=== PATIENT | female | born 1955 | race Caucasian/White ===

== ENCOUNTER 2024-10-26 15:17 | Outpatient (REF) | payer MEDICARE, SELFPAY ==
[2024-10-26 18:16] LABS: Influenza A PCR NEGATIVE (Negative); Influenza B PCR NEGATIVE (Negative); Resp Syncy Virus RNA Qual PCR NEGATIVE (Negative); SARS COV2 PCR INHOUSE NEGATIVE (Negative)
== END 2024-10-26 15:18 | disposition home or self-care (01) ==
LOC: HO.LNP 15:17
PROVIDERS: PCP Nurse Practitioner Family; Visit Provider Nurse Practitioner Family
DX: Z76.89 Persons encountering health services in other specified circumstances (principal); G47.33 Obstructive sleep apnea (adult) (pediatric); R68.89 Other general symptoms and signs; H93.13 Tinnitus, bilateral; H40.1230 Low-tension glaucoma, bilateral, stage unspecified; K45.8 Other specified abdominal hernia without obstruction or gangrene; F41.1 Generalized anxiety disorder; E66.01 Morbid (severe) obesity due to excess calories; G89.29 Other chronic pain; R09.89 Other specified symptoms and signs involving the circulatory and respiratory systems; K14.0 Glossitis; I10 Essential (primary) hypertension; K02.9 Dental caries, unspecified; R29.6 Repeated falls; Z78.0 Asymptomatic menopausal state; Z90.710 Acquired absence of both cervix and uterus; Z99.89 Dependence on other enabling machines and devices
CPT/HCPCS: 0241U; 96127; 99202

== ENCOUNTER 2024-10-26 15:17 | Outpatient (AMB) | payer MEDICARE, SELFPAY ==
--- NOTE | 2024-10-26 15:18 | MHC.PC.OV ---
Vital Signs 10/26/24 15:42 Height 5 ft 5 in Weight 259 lb 8 oz BMI 43.2 BP 136/74 Blood Pressure Location Rt brachial Position Sitting Respiration 14 Pulse 95 Pulse Source Pulse Oximeter Temp 97.5 F Temp Source Oral Pulse Oximetry (%) 95 Oxygen Delivery Method Simple Mask Intake Visit Reasons: est care/kidney issues Intake Note: new patient to establish care Optometric Technician Required: No Allergies codeine Allergy (Severe, Verified 10/26/24 15:54) Hives nickel Allergy (Severe, Verified 10/26/24 15:54) Hives Sulfa (Sulfonamide Antibiotics) Adverse Reaction (Severe, Verified 10/26/24 15:54) Hives eye drops for galucoma Allergy (Severe, Uncoded 10/26/24 15:54) Dry Eye Tobacco use date assessed: 10/26/24 Fall risk assessment: 2 + Falls in past year Last assessed Fall Risk: 10/26/24 Dental Screening Dental Screen Date: 10/26/24 Did you have a dental visit in the last 12 months?: Yes Did you have a dental problem in the last 6 months where you did not have access to dental care?: No Was dental information given to patient?: Patient has dentist HPI HPI Comments History of Present Illness Details 69 y/o F with obesity, SKYLAR on CPAP, tinnitus, CKD, generalized anxiety disorder, hypertension, migraine headaches, normal pressure glaucoma, chronic pain Health Maintenance Colon Dexa 2022 Mammo ordered today Pap Vaccines: Tdap UTD Flu 2023 Specialists: Here today to est care Located from [place] to be closer to [facility] and grandchildren Presents today w/ her No previous medical records available c/o chest congestion/flu like sx. She reported a history of chronic respiratory problems requiring the use of a CPAP machine, verified by a physician in [place] due to apnea. She recently experienced chest congestion starting around three days ago, accompanied by a productive cough and mild fever, which has since subsided. She took ibuprofen for headache relief and mucinex to alleviate congestion. The patient has a longstanding history of tinnitus, with recent exacerbation experienced over the past six months. Would like audiology referral She also reported a history of normal pressure glaucoma and has had several eye surgeries. Would like referral to environmental science technician The patient mentioned signs of umbilical hernia but has not had surgical intervention as recommendations were not pursued. Additionally, the patient faces significant dental issues that may require extraction, and has ongoing management for arthritis. Social History - Recently relocated from [place] to live near her daughter in [place]. - Previously lived in a large house; now transitioning to a smaller living situation. - Engages in minimal physical activity due to arthritis and other health challenges. - Expresses reliance on family support for technological and health management. - Reported decreased abdominal strength affecting her functional status. Exam Awake alert chronically ill appearing, NAD Sclera and conjunctiva clear bilat Nares with clear drainage, turbinates within normal limits, no sinus tenderness with palpation bilat TM intact and clear bilat MMM, glossitis, no exudate RRR LS CTAB congested cough w/o distress noted Walks w walker Discussion Notes I discussed with the patient the need for a comprehensive approach to her respiratory symptoms, considering her history of chronic respiratory issues. A viral swab was recommended to rule out influenza, COVID-19, or RSV. Information on how to access results via the patient portal was provided. Referral to an general surgery physician assistant for hearing and tinnitus evaluation was agreed upon, and we discussed the potential for hearing aids as a treatment option. I addressed her request for an environmental science technician referral considering her normal pressure glaucoma, aiming for a local option due to convenience. Concerns regarding hernia management were discussed; a surgical consult was offered for further evaluation. She declined at this time. The dental issues will be pursued with her current oral surgeon and dentist. We will await the receipt of her records from previous healthcare providers. An introduction to the patient portal was emphasized for streamlined communication and access to medical information. Plan - Proceed with viral swab testing to identify the cause of respiratory symptoms. If + for flu, please call shock absorption floor layer provider and ask for Tamiflu. - Arrange audiology referral for tinnitus evaluation and potential hearing aid fitting. - Ophthalmology referral for management of normal pressure glaucoma and post-surgical care. - Surgical consultation for assessment and management options of umbilical hernia. - Maintain use of CPAP for chronic respiratory management. - Support in dental planning provided, referral remains with the current oral healthcare providers. - Continue monitoring arthritis with current management, adjust as needed. - Encourage use of patient portal for ongoing healthcare management. b12 lozenge for glossitis Mammo ordered rto 2 weeks to review labs and cont to est care/treatment plan. please get old records. Patient was informed and verbally consented to the use of an ambient scribe for clinic note documentation during this visit. Total time spent caring for the patient today was 60 minutes. This includes time spent before the visit reviewing the chart, time spent during the visit, and time spent after the visit on documentation, reviewing laboratory results, diagnostic imaging, medications, performing a medically necessary evaluation, counseling on diagnoses, care coordination, ordering appropriate tests, ordering appropriate medications, review of tests performed by other providers, reporting test results with the patient, communication with other healthcare providers. [facility] Medical History (Updated 10/26/24 @ 16:30 [facility] Migraines Hypertension Anxiety Sleep apnea Low kidney function Normal pressure glaucoma Umbilical hernia Surgical History (Updated 10/26/24 @ 16:07 by DESHAUN Cadena) H/O eye surgery H/O: hysterectomy Previous back surgery H/O knee surgery Family History (Updated 10/26/24 @ 15:37 by Alistair Kerns MA) Brother Cancer Pancreas cancer Father Cancer Hypertension Cardiovascular disease Stented coronary artery Mother Stroke Thyroid disorder Pacemaker Cardiovascular disease Paternal Grandmother Stroke Social History (Updated 10/26/24 @ 15:33 by Alistair Kerns MA) Household Members: Spouse Both parents involved: No Caregiver staying overnight: No Housing: Apartment Are you a primary inspector health care facilities to a significant other at home: No Do you presently have visiting nurse or other home services: No 75 years or older and lives alone: No Alcohol intake: never Patient Tobacco Use Status: Never used Tobacco e-Cigarette/Vaping Use: Never Used Second Hand Smoke Exposure: No Current occupational status: retired and disabled Cognitive needs: Yes (mild dementia) Hearing needs: No Vision needs: Yes (wear glasses) Questionnaire PHQ-9 Over the last 2 weeks, how often have you been bothered by any of the following problems? 12761 - PHQ-9 Billing: Patient declined-do not bill Source: Developed by Drs. Rich Matthew, Mackenzie De La Garza, Chalo Landon and colleagues, with an educational mick from [employer] Thrive Questionnaire Date Thrive assessed: 10/26/24 I am a: Patient What is your living situation today?: I choose not to answer this question Within the past 12 months, did the food you bought not last and you didn't have the money to get more?: I choose not to answer this question Within the past 12 months, did you worry whether your food would run out before you got money to buy more?: I choose not to answer this question Do you have trouble paying for medicines?: I choose not to answer this question Do you have trouble getting transportation to medical appointments?: I choose not to answer this question Do you have trouble paying your heating and electricity bill?: I choose not to answer this question Do you have trouble taking care of your child, family member or friend?: I choose not to answer this question Do you have trouble with day-to-day activities such as bathing, preparing meals, shopping, managing finances, etc.?: I choose not to answer this question Are you currently unemployed and looking for a job?: I choose not to answer this question Are you interested in more education?: I choose not to answer this question Please select the resources that you would like help with: None Currently or been in a relationship where the following occur: I choose not to answer THRIVE Score: 0 AUDIT C Alcohol Use Questionnaire (AUDIT-C) 1. How often do you have a drink containing alcohol?: Never 3. How often do you have six or more drinks on one occasion?: Never Total Score: 0 Score Reviewed/Action Taken: Yes SAMARA-7 AMB Questionnaire SAMARA-7 Date SAMARA - 7 assessed: 10/26/24 Feeling nervous, anxious, or on edge: 0 = Not at all Not being able to stop or control worryin = Not at all Worrying too much about different things: 0 = Not at all Trouble relaxin = Not at all Being so restless that it is hard to sit still: 0 = Not at all Becoming easily annoyed or irritable: 0 = Not at all Feeling afraid as if something awful might happen: 0 = Not at all Total SAMARA-7 score (0-4 normal; 5-9 mild; 10-14 moderate; 15-21 severe): 0 Source: Developed by Drs. Rich Matthew, Mackenzie De La Garza, Chalo Landon and colleagues, with an educational mick from [employer] SAMARA-7 Assessment Billing SAMARA-7 Assessment Tool: SAMARA-7 Assessment 74351 Physical exam (Primary Care) Vital Signs: Last Vital Signs Temp 97.5 F 10/26/24 15:42 Pulse 95 10/26/24 15:42 Resp 14 10/26/24 15:42 BP 136/74 10/26/24 15:42 Pulse Ox 95 10/26/24 15:42 Oxygen Delivery Method Simple Mask 10/26/24 15:42 BMI result Body Mass Index 43.2 BMI Assessment/Plan discussion: High BMI High, discussed plan: lifestyle Tobacco/Smoking Status: Tobacco use Status Tobacco use date assessed 10/26/24 10/26/24 15:34 Patient Tobacco Use Status Never used Tobacco 10/26/24 15:34 e-Cigarette/Vaping Use Never Used 10/26/24 15:34 Currently or been in a relationship where the following occur: I choose not to answer Coding Level of Care Code New Pt Level 5 (13516) Complex EM visit Add On G2211 Diagnoses Encounter to establish care Z76.89 SKYLAR on CPAP G47.33 Flu-like symptoms R68.89 Tinnitus of both ears H93.13 Laterality: bilateral Low-tension glaucoma of both eyes, unspecified glaucoma stage H40.1230 Laterality: bilateral Glaucoma stage: stage unspecified Menopause Z78.0 S/P CLAUDIA (total abdominal hysterectomy) Z90.710 Recurrent abdominal hernia without obstruction or gangrene, unspecified hernia type K45.8 Hernia type: unspecified Recurrence: recurrent SAMARA (generalized anxiety disorder) F41.1 Morbidly obese E66.01 Other chronic pain G89.29 Chronic pain type: other chronic pain Glossitis K14.0 Primary hypertension I10 Hypertension type: primary hypertension Dental caries K02.9 Falls R29.6 Additional Codes SAMARA-7 Assessment Billing - SAMARA-7 Assessment Tool: SAMARA-7 Assessment 06717 ([id number]) Assessment & Plan Assessment & Plan (1) Encounter to establish care: Code(s): Z76.89 - Persons encountering health services in other specified circumstances Category: Medical (2) SKYLAR on CPAP: Code(s): G47.33 - Obstructive sleep apnea (adult) (pediatric) Category: Medical (3) Flu-like symptoms: Code(s): R68.89 - Other general symptoms and signs Category: Medical (4) Tinnitus: Code(s): H93.19 - Tinnitus, unspecified ear Category: Medical Qualifiers: Laterality: bilateral Qualified Code(s): H93.13 - Tinnitus, bilateral (5) Normal pressure glaucoma: Code(s): H40.1290 - Low-tension glaucoma, unspecified eye, stage unspecified Category: Medical Qualifiers: Laterality: bilateral Glaucoma stage: stage unspecified Qualified Code(s): H40.1230 - Low-tension glaucoma, bilateral, stage unspecified (6) Menopause: Code(s): Z78.0 - Asymptomatic menopausal state Category: Medical (7) S/P CLAUDIA (total abdominal hysterectomy): Code(s): Z90.710 - Acquired absence of both cervix and uterus Category: Medical (8) Abdominal hernia without obstruction and without gangrene: Code(s): K46.9 - Unspecified abdominal hernia without obstruction or gangrene Category: Medical Qualifiers: Hernia type: unspecified Recurrence: recurrent Qualified Code(s): K45.8 - Other specified abdominal hernia without obstruction or gangrene (9) SAMARA (generalized anxiety disorder): Code(s): F41.1 - Generalized anxiety disorder Category: Medical (10) Morbidly obese: Code(s): E66.01 - Morbid (severe) obesity due to excess calories Category: Medical (11) Chronic pain: Code(s): G89.29 - Other chronic pain Category: Medical Qualifiers: Chronic pain type: other chronic pain Qualified Code(s): G89.29 - Other chronic pain (12) Glossitis: Code(s): K14.0 - Glossitis Category: Medical (13) Hypertension: Code(s): I10 - Essential (primary) hypertension Category: Medical Qualifiers: Hypertension type: primary hypertension Qualified Code(s): I10 - Essential (primary) hypertension (14) Dental caries: Code(s): K02.9 - Dental caries, unspecified Category: Medical (15) Falls: Code(s): R29.6 - Repeated falls Category: Medical Plan . Orders: Orders Complete Blood Count no Diff Today Z00.00 - Encounter for general adult medical examination without abnormal findings, Z78.0 - Asymptomatic menopausal state Microalbumin, Random (w Creat) Today Z00.00 - Encounter for general adult medical examination without abnormal findings, Z78.0 - Asymptomatic menopausal state SARS-CoV2/FLU/RSV Today R09.89 - Other specified symptoms and signs involving the circulatory and respiratory systems MM tomosynthesis screening BI Today Z12.31 - Encounter for screening mammogram for malignant neoplasm of breast Comprehensive Met. Panel Today Z00.00 - Encounter for general adult medical examination without abnormal findings, Z78.0 - Asymptomatic menopausal state Hemoglobin A1c Today Z00.00 - Encounter for general adult medical examination without abnormal findings, Z78.0 - Asymptomatic menopausal state Lipid Panel Today Z00.00 - Encounter for general adult medical examination without abnormal findings, Z78.0 - Asymptomatic menopausal state TSH reflex Free T4 Today Z00.00 - Encounter for general adult medical examination without abnormal findings, Z78.0 - Asymptomatic menopausal state Vitamin D 25-OH Total Today Z00.00 - Encounter for general adult medical examination without abnormal findings, Z78.0 - Asymptomatic menopausal state Vitamin B12 and Folate Today Z00.00 - Encounter for general adult medical examination without abnormal findings, Z78.0 - Asymptomatic menopausal state Referrals Audiology Referral H93.19 - Tinnitus, unspecified ear Ophthalmology Referral H40.1290 - Low-tension glaucoma, unspecified eye, stage unspecified Patient Instructions: Patient Instructions - Follow up with viral swab results via patient portal. If + for flu, please call shock absorption floor layer provider and ask for Tamiflu. - Schedule appointments with the general surgery physician assistant and environmental science technician as advised. - Continue using CPAP as prescribed. Maintain hydration, and monitor for any worsening respiratory symptoms. - Discuss hernia management options with referred surgical specialists in the future - Coordinate dental care with current oral surgeon and dentist. - Engage with family for support in using the patient portal. Walk-In Care (Urgent Care): We Make it Easy Walk-in for urgent medical issues such as: ? Seasonal Allergies ? Insect Bites ? Cough ? Diarrhea ? Acute Asthma Attacks ? Back, Knee or Joint Pain ? Ear Infection ? Fever without a Rash ? Headaches ? Nausea ? [place] [facility], Rash or Skin Irritation ? Sore Throat ? Sports Physicals ? Vomiting Most insurances are accepted. Patients do not need to be part of the [facility] to seek care at the walk-in clinic. Locations [address], [place] [address] ? [phone] [facility] [place] provides services to ages 18 and over. Open Tuesday-Tuesday: 8 a.m. to 5 p.m. and Tuesday: 9 a.m. to 3 p.m.* *Hours may vary due to staffing availability. To confirm Walk-In Care hours in [place], please call [phone]. [address] [place] [address] ? [phone] [facility] Walk-In [facility] in [place] provides services to ages 12 and over. Open Tuesday-Tuesday: 8 a.m. to 5 p.m. Hours may vary due to staffing availability. To confirm Walk-In Care hours in [place], please call [phone]. LABORATORY SERVICES: [facility] ? Primary Location [address] [place] [address] Tuesday through Tuesday 6:00 AM ? 5:00 PM Tuesday 7:00 AM ? 11:00 AM* [phone] The [facility] is centrally located near the front entrance of the [facility] for easy outpatient access. Convenient parking is provided for outpatients. *Hours may vary due to staffing availability. To confirm Laboratory hours for any location, please call [phone]. Offsite Location For your convenience, we offer offsite laboratory draw stations at the following locations: [address] [place] [address] ? [address], [address] Tuesday through Tuesday 7:30 AM ? 1:00 PM* [phone] *Hours may vary due to staffing availability. To confirm Laboratory hours for any location, please call [phone]. [place] ? [address] Tuesday through Tuesday 6:00 AM ? 3:30 PM* Tuesday 6:30 AM ? 3 PM* [phone] *Hours may vary due to staffing availability. To confirm Laboratory hours for any location, please call [phone] [place] [address] Tuesday through Tuesday 7:30 AM ? 4:00 PM* [phone] *Hours may vary due to staffing availability. To confirm Laboratory hours for any location, please call [phone] [place] [address] Tuesday through 9:00 AM ? 4:00 PM* *Hours may vary due to staffing availability. To confirm Laboratory hours for any location, please call [phone]. Appointments are not necessary. Walk-ins are welcome. Like all the departments throughout the [facility], our Lab undergoes frequent reviews to ensure the quality and accuracy of test results, and our staff takes special pride in its status as a nationally accredited facility. Patient Portal: ONE PATIENT. ONE RECORD. BETTER CARE. [facility] has a fully integrated, cutting-edge mobile electronic health information system that has revolutionized the way we care for our patients and manage our organization. This system improves communication and coordination enabling us to provide safe, higher-quality care, and an overall positive experience for staff and patients. Our first priority, as always, is to deliver the highest quality care possible. The system is running in the background supporting that priority. This portal is for all [facility] services and practices. If you are experiencing any technical difficulties with enrolling or logging into the Patient Portal please complete the [facility] Patient Portal Technical Support Form. [facility] now offers a new secure on-line interactive tool for patients to review their health information ? Patient Portal. This interactive web portal will enable patients and their families to take an active role in their care by providing easy, secure access to their health information via the internet. The Patient Portal provides patients with instant access to their health information, including laboratory results, medications, allergies, demographic information, visit history, and more. In addition to managing their own care, parents and health care proxies with authorized consent will appreciate the ability to access the records of those individuals for whom they provide care. Please note: if you wish to gain access (Proxy) to another patient?s portal, you will be required to come to the Medical Records Department in person at [facility]. Both the patient giving proxy access and the proxy will need to provide photo identification and complete the appropriate authorization. The Patient Portal also allows track their appointments online. The [facility] Patient Portal also saves patients time by allowing them to submit updates to their demographic and contact information prior to their visits. Portal email notifications will also alert patients to any new activity on their portal, such as test results and new appointments. In order to initially enroll in the [facility] Patient Portal, you will need to enter some required information including the following: ? your [facility] Medical Record number ? your personal home email address ? name ? date of Please note: In order to enroll in the [facility] Patient Portal, we need to have your email address on file in your electronic medical record. The email address needs to be specific for one person (yourself) in order for your Portal enrollment to be successful. You can update your email address in person with our Registration staff when you are registering for a hospital visit. Otherwise, you will need to come to the Health Information Management (Medical Records) Department at [facility]. We are open from Tuesday ? Tuesday from 7:30 a.m. ? 4:30 p.m. You will be required to present a photo id. Once you have successfully enrolled in the Patient Portal, you will receive a one-time user id and password for the Portal, sent to your email address. This will allow you to log into the Patient Portal within 99 hrs and reset your own logon id and password, and define personal security questions. Once your permanent login and password have been set, you can log into the [facility] Patient Portal at any time via the blue button above or from the Portal Logon button on any page of the [facility] website. [facility] and [facility] encourage all of our patients to enroll in Patient Portal as it presents a valuable opportunity for patients and their families to actively participate in their care and stay healthy Welcome to [facility]. We look forward to working with you.
[2024-10-26 15:42] VITALS: BP 136/74; PULSE 95; RESP 14; TEMP 36.4; O2SAT 95; BMI 43.2
== END 2024-10-26 16:20 | disposition home or self-care (01) ==
PROVIDERS: PCP Nurse Practitioner Family; Visit Provider Nurse Practitioner Family
DX: H93.13 Tinnitus, bilateral (principal); Z76.89 Persons encountering health services in other specified circumstances; E66.01 Morbid (severe) obesity due to excess calories; Z68.41 Body mass index [BMI] 40.0-44.9, adult; G47.33 Obstructive sleep apnea (adult) (pediatric); R68.89 Other general symptoms and signs; H40.1230 Low-tension glaucoma, bilateral, stage unspecified; Z78.0 Asymptomatic menopausal state; Z90.710 Acquired absence of both cervix and uterus; K45.8 Other specified abdominal hernia without obstruction or gangrene; F41.1 Generalized anxiety disorder; G89.29 Other chronic pain

== ENCOUNTER 2024-11-09 09:48 | Outpatient (AMB) | payer MEDICARE, SELFPAY ==
--- NOTE | 2024-11-09 09:46 | A.OFFPC_ITS ---
Vital Signs 11/09/24 10:30 Temp 97.5 F Temp Source Oral Intake Visit Reasons: fu Allergies codeine Allergy (Severe, Verified 11/09/24 09:47) Hives nickel Allergy (Severe, Verified 11/09/24 09:47) Hives Sulfa (Sulfonamide Antibiotics) Adverse Reaction (Severe, Verified 11/09/24 09:47) Hives eye drops for galucoma Allergy (Severe, Uncoded 11/09/24 09:47) Dry Eye Medication List - Last Reconciled 11/09/24 by Isadora Michael, [employer] amoxicillin 2,000 mg PO ONCE clonazepam 0.5 mg PO TID CPAP (CPAP Machine/Device) As directed cyclobenzaprine 10 mg PO TID ergocalciferol (vitamin D2) 1,250 mcg PO QWEEK esomeprazole magnesium 40 mg PO DAILY PRN hydroxyzine HCl 25 - 50 mg PO QID PRN oxycodone 5 mg PO TID pregabalin 75 mg PO BID ramipril 10 mg PO BID sertraline 150 mg PO DAILY torsemide 30 mg PO DAILY zinc gluconate 50 mg PO Q OTHER DAY zinc sulfate 50 mg PO Q OTHER DAY Tobacco use date assessed: 10/26/24 Dental Screening Dental Screen Date: 10/26/24 HPI HPI Comments History of Present Illness Details TELEVIDEO VISIT VIA Caviar: The patient is a 69-year-old female presenting with laryngitis, productive cough, and diarrhea. Initially, the patient's symptoms were centered around the upper respiratory tract, with complaints of voice loss that frequently comes and goes. The respiratory issue was previously evaluated with a viral swab test that returned negative, although the cough was initially present, it has since worsened, producing a distinctively harsh sound. At one point, the patient's cough produced yellow sputum, and she experienced intermittent fevers peaking at 101?F. To manage the symptoms, she has been using Mucinex and attempting to maintain hydration, although she struggles to ingest sufficient fluids. A previous esophageal dilation procedure has contributed to these challenges with thick mucus production. Her symptoms showed a pattern, with respiratory symptoms initially predominant, transitioning later to gastrointestinal, characterized by notably foul-smelling diarrhea. The possibility of an infectious cause such as norovirus is pondered given exposure to her and daughter who had similar GI flu-like symptoms. needs refill on hydroxyzine Physical Exam Limited by video General: Awake, alert. No apparent distress Eyes: Sclera and conjunctiva clear bilaterally Voice wraspy Congested cough w/o distress T 97.5 Results - Upper respiratory tract swab: Negative flu covid rsv Discussion Notes I discussed with the patient the continuation of symptomatic care with Mucinex for alleviating thick mucus. As the upper respiratory infection has persisted alongside the progressive development of gastrointestinal symptoms, a prescription of azithromycin (Z-Jai) was considered appropriate to target any potential bacterial involvement despite prior negative swab results. I advised the patient on the typical course of azithromycin, detailing the multi-day dosage regimen and the pharmacokinetics where the medication remains active in the system beyond the course of tablets. We discussed the expected natural course of the cough, and I emphasized jeter warning signs that would necessitate prompt follow-up, including persistent fever or worsening symptoms. GI sx are likely unrelated and may be from norovirus. Additionally, we discussed the refill requirement for the patient's hydroxyzine, and arrangements to complete this were confirmed. Patient Instructions - Begin taking azithromycin as prescribe d: two tablets on the first day, followed by one tablet daily until completion. - Continue using Mucinex to manage mucus and cough. - Ensure adequate fluid intake; even min or improvements in hydration can be beneficial. - Monitor for any signs of worsening sym ptoms like persistent fever, or an increase in respiratory difficulty, and report them immediately. - Contact the clinic for any further med ication requests or difficulties using the patient portal. - If problems with portal access persist , communicate directly through the pharmacy. - Try to remain as hydrated as possible, although not to the point of necessitating intravenous fluids thus far. Plan The primary concerns presented by the patient included laryngitis, a progressively worsening productive cough, and diarrhea possibly linked to noroviral infection. Given the symptomatology and previous negative swab results for respiratory pathogens, an empirical course of azithromycin was chosen to address any possibly underlying bacterial component, as the presence of colored sputum and intermittent fever could suggest a superimposed bacterial infection. Management also includes continued use of Mucinex to assist with mucus clearance, alongside instructions for ensuring stable hydration. Regarding the gastrointestinal issue, the patient is advised to maintain hydration and observe for any exacerbation of symptoms, considering the differential of viral gastroenteritis. Additionally, prescriptions for hydroxyzine refills were facilitated to ensure ongoing management of concurrent conditions. The patient was counseled on early signs that would necessitate further evaluation and provided with instructions to optimize her ongoing therapeutic regimen and ensure medication access despite recent disruptions due to relocation. Patient was informed and verbally consented to the use of an ambient scribe for clinic note documentation during this visit. [facility] Medical History (Updated 11/09/24 @ 10:32 [facility] Anxiety Hypertension Low kidney function Migraines Normal pressure glaucoma Sleep apnea Umbilical hernia Surgical History (Updated 10/26/24 @ 16:07 [facility] H/O eye surgery H/O knee surgery H/O: hysterectomy Previous back surgery Family History (Updated 10/26/24 @ 15:37 by Alistair Kerns MA) Brother Cancer Pancreas cancer Father Cancer Hypertension Cardiovascular disease Stented coronary artery Mother Stroke Thyroid disorder Pacemaker Cardiovascular disease Paternal Grandmother Stroke Social History (Updated 10/26/24 @ 15:33 by Alistair Kerns MA) Household Members: Spouse Both parents involved: No Caregiver staying overnight: No Housing: Apartment Are you a primary small animal caretaker to a significant other at home: No Do you presently have visiting nurse or other home services: No 75 years or older and lives alone: No Alcohol intake: never Patient Tobacco Use Status: Never used Tobacco e-Cigarette/Vaping Use: Never Used Second Hand Smoke Exposure: No Current occupational status: retired and disabled Cognitive needs: Yes (mild dementia) Hearing needs: No Vision needs: Yes (wear glasses) Questionnaire Thrive Questionnaire Date Thrive assessed: 10/26/24 SAMARA-7 AMB Questionnaire SAMARA-7 Date SAMARA - 7 assessed: 10/26/24 Source: Developed by Drs. Rich Matthew, Mackenzie De La Garza, Chalo Landon and colleagues, with an educational mick from [employer]. Physical exam (Primary Care) Tobacco/Smoking Status: Tobacco use Status Tobacco use date assessed 10/26/24 10/26/24 15:34 Patient Tobacco Use Status Never used Tobacco 10/26/24 15:34 e-Cigarette/Vaping Use Never Used 10/26/24 15:34 Thrive Assessment: Date of Thrive Assessment Date Thrive assessed 10/26/24 10/26/24 16:30 Telehealth Telehealth Telehealth Platform: Doxim[employer] Location of provider rendering services: practice address Location of patient: address on file Patient Identification confirmed using: Name, : Yes Telehealth method: video Patient verbally consented to treatment: Yes Patient verbally consented to billing insurance company: Yes Patient informed of any privacy concerns related to visit: Yes Minutes spent on Phone/Video with Pt.: 20 Coding Level of Care Code Tele Est Pt Level 3 (02765) Complex EM visit Add On G2211 Diagnoses Acute bronchitis, unspecified organism J20.9 Bronchitis organism: unspecified organism Assessment & Plan Assessment & Plan (1) Acute bronchitis: Code(s): J20.9 - Acute bronchitis, unspecified Category: Medical Qualifiers: Bronchitis organism: unspecified organism Qualified Code(s): J20.9 - Acute bronchitis, unspecified Plan . Medications: New azithromycin For 250 mg dose pack: take 500 mg today (day 1), then 250 mg for 4 days (days 2-5) PO 5 days 6 tabs 0RF Changed From hydroxyzine HCl 25 - 50 mg PO QID PRN To hydroxyzine HCl 25 - 50 mg (1 - 2 x 25 mg) PO QID 90 days 360 tabs 2RF
[2024-11-09 10:30] VITALS: TEMP 36.4
== END 2024-11-09 17:05 | disposition home or self-care (01) ==
LOC: HO.HMCFM 09:48
PROVIDERS: PCP Nurse Practitioner Family; Visit Provider Nurse Practitioner Family
DX: J20.9 Acute bronchitis, unspecified (principal)

== ENCOUNTER → 2024-11-09 09:48 | Outpatient (BNVA) | payer MEDICARE, SELFPAY | PROVIDERS: PCP Nurse Practitioner Family; Visit Provider Nurse Practitioner Family ==

== ENCOUNTER 2024-11-14 10:58 | Outpatient (REF) | payer MEDICARE, SELFPAY ==
[2024-11-14 14:33] LABS: Hematocrit 41.8 % (37.0-47.0); Hemoglobin 13.3 g/dl (12.0-16.0); Mean Corpuscular HGB Conc 31.8 g/dl (31.0-35.0); Mean Corpuscular Hemoglobin 26.8 pg (27.0-33.0); Mean Corpuscular Volume 84.3 fL (80.0-98.0); Mean Platelet Volume 9.8 fL (9.4-12.3); Platelet Count 416 X10*3/uL (160-400); Red Blood Count 4.96 X10*6/uL (4.20-5.50); Red Cell Distribution Width 16.9 % (11.0-16.0); White Blood Count 5.8 X10*3/uL (4.8-10.8)
[2024-11-14 14:51] LABS: Estimated Average Glucose 123 mg/dL; Hemoglobin A1C 141.3441 umol/L; Hemoglobin A1c % 5.9 % (<6.0); Total Hemoglobin (HGBA1C) 3439.3901 umol/L
[2024-11-14 15:03] LABS: Alanine Aminotransferase 18 U/L (0-31); Albumin Level 3.5 g/dL (3.5-5.0); Alkaline Phosphatase 128 U/L (39-117); Anion Gap 12 (12-20); Aspartate Amino Transferase 19 U/L (5-31); Bilirubin Total 0.5 mg/dL (0.0-1.0); Blood Urea Nitrogen 14 mg/dL (9-16); Calcium 9.6 mg/dL (8.4-10.2); Carbon Dioxide 26 mmol/L (22-29); Chloride 105 mmol/L (96-108); Cholesterol 185 mg/dL (<200); Estimated Glomerular Filt Rate 59; Glucose Random 92 mg/dL (60-115); HDL Cholesterol 35 mg/dL (>40); LDL Cholesterol Calculated 128 mg/dL (<100); Potassium 3.5 mmol/L (3.3-5.1); Sodium 139 mmol/L (135-145); Total Protein 7.9 g/dL (6.5-8.0); Triglycerides 111 mg/dL (<150)
[2024-11-14 15:18] LABS: Folate 10.6 ng/mL (> or = 4.0); Vitamin B12 1630 pg/mL (200-900)
[2024-11-14 15:20] LABS: TSH reflex Free T4 1.12 uIU/mL (0.32-4.0); Vitamin D 25-OH Total 43.3 ng/mL (>30)
== END 2024-11-14 10:59 | disposition home or self-care (01) ==
LOC: HO.WFDLDS 10:58
PROVIDERS: Visit Provider Nurse Practitioner Family
DX: Z00.00 Encounter for general adult medical examination without abnormal findings (principal); Z78.0 Asymptomatic menopausal state; Z13.1 Encounter for screening for diabetes mellitus; Z13.6 Encounter for screening for cardiovascular disorders
CPT/HCPCS: 36415; 80053; 80061; 82306; 82607; 82746; 83036; 84443; 85027

== ENCOUNTER 2024-11-16 12:50 | Outpatient (REF) | payer MEDICARE, SELFPAY ==
--- OUTSIDE RECORDS SUMMARY | 2024-11-16 13:58 | XMS_ITS | Patient Health Record ---
Author Organization [facility] Physician Tanya العلي Address [address] [facility] [address]nd [place] [address] Care Team Providers Care Parks Recreation Coordinator Name Role Phone Galileo Alarcon Primary Care Provider [phone] Lauren Fragoso Unavailable [phone] Jimmie Villatoro Unavailable [phone] Angelica Bhardwaj Unavailable [phone] Reynaldo Perez Unavailable [phone] Hipolito Escobar Unavailable [phone] ALLERGIES Allergen (clinical drug ingredient) Drug/Non Drug Allergy documented on EMR Reaction Allergy Type Onset Date Status diphenhydramine Benadryl anxiety Drug Allergy Active brimonidine Brimonidine Tartrate itch Drug Allergy Active Brompheniramine Maleate palpitations Drug Allergy Active Codeine Phosphate anaphylaxis Drug Allergy Active Coumadin dizziness, nausea Drug Allergy Active tetrahydrozoline Eye Drops itching, burning Drug Allergy Active Tears Plus Runny nose Drug Allergy Active SULFA - ALLERGY fever, hives Drug Allergy Active nickel Nickel rash Allergy Active Tape Unknown Allergy Active RESULTS Component Value Reference Range Notes Urinalysis w/reflex to Micro scopic w/reflex to Culture Reviewed date:11/26/2023 04:52:30 PM Interpretation: Performing Lab: Notes/Report: Specimen URINE Color YELLOW Reference Range: YELLOW Appearance CLEAR Reference Range: CLEAR Specific Webster 1.004 <1.030 PH 7.0 5.0 - 8.0 Protein NEGATIVE Reference Range: NEGATIVE Glucose NEGATIVE Reference Range: NEGATIVE Ketones NEGATIVE Reference Range: NEGATIVE Bilirubin NEGATIVE Reference Range: NEGATIVE Blood NEGATIVE Reference Range: NEGATIVE Urobilinogen <2.0 <2.0 mg/dL Nitrite NEGATIVE Reference Range: NEGATIVE Leukocyte SMALL Reference Range: NEGATIVE WBC 5-10 0-5 RBC 0-2 0-2 Squamous Epithelial Cells 0-2 0-2 Parathyroid Hormone - Intact (PTHI) Reviewed date:11/26/2023 02:27:21 PM Interpretation: Performing Lab: Notes/Report: This analyte was performed using the Ann Marie Fracisco DXI. PTH Intact 203.0 12.0 - 88.0 PG/ML Reflexed PE2(S Prot Elect) R melany,REF 1 [facility] Reviewed date:12/01/2023 10:12:06 AM Interpretation: Performing Lab: Notes/Report: (NOTE) Electronically signed and reported by Alo Baird M.D. Performed by [facility]: [address],[place] [address] PE(S Prot Elect) Review FINALIZED Reflexed UPE(U Prot Elect) R melany,REF 1 [facility] Reviewed date:12/01/2023 10:12:13 AM Interpretation: Performing Lab: Notes/Report: (NOTE) Electronically signed and reported by Alo Baird M.D. Performed by [facility]: [address],[place] [address] UPE(U Prot Elect) Review FINALIZED Immunoglobulins, IgG,IgA,IgM (Not yet reviewed by provider) Interpretation: Performing Lab: Notes/Report: IgG 1852.4 635 - 1741 mg/dL IgA 115.3 66 - 433 mg/dL IgM 69.8 45 - 281 mg/dL Immunofixation(Immunoelectro phoresis),Serum,REF 1 [facility] (Not yet reviewed by provider) Interpretation: Performing Lab: Notes/Report: (NOTE) IgG Lambda paraprotein in the gamma region and a very faint Lambda band in the far gamma region. Serum immunofixation performed using antisera specific to IgG, IgA, IgM, [place] and Lambda. 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 Total Protein 7.6 Albumin 3.9 Alpha 1 0.4 Alpha 2 0.8 Beta 0.8 Gamma 1.7 Paraprotein 1.5 Location of Paraprotein Gamma A/G Ratio 1.1 Interpretation,PE M spike present Reviewed By Alicja Reflexed PE2(S Prot Elect) R leoniew,REF 1 [facility] (Not yet reviewed by provider) Interpretation: Performing Lab: Notes/Report: (NOTE) Electronically signed and reported by Dallas Helm M.D. Performed by [facility]: [address],[place] [address] PE(S Prot Elect) Review FINALIZED Reflexed SIF(S Immunofix) Re view,REF 1 [facility] (Not yet reviewed by provider) Interpretation: Performing Lab: Notes/Report: (NOTE) Electronically signed and reported by Dallas Helm M.D. Performed by [facility]: [address],[place] [address] SIF(S Immunofix) Review FINALIZED [place]-Lambda Free Light Andrea n w/Ratio,REF 1 [facility] (Not yet reviewed by provider) Interpretation: Performing Lab: Notes/Report: (NOTE) Serum Free Light Chain results, performed on the Binding Site Optilite (turbidimetric assay), are not absolute evidence for the presence or absence of malignant disease and the values obtained with different assay methods or kits cannot be used interchangeably. Performed by [facility]: [address],[place] [address] [place] Free Light Chains(EFF. -2019) 1.75 Lambda Free Light Chains(EFF.) 12.74 [place]/Lambda Ratio(EFF. ) 0.14 CBC - Complete Blood Count w ith Auto Diff Reviewed date:04/25/2024 09:06:11 AM Interpretation: Performing Lab: Notes/Report: WBC 6.6 4.0 - 11.0 10x3/uL RBC 5.18 3.80 - 5.10 10x6/uL Hgb 13.7 11.6 - 15.2 G/DL Hct 41.1 34.0 - 45.0 % MCV 79.3 80 - 97 FL MCH 26.5 26 - 33 PG MCHC 33.4 32 - 36 G/DL Plt 295 150 - 450 10x3/uL RDW 16.0 11.0 - 14.5 % Auto Neut 60.9 38 - 80 % Auto Lymph 25.0 15 - 49 % Auto Alcon[place] 8.9 0 - 13 % Auto Eosin 5.0 0 - 8 % Auto Baso 0.2 0 - 2 % Absolute Neut 3.99 1.52 - 8.80 10x3/uL Absolute Lymph 1.64 0.60 - 5.39 10x3/uL Absolute [place] 0.58 0.00 - 1.43 10x3/uL Absolute Eosin 0.33 0.00 - 0.88 10x3/uL Absolute Baso 0.02 0.00 - 0.22 10x3/uL CMP - Comprehensive Metaboli c Panel Reviewed date:04/25/2024 09:06:18 AM Interpretation: Performing Lab: Notes/Report: (NOTE) GFR Interpretation CKD-EPI Creatinine Equation (2020): The CKD-EPI equation was used in this calculation. It has reasonable accuracy in non-hospitalized patients thought to have CKD, regardless of diagnosis. The equation has not been validated in children (age <18 years), in women, in the elderly (age >85 years), or in some racial or ethnic subgroups. Furthermore, any of the limitations with the use of serum creatinine related to nutritional status or medication usage are not accounted for in the equation. Quantification of GFR values below 60 mL/min/1.73m2 has more clinical implications for classification of kidney function than values above this level. Please Note On October 27, 2022, the eGFR calculation was adjusted. This adjustment was required due to an identified miscalculation which resulted in a slightly lower eGFR estimation than the National Kidney Foundation's online calculator. In some instances the eGFR reported was 0-6 units lower than if calculated using the CKD-EPI Creatinine equation. Sodium 138 136 - 145 mMOL/L Potassium 3.7 3.5 - 5.1 mMOL/L Chloride 99 98 - 107 mMOL/L Carbon Dioxide 33 21 - 31 mMOL/L Glucose 117 74 - 109 MG/DL BUN 26 7 - 25 MG/DL Creatinine 1.6 0.6 - 1.2 MG/DL Calcium 9.7 8.6 - 10.3 MG/DL Albumin 4.1 3.7 - 5.3 g/dL Total Protein 8.2 6.0 - 8.3 G/DL Alk Phos 143 34 - 104 Units/L T Bilirubin 0.5 0.3 - 1.0 MG/DL AST (SGOT) 12 13 - 39 Units/L ALT (SGPT) 11 7 - 52 Units/L Estimated GFR 34 IR Consult Reviewed date:01/09/2024 10:42:54 AM Interpretation: Performing Lab: Notes/Report: Angiography Procedure KIDNEY [id number] Interventional radiology consultation 68-year-old female with chronic kidney disease stage III and an abnormal serum protein electrophoresis for kidney biopsy. Recommend ultrasound-guided percutaneous biopsy of a kidney. See full dictation and Quadra-med. Signed by Toño Damon on 12/30/2023 2:52 PM I have personally reviewed the imaging examination and agree with the resident's interpretation as written E[place], [place]OPSY, [place] [id number] Reviewed date:01/19/2024 11:39:54 AM Interpretation: Performing Lab: Notes/Report: See Below For Report [id number] FINAL DIAGNOSIS: A. 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 There is about 10% interstitial fibrosis and tubular atrophy (IFTA) by LM. There is focal periglomerular fibrosis. There is segmental mild corrugation of GBMs by EM. There are vascular changes in the form of mild hyalinosis and focal intimal proliferation with luminal narrowing ( onion skinning ) of arterioles; mild hyaliosis, mild medial thickening and mild to moderate intimal fibrosis of interlobular arteries; and moderate to severe intimal fibrosis and moderate medial thickening of large arteries. In this patient with a clinical history of hypertension, these findings are characteristic of mild to moderate arterionephrosclerosis with features of accelerated hypertension related vascular injury. In addition, there is focal acute tubular injury characterized by focal tubular epithelial flattening with loss of brush border and apical blebbing involving 20-30% of tubular profiles. In addition, there are rare isolated podocyte myelin bodies by EM. This finding may raise the possibility of Fabry disease; however, the extent and distribution of myelin bodies are not typical for Fabry disease. Other possible etiologies include drug exposure such as hydrochloroquine. In this patient with a clinical history of elevated lambda light chain, there is no evidence of dysproteinemia related injury in that there is no evidence of light chain deposition disease, light chain cast nephropathy or light chain proximal tubulopathy. Congo red stain is negative for amyloid. Of note, the extent of IFTA in this small biopsy sample available by LM containing 6 glomeruli may not be industrial sales representative of the entire kidney. Positive controls for IHC/Special Stains and negative tissue elements were both evaluated and are adequate for diagnosis. H&E quality was reviewed and is acceptable for diagnosis. Spoke with Dr. Fragoso on 01/11/2024 MICROSCOPIC EXAMINATION: LIGHT MICROSCOPY: Multiple sections are prepared including one H&E, one PAS, one Cheyenne trichrome, and one Douglas methenamine silver stained slides. - Biopsy: 5 pieces of corticomedullary junction - Total glomeruli: 6 - Globally sclerosed glomeruli: 1 Glomeruli: - Mesangium: mild increase in matrix; unremarkable cellularity - Glomerular basement membrane: no spikes; no holes; no corrugation; no double contours - Glomerular tuft and Parrish's space: no adhesion; no segmental sclerosis; no crescent; no necrosis; no endocapillary hypercellularity; no thrombi Tubules/Interstitium: - Intratubular: occasional proteinaceous and rare RBC casts; no crystals; no polarizable material - Acute tubular injury: focal tubular epithelial flattening with loss of brush border and apical blebbing involving 20-30% of tubular profiles - Tubular atrophy: proportional to interstitial fibrosis - Interstitial inflammation: mild lymphocytes in scar; no eosinophils; no neutrophils - Interstitial fibrosis: about 10% Arteries: - Arterioles: mild hyalinosis; focal intimal proliferate with luminal narrowing - Interlobular arteries: mild to moderate intimal fibrosis; mild hyalinosis; mild medial thickening - Large arteries: moderate to severe intimal fibrosis; moderate medial thickening Additional Studies: - Congo red: negative IMMUNOFLUORESCENCE MICROSCOPY: H&E and PAS stained frozen sections show 2 pieces of cortex; 1 piece of corticomedullary junction - Total glomeruli: 3 - Globally sclerosed glomeruli: 2 - Segmentally sclerosed glomeruli: 0 - Other: open glomerulus with ischemic changes and periglomerular fibrosis (Scale 0-3+) - IgG: trace linear accentuation of GBMs and TBMs - IgA: negative glomeruli; 2+ cast - IgM: negative - C3: negative glomeruli; 2+ arteriolar - C1q: negative - Albumin: linear accentuation of GBMs and TBMs - Fibrinogen: nonspecific - [place]: negative glomeruli; 2+ cast - Lambda: negative glomeruli; 2+ cast ELECTRON MICROSCOPY: Toluidine blue stained dress cap maker sections show 2 pieces of cortex - Total glomeruli: 5 - Globally sclerosed glomeruli: 0 - Segmentally sclerosed glomeruli: 0 - Other: 1 glomerulus shows ischemic change with periglomerular fibrosis One micron toluidine blue thick sections and electron microscopy thin sections are technically adequate for interpretation. Glomerular basement membrane: - Thickness: normal - Lamina lorne interna: unremarkable - Subepithelial deposits: none - Subendothelial deposits: none - Foot process effacement: about 30% - Visceral epithelial cells: focal microvillous transformation - Other: mild segmental corrugation of GBM; rare podocyte with myelin bodies Capillary loop: - Endothelial cells: segmental swollen - Reticular aggregates: none - Fibrin tactoids: none - Cellular interposition: rare - Other: rare inflammatory cells Mesangium: - Matrix: mild increase - Cellularity: unremarkable - Mesangial deposits: none Tubules/Interstitium: - Tubular basement membrane deposits: none - Interstitial collagen: mild increase INDICATIONS FOR PROCEDURE/CLINICAL HISTORY: 68-year-old woman with CKD, hypertension, sub-nephrotic proteinuria, and abnormal [place]/Lambda ratio with elevated lambda. Abnormal K[place]/Lambda; CKD IIIB; GROSS DESCRIPTION: Received from [facility] in three with formalin and transport media, labeled with the patient's name and right kidney are eight 0.1cm diameter pedraza-pink soft tissue core biopsies with an aggregate length of 6 cm. Two 0.3 cm fragments are submitted for electron microscopy. Three 0.7 cm fragments are submitted for immunofluorescence. The remainder of the specimen is submitted for light microscopy in one cassette labeled [id number] Summary of sections: A1-five pieces. Reported Date: Reviewing Pathologist's Electronic Signature: 01/12/2024 YESICA STRATTON MD Applicable only if cytogenetics or molecular diagnostics test results are included in this report: Unless otherwise noted, testing performed by [facility]- [address] [place] [address]. FDA Testing Disclaimer (Applicable only if flow cytometry and/or immunohistochemistry results are included in this report): These tests were developed and their performance characteristics determined by [facility], [address] [place] [address], [address] [place] [address]. The interpretation of the above immunohistochemistry stain or stains is guided by published results in the medical literature, provided package information from the machine stripper and by internal review of staining performance and assay validation within the immunohistochemistry laboratory. This testing has not been cleared or approved by the U.S. Food and Drug Administration (FDA). The FDA has determined that such clearance or approval is not necessary. These tests are used for clinical purposes and should not be regarded as investigational or research. Unless otherwise noted, Immunohistochemistry stains were performed at [facility], [address] [place] [address], [address], [place], [place] [address]. KIDNEY, [place], [place] [id number] Reviewed date:03/02/2024 09:17:20 AM Interpretation: Performing Lab: Notes/Report: See Below For Report [id number] FINAL DIAGNOSIS: A. 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 There is about 10% interstitial fibrosis and tubular atrophy (IFTA) by LM. There is focal periglomerular fibrosis. There is segmental mild corrugation of GBMs by EM. There are vascular changes in the form of mild hyalinosis and focal intimal proliferation with luminal narrowing ( onion skinning ) of arterioles; mild hyaliosis, mild medial thickening and mild to moderate intimal fibrosis of interlobular arteries; and moderate to severe intimal fibrosis and moderate medial thickening of large arteries. In this patient with a clinical history of hypertension, these findings are characteristic of mild to moderate arterionephrosclerosis with features of accelerated hypertension related vascular injury. In addition, there is focal acute tubular injury characterized by focal tubular epithelial flattening with loss of brush border and apical blebbing involving 20-30% of tubular profiles. In addition, there are rare isolated podocyte myelin bodies by EM. This finding may raise the possibility of Fabry disease; however, the extent and distribution of myelin bodies are not typical for Fabry disease. Other possible etiologies include drug exposure such as hydrochloroquine. In this patient with a clinical history of elevated lambda light chain, there is no evidence of dysproteinemia related injury in that there is no evidence of light chain deposition disease, light chain cast nephropathy or light chain proximal tubulopathy. Congo red stain is negative for amyloid. Of note, the extent of IFTA in this small biopsy sample available by LM containing 6 glomeruli may not be industrial sales representative of the entire kidney. Positive controls for IHC/Special Stains and negative tissue elements were both evaluated and are adequate for diagnosis. H&E quality was reviewed and is acceptable for diagnosis. Spoke with Dr. Fragoso on 01/11/2024 MICROSCOPIC EXAMINATION: LIGHT MICROSCOPY: Multiple sections are prepared including one H&E, one PAS, one Cheyenne trichrome, and one Douglas methenamine silver stained slides. - Biopsy: 5 pieces of corticomedullary junction - Total glomeruli: 6 - Globally sclerosed glomeruli: 1 Glomeruli: - Mesangium: mild increase in matrix; unremarkable cellularity - Glomerular basement membrane: no spikes; no holes; no corrugation; no double contours - Glomerular tuft and Parrish's space: no adhesion; no segmental sclerosis; no crescent; no necrosis; no endocapillary hypercellularity; no thrombi Tubules/Interstitium: - Intratubular: occasional proteinaceous and rare RBC casts; no crystals; no polarizable material - Acute tubular injury: focal tubular epithelial flattening with loss of brush border and apical blebbing involving 20-30% of tubular profiles - Tubular atrophy: proportional to interstitial fibrosis - Interstitial inflammation: mild lymphocytes in scar; no eosinophils; no neutrophils - Interstitial fibrosis: about 10% Arteries: - Arterioles: mild hyalinosis; focal intimal proliferate with luminal narrowing - Interlobular arteries: mild to moderate intimal fibrosis; mild hyalinosis; mild medial thickening - Large arteries: moderate to severe intimal fibrosis; moderate medial thickening Additional Studies: - Congo red: negative IMMUNOFLUORESCENCE MICROSCOPY: H&E and PAS stained frozen sections show 2 pieces of cortex; 1 piece of corticomedullary junction - Total glomeruli: 3 - Globally sclerosed glomeruli: 2 - Segmentally sclerosed glomeruli: 0 - Other: open glomerulus with ischemic changes and periglomerular fibrosis (Scale 0-3+) - IgG: trace linear accentuation of GBMs and TBMs - IgA: negative glomeruli; 2+ cast - IgM: negative - C3: negative glomeruli; 2+ arteriolar - C1q: negative - Albumin: linear accentuation of GBMs and TBMs - Fibrinogen: nonspecific - [place]: negative glomeruli; 2+ cast - Lambda: negative glomeruli; 2+ cast ELECTRON MICROSCOPY: Toluidine blue stained dress cap maker sections show 2 pieces of cortex - Total glomeruli: 5 - Globally sclerosed glomeruli: 0 - Segmentally sclerosed glomeruli: 0 - Other: 1 glomerulus shows ischemic change with periglomerular fibrosis One micron toluidine blue thick sections and electron microscopy thin sections are technically adequate for interpretation. Glomerular basement membrane: - Thickness: normal - Lamina lorne interna: unremarkable - Subepithelial deposits: none - Subendothelial deposits: none - Foot process effacement: about 30% - Visceral epithelial cells: focal microvillous transformation - Other: mild segmental corrugation of GBM; rare podocyte with myelin bodies Capillary loop: - Endothelial cells: segmental swollen - Reticular aggregates: none - Fibrin tactoids: none - Cellular interposition: rare - Other: rare inflammatory cells Mesangium: - Matrix: mild increase - Cellularity: unremarkable - Mesangial deposits: none Tubules/Interstitium: - Tubular basement membrane deposits: none - Interstitial collagen: mild increase INDICATIONS FOR PROCEDURE/CLINICAL HISTORY: 68-year-old woman with CKD, hypertension, sub-nephrotic proteinuria, and abnormal [place]/Lambda ratio with elevated lambda. Abnormal [place]/Lambda; CKD IIIB; GROSS DESCRIPTION: Received from [facility] in three with formalin and transport media, labeled with the patient's name and right kidney are eight 0.1cm diameter pedraza-pink soft tissue core biopsies with an aggregate length of 6 cm. Two 0.3 cm fragments are submitted for electron microscopy. Three 0.7 cm fragments are submitted for immunofluorescence. The remainder of the specimen is submitted for light microscopy in one cassette labeled [id number] Summary of sections: A1-five pieces. Reported Date: Reviewing Pathologist's Electronic Signature: 01/12/2024 YESICA STRATTON MD Applicable only if cytogenetics or molecular diagnostics test results are included in this report: Unless otherwise noted, testing performed by [facility]- [address] [place] [address]. FDA Testing Disclaimer (Applicable only if flow cytometry and/or immunohistochemistry results are included in this report): These tests were developed and their performance characteristics determined by [facility], [address] [place] [address], [place] [address]. The interpretation of the above immunohistochemistry stain or stains is guided by published results in the medical literature, provided package information from the machine stripper and by internal review of staining performance and assay validation within the immunohistochemistry laboratory. This testing has not been cleared or approved by the U.S. Food and Drug Administration (FDA). The FDA has determined that such clearance or approval is not necessary. These tests are used for clinical purposes and should not be regarded as investigational or research. Unless otherwise noted, Immunohistochemistry stains were performed at [facility], [address] [place] [address], [address], [place], [place] [address]. PATIENT CONSENT,CTG (Not yet reviewed by provider) Interpretation: Performing Lab: Notes/Report: PATIENT CONSENT,CTG cancelled BONE MARROW ASPIRATE, [id number] (Not yet reviewed by provider) Interpretation: Performing Lab: Notes/Report: See Below For Report [id number] FINAL DIAGNOSIS: Bone marrow aspirate, clot section and core biopsy, peripheral blood: - Plasma cell neoplasm, comprising less than 10% of the marrow cellularity -Otherwise adequate appearing cellularity hematopoiesis MARCELL MICROSCOPIC EXAMINATION: Complete blood count; date: 02/06/2024 Performed at [facility] WBC: 5.1 K/ul RBC #: 5.5 MIL/ul Hemoglobin: 14.3 g/dL Hematocrit: 43 % MCV: 78 fL RDW: 15.9 % Plt: 296 K/ul Neut #: 2.9 K/ul Lymph #: 1.3 K/ul Monocyte #: 0.5 K/ul Eosinophils #: 0.4 K/ul Basophils #: 0.0 K/ul Other: Peripheral Blood Smear: Quality: Adequate Red blood cells: Normocytic, normochromic Lymphocytes: Small and mature Neutrophils: Unremarkable Platelets: Adequate Aspirate: Quality: No spicules Touch Prep Differential Count% (200 cells counted): Blasts: 0 Promyelocytes: 1 Myelocytes: 19 Metamyelocytes: 12 Bands: 19 Neutrophils: 18 Monocytes: 1 Lymphocytes: 4 Eosinophils: 5 Basophils:0 Plasma cells: 1 Erythroid: 20 Core biopsy (H&E): Quality: Adequate Length evaluable marrow cavity (mm): 12 mm Cellularity (%): variable, overall 50% Myeloid:erythroid (M:E) ratio: Within normal limits IHC: CD138: Scattered interstitially as well as physiologic pattern CD71: Positive in about one third of marrow cellularity Marrow Lineages: Granulopoiesis: Normal-appearing Erythropoiesis: Normal-appearing Megakaryopoiesis: Normal-appearing Lymphocytes: Normal-appearing Plasma cells: Scattered interstitially as well as physiologic pattern Flow Cytometry: Specimen viability: 91% Marker Studies: 10B/6MM2: [place], Lambda, CD10, CD5, CD200, CD34, CD38, CD20, CD19, CD45, 6 MM2: cy-[place], cy-Lambda, CD38, CD138, CD19, CD45 Interpretation: NO clonal B-cell population detected. Lambda restricted clonal plasma cell population with dim expression of CD19. Other Studies: Karyotype: In process FISH: Myeloma panel Molecular: not performed INDICATIONS FOR PROCEDURE/CLINICAL HISTORY: Concern for myeloma GROSS DESCRIPTION: A. Royal's-Giemsa stained aspirate smears are prepared. B. Received in formalin labeled with the patient's name and bone marrow is a 1.7 x 0.2 cm cylindrical segment of bone. Entirely submitted in one pink cassette labeled [id number] Summary of sections: B1-bone following EDTA, 1 piece C. Royal's-Giemsa stained peripheral blood smears are prepared. D. Received in formalin labeled with the patient's name and bone marrow blood clot is a 2.4 x 1.5 x 0.5 cm aggregate of blood clot which is serially sectioned. Entirely submitted in two pink cassettes labeled [id number] Summary of sections: D1-3 pieces; D2-2 pieces Reported Date: Reviewing Pathologist's Electronic Signature: 02/09/2024 Yesenia CERVANTES MD, PhD Applicable only if cytogenetics or molecular diagnostics test results are included in this report: Unless otherwise noted, testing performed by [address] FDA Testing Disclaimer (Applicable only if flow cytometry and/or immunohistochemistry results are included in this report): These tests were developed and their performance characteristics determined by [place] [id number]. The interpretation of the above immunohistochemistry stain or stains is guided by published results in the medical literature, provided package information from the machine stripper and by internal review of staining performance and assay validation within the immunohistochemistry laboratory. This testing has not been cleared or approved by the U.S. Food and Drug Administration (FDA). The FDA has determined that such clearance or approval is not necessary. These tests are used for clinical purposes and should not be regarded as investigational or research. Unless otherwise noted, Immunohistochemistry stains were performed at [place] [address]. CHROMOSOME ANALYSIS (Not yet reviewed by provider) Interpretation: Performing Lab: Notes/Report: BAND LEVEL 350-450 CELLS ANALYZD 20 CELLS COUNTED 20 KARYO MADE 2 KARYO DIAG see text 46,XX[20] SUMMARY: No Evidence of Clonal Aberrations INTERPRETATION,CHROM see text A total of 20 metaphase spreads were analyzed by G-banding. No apparent clonal chromosomal aberrations were identified. The karyotype of the specimen is 46,XX, i.e., normal female karyotype. REVIEWED BY: Mary FISH REVIEW (Not yet reviewe d by provider) Interpretation: Performing Lab: Notes/Report: FISH REVIEW FINALIZED Electronically signed and reported by Love Mo, Ph.D.,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%) Negative for RB-1 (13q14) Deletion Negative for TP53 (17p13) Deletion ---- FISH Analysis on Unsorted Cells: nuc carlos eduardo(FGFR3,IGH)x2[200], (CCND1,IGH)x2[200], (IGH,MAF)x2[200], (IGH,MAFB)x2[200] SUMMARY: Negative for IGH::FGFR3 Rearrangement, t(4;14) Negative for IGH::CCND1 Rearrangement, t(11;14) Negative for IGH::MAF Rearrangement, t(14;16) Negative for IGH::MAFB Rearrangement, t(14;20) INTERP,FISH see text FISH analysis was each performed on 200 CD138+ sorted interphase cells ([employer] with the multiple myeloma (MM) panel probes ([employer]): LSI 13 (13q14) SG/LSI TP53 (17p13.1) SO Probe, LSI IGH Dual Color, Break Apart Rearrangement Probe An abnormal signal pattern with one IGH fusion signal, one isolated 5'IGH and one isolated 3'IGH signal in 20.5% (41/200, cut off: 5.1%) of interphase nuclei analyzed, indicative of IGH gene rearrangement. There was no evidence of RB-1 (13q14) or TP53 (17p13.1) deletion. The remaining multiple myeloma probes did not have a sufficient number of cells for the CD138 enrichment protocol. FISH analysis was each performed on 200 unsorted interphase cells with the following probes ([employer]): LSI FGFR3/IGH Dual Color, Dual Fusion Translocation Probe, LSI IGH/CCND1 Dual Color, Dual Fusion Translocation Probe, LSI IGH/MAF Dual Color, Dual Fusion Probe, IGH/MAFB Translocation, Dual Fusion Probe ([employer] There was no evidence of IGH::FGFR3-, IGH::CCND1-, IGH::MAF- or IGH::MAFB- specific rearrangement. FISH was developed and its performance characteristics was determined by the Cytogenetics Laboratory at [facility], [place], [place] It has not been cleared or approved by the U.S. Food and Drug Administration (FDA). The FDA has determined that such clearance or approval is not necessary. This test should not be regarded as an investigational or research analysis. The FISH results should be used in conjunction with classical cytogenetic analysis and/or clinical information. REVIEWED BY: Chely CHROMOSOME REVIEW (Not yet r eviewed by provider) Interpretation: Performing Lab: Notes/Report: CHROMOSOME REVIEW FINALIZED Electronically signed and reported by River Hernandez, Ph.D. 03/27/2024 CBC - Complete Blood Count w ith Auto Diff Reviewed date:04/25/2024 09:05:55 AM Interpretation: Performing Lab: Notes/Report: WBC 5.1 4.0 - 11.0 10x3/uL RBC 5.46 3.80 - 5.10 10x6/uL Hgb 14.3 11.6 - 15.2 G/DL Hct 42.8 34.0 - 45.0 % MCV 78.3 80 - 97 FL MCH 26.2 26 - 33 PG MCHC 33.5 32 - 36 G/DL Plt 296 150 - 450 10x3/uL RDW 15.9 11.0 - 14.5 % Auto Neut 56.0 38 - 80 % Auto Lymph 25.0 15 - 49 % Auto [place] 10.2 0 - 13 % Auto Eosin 8.6 0 - 8 % Auto Baso 0.2 0 - 2 % Absolute Neut 2.88 1.52 - 8.80 10x3/uL Absolute Lymph 1.28 0.60 - 5.39 10x3/uL Absolute [place] 0.52 0.00 - 1.43 10x3/uL Absolute Eosin 0.44 0.00 - 0.88 10x3/uL Absolute Baso 0.01 0.00 - 0.22 10x3/uL CMP - Comprehensive Metaboli c Panel Reviewed date:04/30/2024 09:36:56 AM Interpretation: Performing Lab: Notes/Report: Sodium 139 Potassium 3.4 Chloride 100 CO2 31 Glucose 120 BUN 23 Creatinine 4.1 Calcium 9.8 Total Protein 8.1 Albumin 4.1 Alk Phosphatase 156 ALT(SGPT) 12 AST(SGOT) 14 Bilirubin,Total 0.7 GFR GFR Non EGFR 32 Magnesium Level Reviewed date:04/30/2024 09:36:50 AM Interpretation: Performing Lab: Notes/Report: Magnesium 2.1 CBC - Complete Blood Count w ith Auto Diff Reviewed date:04/30/2024 09:36:43 AM Interpretation: Performing Lab: Notes/Report: WBC Count 4.4 RBC Count 4.94 Hemoglobin 13.2 Hematocrit 38.5 MCV 78.0 MCH 26.7 MCHC 34.3 Platelet Count 261 RDW 15.9 % Neutrophil 55.3 % Lymphocyte 26.5 % Monocyte 9.4 % Eosinophil 8.6 % Basophil 0.3 Absolute Neut 2.44 Absolute Lymp 1.17 Absolute [place]con[place] 0.42 Absolute Eos 0.38 Absolute Baso 0.01 CBC Review Parathyroid Hormone - Intact (PTHI) Reviewed date:04/27/2024 01:33:08 PM Interpretation: Performing Lab: Notes/Report: This analyte was performed using the [employer] DXI. PTH Intact 215.9 12.0 - 88.0 PG/ML Urine Culture Reviewed date:04/30/2024 09:07:09 AM Interpretation: Performing Lab: Notes/Report: Specimen URINE Organism No growth of clinical significance XR HIP 2 VIEWS RT Reviewed date:02/03/2024 09:48:23 AM Interpretation: Performing Lab: Notes/Report: Hip Unilateral right 2 views Right RIGHT HIP PAIN [id number] PROCEDURE: Right hip x-ray, 2 views; 1614 hours TECHNIQUE: 2 views of the right hip were obtained on 01/30/2024 COMPARISON: Right hip x-ray from 05/01/2013 CLINICAL INDICATION: Right hip pain FINDINGS: No fracture or dislocation is identified. Mild joint space narrowing with mild sclerosis of the superior and inferior acetabulum is noted suggesting mild degenerative changes. Postsurgical changes are noted from prior lumbosacral fusion. The soft tissues are unremarkable. IMPRESSION: Mild right hip osteoarthritis. [facility] US Guided Biopsy Reviewed date:02/28/2024 01:23:25 PM Interpretation: Performing Lab: Notes/Report: Kidney Biopsy N/A KIDNEY MONOCLONAL PARAPROTEINEMIA 370 [id number] Procedure: Ultrasound-guided right renal biopsy. Indication: Chronic kidney disease with progression Time: , 01/06/2024 Medications: Versed 2 mg, Fentanyl 50 mcg were administered. The risks, benefits and alternatives of the procedure were discussed in full. Written informed consent was obtained. The patient was placed in the left lateral decubitus position in a procedural timeout was called. The patient was placed on physiologic monitoring and monitored throughout the duration of the procedure by the interventional radiology nurse. Technique: The right flank was prepped with ChloraPrep and sterilely draped. 1% buffered Xylocaine was used to anesthetize the superficial and deep tissue using a 3 1/2 inch 22-gauge spinal needle using ultrasound guidance. Subsequently, using real-time ultrasound guidance a 17-gauge coaxial needle was directed into the right renal cortex. Multiple 18-gauge core biopsies were taken and placed in the appropriate fixative. The coaxial needle system was then removed and the procedure was concluded. A dry sterile dressing was placed. The patient tolerated the procedure well. Blood loss: Less than 5 cc Findings: No active bleeding or hematoma was noted on post procedure ultrasound. Impression: Successful ultrasound-guided right renal biopsy. Plan: Patient is return to [facility] in stable condition. Signed by Toño Damon on 01/06/2024 4:09 PM I have personally reviewed the imaging examination and agree with the resident's interpretation as written [facility] BMP - Basic Metabolic Panel Reviewed date:04/27/2024 01:33:08 PM Interpretation: Performing Lab: Notes/Report: (NOTE) GFR Interpretation CKD-EPI Creatinine Equation (2020): The CKD-EPI equation was used in this calculation. It has reasonable accuracy in non-hospitalized patients thought to have CKD, regardless of diagnosis. The equation has not been validated in children (age <18 years), in women, in the elderly (age >85 years), or in some racial or ethnic subgroups. Furthermore, any of the limitations with the use of serum creatinine related to nutritional status or medication usage are not accounted for in the equation. Quantification of GFR values below 60 mL/min/1.73m2 has more clinical implications for classification of kidney function than values above this level. Please Note On October 27, 2022, the eGFR calculation was adjusted. This adjustment was required due to an identified miscalculation which resulted in a slightly lower eGFR estimation than the National Kid[employer] Foundation's online calculator. In some instances the eGFR reported was 0-6 units lower than if calculated using the CKD-EPI Creatinine equation. Sodium 137 136 - 145 mMOL/L Potassium 3.7 3.5 - 5.1 mMOL/L Chloride 98 98 - 107 mMOL/L Carbon Dioxide 32 21 - 31 mMOL/L Glucose 110 74 - 109 MG/DL BUN 21 7 - 25 MG/DL Creatinine 1.6 0.6 - 1.2 MG/DL Calcium 9.4 8.6 - 10.3 MG/DL Estimated GFR 34 CBC - Complete Blood Count w ith Auto Diff Reviewed date:04/27/2024 01:33:08 PM Interpretation: Performing Lab: Notes/Report: WBC 6.7 4.0 - 11.0 10x3/uL RBC 4.99 3.80 - 5.10 10x6/uL Hgb 12.9 11.6 - 15.2 G/DL Hct 39.1 34.0 - 45.0 % MCV 78.2 80 - 97 FL MCH 25.9 26 - 33 PG MCHC 33.1 32 - 36 G/DL Plt 291 150 - 450 10x3/uL RDW 16.8 11.0 - 14.5 % Auto Neut 70.3 38 - 80 % Auto Lymph 17.2 15 - 49 % Auto [place] 8.8 0 - 13 % Auto Eosin 3.1 0 - 8 % Auto Baso 0.6 0 - 2 % Absolute Neut 4.70 1.52 - 8.80 10x3/uL Absolute Lymph 1.20 0.60 - 5.39 10x3/uL Absolute [place] 0.60 0.00 - 1.43 10x3/uL Absolute Eosin 0.20 0.00 - 0.88 10x3/uL Absolute Baso 0.00 0.00 - 0.22 10x3/uL Glycohemoglobin(A1C) Reviewed date:04/30/2024 01:28:09 PM Interpretation: Performing Lab: Notes/Report: Glycohemoglobin 6.4 4.0 - 6.0 % Iron and Iron Binding Capaci ty Reviewed date:04/27/2024 01:33:08 PM Interpretation: Performing Lab: Notes/Report: Iron 45 50 - 212 uG/dL Iron Binding Capacity 307 261 - 478 uG/dL % Iron Saturation 14.7 15 - 46 % Urine Microalbumin,Random(Ur ine Creatinine included) Reviewed date:04/30/2024 09:09:21 AM Interpretation: Performing Lab: Notes/Report: Urine Microalbumin 7.3 Urine Creatinine 97.2 Microalbumin/Creatinin e 7.5 0.0 - 29.9 MG MALB/G CREAT Urine Total Protein,Random ( 7616) Reviewed date:04/30/2024 09:08:52 AM Interpretation: Performing Lab: Notes/Report: Urine Total Protein 8.8 Urinalysis w/reflex to Micro scopic w/reflex to Culture Reviewed date:04/30/2024 09:06:32 AM Interpretation: Performing Lab: Notes/Report: (NOTE) Mucus Reference Range: 0-2+ Specimen URINE Color YELLOW Reference Range: YELLOW Appearance CLEAR Reference Range: CLEAR Specific [place] 1.012 <1.030 PH 6.0 5.0 - 8.0 Protein NEGATIVE Reference Range: NEGATIVE Glucose NEGATIVE Reference Range: NEGATIVE Ketones NEGATIVE Reference Range: NEGATIVE Bilirubin NEGATIVE Reference Range: NEGATIVE Blood NEGATIVE Reference Range: NEGATIVE Urobilinogen <2.0 <2.0 mg/dL Nitrite NEGATIVE Reference Range: NEGATIVE Leukocyte MODERATE Reference Range: NEGATIVE WBC 10-15 0-5 RBC 0-2 0-2 Squamous Epithelial Cells 0-2 0-2 Mucous 1+ Vitamin D 25 Hydroxy Reviewed date:04/27/2024 02:04:54 PM Interpretation: Performing Lab: Notes/Report: (NOTE) Effective July: Testing performed using the [employer] DXI. Recommendations for 25 Hydroxy Vitamin D: Deficient <10 ng/mL Insufficient 10-29 ng/mL Sufficient 30-100 ng/mL Upper Safety Limit >100ng/mL Vitamin D,25-Hydroxy 24.0 30 - 100 ng/mL REASON FOR REFERRAL Reason abnormal kappa-lambd a free light chain, spep Diagnosis 1 Abnormal laboratory test (R89.9) Referral Organization [facility] Referring Provider First Name [facility] Referring Provider Last Name [facility] Referring Provider Speciality Nephrology Referred Provider Specialty Hematology/O ncology Referral Priority Routine Reason abnormal kappa-lambd a free light chain, spep Diagnosis 1 Abnormal laboratory test (R89.9) Referral Organization [facility] Referring Provider First Name [facility] Referring Provider Last Name [facility] Referring Provider Speciality Nephrology Referred Provider Specialty Hematology/O ncology Referral Priority Routine MEDICATIONS Medication SIG (Take, Route, Frequency, Duration) Notes Start Date End Date Status KlonoPIN 0.5 mg 1 tablet MDD 3 Orally 3x per day as needed for 30 days [id number] attempting to taper down on klonopin 10/17/2024 Active Esomeprazole Magnesium 40 MG take 1 capsule by mouth once daily if needed for 30 days Active oxyCODONE HCl 5 mg 1 tablet as needed. MDD 4 Orally 4x daily for 30 days [id number] 10/17/2024 Active Pregabalin 75 MG 1 capsule Orally Twice a day for 90 days [id number] 10/17/2024 Active Lidocaine 4 % as directed Externally Once a day as needed PRN 01/29/2019 Active Ramipril 10 mg 1 capsule Orally 2x daily for 90 days 05/09/2015 Active Combivent Respimat 20-100 MCG/ACT 1 puff as needed Inhalation every 6 hrs for 30 days PRN 08/25/2022 Active Zoloft 100 MG 1 tablet Orally one in am 1/2 in PM for 30 days Active Zinc Sulfate 220 (50 Zn) MG 1 capsule Orally every other day for 30 days Active Multivitamin/Minerals one one by mouth once daily Active Nystatin 116982 UNIT/GM 1 application Externally Twice a day for 10 days 05/10/2024 Active Miscellaneous . as directed Dx M79.672 and M79.671 Bilateral foot orthodics for daily use for 99 days 02/16/2019 Active Ibuprofen 200 MG 1 tablet with food or milk as needed Orally Three times a day Active Probiotic - 1 capsule Orally once a day Not-Taking PreserVision AREDS 2+Multi Vit - as directed Orally Active hydrOXYzine HCl 50 MG 1 tablet as needed Orally 4 times daily for 30 days Vistiril for allergies 11/14/2023 Active Vitamin D-3 1000 UNIT 2-3 capsule Orally Once a day Active Rhopressa 0.02 % 1 drop both eyes Ophthalmic Once a day glaucoma back up Not-Taking Bion Tears 0.1-0.3 % 1drop Ophthalmic each eye four times daily Active Cefdinir 300 MG 2 tablets Orally once daily for 10 days 05/04/2024 Active Maxzide 75-50 MG Take /2-11/2 tablet Orally Once a day as needed for 90 days Not-Taking CPAP . Pressure Change apap 8-20 cm H2O with mask, heated humidifier, and 60 day compliance download dx SKYLAR QHS for Sleep G47.33 12/28/2018 Active Vitamin D3 1.25 MG (41065 UT) 1 capsule Orally once weekly for 90 04/30/2024 Active CPAP supplies - Mask, tubing, and filters . Please provide patient with 1 foot extension tubing Dx SKYLAR, G47.33 daily at bedtime for 365 days 10/24/2023 Active Donepezil HCl 5 MG 1 tablet Orally daily at bedtime Not-Taking Methylcobalamin 1000 MCG Sublingual one daily Active Torsemide 20 MG 1.5 tables Orally once daily for 30 days alternative for maxide 12/15/2022 Active Cyclobenzaprine HCl 10 mg 1 tablet as needed Orally Three times a day for 90 days Active Amoxicillin 500 MG 4 capsules Orally one hour before procedure for 1 days 05/10/2024 Active Fluconazole 150 MG 1 tablet Orally one time dose for 1 days please hold controlled until 30 days from previous (01/26) 01/20/2022 Active Cefadroxil 500 MG 1 capsule Orally every 12 hrs for 5 days 12/21/2023 Active Levocetirizine Dihydrochloride 5 MG 1 tablet in the evening Orally Once a day for 30 days PRN 08/25/2022 Active CoQ-10 100 MG as directed Orally Active Turmeric 400 MG as directed Orally Not-Taking Betamethasone Dipropionate Aug 0.05 % 1 application Externally Once a day for 30 days 12/23/2023 Active Milk Thistle 140 MG as directed Orally Not-Taking Calcium & Magnesium Carbonates not daily Active Betamethasone Valerate 0.1 % 1 application Externally Twice a day for 10 days PRN 03/25/2022 Active Potassium Chloride 20 MEQ/15ML (10%) 15 ml with food Orally Once a day for 30 day(s) 01/20/2022 Active hydrOXYzine HCl 25 MG 1-2 tablet as needed Orally 4 times daily for 20 days attempting to taper down on klonopin 10/17/2023 Active Fluconazole 150 MG 1 tablet Orally once weekly for 14 days 05/10/2024 Active Vitamin B12 1000 MCG as directed Orally Active IMMUNIZATIONS Vaccine Route Administration Date Status Comme nts BOOSTRIX (Tdap) 0.5mL IM Intramuscular 10/26/2023 Administered COVID19 MODERNA BOOSTER 50mcg/0.25mL MDV Unknown 07/29/2021 Administered COVID19 MODERNA MDV 100mcg/0.5mL preservative free Unknown 11/28/2020 Administered COVID19 MODERNA MDV 100mcg/0.5mL preservative free Unknown 12/26/2020 Administered COVID19 PEDIATRIC MODERNA BIVALENT (booster) 6MO-5Y 0.20mL Unknown 07/21/2022 Administered COVID19 PFIZER BIVALENT (booster) 30mcg/0.3mL Unknown 02/10/2022 Administered COVID19 Vaccine HISTORICAL Unknown 07/07/2023 Administered Flu Vaccine (historical) Unknown 06/23/2020 Administered Flu-Afluria (PFS) 9yrs & Up IM Intramuscular 08/02/2016 Administered Flu-Fluvirin (syringes) PF 4yrs and up IM Intramuscular 09/04/2015 Administered Flu-Fluzone (MDV) 3+ left deltoid 06/28/2011 Administered Flu-Fluzone (MDV) 3+ right deltoid 06/28/2012 Administered Flu-Fluzone (MDV) 3+ right deltoid 07/20/2013 Administered Flu-Fluzone (MDV) 3+ right deltoid 06/27/2014 Administered FLuAD 0.5mL HIGH DOSE 65+ SYRINGE IM Intramuscular 06/11/2021 Administered FLUARIX QUAD 0.5mL SYRINGE 6mos & up Unknown 06/20/2023 Administered FLULAVAL 5mL MDV 3 YRS and older IM Intramuscular 06/20/2019 Administered FLULAVAL QUAD 0.5mL MDV 6mos & up IM Intramuscular 08/16/2018 Administered FLUZONE MDV 0.5mL 36 months & up (no latex) 5mL MDV-10dose vial IM Intramuscular 08/11/2017 Administered Pneumococcal (historical) Unknown 06/23/2020 Administered PNEUMOVAX 23 (pneumococcal PPSV23) IM Intramuscular 06/23/2021 Administered PREVNAR 13 (pneumococcal PCV 13) IM Intramuscular 06/20/2019 Administered RSV (Historical) Unknown 06/11/2023 Administered Pfizer - Abrysvo SHINGRIX (varicella zoster) (historical) Unknown 06/28/2019 Administered SHINGRIX (varicella zoster) (historical) Unknown 09/13/2019 Administered Tdap Unknown 08/10/2010 Administered Zoster Unknown 06/28/2019 Administered SOCIAL HISTORY Tobacco Use: Social History Observation Description Date Details (start date - stop date) Never Smoker NA - NA Sex Assigned At : Social History Observation Description Sex Assigned At Female Tobacco Use/Smoking Question Answer Notes Smoking status: never smoked Alcohol Screen (Audit-C) Question Answer Notes Did you have a drink containing alcohol in the p ast year? No Points 0 Interpretation Negative Tobacco use other than smoking: Question Answer Notes Are you an other tobacco user? No PROBLEMS Problem Type ICD Code Onset Dates Problem Status W/U Status Risk SNOMED Code Notes Problem Monoclonal gammopathy (D47.2) Active confirmed [id number] Problem Anemia in chronic kidney disease (D63.1) Active confirmed 149321152 Problem Other hyperlipidemia (E78.4) Active confirmed Hyperlipidemia (02369015) Problem Disorder of mineral metabolism, 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) Active confirmed 26728771 Problem Generalized anxiety disorder (F41.1) Active confirmed 18037491 Problem Other chronic pain (G89.29) Active confirmed 66013690 Problem Chronic pain syndrome (G89.4) Active confirmed 903927784 Problem Hypertensive chronic kidney disease with stage 1 through stage 4 chronic kidney disease, or unspecified chronic kidney disease (I12.9) Active confirmed 82876819 Problem Low back pain (M54.5) Active confirmed Low back pain (050408703) Problem Chronic kidney disease, unspecified (N18.9) Active confirmed 06345523 Problem Dementia (F03.90) Active confirmed Dileep ntia (66035474) Problem Obstructive sleep apnea (G47.33) Active confirmed Obstructive s leep apnea (37911327) Problem Dyslipidemia (E78.5) Active confirmed 112901085 Problem Psoriasis (L40.9) Active confirmed Psor iasis (6970540) Problem Obesity (BMI 30-39.9) (E66.9) Active confirmed Obesity (971264146) Problem Oropharyngeal dysphagia (R13.12) Active confirmed 87553723 Problem Abnormal laboratory test (R89.9) Active confirmed Laboratory test result abnormal (112478210) Problem Chronic fatigue (R53.82) Active confirmed 61909450 Problem Mild cognitive impairment (G31.84) Active confirmed 296693110 Problem Glaucoma (H40.9) Active confirmed Glauc hanh (24247968) Problem Hypertensive chronic kidney disease (I12.9) Active confirmed Chronic kidn ey disease due to benign hypertension (580358755633560) Problem History of left knee replacement (Z96.652) Active confirmed 895411488 Problem 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) Active confirmed 047363216 Problem Primary hypertension (I10) Active confirmed 57183922 Problem BMI 40.0-44.9, adult (Z68.41) Active confirmed Body mass ind ex 40+ - morbidly obese (701529235) Problem Recurrent sinus infections (J32.9) Active confirmed 578114648 Problem History of anemia due to CKD (Z86.2) Active confirmed Anemia co-occurrent and due to chronic kidney disease (245882605) Problem Chronic sinusitis, unspecified location (J32.9) Active confirmed 73964256 Problem Dysphagia, unspecified type (R13.10) Active confirmed 01992903 Problem Frontal sinusitis, unspecified chronicity (J32.1) Active confirmed 82807757 Problem Hypertension, renal, stage 1-4 or unspecified chronic kidney disease (I12.9) Active confirmed Chronic kidn ey disease due to hypertension (154829276632785) 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 confirmed [id number] Problem 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) Active confirmed Disorders of wily th mitral and tricuspid valves (636624601) Problem Cognitive dysfunction (F09) Active confirmed 799341063 Problem Piriformis syndrome, left (G57.02) Active confirmed Sciatic nerve lesion (467866528) Problem Stage 2 chronic kidney disease (N18.2) Active confirmed 130026844 Problem 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) Active confirmed 49947453 Problem Piriformis syndrome of both sides (G57.03) Active confirmed Sciatic nerve lesion (238363323) Problem Stage 3 chronic kidney disease, unspecified whether stage 3a or 3b CKD (N18.30) Active confirmed 689338229 Problem Chronic Kidney Disease, Stage 3b (N18.32) Active confirmed 826333968 Problem Hx of metal allergy (Z91.09) Active confirmed 724716687 Problem Stage 3b chronic kidney disease (CKD) (N18.32) Active confirmed 501700610 VITAL SIGNS Heart Rate 54 /min 05/10/2024 Temperature 97.9 degrees Fahrenheit 12/21/2023 Oximetry 94 % 05/10/2024 Blood pressure diastolic 80 mm Hg 05/10/2024 Weight-kg 120.66 kg 05/10/2024 Height 67 in 05/10/2024 Blood pressure systolic 124 mm Hg 05/10/2024 Weight 266 lbs 05/10/2024 BMI 41.66 kg/m2 05/10/2024 PROCEDURES Procedure Date Ordered Date Performed Result Body Sit e OSTEOPATHIC MANIP TX - 5-6 [facility] INVOLVED (97412) 11/16/2023 11/16/2023 N/A OSTEOPATHIC MANIP TX - 3-4 [facility] INVOLVED (94393) 12/02/2023 12/02/2023 N/A OSTEOPATHIC MANIP TX - 3-4 [facility] INVOLVED (55271) 12/23/2023 12/23/2023 N/A OSTEOPATHIC MANIP TX - 5-6 [facility] INVOLVED (36412) 01/11/2024 01/11/2024 N/A OSTEOPATHIC MANIP TX - 3-4 [facility] INVOLVED (21148) 02/03/2024 02/03/2024 N/A OSTEOPATHIC MANIP TX - 3-4 [facility] INVOLVED (39479) 02/23/2024 02/24/2024 N/A OSTEOPATHIC MANIP TX - 3-4 [facility] INVOLVED (97696) 03/09/2024 03/09/2024 N/A OSTEOPATHIC MANIP TX - 3-4 [facility] INVOLVED (84115) 04/04/2024 04/04/2024 N/A OSTEOPATHIC MANIP TX - 3-4 B [facility] INVOLVED (59054) 05/04/2024 05/04/2024 N/A Encounters Encounter Location Date Provider Diagnosis [facility] [address] [address] 11/18[facility]2023 [facility] [address] [address] 12/05/2023 [facility] [address] [address] 12/12/2023 Lauren Fragoso Monoclonal paraproteinemia D47.2 ; Monoclonal gammopathy D47.2 and Other disorders of kidney and ureter in diseases classified elsewhere N29 [facility] [address] [address] 12/20/2023 [facility] [address] [address] 12/29/2023 Galileo Alarcon Soft tissue infectio n L08.9 [facility] [address] [address] 01/04/2024 Galileopablo Shanehemalatha [facility] [address] [address] 01/11/2024 Galileopablo Alarcon [facility] Internal Medicine [address] [address] 01/19/2024 Galileo Svitlanatotowa [facility] [address] [address] 01/19/2024 [facility] [address] [address] 01/19/[address] [address] 01/30/2024 Hipolito Valero [facility] [address] [place] [address] 02/06/2024 Galileo Alarcon [facility] [address] [address] 02/17/2024 Galileo Alarcon [facility] [address] [place] [address] 02/20/2024 Galileo Alarcon [facility] [address] [place] [address] 02/20/2024 Galileo Shanetotowa [facility] [address] [address] 02/22/2024 Galileo Alarcon [facility] [address] [place] [address] 12/22/[address] [address] 02/24/2024 Hipolito Valero [place] [facility] [address] [place] [address] 03/05/2024 Galileo Alarcon [facility] [address] [place] [address] 03/19/2024 Galileo Shanetotowa [facility] [address] [place] [address] 03/21/2024 Galileo Shanetotowa [facility] [address] [place] [address] 03/28/[address] [facility] [address] [place] [address] 03/29/2024 Reynaldo Georgemira Nephrology [facility] [address] [address] 04/20/2024 Angelica Bhardwaj Stage 3 chronic kidn ey disease, unspecified whether stage 3a or 3b CKD N18.30 ; Renal bone disease N25.0 ; Hypertension, renal, stage 1-4 or unspecified chronic kidney disease I12.9 and Anemia in chronic kidney disease D63.1 [facility] [address] [address] 04/27/2024 Galileopablo Alarcon [facility] [address] [address] 04/30/2024 Galileopablo Alarcon [facility] [address] [place] [address] 05/09/2024 Galileopablo Bhattiellkeith [facility] [address] [address] 05/25/2024 Galileopablo Alarcon [facility] [address] [address] 06/06/2024 Galileopablo Alarcon [facility] [address] [address] 07/05/2024 Galileopablo Alarcon [facility] [address] [address] 07/10/2024 Galileopablo Alarcon [facility] [address] [address] 07/23/2024 Galileopablo Alarcon [facility] [address] [address] 07/24/2024 Galileopablo Alarcon [facility] [address] [address] 08/06/2024 Galileo ellkeith [facility] [address] [address] 08/24/2024 Galileopablo Bhattiellkeith [facility] [address] [address] 09/03/2024 Galileo ellgrhemalatha [facility] [address] [address] 09/06/2024 Galileo Agnes [facility] [address] [address] 10/15/2024 Galileo Alarcon [address] [address] 05/04/2024 Reynaldo Perez Upper respiratory illness J39.9 ; Fatigue R53.83 ; Segmental and somatic dysfunction of cervical region M99.01 ; Segmental and somatic dysfunction of thoracic region M99.02 and Segmental and somatic dysfunction of lumbar region M99.03 [facility] [address] [place], [place] [id number] 09/24/2024 Jimmie Villatoro [facility] [address] [address] 04/30/2024 Angelica Bhardwaj Hypertensive chronic kidney disease with stage 1 through stage 4 chronic kidney disease, or unspecified chronic kidney disease I12.9 ; Chronic Kidney Disease, Stage 3b N18.32 ; Disorder of mineral metabolism, unspecified E83.9 ; Disorder of bone, unspecified M89.9 and Primary hypertension I10 [address] [address] 04/04/2024 Reynaldo Perez Segmental and somati c dysfunction of cervical region M99.01 ; Segmental and somatic dysfunction of rib cage M99.08 ; Segmental and somatic dysfunction of thoracic region M99.02 and Segmental and somatic dysfunction of lumbar region M99.[address] [address] 12/23/2023 Reynaldo Perez HTN (hypertension) I 10 ; Dyslipidemia E78.5 ; Spinal stenosis of lumbar region with neurogenic claudication M48.062 ; Pain in right ankle and joints of right foot M25.571 ; Segmental and somatic dysfunction of rib cage M99.08 ; Segmental and somatic dysfunction of lumbar region M99.03 ; Segmental and somatic dysfunction of cervical region M99.01 and Psoriasis L40.[address] [address] 03/09/2024 Reynaldo Perez Segmental and somati c dysfunction of cervical region M99.01 ; Segmental and somatic dysfunction of rib cage M99.08 ; Segmental and somatic dysfunction of thoracic region M99.02 and Segmental and somatic dysfunction of lumbar region M99.03 [facility] [address] [place] [address] 05/10/2024 Galileo Snellgrove Chronic pain syndrom e G89.4 ; Obstructive sleep apnea G47.33 ; Generalized anxiety disorder F41.1 ; Dyslipidemia E78.5 ; Chronic Kidney Disease, Stage 3b N18.32 ; Monoclonal gammopathy D47.2 ; Intertrigo L30.4 ; Umbilical hernia without obstruction and without gangrene K42.9 ; Stage 3b chronic kidney disease (CKD) N18.32 ; Cognitive dysfunction F09 and History of left knee replacement Z96.[address] [address] 02/23/2024 Reynaldo Perez Vitamin B 12 deficiency E53.8 ; Segmental and somatic dysfunction of cervical region M99.01 ; Segmental and somatic dysfunction of rib cage M99.08 and Segmental and somatic dysfunction of lumbar region M99.03 [facility] [address] [place] [phone] 09/18/2024 Jimmie [address] [facility] Internal Medicine [address] [address] 02/02/2024 Galileo Snellgrove Chronic pain syndrom e G89.4 ; Obstructive sleep apnea G47.33 ; Dyslipidemia E78.5 ; Mild cognitive impairment G31.84 and Stage 3b chronic kidney disease (CKD) N18.32 [facility] [address] [address] 04/30/2024 Lauren Fragoso [address] [address] 02/03/2024 Reynaldo Perez Fatigue R53.83 ; History of anemia due to CKD Z86.2 ; Segmental and somatic dysfunction of cervical region M99.01 ; Segmental and somatic dysfunction of lumbar region M99.03 and Segmental and somatic dysfunction of rib cage M99.[address] [address] 01/11/2024 Reynaldo Perez Segmental and somati c dysfunction of cervical region M99.01 ; Segmental and somatic dysfunction of rib cage M99.08 ; Segmental and somatic dysfunction of thoracic region M99.02 ; Segmental and somatic dysfunction of sacral region M99.04 ; Segmental and somatic dysfunction of lower extremity M99.06 ; Segmental and somatic dysfunction of lumbar region M99.03 and Right hip pain M25.551 [facility] [address] [address] 12/02/2023 Lauren Stewartstephanie Stage 3b chronic kidney disease (CKD) N18.32 ; Renal bone disease N25.0 ; Chronic kidney disease, unspecified N18.9 and Anemia in chronic kidney disease D63.[address] [address] 12/02/2023 Reynaldo Chin Piriformis syndrome, left G57.02 ; Segmental and somatic dysfunction of cervical region M99.01 ; Segmental and somatic dysfunction of thoracic region M99.02 ; Segmental and somatic dysfunction of lumbar region M99.03 ; HTN (hypertension) I10 ; Fatigue, unspecified type R53.83 ; Stage 3 chronic kidney disease, unspecified whether stage 3a or 3b CKD N18.30 and Mild cognitive impairment G31.[address] [facility] Internal Medicine [facility] [address] [place] [address] 12/21/2023 Galileo Snellgrove Soft tissue infectio n L08.9 and Hypertensive chronic kidney disease I12.[address] [address] 11/16/2023 Reynaldo Perez Dementia F03.90 ; Piriformis syndrome of both sides G57.03 ; Segmental and somatic dysfunction of cervical region M99.01 ; Segmental and somatic dysfunction of rib cage M99.08 ; Segmental and somatic dysfunction of thoracic region M99.02 ; Segmental and somatic dysfunction of lumbar region M99.03 and Segmental and somatic dysfunction of lower extremity M99.06 ASSESSMENTS Encounter Date Diagnosis Assessment Notes Treatment Notes Treatment Clinical Notes 11/16/2023 Dementia (ICD-10 - F03.90) 11/16/2023 Piriformis syndrome of both sides (ICD-10 - G57.03) 02/02/2024 Chronic pain syndrome (ICD-10 - G89.4) On medication, contract signed 02/02/2024 Obstructive sleep apnea (ICD-10 - G47.33) Endorses restorative sleep at this time 12/02/2023 Stage 3b chronic kidney disease (CKD) (ICD-10 - N18.32) Patient with extensive past medical history as above. Work up negative thusfar aside from M Sylvester on SPEP and [employer]. Possible MGRS? Agreed for a referral to hematology. Renal function stable as of now. 12/02/2023 Segmental and somatic dysfunction of cervical region (ICD-10 - M99.01) 12/02/2023 Piriformis syndrome, left (ICD-10 - G57.02) 12/23/2023 Dyslipidemia (ICD-10 - E78.5) 12/23/2023 HTN (hypertension) (ICD-10 - I10) 12/21/2023 Soft tissue infection (ICD-10 - L08.9) 01/11/2024 Segmental and somatic dysfunction of cervical region (ICD-10 - M99.01) 12/12/2023 Monoclonal paraproteinemia (ICD-10 - D47.2) 12/29/2023 Soft tissue infection (ICD-10 - L08.9) 01/11/2024 Segmental and somatic dysfunction of rib cage (ICD-10 - M99.08) 02/03/2024 Fatigue (ICD-10 - R53.83) 02/03/2024 History of anemia due to CKD (ICD-10 - Z86.2) 05/10/2024 Chronic pain syndrome (ICD-10 - G89.4) We have discussed the possibliyt of cutting back in the past, she has been compliant with pain contract, refills thus far. I do get concerned about polypharmacy with benzodiazepines, but she has been on both for some time 05/10/2024 Obstructive sleep apnea (ICD-10 - G47.33) reports restorativel sleep 02/23/2024 Segmental and somatic dysfunction of cervical region (ICD-10 - M99.01) 02/23/2024 Vitamin B 12 deficiency (ICD-10 - E53.8) 03/09/2024 Segmental and somatic dysfunction of cervical region (ICD-10 - M99.01) 03/09/2024 Segmental and somatic dysfunction of rib cage (ICD-10 - M99.08) 04/04/2024 Segmental and somatic dysfunction of cervical region (ICD-10 - M99.01) 04/04/2024 Segmental and somatic dysfunction of rib cage (ICD-10 - M99.08) 05/04/2024 Fatigue (ICD-10 - R53.83) 05/04/2024 Upper respiratory illness (ICD-10 - J39.9) Patient will also use TheraFlu for severe cough and cold for symptomatic relief. 04/30/2024 Hypertensive chronic kidney disease with stage 1 through stage 4 chronic kidney disease, or unspecified chronic kidney disease (ICD-10 - I12.9) Hypertensive chronic kidney disease-we will continue to monitor her kidney function continue to monitor her blood pressures. I stressed to the patient that controlling blood pressures his jeter in continuing to maintain kidney function. She was noted as stable kidney function with GFR of 34 and creatinine 1.6. 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 In the meantime as discussed in office her plan of care will consist of:1. I discussed with the patient trying to do small cardiovascular activities even though she utilizes a walker she can attempt to do very small walks around her home which can help strengthen legs in aid with circulation2. She was advised to monitor her diet and be strictly low to no salt diet 3. 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 She was educated on renal bone disease noting that kidneys help to regulate mineral specifically calcium within the blood. It was discussed with the patient that it parathyroid was appreciated at 215.9 with a vitamin-D of 24.0. Her plan of care as discussed in office will consist of:1. We will monitor status of renal bone disease with blood work specifically the can calcium, vitamin-D and phosphorus2. Following up her primary care provider to get further testing as relates to bone health including bone density scans as needed3. She will follow back up with a different provider when she moves to [place] however she was advised to call us with any questions or concerns4. I discussed with the patient that we must decrease parathyroid hormone by correcting her vitamin-D level. I noted we must begin prescription Vitamin D. 05/04/2024 Segmental and somatic dysfunction of cervical region (ICD-10 - M99.01) 04/04/2024 Segmental and somatic dysfunction of thoracic region (ICD-10 - M99.02) 03/09/2024 Segmental and somatic dysfunction of thoracic region (ICD-10 - M99.02) 05/10/2024 Generalized anxiety disorder (ICD-10 - F41.1) continue current regimen 02/23/2024 Segmental and somatic dysfunction of rib cage (ICD-10 - M99.08) 02/03/2024 Segmental and somatic dysfunction of cervical region (ICD-10 - M99.01) 12/21/2023 Hypertensive chronic kidney disease (ICD-10 - I12.9) Woulr recommend doubling rampril, will have repeat renal finction after starting 01/11/2024 Segmental and somatic dysfunction of thoracic region (ICD-10 - M99.02) 12/23/2023 Spinal stenosis of lumbar region with neurogenic claudication (ICD-10 - M48.062) 12/12/2023 Monoclonal gammopathy (ICD-10 - D47.2) 12/02/2023 Segmental and somatic dysfunction of thoracic region (ICD-10 - M99.02) 12/02/2023 Renal bone disease (ICD-10 - N25.0) ViT D below target. Continue with VitD supp. PTH within acceptable range. Follow 02/02/2024 Dyslipidemia (ICD-10 - E78.5) Discussed management of dyslipidemia with the patient, which included some of the following: Aerobic exercise 30 min 3-4x/wk; some benefit after ~6-12 mo; wt loss (2% wt loss = 6% in LDL) Diet: Decrease LDL ~13% (JUANY 2011;306:831); increase fruits/veg, decrease saturated fats & trans-fatty acids, 50% of total calories from complex carbs; AHA diet (heart.org) 11/16/2023 Segmental and somatic dysfunction of cervical region (ICD-10 - M99.01) 02/02/2024 Mild cognitive impairment (ICD-10 - G31.84) Seen at [facility], no changes for now 11/16/2023 Segmental and somatic dysfunction of rib cage (ICD-10 - M99.08) 12/02/2023 Chronic kidney disease, unspecified (ICD-10 - N18.9) 12/02/2023 Segmental and somatic dysfunction of lumbar region (ICD-10 - M99.03) 12/12/2023 Other disorders of kidney and ureter in diseases classified elsewhere (ICD-10 - N29) 12/23/2023 Pain in right ankle and joints of right foot (ICD-10 - M25.571) 01/11/2024 Segmental and somatic dysfunction of sacral region (ICD-10 - M99.04) 02/03/2024 Segmental and somatic dysfunction of lumbar region (ICD-10 - M99.03) 05/10/2024 Dyslipidemia (ICD-10 - E78.5) Discussed management of dyslipidemia with the patient, which included some of the following: Aerobic exercise 30 min 3-4x/wk; some benefit after ~6-12 mo; wt loss (2% wt loss = 6% in LDL) Diet: Decrease LDL ~13% (JUANY 2011;306:831); increase fruits/veg, decrease saturated fats & trans-fatty acids, 50% of total calories from complex carbs; AHA diet (heart.org) 02/23/2024 Segmental and somatic dysfunction of lumbar region (ICD-10 - M99.03) 03/09/2024 Segmental and somatic dysfunction of lumbar region (ICD-10 - M99.03) 04/04/2024 Segmental and somatic dysfunction of lumbar region (ICD-10 - M99.03) 05/04/2024 Segmental and somatic dysfunction of thoracic region (ICD-10 - M99.02) 04/30/2024 Disorder of bone, unspecified (ICD-10 - M89.9) 04/20/2024 Hypertension, renal, stage 1-4 or unspecified chronic kidney disease (ICD-10 - I12.9) 04/20/2024 Anemia in chronic kidney disease (ICD-10 - D63.1) 04/30/2024 Primary hypertension (ICD-10 - I10) I discussed diagnosis of primary hypertension at this time she was noted as being stable. Her plan of care will consist of:1. She advised to drink fluids specifically water2. She will continue to monitor her blood pressures where she moved [place] and will establish with a new primary care provider 3. Monitor for symptoms of heart attack including chest pain or palpitations numbness or tingling of her arms or legs headaches nausea/vomiting or dizziness if noted must report to the emergency room immediately for further evaluation. 05/04/2024 Segmental and somatic dysfunction of lumbar region (ICD-10 - M99.03) 05/10/2024 Chronic Kidney Disease, Stage 3b (ICD-10 - N18.32) stable 02/03/2024 Segmental and somatic dysfunction of rib cage (ICD-10 - M99.08) 01/11/2024 Segmental and somatic dysfunction of lower extremity (ICD-10 - M99.06) 12/23/2023 Segmental and somatic dysfunction of rib cage (ICD-10 - M99.08) 12/02/2023 HTN (hypertension) (ICD-10 - I10) 02/02/2024 Stage 3b chronic kidney disease (CKD) (ICD-10 - N18.32) Follows with nephrologybelkys for now 12/02/2023 Anemia in chronic kidney disease (ICD-10 - D63.1) Anemia of CKD:-Lab results reviewed and noted. Not currently on iron supplements. __ No indications for parenteral iron therapy or erythropoietin stimulating agent therapy per previous results. __ Will follow. Patient will require periodic monitoring of these parameters. 11/16/2023 Segmental and somatic dysfunction of thoracic region (ICD-10 - M99.02) 11/16/2023 Segmental and somatic dysfunction of lumbar region (ICD-10 - M99.03) 12/02/2023 Fatigue, unspecified type (ICD-10 - R53.83) 12/23/2023 Segmental and somatic dysfunction of lumbar region (ICD-10 - M99.03) 01/11/2024 Segmental and somatic dysfunction of lumbar region (ICD-10 - M99.03) 05/10/2024 Monoclonal gammopathy (ICD-10 - D47.2) no changes, no signs of CRAB 01/11/2024 Right hip pain (ICD-10 - M25.551) 05/10/2024 Intertrigo (ICD-10 - L30.4) so changes 12/23/2023 Segmental and somatic dysfunction of cervical region (ICD-10 - M99.01) 12/02/2023 Stage 3 chronic kidney disease, unspecified whether stage 3a or 3b CKD (ICD-10 - N18.30) 11/16/2023 Segmental and somatic dysfunction of lower extremity (ICD-10 - M99.06) 12/23/2023 Psoriasis (ICD-10 - L40.9) 12/02/2023 Mild cognitive impairment (ICD-10 - G31.84) The patient was recommended to take Lions Ayan in either a pill form or a coffee Creamer which also contains maitake, cordyceps and Lions Ayan. These can be obtained through [employer] or through [employer]. 05/10/2024 Umbilical hernia without obstruction and without gangrene (ICD-10 - K42.9) 05/10/2024 Stage 3b chronic kidney disease (CKD) (ICD-10 - N18.32) 05/10/2024 Cognitive dysfunction (ICD-10 - F09) I was concerned about possible polypharmacy, which we have discussed, she did go to cognitive clinical at , [facility] 05/10/2024 History of left knee replacement (ICD-10 - Z96.652) 12/02/2023 Other Discussed with the patient in details regarding the plan as outlined above. All their questions and concerns were addressed and answered, patient is willing to follow accordingly. Patient was strongly advised to call the office at any time for any concerns or inquiries prior to his next scheduled follow up. 02/02/2024 Other Discussed with the patient in details regarding the plan as outlined. All their questions and concerns were addressed and answered, patient understands and agrees with plan and is willing to follow accordingly. Patient was strongly advised to call the office at any time for any concerns or inquiries. I have reviewed/verified any medication section, PFSH, ROS notation(s) supplementing and/or confirming this information today , which has been recorded in this clinical note. 12/21/2023 Other Discussed with the patient in details regarding the plan as outlined. All their questions and concerns were addressed and answered, patient understands and agrees with plan and is willing to follow accordingly. Patient was strongly advised to call the office at any time for any concerns or inquiries. I have reviewed/verified any medication section, PFSH, ROS notation(s) supplementing and/or confirming this information today , which has been recorded in this clinical note. 05/10/2024 Other Discussed with the patient in details regarding the plan as outlined. All their questions and concerns were addressed and answered, patient understands and agrees with plan and is willing to follow accordingly. Patient was strongly advised to call the office at any time for any concerns or inquiries. I have reviewed/verified any medication section, PFSH, ROS notation(s) supplementing and/or confirming this information today , which has been recorded in this clinical note. PLAN OF TREATMENT Pending Test Test Name Order Date CMP - Comprehensive Metabolic Panel 06/2021 Ferritin Level 12/23/2021 Immunoglobulins, IgG,IgA,IgM 12/06/2023 Iron and Iron Binding Capacity Lipid Profile(Tgl,Chol,HDL,LDL Calculate d, Ratios) 02/12/2021 Urine Microalbumin,Random(Urine Creatini ne included) 12/23/2021 Parathyroid Hormone - Intact(PTHI) 06/11 RFP - Renal Function Panel(RFP)(Alb,Phos ,Ca,Na,K,Cl,Co2,Glu,BUN,Crea) 03/17/2023 RFP - Renal Function Panel(RFP)(Alb,Phos ,Ca,Na,K,Cl,Co2,Glu,BUN,Crea) 01/24/2023 Miscellaneous Lab Test 10/20/2021 Miscellaneous Lab Test 12/23/2021 XR BARIUM SWALLOW 09/10/2021 XR CHEST 2 VIEWS PA/LAT 06/30/2023 CT SINUSES W/O CONTRAST 10/06/2020 Bullous Pemphigoid (BP) 180 IgG 09/10/20 21 Bullous Pemphigoid (BP) 230 IgG 09/10/20 21 Cardiology ECG - Routine w12 Leads 07/15 MAMMO SCREENING DIGITAL AILYN (Ultrasound if Needed) 02/16/2017 MAMMO SCREENING DIGITAL AILYN (Ultrasound if Needed) 09/22/2020 PATIENT CONSENT,CTG 02/06/2024 BONE MARROW ASPIRATE, 01557 02/06/2024 CHROMOSOME ANALYSIS 02/06/2024 FISH REVIEW 02/06/2024 FISH,CYTOGENETICS 02/06/2024 CHROMOSOME REVIEW 02/06/2024 Immunofixation(Immunoelectrophoresis),Se rum,REF 1 [facility] 12/06/2023 Protein Electrophoresis,Serum,REF 1 [facility] 12/06/2023 Reflexed PE2(S Prot Elect) Review,REF 1 [facility] 12/06/2023 Reflexed SIF(S Immunofix) Review,REF 1 [facility] 12/06/2023 Spirometry 06/30/2023 [place]-Lambda Free Light Chain w/Ratio,RE F 1 [facility] 12/06/2023 US Renal 06/01/2022 Future Test Test Name Order Date CA 19.9 09/23/2020 Lipid Profile(Tgl,Chol,HDL,LDL Calculate d, Ratios) 01/19/2021 BMP - Basic Metabolic Panel 11/17/2021 Lipid Profile(Tgl,Chol,HDL,LDL Calculate d, Ratios) 01/18/2022 BMP - Basic Metabolic Panel 02/03/2022 BMP - Basic Metabolic Panel 12/29/2022 Insurance Providers Payer Name Payer Address Payer Phone Subscriber Number Group Number Insured Name Patient Relationship to Insured Coverage Start Date Coverage End Date MEDICARE BLUE O [address] [address] [place] [address] [id number] ELLEN BEARD Self - patient is the insured 4 MEDICATIONS ADMINISTERED Medication Instructions Date of Administration Dosage Notes Cyanocobalamin 02/03/2024 1000 ug Cyanocobalamin 02/23/2024 1000 ug Cyanocobalamin 05/04/2024 1000 ug MEDICAL (GENERAL) HISTORY Medical History History ICD Code Armando allergy HTN: '. Dyazide. Systemic Inflammatio n , edema Anxiety: severe, since childhood. Depres yossi. MSK: diffuse OA. spinal stenosis (Dr. Dale jwa). s/p multiple surgeries Hyperlipidemia: +fam hx cad. statins cau se swelling SKYLAR: CPAP Allergic Rhinitis Glucose intolerance: 2013 Glaucoma Fam hx pancreatic ca: screening with Ca- 19-9. Diverticulosis of colon K57.30 Low back pain M54.5 Surgical History Surgery Date(Month/Year) biopsy of kidney extraction 4 wisdom teeth 1971 D&C 2008 Hysterectomy LAVH-BSO with TVT. Benign p athology 08/2010 Right TKR 09/27/2011 L4-L5 cage and rods 09/04/12 L-[address] Verdin 02/06/14 Bilateral glaucoma procedures 2014 T10-S1 posterior spinal fusion (miguel yamel tanner and replacement) 09/16 LT total knee replacement -- Josh Hospitalization History Reason Date(Month/Year) surgeries
[2024-11-16 14:58] LABS: Creatinine Urine 158.06 mg/dL; Microalbum/Creatinine Ratio Ur 11.3 ug/mg cr (<30)
== END 2024-11-16 12:51 | disposition home or self-care (01) ==
LOC: HO.LNP 12:50
PROVIDERS: PCP Nurse Practitioner Family; Visit Provider Nurse Practitioner Family
DX: Z00.00 Encounter for general adult medical examination without abnormal findings (principal); Z78.0 Asymptomatic menopausal state; F03.A4 Unspecified dementia, mild, with anxiety; R73.03 Prediabetes; E78.2 Mixed hyperlipidemia; F41.1 Generalized anxiety disorder; K14.0 Glossitis; I73.9 Peripheral vascular disease, unspecified; K21.9 Gastro-esophageal reflux disease without esophagitis; G89.29 Other chronic pain; I12.9 Hypertensive chronic kidney disease with stage 1 through stage 4 chronic kidney disease, or unspecified chronic kidney disease; N18.31 Chronic kidney disease, stage 3a; Z91.09 Other allergy status, other than to drugs and biological substances; Z87.19 Personal history of other diseases of the digestive system
CPT/HCPCS: 82043; 82570; 96127; 99212

== ENCOUNTER 2024-11-16 12:50 | Outpatient (AMB) | payer MEDICARE, SELFPAY ==
--- NOTE | 2024-11-16 13:10 | MHC.PC.OV ---
Vital Signs 11/16/24 13:15 Height 5 ft 5 in Weight 247 lb 4 oz BMI 41.1 BP 138/82 Blood Pressure Location Lt brachial Position Sitting Respiration 13 Pulse 91 Pulse Source Pulse Oximeter Temp 97.9 F Temp Source Oral Pulse Oximetry (%) 96 Oxygen Delivery Method Room Air Intake Visit Reasons: 2-3 WEEKS 30 MIN FU LAB, Intake Note: follow up on labs, patient also needs refill on narcotics. Vehicle Trimmer Required: No Allergies codeine Allergy (Severe, Verified 11/16/24 13:11) Hives nickel Allergy (Severe, Verified 11/16/24 13:11) Hives Sulfa (Sulfonamide Antibiotics) Adverse Reaction (Severe, Verified 11/16/24 13:11) Hives eye drops for galucoma Allergy (Severe, Uncoded 11/09/24 09:47) Dry Eye Medication List - Last Reconciled 11/16/24 by Isadora Michael, GIANT TIRE REPAIRER- amoxicillin 2,000 mg PO ONCE clonazepam 0.5 mg PO TID CPAP (CPAP Machine/Device) As directed cyclobenzaprine 10 mg PO TID ergocalciferol (vitamin D2) 1,250 mcg PO QWEEK esomeprazole magnesium 40 mg PO DAILY PRN hydroxyzine HCl 25 - 50 mg (1 - 2 x 25 mg) PO QID 90 days oxycodone 5 mg PO TID pregabalin 75 mg PO BID ramipril 10 mg PO BID sertraline 150 mg PO DAILY torsemide 30 mg PO DAILY zinc gluconate 50 mg PO Q OTHER DAY zinc sulfate 50 mg PO Q OTHER DAY Tobacco use date assessed: 11/16/24 Last assessed Fall Risk: 11/16/24 Dental Screening Dental Screen Date: 11/16/24 Did you have a dental visit in the last 12 months?: No Did you have a dental problem in the last 6 months where you did not have access to dental care?: No Was dental information given to patient?: Patient has dentist HPI HPI Comments History of Present Illness Details 69 y/o F with obesity, SKYLAR on CPAP, tinnitus, CKD 3a, generalized anxiety disorder, hypertension, migraine headaches, normal pressure glaucoma, chronic pain, hx of esophageal stricture, prediabetes, gERD, PVD Social: to [place], lives w/ dtr. Retired.Walks w/ walker Health Maintenance Colon age 65 repeat 10 years Dexa 2022, repeat ordered today Mammo ordered Pap Vaccines: Tdap UTD Flu 2023 Specialists: Debby Alvarez CPAP supplier The patient is a 69-year-old female presenting with chronic conditions for a routine follow-up. - was sick w/ URI. completed Zpak. Feeling better but not back to baseline. - Dementia: Mild dementia is present with associated cognitive decline. Disrupted sleep pattern, up most of the night, sleeps most of the day. - Recurrent nausea due to esophageal dysfunction, but no obstruction currently. Nausea impacts diet. Declines GI f/u at this time - Chronic weakness and exhaustion noted, which is worsening from a baseline. - Anemia is present but manageable for now. - CKD requires ongoing management for stable kidney function. - Hypertension needs consistent follow-up to ensure stability. - sores on arms and legs, relates to nickel allergy; discoloration of feet w sense of them being cold comes and goes for years. Chronic back pain - on oxycodone 5mg po TID; managed by PCP in [place]. Requesting refill. Uses APAP and sparing NSAID to help pain On clonazepam PRn anxiety, reqeuesting refill. Man[place]. Here today for provider monitoring for Oxycodone which is being prescribed for chronic back pain. Today during the visit the following was reviewed: Screened for risk of opioid misuse using a validated screening tool. Receive, review, and sign an approved [facility] Agreement and Informed Consent for Receiving Controlled Substances, which should be stored in the EMR. 11/16/24 Non-pharmacologic and non-opioid pharmacologic options should be used as a first line for chronic pain unless otherwise contraindicated & in conjunction with Reviewed side effects and discuss the risks of addiction and overdose with all patients on chronic opioid therapy. Counseled patient regarding safe storage and disposal of medications. Prescribing intranasal naloxone (Narcan) rescue kits to patients if appropriate. Prescriptions should be limited to 28-day supplies unless mandated otherwise by insurance. Renewals should not be given on evenings, holidays, or weekends. Regular clinical reassessment of pain, functional goals, treatment plan, and adherence. Understand that pill counts and/or random toxicology screens (minimum yearly) are all part of a standard [facility] protocol for care. More frequent monitoring is appropriate for monitoring of symptoms or concerns of misuse. Irregular findings should be addressed with the patient and documented in the EMR with the appropriate clinical and/or administrative response. Signs of misuse: N COURTESY BOOTH CASHIER reviewed: Y Contract up to date: 11/16/24 Random pill count done: NA UTox done: NA Next appt: 8 weeks Results: 11/14/24 low ANC to 26, high RDW 16.9 , platelet count 416 otherwise normal CBC, normal lytes, BUN 14, creatinine 0.94 EGFR 59 hemoglobin A1c 5.9%, normal calcium and LFTs, mild elevation in alk phos 128 LDL 128, HDL 35, total cholesterol 180 triglycerides 111, B12 1630 normal vitamin-D thyroid and folate, urine micro/alb WNL Physical Exam Awake alert chronically ill appearing, NAD Sclera and conjunctiva clear bilat RRR LS CTAB BLE nonpitting edema, chronic vascular appearing discoloration with sores w/o infection, (repotrs related to nickel allerg- these areas area also on her upper legs and bilat arms), decrease DP bilat, hairless. Walks w walker Alert to person and place, forget details, repeats self, takes notes Discussion Notes During today's visit, I discussed the patient's ongoing nausea and weakness likely linked to esophageal dysfunction and nutritional intake. The importance of monitoring anemia and its potential impact on the patient's energy levels was explained. I addressed the necessity of maintaining CKD management and the benefits of potentially integrating exercise post-move to counteract weakness. There's consideration for a vascular assessment on the lower extremities. The need for follow-up appointments, regular laboratory assessments, and medication management, particularly concerning analgesics, was reinforced. Assessment and Plan 69-year-old female with history of mild dementia, CKD, essential hypertension, and generalized anxiety disorder presenting for routine follow-up. Anemia and emerging symptoms of nausea and weakness contribute to complex management needs. Therapeutic focus involves stable CKD medication management, addressing acute dietary implications on energy levels, and examining potential vascular issues in the lower extremities. Routine monitoring and medications are essential in managing these interconnected health issues. 1. Dementia Monitoring and support for cognitive impact, promoting daily function strategies. Recommend elder services for in home assessment of needs. 2. Anemia - mild Ensure dietary improvements, follow-up on lab results. 3. Esophageal Dysfunction Symptom observation, consider dietary adaptations and GI consultation if needed. 4. Chronic Pain Disorder Use of analgesics with a safety contract for appropriate usage. Get RMV form to complete for parking. 5. Generalized Anxiety Disorder Assess symptoms and adjust management as needed. cont current meds, refill on clonazepam sent. 6. Nausea Dietary assessment and intervention; address medication needs if discomfort persists. 7. Chronic Kidney Disease Ckd Regular renal function follow-up, medication management guided by results. 8. Essential Hypertension Maintain blood pressure control via current therapy, ensure regular monitoring. 9: HLD - declined statin, will trial citrus bergomot. 10: PVD refer to vascular Patient Instructions - Continue with prescribed medications and monitor their effects. - Ensure dietary intake is sufficient, especially considering recent nausea. - Follow-up on laboratory results as scheduled. - Pay attention to blood pressure readings at home. - Monitor any changes in symptoms of chronic conditions. - Schedule upcoming appointments for routine and specialist follow-up as discussed. Consent During this visit, consent was obtained for the ongoing use of analgesic medications, under a structured agreement for safety and compliance. The risks, benefits, and necessity for regular adherence to the contract stipulations were discussed thoroughly. The patient acknowledged understanding and agreed to the conditions set forth for medication use. Patient was informed and verbally consented to the use of an ambient scribe for clinic note documentation during this visit. Total time spent caring for the patient today was 60 minutes. This includes time spent before the visit reviewing the chart, time spent during the visit, and time spent after the visit on documentation, reviewing laboratory results, diagnostic imaging, medications, performing a medically necessary evaluation, counseling on diagnoses, care coordination, ordering appropriate tests, ordering appropriate medications, review of tests performed by other providers, reporting test results with the patient, communication with other healthcare providers. [facility] Medical History (Updated 11/16/24 @ 15:42 by DAVE Cadena-FAMILIA) Anxiety Hypertension Low kidney function Migraines Normal pressure glaucoma Sleep apnea Umbilical hernia Surgical History (Updated 10/26/24 @ 16:07 by DAVE Cadena-FAMILIA) H/O eye surgery H/O knee surgery H/O: hysterectomy Previous back surgery Family History (Updated 10/26/24 @ 15:37 by Alistair Kerns MA) Brother Cancer Pancreas cancer Father Cancer Hypertension Cardiovascular disease Stented coronary artery Mother Stroke Thyroid disorder Pacemaker Cardiovascular disease Paternal Grandmother Stroke Social History (Updated 10/26/24 @ 15:33 by Alistair Kerns MA) Household Members: Spouse Both parents involved: No Caregiver staying overnight: No Housing: Apartment Are you a primary career manager to a significant other at home: No Do you presently have visiting nurse or other home services: No 75 years or older and lives alone: No Alcohol intake: never Patient Tobacco Use Status: Never used Tobacco e-Cigarette/Vaping Use: Never Used Second Hand Smoke Exposure: No service: No Current occupational status: retired and disabled Cognitive needs: Yes (mild dementia) Hearing needs: No Vision needs: Yes (wear glasses) Questionnaire PHQ-9 Over the last 2 weeks, how often have you been bothered by any of the following problems? 1. Little interest or pleasure in doing things: more than half the days 2. Feeling down, depressed, or hopeless: several days 3. Trouble falling or staying asleep, or sleeping too much: more than half the days 4. Feeling tired or having little energy: more than half the days 5. Poor appetite or overeating: more than half the days 6. Feeling bad about yourself - or that you are a failure or have let yourself or your family down: several days 7. Trouble concentrating on things, such as reading the newspaper or watching television: several days 8. Moving or speaking so slowly that other people could have noticed. Or the opposite - being so fidgety or restless that you have been moving around a lot more than usual: more than half the days 9. Thoughts that you would be better off or of hurting yourself in some way: not at all Total score: 13 Depression Screening Interpretation: Positive Depression Screening Follow-up: Existing condition Depression Screening Done: Yes 38881 - PHQ-9 Billing: Yes Source: Developed by Drs. Rich Matthew, Mackenzie De La Garza, Chalo Landon and colleagues, with an educational mick from [employer]. Thrive Questionnaire Date Thrive assessed: 11/16/24 I am a: Patient What is your living situation today?: I have a steady place to live Within the past 12 months, did the food you bought not last and you didn't have the money to get more?: Never true Within the past 12 months, did you worry whether your food would run out before you got money to buy more?: Never true Do you have trouble paying for medicines?: No Do you have trouble getting transportation to medical appointments?: No Do you have trouble paying your heating and electricity bill?: No Do you have trouble taking care of your child, family member or friend?: No Do you have trouble with day-to-day activities such as bathing, preparing meals, shopping, managing finances, etc.?: Yes Are you currently unemployed and looking for a job?: No Are you interested in more education?: No Please select the resources that you would like help with: Care for elder or disabled Currently or been in a relationship where the following occur: No concerns reported THRIVE Score: 0 AUDIT C Alcohol Use Questionnaire (AUDIT-C) 1. How often do you have a drink containing alcohol?: Never Total Score: 0 Score Reviewed/Action Taken: Yes SAMARA-7 AMB Questionnaire SAMARA-7 Date SAMARA - 7 assessed: 11/16/24 Feeling nervous, anxious, or on edge: 1 = Several days Not being able to stop or control worryin = Several days Worrying too much about different things: 0 = Not at all Trouble relaxin = Not at all Being so restless that it is hard to sit still: 0 = Not at all Becoming easily annoyed or irritable: 1 = Several days Feeling afraid as if something awful might happen: 0 = Not at all Total SAMARA-7 score (0-4 normal; 5-9 mild; 10-14 moderate; 15-21 severe): 3 Source: Developed by Drs. Rich Matthew, Mackenzie De La Garza, Chalo Landon and colleagues, with an educational mick from [employer]. SAMARA-7 Assessment Billing SAMARA-7 Assessment Tool: SAMARA-7 Assessment 00674 Physical exam (Primary Care) Vital Signs: Last Vital Signs Temp 97.9 F 11/16/24 13:15 Pulse 91 11/16/24 13:15 Resp 13 11/16/24 13:15 BP 138/82 11/16/24 13:15 Pulse Ox 96 11/16/24 13:15 Oxygen Delivery Method Room Air 11/16/24 13:15 BMI result Body Mass Index 41.1 BMI Assessment/Plan discussion: High BMI High, discussed plan: lifestyle Tobacco/Smoking Status: Tobacco use Status Tobacco use date assessed 11/16/24 11/16/24 13:13 Patient Tobacco Use Status Never used Tobacco 11/16/24 13:13 e-Cigarette/Vaping Use Never Used 11/16/24 13:13 PHQ-9: PHQ-9 Score PHQ-9: Total score 13 11/16/24 14:02 Depression Screening Interpretation: Positive Depression Screening Follow-up: Existing condition Thrive Assessment: Date of Thrive Assessment Date Thrive assessed 11/16/24 11/16/24 13:13 Currently or been in a relationship where the following occur: No concerns reported Coding Level of Care Code Est Pt Level 5 (30601) Complex EM visit Add On G2211 Diagnoses Mild dementia with anxiety, unspecified dementia type F03.A4 Dementia behavioral or psychological symptom: with anxiety Dementia severity: mild Dementia type: unspecified type Prediabetes R73.03 Mixed hyperlipidemia E78.2 Hyperlipidemia type: mixed hyperlipidemia SAMARA (generalized anxiety disorder) F41.1 Glossitis K14.0 Primary hypertension I10 Hypertension type: primary hypertension PVD (peripheral vascular disease) I73.9 Gastroesophageal reflux disease without esophagitis K21.9 Esophagitis presence: without esophagitis Other chronic pain G89.29 Chronic pain type: other chronic pain Nickel allergy Z91.09 Stage 3a chronic kidney disease N18.31 Chronic kidney disease stage 3 subtype: stage 3a (GFR 45-59) History of esophageal stricture Z87.19 Menopause Z78.0 Additional Codes SAMARA-7 Assessment Billing - SAMARA-7 Assessment Tool: SAMARA-7 Assessment 48193 ([id number]) PHQ-9 - 69848 - PHQ-9 Billing: Yes ([id number]) Assessment & Plan Assessment & Plan (1) Dementia: Code(s): F03.90 - Unspecified dementia, unspecified severity, without behavioral disturbance, psychotic disturbance, mood disturbance, and anxiety Category: Medical Qualifiers: Dementia behavioral or psychological symptom: with anxiety Dementia severity: mild Dementia type: unspecified type Qualified Code(s): F03.A4 - Unspecified dementia, mild, with anxiety (2) Prediabetes: Code(s): R73.03 - Prediabetes Category: Medical (3) Hyperlipidemia: Code(s): E78.5 - Hyperlipidemia, unspecified Category: Medical Qualifiers: Hyperlipidemia type: mixed hyperlipidemia Qualified Code(s): E78.2 - Mixed hyperlipidemia (4) SAMARA (generalized anxiety disorder): Code(s): F41.1 - Generalized anxiety disorder Category: Medical (5) Glossitis: Code(s): K14.0 - Glossitis Category: Medical (6) Hypertension: Code(s): I10 - Essential (primary) hypertension Category: Medical Qualifiers: Hypertension type: primary hypertension Qualified Code(s): I10 - Essential (primary) hypertension (7) PVD (peripheral vascular disease): Code(s): I73.9 - Peripheral vascular disease, unspecified Category: Medical (8) GERD (gastroesophageal reflux disease): Code(s): K21.9 - Gastro-esophageal reflux disease without esophagitis Category: Medical Qualifiers: Esophagitis presence: without esophagitis Qualified Code(s): K21.9 - Gastro-esophageal reflux disease without esophagitis (9) Chronic pain: Code(s): G89.29 - Other chronic pain Category: Medical Qualifiers: Chronic pain type: other chronic pain Qualified Code(s): G89.29 - Other chronic pain (10) Nickel allergy: Code(s): Z91.09 - Other allergy status, other than to drugs and biological substances Category: Medical (11) CKD (chronic kidney disease) stage 3, GFR 30-59 ml/min: Code(s): N18.30 - Chronic kidney disease, stage 3 unspecified Category: Medical Qualifiers: Chronic kidney disease stage 3 subtype: stage 3a (GFR 45-59) Qualified Code(s): N18.31 - Chronic kidney disease, stage 3a (12) History of esophageal stricture: Code(s): Z87.19 - Personal history of other diseases of the digestive system Category: Medical (13) Menopause: Code(s): Z78.0 - Asymptomatic menopausal state Category: Medical Plan . Orders: Orders XR DEXA axial skeleton Today Z13.820 - Encounter for screening for osteoporosis, Z78.0 - Asymptomatic menopausal state Referrals Vascular Surgery Referral E78.5 - Hyperlipidemia, unspecified, I73.9 - Peripheral vascular disease, unspecified Medications: New naloxone 4 mg/actuation (Narcan) spray 1 dose into ONE nostril; alternate nostrils w each dose until help arrives 4 mg intranasal Q3M PRN 2 ea 0RF opioid overdose Changed From clonazepam 0.5 mg PO TID To clonazepam 0.5 mg PO TID 28 days 84 tabs 0RF From oxycodone 5 mg PO TID 0RF To oxycodone 5 mg PO TID 28 days 84 tabs 0RF Discontinued azithromycin Discontinued Reason: Patient Completed Course For 250 mg dose pack: take 500 mg today (day 1), then 250 mg for 4 days (days 2-5) PO 5 days 6 tabs 0RF
--- OUTSIDE RECORDS SUMMARY | 2024-11-16 13:13 | XMS_ITS ---
Author Organization [facility] Physician Tanya العلي Address [address] [place] [address] Care Team Providers Care Manager Wound Care Name Role Phone Galileo Alarcon Primary Care Provider Jimmie Villatoro Unavailable [phone] REASON FOR VISIT 18 MO. F/U SOCIAL HISTORY Sex Assigned At : Social History Observation Description Sex Assigned At Female Encounters Encounter Location Date Provider Diagnosis [facility] [address] [place], [place] [id number] 09/18/2024 Jimmie Villatoro PLAN OF TREATMENT No Information
--- OUTSIDE RECORDS SUMMARY | 2024-11-16 13:13 | XMS_ITS ---
Author Organization [facility] Physician Tanya العلي Address [address] [place] [address] Care Team Providers Care Rotary Bar Operator Name Role Phone Gallieo Alarcon Primary Care Provider [phone] REASON FOR VISIT Due lyrica,oxycodone,klonopin MEDICATIONS Medication [...] Orally Twice a day for 90 days [id number] 10/17/2024 Active SOCIAL HISTORY Sex Assigned At : Social History Observation Description Sex Assigned At Female Encounters Encounter Location Date Provider Diagnosis [facility] [address] [place] [address] 10/15/2024 Galileo Alarcon PLAN OF TREATMENT Medication Medication Name Sig Start Date Stop Date Notes KlonoPIN 0.5 mg 1 tablet MDD 3 Orall y 3x per day as needed for 30 days 10/17/[id number] attempting to taper down on klonopin oxyCODONE HCl 5 mg 1 tablet as needed. MDD 4 Orally 4x daily for 30 days 10/17/[id number] Pregabalin 75 MG 1 capsule Orally Twi ce a day for 90 days 10/17/2024 [id number]
--- OUTSIDE RECORDS SUMMARY | 2024-11-16 13:14 | XMS_ITS ---
Author Organization [facility] Physician Tanya العلي Address [address] [place] [address] Care Team Providers Care Unscrambler Name Role Phone Galileo Alarcon Primary Care Provider Jimmie Villatoro Unavailable [phone] REASON FOR VISIT 18 MONTHS SKYLAR SOCIAL HISTORY Sex Assigned At : Social History Observation Description Sex Assigned At Female Encounters Encounter Location Date Provider Diagnosis [facility] [address] [place], [place] [phone] 09/24/2024 Jimmie Villatoro PLAN OF TREATMENT No Information
[2024-11-16 13:15] VITALS: BP 138/82; PULSE 91; RESP 13; TEMP 36.6; O2SAT 96; BMI 41.1
== END 2024-11-16 14:23 | disposition home or self-care (01) ==
PROVIDERS: PCP Nurse Practitioner Family; Visit Provider Nurse Practitioner Family
DX: I12.9 Hypertensive chronic kidney disease with stage 1 through stage 4 chronic kidney disease, or unspecified chronic kidney disease (principal); F03.A4 Unspecified dementia, mild, with anxiety; I73.9 Peripheral vascular disease, unspecified; N18.31 Chronic kidney disease, stage 3a; E78.2 Mixed hyperlipidemia; R73.03 Prediabetes; F41.1 Generalized anxiety disorder; K14.0 Glossitis; K21.9 Gastro-esophageal reflux disease without esophagitis; G89.29 Other chronic pain; Z91.09 Other allergy status, other than to drugs and biological substances; Z87.19 Personal history of other diseases of the digestive system

== ENCOUNTER 2024-12-04 13:57 | Outpatient (AMB) | payer MEDICARE, SELFPAY ==
[2024-12-04 14:08] VITALS: BMI 41.1
--- NOTE | 2024-12-04 14:08 | MHC.OFFVIS ---
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 Pt states it started over 5 years ago. She was seen by ?ortho doc. 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 Complaints include pain over varicosities, swelling of lower extremities, cramping, fatigue, and heaviness of the lower extremities. It has been affecting their daily activities including walking, standing and physical activity. It is noted more so in bilateral leg. She states her feet are usually cold to the touch. She does have an extensive history of back pain with chronic pain and 3 surgeries; she states she has an approximate 13 miguel in her back. She does not smoke and never has smoked. She is a prediabetic not on medications. She has no history of blood clots or any clotting disorders in her family. Patient denies any previous venous surgery or injections. Patient denies any history of DVT/ PE. Patient denies any history of phlebitis. Trial of compression includes - elevation with a little relief They now present for vascular evaluation regarding their varicose veins. [facility] Medical History Migraines Hypertension Anxiety Sleep apnea Low kidney function Normal pressure glaucoma Umbilical hernia Surgical History H/O eye surgery H/O: hysterectomy Previous back surgery H/O knee surgery Family History Brother Cancer Pancreas cancer Father Cancer Hypertension Cardiovascular disease Stented coronary artery Mother Stroke Thyroid disorder Pacemaker Cardiovascular disease Paternal Grandmother Stroke Social History Household Members: Spouse Both parents involved: No Caregiver staying overnight: No Housing: Apartment Are you a primary health care administrator to a significant other at home: No Do you presently have visiting nurse or other home services: No 75 years or older and lives alone: No Alcohol intake: never Patient Tobacco Use Status: Never used Tobacco e-Cigarette/Vaping Use: Never Used Second Hand Smoke Exposure: No service: No Current occupational status: retired and disabled Cognitive needs: Yes (mild dementia) Hearing needs: No Vision needs: Yes (wear glasses) Review of Systems Const Reports as per HPI and Denies weakness ENT Reports Normal hearing present and Denies dizziness Card Reports as per HPI, Denies chest pain, Denies chest pain at rest, Denies chest pain with activity, Denies dyspnea and Denies dyspnea on exertion Resp Reports as per HPI, Denies cough, Denies dyspnea and Denies dyspnea on exertion GI Reports as per HPI, Denies abdominal pain, Denies nausea and Denies vomiting Musc Denies numbness Skin/Breast Reports as per HPI, Denies erythema and Denies wounds Neuro Reports Normal hearing present, Denies dizziness, Denies numbness, Denies Sensory deficit (Neuro) and Denies weakness Psych Reports no additional complaints Endo Reports no additional complaints Physical Exam Vital Signs: BMI result Body Mass Index 41.1 Const General: healthy appearing and no acute distress Orientation/consciousness: patient oriented x3 HEENT Head: Yes normal to inspection Ears: hearing grossly normal bilaterally Mouth: Normal oral and palatal mucosa present Resp Effort & Inspection: normal respiratory effort and able to speak in complete sentences Auscultation: clear to auscultation bilaterally Cardio Jugular venous distension: no JVD Rate: regular rate Rhythm: regular rhythm Heart sounds: S1 normal heart sound present and S2 normal heart sound present Bruits: no abdominal aortic bruits, no carotid bruits, no femoral bruits and no renal bruits Peripheral pulses: Peripheral pulses 2+ throughout GI Inspection: Yes normal to inspection Palpation (GI): No Abdominal aortic bruit present Skin General skin exam: no rashes or lesions noted Wounds: no wounds Hair: normal Neuro General: patient oriented x3 Cranial nerves: Yes Normal hearing present Cognition (Neuro): normal cognition Gait exam (Neuro): Normal gait present Motor exam (neuro): 5/5 motor strength present throughout Sensory Exam: No Sensory deficit (Neuro) Extrem Other: Bilateral lower extremities: Palpable DP pulses. +2 nonpitting edema. Discoloration noted in the calves, circumferentially; there are individual circular nguyen, which the pt states is due to her deep allergy. There is darker erythema noted in the anterior degroot. No open wounds. Toes: deep erythema to violaceous discoloration. Cap refill >3 seconds, appx 4-5 seconds CEAP: C - 4 E - primary A - superficial P - reflux General: Yes normal to inspection, Yes full ROM, Yes capillary refill normal and Yes normal gait Assessment & Plan Assessment & Plan (1) Varicose veins of both lower extremities with inflammation: Code(s): I83.11 - Varicose veins of right lower extremity with inflammation; I83.12 - Varicose veins of left lower extremity with inflammation Category: Medical Plan: TAWANDA is presenting today on a referral from her PCP for ongoing and worsening bilateral lower swelling and pain. She also has discoloration noted in her lower shins as well as in her toes. This has been going on for over 10 years. In short, the patient has evidence of venous insufficiency. I have discussed the pathophysiology with the patient. In addition I have provided informational material regarding venous disease to the patient. We have discussed conservative measures including compression, elevation, and exercise. We are able to provide her with a set of compression stockings; we discussed the importance of wearing them daily. I have taken the liberty of ordering venous insufficiency testing with the patient. They will follow up with me after testing. We did have a discussion that there could be a portion of lymphedema as well; we will wait for the results of the venous insufficiency ultrasound and likely have her get on our schedule for the lymphedema clinic in January. The patient had an opportunity to ask questions regarding the treatment plan. All questions were answered. Imaging studies, laboratory studies and physical exam results were discussed and reviewed in detail. No major barriers to understanding were identified. The patient expressed understanding and agreement with the above treatment plan. The patient is aware they should contact our office by phone for worsening of the current condition or the appearance of new symptoms. Thank you for allowing me to participate in the vascular care of this patient. If you have any questions or concerns regarding the treatment for the above condition please do not hesitate to contact me. The office telephone contact is [phone]. This note is constructed using voice recognition software. While every effort has been made to ensure accuracy, bone tender errors may have been included. Thank you for allowing me to participate in the care of your patient. Yours sincerely, SHLOMO Matthews Orders: Orders US venous duplex LE BI 1 Week I83.11 - Varicose veins of right lower extremity with inflammation, I83.12 - Varicose veins of left lower extremity with inflammation Coding Level of Care Code New Pt Level 4 (82463) Diagnoses Varicose veins of both lower extremities with inflammation I83.11; I83.12
--- OUTSIDE RECORDS SUMMARY | 2024-12-04 17:37 | XMS_ITS ---
Author Organization [facility] Physician Tanya العلي Address [address] [facility] [facility] [address]nd [place] [address] Care Team Providers Care Circuit Breaker Mechanic Name Role Phone Galileo Alarcon Primary Care Provider Jimmie Villatoro Unavailable [phone] REASON FOR VISIT 18 MONTHS SKYLAR SOCIAL HISTORY Sex Assigned At : Social History Observation Description Sex Assigned At Female Encounters Encounter Location Date Provider Diagnosis [facility] [address] [place], [place] [id number] 09/24/2024 Jimmie Villaotro PLAN OF TREATMENT No Information
--- OUTSIDE RECORDS SUMMARY | 2024-12-04 17:37 | XMS_ITS ---
Author Organization [facility] Physician Tanya العلي Address [address] [facility] [address] [place] [address] Care Team Providers Care Endoscopy Registered Nurse Name Role Phone Galileo Alarcon Primary Care [...] Orally Twice a day for 90 days [id number] 10/17/2024 Active SOCIAL HISTORY Sex Assigned At : Social History Observation Description Sex Assigned At Female Encounters Encounter Location Date Provider Diagnosis [facility] [address] [place] [address] 10/15/2024 Galileo Alarcon PLAN OF TREATMENT Medication Medication Name Sig Start Date Stop Date Notes KlonoPIN 0.5 mg 1 tablet MDD 3 Orall y 3x per day as needed for 30 days 10/17/2024584952052 attempting to taper down on klonopin oxyCODONE HCl 5 mg 1 tablet as needed. MDD 4 Orally 4x daily for 30 days 10/17/2024837238145 Pregabalin 75 MG 1 capsule Orally Twi ce a day for 90 days 10/17/2024 [id number]
--- OUTSIDE RECORDS SUMMARY | 2024-12-04 17:37 | XMS_ITS ---
Author Organization [facility] Physician Tanay العلي Address [address] [facility] [address] [place] [address] Care Team Providers Care Assistant Community Manager Name Role Phone Galileo Alarcon Primary Care Provider Jimmie Villatoro Unavailable [phone] REASON FOR VISIT 18 MO. F/U SOCIAL HISTORY Sex Assigned At : Social History Observation Description Sex Assigned At Female Encounters Encounter Location Date Provider Diagnosis [facility] [address] [place], [place] [id number] 09/18/2024 Jimmie Villatoro PLAN OF TREATMENT No Information
== END 2024-12-04 14:54 | disposition home or self-care (01) ==
PROVIDERS: PCP Nurse Practitioner Family; Visit Provider Physician Assistant Surgical
DX: I83.11 Varicose veins of right lower extremity with inflammation (principal); I83.12 Varicose veins of left lower extremity with inflammation
CPT/HCPCS: 99204

== ENCOUNTER → 2024-12-04 13:57 | Outpatient (BNVA) | payer MEDICARE, SELFPAY | PROVIDERS: PCP Nurse Practitioner Family; Visit Provider Physician Assistant Surgical | DX: I83.11 Varicose veins of right lower extremity with inflammation (principal); I83.12 Varicose veins of left lower extremity with inflammation | CPT/HCPCS: 99202 ==

== ENCOUNTER 2024-12-28 09:51 | Outpatient (REF) | payer MEDICARE, SELFPAY ==
--- NOTE | ~2024-12-28 | US_ITS ---
EXAMINATION: US LOWER EXTREMITY VENOUS (REFLUX EXAM), BILATERAL CLINICAL INFORMATION: Varices. COMPARISON: None. TECHNIQUE: Color flow triplex imaging and compression Doppler was performed to evaluate both the deep and the superficial systems bilaterally. To evaluate the superficial system, the examination was performed in the upright position. Color-flow Doppler ultrasound and compression ultrasound were utilized. In addition, maneuvers were utilized to demonstrate reflux. FINDINGS: 1. DEEP VENOUS ULTRASOUND OF THE RIGHT LOWER EXTREMITY: Common Femoral Vein: Compressible, normal respiratory variation and augmented flow. Femoral Vein: Compressible, normal color flow and augmentation. Popliteal Vein: Compressible, normal augmentation. Deep Reflux: There is no evidence of reflux in the deep system in either the common femoral vein, superficial femoral or the popliteal vein. There is no evidence of a Meyer's cyst. 2. SUPERFICIAL ULTRASOUND WITH DOPPLER OF RIGHT LOWER EXTREMITY: GREAT SAPHENOUS VEIN: Saphenofemoral Junction: 0.6 cm; Reflux: 0 ms Proximal Thigh: 0.7 cm; Reflux: 1852 ms Mid Thigh: 0.5 cm; Reflux: 0 ms Distal Thigh: 0.6 cm; Reflux: 0 ms At Knee: 0.6 cm; Reflux: 0 ms Proximal Calf: 0.5 cm; Reflux: 1960 ms Mid Calf: 0.3 cm; Reflux: 0 ms Distal Calf: 0.5 cm; Reflux: 0 ms DUPLICATED MEDIAL GREAT SAPHENOUS VEIN: Diameter: None imaged Reflux: NA DUPLICATED LATERAL GREAT SAPHENOUS VEIN: Diameter: 0.5 cm. Reflux: NA SMALL SAPHENOUS VEIN: Saphenopopliteal Junction: 0.2 cm; Reflux: 0 ms Proximal: 0.2 cm; Reflux: 0 ms Distal: 0.2 cm; Reflux: 836 ms VEIN OF GIACOMINI: Size: NA Reflux: NA PERFORATORS: Location: Great saphenous vein, small saphenous vein distal segment and accessory saphenous vein lateral proximal segment. Size: 0.2-0.3 cm. Reflux: NA VARICOSITIES: Location: Great saphenous vein. Size: 0.3-0.4 cm. Reflux: 1944 ms in the proximal calf segment. 3. DEEP VENOUS ULTRASOUND OF THE LEFT LOWER EXTREMITY: Common Femoral Vein: Compressible, normal respiratory variation and augmented flow. Femoral Vein: Compressible, normal color flow and augmentation. Popliteal Vein: Compressible, normal augmentation. Deep Reflux: There is no evidence of reflux in the deep system in either the common femoral vein, superficial femoral or the popliteal vein. There is no evidence of a Meyer's cyst. 4. SUPERFICIAL ULTRASOUND WITH DOPPLER OF LEFT LOWER EXTREMITY: GREAT SAPHENOUS VEIN: Saphenofemoral Junction: 0.7 cm; Reflux: 0 ms Proximal Thigh: 0.6 cm; Reflux: 0 ms Mid Thigh: 0.6 cm; Reflux: 0 ms Distal Thigh: 0.5 cm; Reflux: 0 ms At Knee: 0.5 cm; Reflux: 0 ms Proximal Calf: 0.4 cm; Reflux: 0 ms Mid Calf: 0.4 cm; Reflux: 0 ms Distal Calf: 0.3 cm; Reflux: 0 ms DUPLICATED MEDIAL GREAT SAPHENOUS VEIN: Diameter: None imaged Reflux: NA DUPLICATED LATERAL GREAT SAPHENOUS VEIN: Diameter: 0.4 cm. Reflux: NA SMALL SAPHENOUS VEIN: Saphenopopliteal Junction: 0.2 cm; Reflux: 0 ms Proximal: 0.3 cm; Reflux: 0 ms Distal: 0.2 cm; Reflux: 0 ms VEIN OF GIACOMINI: Size: NA Reflux: NA PERFORATORS: Location: Great saphenous vein, small saphenous vein mid segment and accessory saphenous vein lateral mid segment. Size: 0.2-0.3 cm. Reflux: NA VARICOSITIES: Location: Great saphenous vein and accessory saphenous vein lateral proximal segment. Size: 0.3-0.4 cm. Reflux: NA US/US venous insuf bilat IMPRESSION: Right: Venous insufficiency, great saphenous vein in the proximal thigh and below the knee. Venous insufficiency, small saphenous vein in the distal calf. Varices in the proximal calf segment of the great saphenous vein with reflux. Left: No venous insufficiency. Varices and perforators without reflux. Electronically signed by: Tadeo Galindo MD 12/28/2024 12:37 PM EDT
== END 2024-12-28 09:52 | disposition home or self-care (01) ==
LOC: HO.US 09:51
PROVIDERS: PCP Nurse Practitioner Family; Visit Provider Physician Assistant Surgical
DX: I83.11 Varicose veins of right lower extremity with inflammation (principal); I83.12 Varicose veins of left lower extremity with inflammation
CPT/HCPCS: 93970

== ENCOUNTER → 2024-12-28 09:55 | Outpatient (BNV) | payer MEDICARE, SELFPAY | PROVIDERS: PCP Nurse Practitioner Family; Visit Provider Radiology Diagnostic Radiology | DX: I83.813 Varicose veins of bilateral lower extremities with pain (principal) | CPT/HCPCS: 93970 ==

== ENCOUNTER 2025-01-02 12:43 | Outpatient (REF) | payer MEDICARE, SELFPAY ==
--- NOTE | ~2025-01-02 | MM_ITS ---
EXAMINATION: DXA BONE DENSITY EXTREMITY HISTORY: Estrogen deficiency TECHNIQUE: [employer] Dual energy absorptiometry (DEXA) of the distal radius, total left hip, and femoral neck was performed. The lumbar spine was not evaluated due to a history of prior surgery. COMPARISON: There are no prior studies for comparison. FINDINGS: The bone mineral density of the distal radius is 0.963 with a T-score of 1.0, and a Z-score of 2.8. This is indicative of normal bone mineral density. The bone mineral density of the left total hip is 0.941 with a T-score of -0.5, and a Z-score of 0.1. This is indicative of normal bone mineral density. The bone mineral density of the left femoral neck is 0.877 with a T-score of -1.2, and a Z-score of -0.2. This is indicative of osteopenia. FRACTURE RISK: The FRAX index suggests a ten year probability of major osteoporotic fracture of 7.9%, and of hip fracture 0.8%. MM/XR DEXA appendicular skeleton IMPRESSION: Based on bone mineral density, and according to World Health Organization (WHO) criteria, the diagnosis is consistent with osteopenia. All bone density values are in grams per centimeter squared (g/cm2). Statistically, 68% of repeat scans fall within 1 SD (+/- 0.010 g/cm2 for AP spine L1-L4) and 1 SD (+/- 0.012 g/cm2 for femur total) FRAX is a trademark of the [employer] [facility] Metabolic Bone Disease, a World Health Organization (WHO) Collaborating Center. Electronically signed by: Rich Barros MD 01/02/2025 02:56 PM EDT
--- NOTE | ~2025-01-02 | MM_ITS ---
EXAMINATION: MM SCREENING DIGITAL BREAST TOMOSYNTHESIS, BILATERAL CLINICAL INFORMATION: Screening. Asymptomatic. COMPARISON: Mammography: Baseline. TECHNIQUE: Digital breast mammography with tomosynthesis is performed in both the craniocaudal and mediolateral oblique views along with computer-aided detection (CAD). FINDINGS: There are scattered areas of fibroglandular density (ACR BI-RADS breast composition Category b). There are no significant masses, abnormal calcifications, or other abnormalities. MM/MM tomosynthesis screening BI IMPRESSION: No mammographic evidence of malignancy. ASSESSMENT: BI-RADS BI-RADS 1 - Negative RECOMMENDATION: Routine annual mammography screening. 1 year F/U This examination should not preclude the clinical evaluation of a suspicious palpable abnormality. This patient's information was entered into a reminder system with a target due date for their next mammogram. Electronically signed by: Holly Edwards DO 01/07/2025 04:52 PM EDT
--- OUTSIDE RECORDS SUMMARY | 2025-01-02 15:13 | XMS_ITS ---
Author Organization [facility] Physician Tanya العلي Address [address] [facility] [address] [place] [address] Care Team Providers Care Tube Drawing Supervisor Name Role Phone Galileo Alarcon Primary Care [...] Orally Twice a day for 90 days [id number] 10/17/2024 Active SOCIAL HISTORY Sex Assigned At : Social History Observation Description Sex Assigned At Female Encounters Encounter Location Date Provider Diagnosis [facility] [address] [place] [address] 10/15/2024 Galileo Alarcon PLAN OF TREATMENT Medication Medication Name Sig Start Date Stop Date Notes KlonoPIN 0.5 mg 1 tablet MDD 3 Orall y 3x per day as needed for 30 days 10/17/2024041031493 attempting to taper down on klonopin oxyCODONE HCl 5 mg 1 tablet as needed. MDD 4 Orally 4x daily for 30 days 10/17/2024793745543 Pregabalin 75 MG 1 capsule Orally Twi ce a day for 90 days 10/17/2024 [id number]
--- OUTSIDE RECORDS SUMMARY | 2025-01-02 15:14 | XMS_ITS ---
Author Organization [facility] Physician Tanya العلي Address [address] [facility] [address] [place] [address] Care Team Providers Care Partnership Development Manager Name Role Phone Galileo Alarcon Primary Care Provider [phone] Jimmie Villatoro Unavailable [phone] REASON FOR VISIT 18 MO. F/U SOCIAL HISTORY Sex Assigned At : Social History Observation Description Sex Assigned At Female Encounters Encounter Location Date Provider Diagnosis [facility] [address] [place], [place] [id number] 09/18/2024 Jimmie Villatoro PLAN OF TREATMENT No Information
--- OUTSIDE RECORDS SUMMARY | 2025-01-02 15:14 | XMS_ITS ---
Author Organization [facility] Physician Tanya العلي Address [address] [facility] [address]nd [place] [address] Care Team Providers Care Manager Welding Name Role Phone Galileo Alarcon Primary Care Provider Jimmie Villatoro Unavailable [phone] REASON FOR VISIT 18 MONTHS SKYLAR SOCIAL HISTORY Sex Assigned At : Social History Observation Description Sex Assigned At Female Encounters Encounter Location Date Provider Diagnosis [facility] [address] [place], [place] [id number] 09/24/2024 Jimmie Villatoro PLAN OF TREATMENT No Information
== END 2025-01-02 12:44 | disposition home or self-care (01) ==
LOC: HO.MAMMO 12:43
PROVIDERS: PCP Nurse Practitioner Family; Visit Provider Nurse Practitioner Family
DX: Z12.31 Encounter for screening mammogram for malignant neoplasm of breast (principal); Z13.820 Encounter for screening for osteoporosis; Z78.0 Asymptomatic menopausal state
CPT/HCPCS: 77063; 77067; 77081

== ENCOUNTER → 2025-01-02 14:00 | Outpatient (BNV) | payer MEDICARE, SELFPAY | PROVIDERS: PCP Nurse Practitioner Family; Visit Provider Radiology Diagnostic Radiology | DX: E28.39 Other primary ovarian failure (principal) | CPT/HCPCS: 77081 ==

== ENCOUNTER 2025-01-10 13:09 | Outpatient (AMB) | payer MEDICARE, SELFPAY ==
--- NOTE | 2025-01-10 13:11 | MHC.OFFVIS ---
Vital Signs 01/10/25 13:15 Height 5 ft 5 in Intake Visit Reasons: Follow up 12/28 US Intake Note: Patient presents for follow up US performed on 12/28/24. Patient is experiencing bilateral foot pain today. Patient is ambulating with a walker. Accompanied by: Spouse Allergies codeine Allergy (Severe, Verified 01/10/25 13:14) Hives nickel Allergy (Severe, Verified 01/10/25 13:14) Hives adhesive tape Allergy (Intermediate, Verified 01/10/25 13:14) Rash Sulfa (Sulfonamide Antibiotics) Adverse Reaction (Severe, Verified 01/10/25 13:14) Hives eye drops for galucoma Allergy (Severe, Uncoded 12/04/24 14:18) Dry Eye HPI HPI Follow up 12/28 US: Details: DD is presenting today with her Winsome for a follow up to US, performed on 12/28/24. She continues with bilateral lower extremity pain and swelling. She does continue to elevate her legs and tries to be physically active. She was unable to wear the compression socks provided for her at last visit; she has been unable to get them on. She states she continues with foot pain as well as coolness feeling to her feet. She has no new concerns today. [facility] Medical History Migraines Hypertension Anxiety Sleep apnea Low kidney function Normal pressure glaucoma Umbilical hernia Surgical History H/O eye surgery H/O: hysterectomy Previous back surgery H/O knee surgery Family History Brother Cancer Pancreas cancer Father Cancer Hypertension Cardiovascular disease Stented coronary artery Mother Stroke Thyroid disorder Pacemaker Cardiovascular disease Paternal Grandmother Stroke Social History Household Members: Spouse Both parents involved: No Caregiver staying overnight: No Housing: Apartment Are you a primary career transition specialist to a significant other at home: No Do you presently have visiting nurse or other home services: No 75 years or older and lives alone: No Alcohol intake: never Patient Tobacco Use Status: Never used Tobacco e-Cigarette/Vaping Use: Never Used Second Hand Smoke Exposure: No service: No Current occupational status: retired and disabled Cognitive needs: Yes (mild dementia) Hearing needs: No Vision needs: Yes (wear glasses) Review of Systems Const Reports as per HPI and Denies weakness ENT Reports Normal hearing present and Denies dizziness Card Reports as per HPI, Denies chest pain, Denies chest pain at rest, Denies chest pain with activity, Denies dyspnea and Denies dyspnea on exertion Resp Reports as per HPI, Denies cough, Denies dyspnea and Denies dyspnea on exertion GI Reports as per HPI, Denies abdominal pain, Denies nausea and Denies vomiting Musc Denies numbness Skin/Breast Reports as per HPI, Denies erythema and Denies wounds Neuro Reports Normal hearing present, Denies dizziness, Denies numbness, Denies Sensory deficit (Neuro) and Denies weakness Psych Reports no additional complaints Endo Reports no additional complaints Physical Exam Const General: healthy appearing and no acute distress Orientation/consciousness: patient oriented x3 HEENT Head: Yes normal to inspection Ears: hearing grossly normal bilaterally Mouth: Normal oral and palatal mucosa present Resp Effort & Inspection: normal respiratory effort and able to speak in complete sentences Auscultation: clear to auscultation bilaterally Cardio Jugular venous distension: no JVD Rate: regular rate Rhythm: regular rhythm Heart sounds: S1 normal heart sound present and S2 normal heart sound present Bruits: no abdominal aortic bruits, no carotid bruits, no femoral bruits and no renal bruits Peripheral pulses: Peripheral pulses 2+ throughout GI Inspection: Yes normal to inspection Palpation (GI): No Abdominal aortic bruit present Skin General skin exam: no rashes or lesions noted Wounds: no wounds Hair: normal Neuro General: patient oriented x3 Cranial nerves: Yes Normal hearing present Cognition (Neuro): normal cognition Gait exam (Neuro): Normal gait present Motor exam (neuro): 5/5 motor strength present throughout Sensory Exam: No Sensory deficit (Neuro) Extrem Other: Bilateral lower extremities: Palpable DP pulses. +2 nonpitting edema. Discoloration noted in the calves, circumferentially; there are individual circular nguyen, which the pt states is due to her deep allergy. There is darker erythema noted in the anterior degroot. No open wounds. Toes: deep erythema to violaceous discoloration. Cap refill >3 seconds, appx 4 seconds Lymphedema measurements: Right in cm: Thigh 69.5 Knee 56.5 Calf 47 Ankle 32 Left in cm: Thigh 70 Knee 57.5 Calf 45 Ankle 31.5 General: Yes normal to inspection, Yes full ROM, Yes capillary refill normal and Yes normal gait Results Reviewed Results Reviewed: Brief summary of venous insufficiency testing is as follows: right great saphenous vein: negative with the exception of slight reflux in the proximal thigh and below the knee right small saphenous vein: negative right accessory vein: none present left great saphenous vein: negative left small saphenous vein: negative left accessory vein: none present Please note there is no evidence of any venous aneurysms or significant tortuosity Assessment & Plan Assessment & Plan (1) Lymphedema: Code(s): I89.0 - Lymphedema, not elsewhere classified Category: Medical Plan: DD is presenting today for a follow up to US, performed on 12/28/24. She continues with bilateral lower extremity swelling and discomfort, >10y. The US revealed a small amount of reflux in the right GSV at the proximal thigh and below the knee, but minimal reflux is noted. In short the patient has late onset lymphedema. The patient has been on conservative treatment for at least 3 months with minimal relief. Patient has tried 30 mm of mercury compression garments, elevation, exercise, healthy diet and doing manual says self MLD to the best of their ability for over 4 weeks but with no significant relief. She has been compliant with the program but has provided minimal relief. In addition, on physical exam, we are noticing hyperpigmentation, lymphorrhea, and hyperplasia. It appears that she has stage 2 lymphedema. Patient has completed multiple forms of conservative therapy; yet, significant symptoms remain. Patient requires the use of a pneumatic compression device which we will assist in trying to have the patient obtain them. A pneumatic compression device will help reduce swelling and other lymphedema comorbidities. We will have her attend our lymphedema clinic on 04/17. Thank you for allowing us to assist in this patient's care. If there are any questions or concerns, please do not hesitate to reach out to us. Coding Level of Care Code Est Pt Level 4 (16465) Diagnoses Lymphedema I89.0 Comment review of venous insufficiency US
--- OUTSIDE RECORDS SUMMARY | 2025-01-10 15:52 | XMS_ITS ---
Author Organization [facility] Physician Tanya العلي Address [address] [place] [address] Care Team Providers Care Test And Balance Engineer Name Role Phone Galileo Alarcon Primary Care Provider [phone] REASON FOR VISIT Due lyrica,oxycodone,klonopin MEDICATIONS Medication [...] Orally Twice a day for 90 days [id number] 10/17/2024 Active SOCIAL HISTORY Sex Assigned At : Social History Observation Description Sex Assigned At Female Encounters Encounter Location Date Provider Diagnosis [facility] [address] [place] [address] 10/15/2024 Galileo Alarcon PLAN OF TREATMENT Medication Medication Name Sig Start Date Stop Date Notes KlonoPIN 0.5 mg 1 tablet MDD 3 Orall y 3x per day as needed for 30 days 10/17/2024908922120 attempting to taper down on klonopin oxyCODONE HCl 5 mg 1 tablet as needed. MDD 4 Orally 4x daily for 30 days 10/17/[id number] Pregabalin 75 MG 1 capsule Orally Twi ce a day for 90 days 10/17/2024 [id number]
--- OUTSIDE RECORDS SUMMARY | 2025-01-10 15:53 | XMS_ITS | Patient Health Record ---
Author Organization [facility] Physician Tanya العلي Address [address] [facility] 2nd [place] [address] Care Team Providers Care Peel Oven Tender Name Role Phone Galileo Alarcon Primary Care Provider Lauren Fragoso Unavailable [phone] Jimmie Villatoro Unavailable [phone] Angelica Bhardwaj Unavailable [phone] Reynaldo Perez Unavailable [phone] Hipolito Escobar Unavailable ALLERGIES Allergen (clinical drug ingredient) Drug/Non Drug [...] Active RESULTS Component Value Reference Range Notes XR HIP 2 VIEWS RT Reviewed date:02/03/2024 09:48:23 AM Interpretation: Performing Lab: Notes/Report: Hip Unilateral right 2 views Right RIGHT HIP PAIN [id number] PROCEDURE: Right hip x-ray, 2 views; 1614 [...] hip osteoarthritis. [facility] CBC - Complete Blood Count w ith [...] Lymph 25.0 15 - 49 % Auto [place] 10.2 0 - 13 % Auto Eosin 8.6 0 - 8 % Auto Baso 0.2 0 - 2 % Absolute Neut 2.88 1.52 - 8.80 10x3/uL Absolute Lymph 1.28 0.60 - 5.39 10x3/uL Absolute [place] 0.52 0.00 - 1.43 10x3/uL Absolute Eosin 0.44 0.00 - 0.88 10x3/uL Absolute Baso 0.01 0.00 - 0.22 10x3/uL BONE MARROW ASPIRATE, [address] (Not yet reviewed by provider) Interpretation: Performing Lab: Notes/Report: See Below For Report [id number] FINAL DIAGNOSIS: Bone marrow aspirate, clot section and core biopsy, peripheral blood: - Plasma cell neoplasm, comprising less than 10% of the marrow cellularity -Otherwise adequate appearing cellularity hematopoiesis MARCELL MICROSCOPIC EXAMINATION: Complete blood count; date: 02/06/2024 Performed at [facility] WBC: 5.1 K/ul RBC #: 5.5 MIL/ul [...] Cytometry: Specimen viability: 91% Marker Studies: 10B/6MM2: [place], Lambda, CD10, CD5, CD200, CD34, CD38, CD20, CD19, CD45, 6 MM2: cy-[place], cy-Lambda, CD38, CD138, CD19, CD45 Interpretation: NO [...] Entirely submitted in one pink cassette labeled [id number] Summary of sections: B1-bone following EDTA, 1 piece C. Royal's-Giemsa stained peripheral blood smears are prepared. D. Received in formalin labeled with the patient's name and bone marrow blood clot is a 2.4 x 1.5 x 0.5 cm aggregate of blood clot which is serially sectioned. Entirely submitted in two pink cassettes labeled [id number] Summary of sections: D1-3 pieces; D2-2 pieces Reported Date: Reviewing Pathologist's Electronic Signature: 02/09/2024 Yesenia CERVANTES MD, PhD Applicable only if cytogenetics or molecular diagnostics test results are included in this report: Unless otherwise noted, testing performed by [address] FDA Testing Disclaimer (Applicable only if flow cytometry and/or immunohistochemistry results are included in this report): These tests were developed and their performance characteristics determined by [place] [address]. The interpretation of the above immunohistochemistry stain or stains is guided by published results in the medical literature, provided package information from the labeling machine operator and by internal review of staining performance [...] otherwise noted, Immunohistochemistry stains were performed at [facility], [address] [place] [address], [place] [address]. CHROMOSOME ANALYSIS (Not yet reviewed by provider) [...] i.e., normal female karyotype. REVIEWED BY: Mary CHROMOSOME REVIEW (Not yet r eviewed by provider) Interpretation: Performing Lab: Notes/Report: CHROMOSOME REVIEW FINALIZED Electronically signed and reported by River Hernandez, Ph.D. 03/27/2024 CMP - Comprehensive Metaboli c Panel Reviewed [...] Absolute Neut 2.44 Absolute Lymp 1.17 Absolute [place] 0.42 Absolute Eos 0.38 Absolute Baso 0.01 CBC Review Parathyroid Hormone - Intact (PTHI) Reviewed date:04/27/2024 01:33:08 PM Interpretation: Performing Lab: Notes/Report: This analyte was performed using the [employer] DXI. PTH Intact 215.9 12.0 - 88.0 PG/ML Urine Culture Reviewed date:04/30/2024 09:07:09 AM Interpretation: Performing Lab: Notes/Report: Specimen URINE Organism No growth of clinical significance Iron and Iron Binding Capaci ty Reviewed date:04/27/2024 01:33:08 PM Interpretation: Performing Lab: Notes/Report: Iron 45 50 - 212 uG/dL Iron Binding Capacity 307 261 - 478 uG/dL % Iron Saturation 14.7 15 - 46 % Urine Total Protein,Random ( 7616) Reviewed date:04/30/2024 09:08:52 AM Interpretation: Performing Lab: Notes/Report: Urine Total Protein 8.8 CBC - Complete Blood Count w ith [...] Lymph 17.2 15 - 49 % Auto [place] 8.8 0 - 13 % Auto Eosin 3.1 0 - 8 % Auto Baso 0.6 0 - 2 % Absolute Neut 4.70 1.52 - 8.80 10x3/uL Absolute Lymph 1.20 0.60 - 5.39 10x3/uL Absolute [place] 0.60 0.00 - 1.43 10x3/uL Absolute Eosin 0.20 0.00 - 0.88 10x3/uL Absolute Baso 0.00 0.00 - 0.22 10x3/uL BMP - Basic Metabolic Panel Reviewed date:04/27/2024 01:33:08 PM Interpretation: Performing Lab: Notes/Report: Creatinine equation. reported was 0-6 units lower than if calculated using the CKD-EPI Kidney Foundation's online calculator. In some instances the eGFR which resulted in a slightly lower eGFR estimation than the National This adjustment was required due to an identified miscalculation On October 27, 2022, the eGFR calculation was adjusted. Please Note level. implications for classification of kidney function than values above this Quantification of GFR values below 60 mL/min/1.73m2 has more clinical equation. nutritional status or medication usage are not accounted for in the the limitations with the use of serum creatinine related to years), or in some racial or ethnic subgroups. Furthermore, any of children (age <18 years), in women, in the elderly (age >85 regardless of diagnosis. The equation has not been validated in reasonable accuracy in non-hospitalized patients thought to have CKD, The CKD-EPI equation was used in this calculation. It has GFR Interpretation CKD-EPI Creatinine Equation (2020): (NOTE) Sodium 137 136 - 145 mMOL/L Potassium 3.7 3.5 - 5.1 mMOL/L Chloride 98 98 - 107 mMOL/L Carbon Dioxide 32 21 - 31 mMOL/L Glucose 110 74 - 109 MG/DL BUN 21 7 - 25 MG/DL Creatinine 1.6 0.6 - 1.2 MG/DL Calcium 9.4 8.6 - 10.3 MG/DL Estimated GFR 34 Vitamin D 25 Hydroxy Reviewed date:04/27/2024 02:04:54 PM Interpretation: Performing Lab: Notes/Report: Upper Safety Limit >100ng/mL Sufficient 30-100 ng/mL Insufficient 10-29 ng/mL Deficient <10 ng/mL Recommendations for 25 Hydroxy Vitamin D: Testing performed using the [employer] Mobile DXI. Effective July: (NOTE) Vitamin D,25-Hydroxy 24.0 30 - 100 ng/mL Urine Microalbumin,Random(Ur ine Creatinine included) Reviewed date:04/30/2024 09:09:21 AM Interpretation: Performing Lab: Notes/Report: Urine Microalbumin 7.3 Urine Creatinine 97.2 Microalbumin/Creatinine 7.5 0.0 - 29 .9 MG MALB/G CREAT Urinalysis w/reflex to Micro scopic w/reflex to Culture Reviewed date:04/30/2024 09:06:32 AM Interpretation: Performing Lab: Notes/Report: Mucus Reference Range: 0-2+ (NOTE) Specimen URINE Color YELLOW Reference Range: YELLOW Appearance CLEAR Reference Range: CLEAR Specific [place] 1.012 <1.030 PH 6.0 5.0 - 8.0 Protein NEGATIVE Reference Range: NEGATIVE Glucose NEGATIVE Reference Range: NEGATIVE Ketones NEGATIVE Reference Range: NEGATIVE Bilirubin NEGATIVE Reference Range: NEGATIVE Blood NEGATIVE Reference Range: NEGATIVE Urobilinogen <2.0 <2.0 mg/dL Nitrite NEGATIVE Reference Range: NEGATIVE Leukocyte MODERATE Reference Range: NEGATIVE WBC 10-15 0-5 RBC 0-2 0-2 Squamous Epithelial Cells 0-2 0-2 Mucous 1+ Glycohemoglobin(A1C) Reviewed date:04/30/2024 01:28:09 PM Interpretation: Performing Lab: Notes/Report: Glycohemoglobin 6.4 4.0 - 6.0 % FISH REVIEW (Not yet reviewe d by provider) Interpretation: Performing Lab: Notes/Report: FISH REVIEW FINALIZED Electronically signed and reported by Loev Mo, Ph.D.,[facility] 02/15/2024 FISH,CYTOGENETICS (Not yet r eviewed by provider) Interpretation: Performing Lab: Notes/Report: SPECIMEN TYPE Marrow PATH CASE # [id number] INDICATION Myeloma PROBE TYPE Myeloma Panel FISH CELLS 1200 FISH DIAGNOSIS see text FISH Analysis on CD138+ Cells: nuc carlos eduardo(RB1,TP53)x2[200], (5'IGH,3'IGH)x2(5'IGH sep 3'IGHx1)[41/200] SUMMARY: POSITIVE IGH (14q32) Rearrangement (20.5%) Negative for RB-1 (13q14) Deletion Negative for TP53 (17p13) Deletion ------ FISH Analysis on Unsorted Cells: nuc carlos eduardo(FGFR3,IGH)x2[200], (CCND1,IGH)x2[200], (IGH,MAF)x2[200], (IGH,MAFB)x2[200] SUMMARY: Negative for IGH::FGFR3 Rearrangement, t(4;14) Negative for IGH::CCND1 Rearrangement, t(11;14) Negative for IGH::MAF Rearrangement, t(14;16) Negative for IGH::MAFB Rearrangement, t(14;20) INTERP,FISH see text FISH analysis was each performed on 200 CD138+ sorted interphase cells ([employer] with the multiple myeloma (MM) panel probes ([employer]): LSI 13 (13q14) SG/LSI TP53 (17p13.1) [...] interphase cells with the following probes ([employer]): LSI FGFR3/IGH Dual Color, Dual Fusion Translocation Probe, LSI IGH/CCND1 Dual Color, Dual Fusion Translocation Probe, LSI IGH/MAF Dual Color, Dual Fusion Probe, IGH/MAFB Translocation, Dual Fusion Probe ([employer] There was no evidence of IGH::FGFR3-, IGH::CCND1-, IGH::MAF- or IGH::MAFB- specific rearrangement. FISH was developed and its performance characteristics was determined by the Cytogenetics Laboratory at [facility], [place], [place] It has not been cleared or approved by the U.S. Food and Drug Administration (FDA). The FDA has determined that such clearance or approval is not necessary. This test should not be regarded as an investigational or research analysis. The FISH results should be used in conjunction with classical cytogenetic analysis and/or clinical information. REVIEWED BY: Chely PATIENT CONSENT,CTG (Not yet reviewed by provider) Interpretation: Performing Lab: Notes/Report: PATIENT CONSENT,CTG cancelled REASON FOR REFERRAL No Information MEDICATIONS Medication SIG (Take, Route, Frequency, Duration) Notes Start Date End Date Status KlonoPIN 0.5 mg 1 tablet MDD 3 Orally 3x per day as needed for 30 days [id number] attempting to taper down on klonopin 10/17/2024 Active Esomeprazole Magnesium 40 MG take 1 capsule by mouth once daily if needed for 30 days Active oxyCODONE HCl 5 mg 1 tablet as needed. MDD 4 Orally 4x daily for 30 days [id number] 10/17/2024 Active Pregabalin 75 MG 1 capsule Orally Twice a day for 90 days [id number] 10/17/2024 Active Lidocaine 4 % as directed [...] one by mouth once daily Active Nystatin 051443 UNIT/GM 1 application Externally Twice a day [...] days 05/04/2024 Active Maxzide 75-50 MG Take 2-112 tablet Orally Once a day as needed for 90 days Not-Taking CPAP . Pressure Change apap 8-20 cm H2O with mask, heated humidifier, and 60 day compliance download dx SKYLAR QHS for Sleep G47.33 12/28/2018 Active Vitamin D3 1.25 MG (64048 UT) 1 capsule Orally once weekly for [...] Notes Problem Monoclonal gammopathy (D47.2) Active confirmed 087269082 Problem Anemia in chronic kidney disease (D63.1) Active confirmed 986711953 Problem Other hyperlipidemia (E78.4) Active confirmed Hyperlipidemia (65220787) Problem Disorder of mineral metabolism, 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) Active confirmed 27484256 Problem Generalized anxiety disorder (F41.1) Active confirmed 85515199 Problem Other chronic pain (G89.29) Active confirmed 03048568 Problem Chronic pain syndrome (G89.4) Active confirmed 934579573 Problem Hypertensive chronic kidney disease with stage 1 through stage 4 chronic kidney disease, or unspecified chronic kidney disease (I12.9) Active confirmed 62669786 Problem Low back pain (M54.5) Active confirmed Low back pain (372588133) Problem Chronic kidney disease, unspecified (N18.9) Active confirmed 45879272 Problem Dementia (F03.90) Active confirmed Dileep ntia (71265382) Problem Obstructive sleep apnea (G47.33) Active confirmed Obstructive s leep apnea (04001246) Problem Dyslipidemia (E78.5) Active confirmed 164246554 Problem Psoriasis (L40.9) Active confirmed Psor iasis (4777782) Problem Obesity (BMI 30-39.9) (E66.9) Active confirmed Obesity (613809571) Problem Oropharyngeal dysphagia (R13.12) Active confirmed 15497465 Problem Abnormal laboratory test (R89.9) Active confirmed Laboratory test result abnormal (362387236) Problem Chronic fatigue (R53.82) Active confirmed 57023726 Problem Mild cognitive impairment (G31.84) Active confirmed 591750097 Problem Glaucoma (H40.9) Active confirmed Glauc hanh (18583356) Problem Hypertensive chronic kidney disease (I12.9) Active confirmed Chronic kidn ey disease due to benign hypertension (199460717766103) Problem History of left knee replacement (Z96.652) Active confirmed 142619548 Problem 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) Active confirmed 849497655 Problem Primary hypertension (I10) Active confirmed 70090142 Problem BMI 40.0-44.9, adult (Z68.41) Active confirmed Body mass ind ex 40+ - morbidly obese (697736280) Problem Recurrent sinus infections (J32.9) Active confirmed 078451366 Problem History of anemia due to CKD (Z86.2) Active confirmed Anemia co-occurrent and due to chronic kidney disease (689073860) Problem Chronic sinusitis, unspecified location (J32.9) Active confirmed 47897180 Problem Dysphagia, unspecified type (R13.10) Active confirmed 01047681 Problem Frontal sinusitis, unspecified chronicity (J32.1) Active confirmed 88308356 Problem Hypertension, renal, stage 1-4 or unspecified chronic kidney disease (I12.9) Active confirmed Chronic kidn ey disease due to hypertension (850301294456425) 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 confirmed 79845855 Problem 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) Active confirmed Disorders of wily th mitral and tricuspid valves (829529551) Problem Cognitive dysfunction (F09) Active confirmed 712711454 Problem Piriformis syndrome, left (G57.02) Active confirmed Sciatic nerve lesion (799201729) Problem Stage 2 chronic kidney disease (N18.2) Active confirmed 682103774 Problem 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) Active confirmed 19090725 Problem Piriformis syndrome of both sides (G57.03) Active confirmed Sciatic nerve lesion (212542116) Problem Stage 3 chronic kidney disease, unspecified whether stage 3a or 3b CKD (N18.30) Active confirmed 951631656 Problem Chronic Kidney Disease, Stage 3b (N18.32) Active confirmed 493904681 Problem Hx of metal allergy (Z91.09) Active confirmed 857604987 Problem Stage 3b chronic kidney disease (CKD) (N18.32) Active confirmed 998691362 VITAL SIGNS Heart Rate 54 /min 05/10/2024 Oximetry 94 % 05/10/2024 Blood pressure diastolic 80 mm Hg 05/10/2024 Weight-kg 120.66 kg 05/10/2024 Height 67 in 05/10/2024 Blood pressure systolic 124 mm Hg 05/10/2024 Weight 266 lbs 05/10/2024 BMI 41.66 kg/m2 05/10/2024 PROCEDURES Procedure Date Ordered Date Performed Result Body Sit e OSTEOPATHIC MANIP TX - 5-6 B RUDY REGIONS INVOLVED (14968) 01/11/2024 01/11/2024 N/A OSTEOPATHIC MANIP TX - 3-4 B RUDY REGIONS INVOLVED (72718) 05/04/2024 05/04/2024 N/A OSTEOPATHIC MANIP TX - 3-4 B RUDY REGIONS INVOLVED (60431) 04/04/2024 04/04/2024 N/A OSTEOPATHIC MANIP TX - 3-4 B RUDY REGIONS INVOLVED (65215) 02/23/2024 02/24/2024 N/A OSTEOPATHIC MANIP TX - 3-4 B RUDY REGIONS INVOLVED (65670) 02/03/2024 02/03/2024 N/A OSTEOPATHIC MANIP TX - 3-4 B RUDY REGIONS INVOLVED (91776) 03/09/2024 03/09/2024 N/A Encounters Encounter Location Date Provider Diagnosis [facility] [address] [address] 01/11/2024 Galileo Alarcon [facility] [address] [address] [facility] [address] [address] [facility] [address] [address] 01/19/2024 Galileo Alarcon Replaced By [facility] [address] [place] [address] 01/30/2024 Hipolito Valero [facility] [address] [place] [address] 02/06/2024 Galileopablo Alarcon [facility] [address] [place] [address] 02/17/2024 Galileo Agnes [facility] [address] [place] [address] 02/20/2024 Galileo Agnes [facility] [address] [place] [address] 02/20/2024 Galileopablo Alarcon [facility] [address] [place] [address] 02/22/2024 Galileo Alarcon [facility] [address] [place] [address] 03/19/2024 Galileo Agnes [facility] [address] [place] [address] 03/21/2024 Galileo Alarcon [facility] [address] [place] [address] 03/28/2024 Galileo Alarcon [facility] [address] [place] [address] 03/29/2024 Reynaldo Perez [facility] [address] [address] 04/20/2024 Angelica Bhardwaj Stage 3 chronic kidney disease, unspecified whether stage 3a or 3b CKD N18.30 ; Renal bone disease N25.0 ; Hypertension, renal, stage 1-4 or unspecified chronic kidney disease I12.9 and Anemia in chronic kidney disease D63.1 [facility] [address] [place] [address] 04/27/2024 Galileopablo Alarcon [facility] [address] [address] 04/30/2024 Galileo Alarcon [facility] [address] [place] [address] 05/09/2024 Galileopablo Bhattiellkeith [facility] [address] [place] [address] 05/25/2024 Galileopablo Bhattiellgrhemalatha [facility] [address] [place] [address] 06/06/2024 Galileopablo Bhattiellkeith [facility] [address] [place] [address] 07/05/2024 Galileopablo Bhattiellkeith [facility] [address] [place] [address] 07/10/2024 Galileo Alarcon [facility] [address] [place] [address] 07/23/2024 Galileo Alarcon [facility] [address] [place] [address] 07/24/2024 Galileopablo Alarcon [facility] [address] [place] [address] 08/06/2024 Galileo Alarcon [facility] [address] [place] [address] 08/24/2024 Galileopablo Alarcon [facility] [address] [place] [address] 09/03/2024 Galileo Alarcon [facility] [address] [place] [address] 09/06/2024 Galileopablo Bhattiellgrhemalatha [facility] [address] [place] [address] 10/15/2024 Galileo Alarcon Replaced By [facility] [address] [place] [address] 02/24/2024 Hipolito Valero [facility] [address] [place] [address] 03/05/2024 Galileo Alarcon [facility] [address] [place] [address] 04/04/2024 Reynaldo Perez Segmental and somatic dysfunction of cervical region M99.01 ; Segmental and somatic dysfunction of rib cage M99.08 ; Segmental and somatic dysfunction of thoracic region M99.02 and Segmental and somatic dysfunction of lumbar region M99.[address] [address] 05/04/2024 Reynaldo Perez Upper respiratory illness J39.9 ; Fatigue R53.83 ; Segmental and somatic dysfunction of cervical region M99.01 ; Segmental and somatic dysfunction of thoracic region M99.02 and Segmental and somatic dysfunction of lumbar region M99.03 [facility] [address] [place], [place] [id number] 09/24/2024 Jimmie Villatoro [facility] [address] [address] 04/30/2024 Angelica Bhardwaj Hypertensive chronic kidney disease with stage 1 through stage 4 chronic kidney disease, or unspecified chronic kidney disease I12.9 ; Chronic Kidney Disease, Stage 3b N18.32 ; Disorder of mineral metabolism, unspecified E83.9 ; Disorder of bone, unspecified M89.9 and Primary hypertension I10 [address] [address] 03/09/2024 Reynaldo Perez Segmental and somatic dysfunction of cervical region M99.01 ; Segmental and somatic dysfunction of rib cage M99.08 ; Segmental and somatic dysfunction of thoracic region M99.02 and Segmental and somatic dysfunction of lumbar region M99.03 [facility] [address] [place] [address] 05/10/2024 Galileo Agnes Chronic pain syndrome G89.4 ; Obstructive sleep apnea G47.33 ; Generalized anxiety disorder F41.1 ; Dyslipidemia E78.5 ; Chronic Kidney Disease, Stage 3b N18.32 ; Monoclonal gammopathy D47.2 ; Intertrigo L30.4 ; Umbilical hernia without obstruction and without gangrene K42.9 ; Stage 3b chronic kidney disease (CKD) N18.32 ; Cognitive dysfunction F09 and History of left knee replacement Z96.[address] [address] 02/23/2024 Reynaldo Perez Vitamin B 12 deficiency E53.8 ; Segmental and somatic dysfunction of cervical region M99.01 ; Segmental and somatic dysfunction of rib cage M99.08 and Segmental and somatic dysfunction of lumbar region M99.[address] [address] 02/03/2024 Reynaldo Perez Fatigue R53.83 ; History of anemia due to CKD Z86.2 ; Segmental and somatic dysfunction of cervical region M99.01 ; Segmental and somatic dysfunction of lumbar region M99.03 and Segmental and somatic dysfunction of rib cage M99.08 [facility] [address] [place] [address] 01/11/2024 Reynaldo Perez Segmental and somatic dysfunction of cervical region M99.01 ; Segmental and somatic dysfunction of rib cage M99.08 ; Segmental and somatic dysfunction of thoracic region M99.02 ; Segmental and somatic dysfunction of sacral region M99.04 ; Segmental and somatic dysfunction of lower extremity M99.06 ; Segmental and somatic dysfunction of lumbar region M99.03 and Right hip pain M25.551 [facility] [address] [address] 04/30/2024 Lauren Fragoso [facility] [address] [place] [address] 02/02/2024 Galileo Alarcon Chronic pain syndrome G89.4 ; Obstructive sleep apnea G47.33 ; Dyslipidemia E78.5 ; Mild cognitive impairment G31.84 and Stage 3b chronic kidney disease (CKD) N18.32 [facility] [address] [place], [place] [id number] 09/18/2024 Jimmie Villatoro ASSESSMENTS Encounter Date Diagnosis Assessment Notes Treatment Notes Treatment Clinical Notes 02/02/2024 Chronic pain syndrome (ICD-10 - G89.4) On medication, contract signed 02/02/2024 Obstructive sleep apnea (ICD-10 - G47.33) Endorses restorative sleep at this time 01/11/2024 Segmental and somatic dysfunction of cervical region (ICD-10 - M99.01) 01/11/2024 Segmental and somatic dysfunction of rib [...] 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 In the meantime as discussed in office [...] a different provider when she moves to [place] however she was advised to call us [...] dysfunction of cervical region (ICD-10 - M99.01) 01/11/2024 Segmental and somatic dysfunction of thoracic region (ICD-10 - M99.02) 02/02/2024 Dyslipidemia (ICD-10 - E78.5) Discussed management of dyslipidemia with the patient, which included some of the following: Aerobic exercise 30 min 3-4x/wk; some benefit after ~6-12 mo; wt loss (2% wt loss = 6% in LDL) Diet: Decrease LDL ~13% (JUANY 2011;306:831); increase fruits/veg, decrease saturated fats & trans-fatty acids, 50% of total calories from complex carbs; AHA diet (heart.org) 02/02/2024 Mild cognitive impairment (ICD-10 - G31.84) Seen at , no changes for now 01/11/2024 Segmental and somatic dysfunction of sacral [...] monitor her blood pressures where she moved [place] and will establish with a new primary [...] dysfunction of lower extremity (ICD-10 - M99.06) 02/02/2024 Stage 3b chronic kidney disease (CKD) (ICD-10 - N18.32) Follows with nephrology, no chages for now 01/11/2024 Segmental and somatic dysfunction of lumbar region (ICD-10 - M99.03) 05/10/2024 Monoclonal gammopathy (ICD-10 - D47.2) no changes, no signs of CRAB 01/11/2024 Right hip pain (ICD-10 - M25.551) 05/10/2024 Intertrigo (ICD-10 - L30.4) so changes 05/10/2024 Umbilical hernia without obstruction and without gangrene (ICD-10 - K42.9) 05/10/2024 Stage 3b chronic kidney disease (CKD) (ICD-10 - N18.32) 05/10/2024 Cognitive dysfunction (ICD-10 - F09) I was concerned about possible polypharmacy, which we have discussed, she did go to cognitive clinical at , [facility] 05/10/2024 History of left knee replacement (ICD-10 - Z96.652) 02/02/2024 Other Discussed with the patient in [...] 09/22/2020 PATIENT CONSENT,CTG 02/06/2024 BONE MARROW ASPIRATE, [id number] 02/06/2024 CHROMOSOME ANALYSIS 02/06/2024 FISH REVIEW 02/06/2024 FISH,CYTOGENETICS 02/06/2024 CHROMOSOME REVIEW 02/06/2024 Immunofixation(Immunoelectrophoresis),Se rum,REF 1 [facility] 12/06/2023 Protein Electrophoresis,Serum,REF 1 [facility] 12/06/2023 Reflexed PE2(S Prot Elect) Review,REF 1 [facility] 12/06/2023 Reflexed SIF(S Immunofix) Review,REF 1 [facility] 12/06/2023 Spirometry 06/30/2023 [place]-Lambda Free Light Chain w/Ratio,RE F 1 [facility] 12/06/2023 US Renal 06/01/2022 Future Test Test [...] End Date MEDICARE BLUE O [address] [address] ZEYNEP ENRIQUEZ [phone] 1 [id number] ELLEN BEARD Self - patient is the insured 4 MEDICATIONS ADMINISTERED Medication Instructions Date of Administration Dosage Notes Cyanocobalamin 02/03/2024 1000 ug Cyanocobalamin 02/23/2024 1000 ug Cyanocobalamin 05/04/2024 1000 ug MEDICAL (GENERAL) HISTORY Medical History History ICD Code Armando allergy HTN: '. Dyazide. Systemic Inflammatio n , edema Anxiety: severe, since childhood. Depres yossi. MSK: diffuse OA. spinal stenosis (Dr. Chito leiva). s/p multiple surgeries Hyperlipidemia: +fam hx cad. statins cau se swelling SKYLAR: CPAP Allergic Rhinitis Glucose intolerance: 2013 Glaucoma Fam hx pancreatic ca: screening with Ca- 19-9. Diverticulosis of colon K57.30 Low back pain M54.5 Surgical History Surgery Date(Month/Year) biopsy of kidney extraction 4 wisdom teeth 1971 D&C 2007 Hysterectomy LAVH-BSO with TVT. Benign p athology 08/2010 Right TKR 09/27/2011 L4-L5 cage and rods 09/04/12 L-[address] Verdin 02/06/14 Bilateral glaucoma procedures 2014 T10-S1 posterior spinal fusion (miguel yamel tanner and replacement) 09/16 LT total knee replacement -- Josh Hospitalization History Reason Date(Month/Year) surgeries
--- OUTSIDE RECORDS SUMMARY | 2025-01-10 15:53 | XMS_ITS ---
Author Organization [facility] Physician Tanya العلي Address [address] [facility] [address]nd [place] [address] Care Team Providers Care Instrument Technician Helper Name Role Phone Galileo Alarcon Primary Care Provider Jimmie Villatoro Unavailable [phone] REASON FOR VISIT 18 MONTHS SKYLAR SOCIAL HISTORY Sex Assigned At : Social History Observation Description Sex Assigned At Female Encounters Encounter Location Date Provider Diagnosis [facility] [address] [place], [place] [id number] 09/24/2024 Jimmie Villatoro PLAN OF TREATMENT No Information
--- OUTSIDE RECORDS SUMMARY | 2025-01-10 15:53 | XMS_ITS ---
Author Organization [facility] Physician Tanya العلي Address [address] [facility] [address] [place] [address] Care Team Providers Care Salesperson Pets And Pet Supplies Name Role Phone Galileo Alarcon Primary Care Provider Jimmie Villatoro Unavailable [phone] REASON FOR VISIT 18 MO. F/U SOCIAL HISTORY Sex Assigned At : Social History Observation Description Sex Assigned At Female Encounters Encounter Location Date Provider Diagnosis [facility] [address] [place], [place] [id number] 09/18/2024 Jimmie Villatoro PLAN OF TREATMENT No Information
== END 2025-01-10 13:48 | disposition home or self-care (01) ==
LOC: HO.HVS 13:09
PROVIDERS: PCP Nurse Practitioner Family; Visit Provider Physician Assistant Surgical
DX: I89.0 Lymphedema, not elsewhere classified (principal)
CPT/HCPCS: 99214

== ENCOUNTER → 2025-01-10 13:09 | Outpatient (BNVA) | payer MEDICARE, SELFPAY | PROVIDERS: PCP Nurse Practitioner Family; Visit Provider Physician Assistant Surgical | DX: I89.0 Lymphedema, not elsewhere classified (principal) | CPT/HCPCS: 99212 ==

== ENCOUNTER 2025-01-11 12:13 | Outpatient (AMB) | payer MEDICARE, SELFPAY ==
--- NOTE | 2025-01-11 12:21 | A.OFFPC_ITS ---
Vital Signs 01/11/25 12:31 Height 5 ft 5 in Weight 261 lb BMI 43.4 BP 138/74 Blood Pressure Location Rt brachial Position Sitting Respiration 13 Pulse 85 Pulse Source Pulse Oximeter Temp 97.5 F Temp Source Oral Pulse Oximetry (%) 95 Oxygen Delivery Method Room Air Intake Visit Reasons: 8 weeks 30 min Med check Intake Note: 8 weeks follow up med review. Water Use Inspector Required: No Allergies codeine Allergy (Severe, Verified 01/11/25 12:23) Hives nickel Allergy (Severe, Verified 01/11/25 12:23) Hives adhesive tape Allergy (Intermediate, Verified 01/11/25 12:23) Rash Sulfa (Sulfonamide Antibiotics) Adverse Reaction (Severe, Verified 01/11/25 12:23) Hives eye drops for galucoma Allergy (Severe, Uncoded 12/04/24 14:18) Dry Eye Medication List - Last Reconciled 01/11/25 by DAVE Cadena- clonazepam 0.5 mg PO TID 28 days CPAP (CPAP Machine/Device) As directed cyclobenzaprine 10 mg PO TID ergocalciferol (vitamin D2) 1,250 mcg PO QWEEK esomeprazole magnesium 40 mg PO DAILY PRN hydroxyzine HCl 25 - 50 mg (1 - 2 x 25 mg) PO QID 90 days naloxone 4 mg/actuation (Narcan) 4 mg intranasal Q3M PRN oxycodone 5 mg PO TID 28 days pregabalin 75 mg PO BID ramipril 10 mg PO BID sertraline 150 mg PO DAILY torsemide 30 mg PO DAILY zinc gluconate 50 mg PO Q OTHER DAY zinc sulfate 50 mg PO Q OTHER DAY Tobacco use date assessed: 01/11/25 Fall risk assessment: 2 + Falls in past year Last assessed Fall Risk: 01/11/25 Dental Screening Dental Screen Date: 01/11/25 Did you have a dental visit in the last 12 months?: Yes Did you have a dental problem in the last 6 months where you did not have access to dental care?: No Was dental information given to patient?: Patient has dentist HPI HPI Comments History of Present Illness Details 69 y/o F with obesity, SKYLAR on CPAP, tinn itus, CKD 3a, generalized anxiety disorder, hypertension, migraine headaches, normal pressure glaucoma, chronic pain, hx of esophageal stricture, prediabetes, gERD, PVD Social: to [place], lives w/ dtr. Retired.Walks w/ walker Health Maintenance Colon age 65 repeat 10 years 01/2025 Dexa Organization (WHO) criteria, the diagnosis is consistent with osteopenia. on ca+D, repeat in 2 years 01/2025 mammo wnl Pap Vaccines: Tdap UTD Flu 2023 Specialists: [facility] [employer] CPAP supplier [facility], 01/10/25 DD is presenting today for a follow up to US, performed on 12/28/24. She continues with bilateral lower extremity swelling and discomfort, >10y. The US revealed a small amount of reflux in the right GSV at the proximal thigh and below the knee, but minimal reflux is noted. In short the patient has late onset lymphedema. The patient has been on conservative treatment for at least 3 months with minimal relief. Patient has tried 30 mm of mercury compression garments, elevation, exercise, healthy diet and doing manual says self MLD to the best of their ability for over 4 weeks but with no significant relief. She has been compliant with the program but has provided minimal relief. In addition, on physical exam, we are noticing hyperpigmentation, lymphorrhea, and hyperplasia. It appears that she has stage 2 lymphedema. Patient has completed multiple forms of conservative therapy; yet, significant symptoms remain. Patient requires the use of a pneumatic compression device which we will assist in trying to have the patient obtain them. A pneumatic compression device will help reduce swelling and other lymphedema comorbidities. We will have her attend our lymphedema clinic on 04/17. Thank you for allowing us to assist in this patient's care. If there are any questions or concerns, please do not hesitate to reach out to us. Here today for controlled substance & chronic dz f/u Cont w/ URI sx of bronchial mucous. Occasional productive cough, green and yellow. Denies fever, chills. Issues w/ Nexium - brand name only; has tried and failed generic and other meds. I sent this today. Will need a PA. Chronic pain, well controlled on oxycodone. SAMARA well controlled on klonopin. Pill count today # 5 of oxycodone and Klonopin CASTING ASSOCIATE reviewed - looks good. No signs of abuse or misuse. Contract in place. Reviewed mammo and dexa results. Saw Vascular - notes as above. Will need dental extractions, working on getting medically covered (Dr Cohen) Needs refills on oxy, klonopin, lyrica and rampiril - all sent today Here today for provider monitoring for Oxycodone which is being prescribed for chronic back pain. Today during the visit the following was reviewed: Screened for risk of opioid misuse using a validated screening tool. Receive, review, and sign an approved [facility] Agreement and Informed Consent for Receiving Controlled Substances, which should be stored in the EMR. 11/16/24 Non-pharmacologic and non-opioid pharmacologic options should be used as a first line for chronic pain unless otherwise contraindicated & in conjunction with Reviewed side effects and discuss the risks of addiction and overdose with all patients on chronic opioid therapy. Counseled patient regarding safe storage and disposal of medications. Prescribing intranasal naloxone (Narcan) rescue kits to patients if appropriate. Prescriptions should be limited to 28-day supplies unless mandated otherwise by insurance. Renewals should not be given on evenings, holidays, or weekends. Regular clinical reassessment of pain, functional goals, treatment plan, and adherence. Understand that pill counts and/or random toxicology screens (minimum yearly) are all part of a standard [facility] protocol for care. More frequent monitoring is appropriate for monitoring of symptoms or concerns of misuse. Irregular findings should be addressed with the patient and documented in the EMR with the appropriate clinical and/or administrative response. Signs of misuse: N CASTING ASSOCIATE reviewed: Y Contract up to date: 11/16/24 Random pill count done: Yes today UTox done: NA Next appt: 8 weeks Results: 11/14/24 low ANC to 26, high RDW 16.9 , p latelet count 416 otherwise normal CBC, normal lytes, BUN 14, creatinine 0.94 EGFR 59 hemoglobin A1c 5.9%, normal calcium and LFTs, mild elevation in alk phos 128 LDL 128, HDL 35, total cholesterol 180 triglycerides 111, B12 1630 normal vitamin-D thyroid and folate, urine micro/alb WNL Physical Exam Awake alert chronically ill appearing, NAD Sclera and conjunctiva clear bilat RRR LS CTAB BLE nonpitting edema, chronic vascular appearing discoloration with sores w/o infection, (reports related to nickel allergy- these areas area also on her upper legs and bilat arms), decrease DP bilat, hairless. Walks w walker Alert to person and place, forget details, repeats self, takes notes Plan Refer to Pulm for chronic cough Refills sent as requested Cont all meds and care w/ team RTO in 8 weeks for med check Send message in 1 month for refill. Total time spent caring for the patient today was 40 minutes. This includes time spent before the visit reviewing the chart, time spent during the visit, and time spent after the visit on documentation, reviewing laboratory results, diagnostic imaging, medications, performing a medically necessary evaluation, counseling on diagnoses, care coordination, ordering appropriate tests, ordering appropriate medications, review of tests performed by other providers, reporting test results with the patient, communication with other healthcare providers. [facility] Medical History Migraines Hypertension Anxiety Sleep apnea Low kidney function Normal pressure glaucoma Umbilical hernia Surgical History H/O eye surgery H/O: hysterectomy Previous back surgery H/O knee surgery Family History Brother Cancer Pancreas cancer Father Cancer Hypertension Cardiovascular disease Stented coronary artery Mother Stroke Thyroid disorder Pacemaker Cardiovascular disease Paternal Grandmother Stroke Social History Household Members: Spouse Both parents involved: No Caregiver staying overnight: No Housing: Apartment Are you a primary acute care physical therapist to a significant other at home: No Do you presently have visiting nurse or other home services: No 75 years or older and lives alone: No Alcohol intake: never Patient Tobacco Use Status: Never used Tobacco e-Cigarette/Vaping Use: Never Used Second Hand Smoke Exposure: No service: No Current occupational status: retired and disabled Cognitive needs: Yes (mild dementia) Hearing needs: No Vision needs: Yes (wear glasses) Questionnaire PHQ-9 Over the last 2 weeks, how often have you been bothered by any of the following problems? 1. Little interest or pleasure in doing things: not at all 2. Feeling down, depressed, or hopeless: not at all 3. Trouble falling or staying asleep, or sleeping too much: not at all 4. Feeling tired or having little energy: not at all 5. Poor appetite or overeating: not at all 6. Feeling bad about yourself - or that you are a failure or have let yourself or your family down: not at all 7. Trouble concentrating on things, such as reading the newspaper or watching television: not at all 8. Moving or speaking so slowly that other people could have noticed. Or the opposite - being so fidgety or restless that you have been moving around a lot more than usual: not at all 9. Thoughts that you would be better off or of hurting yourself in some way: not at all Total score: 0 Depression Screening Interpretation: Negative Depression Screening Done: Yes 12299 - PHQ-9 Billing: Yes Source: Developed by Drs. Rich Matthew, Mackenzie De La Garza, Chalo Landon and colleagues, with an educational mick from [employer]. Thrive Questionnaire Date Thrive assessed: 11/16/24 I am a: Patient What is your living situation today?: I have a steady place to live Within the past 12 months, did the food you bought not last and you didn't have the money to get more?: Never true Within the past 12 months, did you worry whether your food would run out before you got money to buy more?: Never true Do you have trouble paying for medicines?: No Do you have trouble getting transportation to medical appointments?: No Do you have trouble paying your heating and electricity bill?: No Do you have trouble taking care of your child, family member or friend?: No Do you have trouble with day-to-day activities such as bathing, preparing meals, shopping, managing finances, etc.?: Yes Are you currently unemployed and looking for a job?: No Are you interested in more education?: No Please select the resources that you would like help with: Care for elder or disabled Currently or been in a relationship where the following occur: No concerns reported THRIVE Score: 0 AUDIT C Alcohol Use Questionnaire (AUDIT-C) 1. How often do you have a drink containing alcohol?: Never 3. How often do you have six or more drinks on one occasion?: Never Total Score: 0 Score Reviewed/Action Taken: Yes SAMARA-7 AMB Questionnaire SAMARA-7 Date SAMARA - 7 assessed: 01/11/25 Feeling nervous, anxious, or on edge: 0 = Not at all Not being able to stop or control worryin = Not at all Worrying too much about different things: 0 = Not at all Trouble relaxin = Not at all Being so restless that it is hard to sit still: 0 = Not at all Becoming easily annoyed or irritable: 0 = Not at all Feeling afraid as if something awful might happen: 0 = Not at all Total SAMARA-7 score (0-4 normal; 5-9 mild; 10-14 moderate; 15-21 severe): 0 Source: Developed by Drs. Rich Matthew, Mackenzie De La Garza, Chalo Landon and colleagues, with an educational mick from [employer]. SAMARA-7 Assessment Billing SAMARA-7 Assessment Tool: SAMARA-7 Assessment 06290 Physical exam (Primary Care) Vital Signs: Last Vital Signs Temp 97.5 F 01/11/25 12:31 Pulse 85 01/11/25 12:31 Resp 13 01/11/25 12:31 BP 138/74 01/11/25 12:31 Pulse Ox 95 01/11/25 12:31 Oxygen Delivery Method Room Air 01/11/25 12:31 BMI result Body Mass Index 43.4 Tobacco/Smoking Status: Tobacco use Status Tobacco use date assessed 01/11/25 01/11/25 12:26 Patient Tobacco Use Status Never used Tobacco 01/11/25 12:22 e-Cigarette/Vaping Use Never Used 01/11/25 12:22 PHQ-9: PHQ-9 Score PHQ-9: Total score 0 01/11/25 13:04 Depression Screening Interpretation: Negative Thrive Assessment: Date of Thrive Assessment Date Thrive assessed 11/16/24 01/11/25 12:22 Currently or been in a relationship where the following occur: No concerns reported Coding Level of Care Code Est Pt Level 5 (44522) Complex EM visit Add On G2211 Diagnoses Chronic cough R05.3 Other chronic pain G89.29 Chronic pain type: other chronic pain Dental caries K02.9 Lymphedema I89.0 Osteopenia, unspecified location M85.80 Osteopenia location: unspecified PVD (peripheral vascular disease) I73.9 Varicose veins of both lower extremities with inflammation I83.11; I83.12 Gastroesophageal reflux disease without esophagitis K21.9 Esophagitis presence: without esophagitis SAMARA (generalized anxiety disorder) F41.1 Additional Codes SAMARA-7 Assessment Billing - SAMARA-7 Assessment Tool: SAMARA-7 Assessment 06663 ([id number]) PHQ-9 - 07412 - PHQ-9 Billing: Yes ([id number]) Assessment & Plan Assessment & Plan (1) Chronic cough: Code(s): R05.3 - Chronic cough Category: Medical (2) Chronic pain: Code(s): G89.29 - Other chronic pain Category: Medical Qualifiers: Chronic pain type: other chronic pain Qualified Code(s): G89.29 - Other chronic pain (3) Dental caries: Code(s): K02.9 - Dental caries, unspecified Category: Medical (4) Lymphedema: Code(s): I89.0 - Lymphedema, not elsewhere classified Category: Medical (5) Osteopenia: Comment: 01/2025 Organization (WHO) criteria, the diagnosis is consistent with osteopenia. Code(s): M85.80 - Other specified disorders of bone density and structure, unspecified site Category: Medical Qualifiers: Osteopenia location: unspecified Qualified Code(s): M85.80 - Other specified disorders of bone density and structure, unspecified site (6) PVD (peripheral vascular disease): Code(s): I73.9 - Peripheral vascular disease, unspecified Category: Medical (7) Varicose veins of both lower extremities with inflammation: Code(s): I83.11 - Varicose veins of right lower extremity with inflammation; I83.12 - Varicose veins of left lower extremity with inflammation Category: Medical (8) GERD (gastroesophageal reflux disease): Code(s): K21.9 - Gastro-esophageal reflux disease without esophagitis Category: Medical Qualifiers: Esophagitis presence: without esophagitis Qualified Code(s): K21.9 - Gastro-esophageal reflux disease without esophagitis (9) SAMARA (generalized anxiety disorder): Code(s): F41.1 - Generalized anxiety disorder Category: Medical Plan . Orders: Referrals Pulmonology Referral R05.3 - Chronic cough Medications: New ramipril 10 mg PO BID 180 caps 2RF pregabalin 75 mg PO BID 180 caps 2RF torsemide 30 mg (1.5 x 20 mg) PO DAILY 90 tabs 2RF Changed From esomeprazole magnesium 40 mg PO DAILY PRN To Nexium (esomeprazole magnesium) 40 mg PO DAILY 90 caps 2RF NS Refilled clonazepam 0.5 mg PO TID 84 tabs 0RF 28 days oxycodone 5 mg PO TID 84 tabs 0RF 28 days
[2025-01-11 12:31] VITALS: BP 138/74; PULSE 85; RESP 13; TEMP 36.4; O2SAT 95; BMI 43.4
--- OUTSIDE RECORDS SUMMARY | 2025-01-11 13:00 | XMS_ITS ---
Author Organization [facility] Physician Tanya العلي Address [address] [facility] [address] [place] [address] Care Team Providers Care City Tax Auditor Name Role Phone Galileo Alarcon Primary Care [...] Orally Twice a day for 90 days [id number] 10/17/2024 Active SOCIAL HISTORY Sex Assigned At : Social History Observation Description Sex Assigned At Female Encounters Encounter Location Date Provider Diagnosis [facility] [address] [place] [address] 10/15/2024 Galileo Alarcon PLAN OF TREATMENT Medication Medication Name Sig Start Date Stop Date Notes KlonoPIN 0.5 mg 1 tablet MDD 3 Orall y 3x per day as needed for 30 days 10/17/[id number] attempting to taper down on klonopin oxyCODONE HCl 5 mg 1 tablet as needed. MDD 4 Orally 4x daily for 30 days 10/17/[id number] Pregabalin 75 MG 1 capsule Orally Twi ce a day for 90 days 10/17/2024 [id number]
--- OUTSIDE RECORDS SUMMARY | 2025-01-11 13:01 | XMS_ITS ---
Author Organization [facility] Physician Tanya العلي Address [address] [facility] [address] [place] [address] Care Team Providers Care Lending Advisor Name Role Phone Galileo Alarcon Primary Care Provider [phone] Jimmie Villatoro Unavailable [phone] REASON FOR VISIT 18 MO. F/U SOCIAL HISTORY Sex Assigned At : Social History Observation Description Sex Assigned At Female Encounters Encounter Location Date Provider Diagnosis [facility] [address] [place], [place] [id number] 09/18/2024 Jimmie Villatoro PLAN OF TREATMENT No Information
--- OUTSIDE RECORDS SUMMARY | 2025-01-11 13:01 | XMS_ITS ---
Author Organization [facility] Physician Tanya العلي Address [address] [facility] [address]nd [place] [address] Care Team Providers Care Health Promotion Specialist Name Role Phone Galileo Alarcon Primary Care Provider [phone] Jimmie Villatoro Unavailable [phone] REASON FOR VISIT 18 MONTHS SKYLAR SOCIAL HISTORY Sex Assigned At : Social History Observation Description Sex Assigned At Female Encounters Encounter Location Date Provider Diagnosis [facility] [address] [place], [place] [phone] 09/24/2024 Jimmie Villatoro PLAN OF TREATMENT No Information
--- OUTSIDE RECORDS SUMMARY | 2025-01-11 13:01 | XMS_ITS | Patient Health Record ---
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 Name Role Phone Agnes Galileo Primary Care Provider [phone] Lauren Fragoso Unavailable [phone] Jimmie Villatoro Unavailable [phone] Angelica Bhardwaj Unavailable [phone] Reynaldo Perez Unavailable [phone] Hipolito Escobar Unavailable ALLERGIES Allergen (clinical drug [...] Active RESULTS Component Value Reference Range Notes CBC - Complete Blood Count w ith [...] Lymph 25.0 15 - 49 % Auto Webb 10.2 0 - 13 % Auto Eosin 8.6 0 - 8 % Auto Baso 0.2 0 - 2 % Absolute Neut 2.88 1.52 - 8.80 10x3/uL Absolute Lymph 1.28 0.60 - 5.39 10x3/uL Absolute Webb 0.52 0.00 - 1.43 10x3/uL Absolute Eosin 0.44 0.00 - 0.88 10x3/uL Absolute Baso 0.01 0.00 - 0.22 10x3/uL Parathyroid Hormone - Intact (PTHI) Reviewed date:04/27/2024 01:33:08 PM Interpretation: Performing Lab: Notes/Report: This analyte was performed using the [employer] DXI. PTH Intact 215.9 12.0 - 88.0 PG/ML Urine Culture Reviewed date:04/30/2024 09:07:09 AM Interpretation: Performing Lab: Notes/Report: Specimen URINE Organism No growth of clinical significance CBC - Complete Blood Count w ith Auto Diff Reviewed date:04/30/2024 09:36:43 AM Interpretation: Performing Lab: Notes/Report: WBC Count 4.4 RBC Count 4.94 Hemoglobin 13.2 Hematocrit 38.5 MCV 78.0 MCH 26.7 MCHC 34.3 Platelet Count 261 RDW 15.9 % Neutrophil 55.3 % Lymphocyte 26.5 % Monocyte 9.4 % Eosinophil 8.6 % Basophil 0.3 Absolute Neut 2.44 Absolute Lymp 1.17 Absolute Webb 0.42 Absolute Eos 0.38 Absolute Baso 0.01 CBC Review Magnesium Level Reviewed date:04/30/2024 09:36:50 AM Interpretation: Performing Lab: Notes/Report: Magnesium 2.1 CMP - Comprehensive Metaboli c Panel Reviewed date:04/30/2024 09:36:56 AM Interpretation: Performing Lab: Notes/Report: Sodium 139 Potassium 3.4 Chloride 100 CO2 31 Glucose 120 BUN 23 Creatinine 4.1 Calcium 9.8 Total Protein 8.1 Albumin 4.1 Alk Phosphatase 156 ALT(SGPT) 12 AST(SGOT) 14 Bilirubin,Total 0.7 GFR GFR Non EGFR 32 Iron and Iron Binding Capaci ty Reviewed [...] Lymph 17.2 15 - 49 % Auto Webb 8.8 0 - 13 % Auto Eosin 3.1 0 - 8 % Auto Baso 0.6 0 - 2 % Absolute Neut 4.70 1.52 - 8.80 10x3/uL Absolute Lymph 1.20 0.60 - 5.39 10x3/uL Absolute Webb 0.60 0.00 - 1.43 10x3/uL Absolute Eosin [...] Hydroxy Vitamin D: Testing performed using the [employer] DXI. Effective July: (NOTE) Vitamin D,25-Hydroxy 24.0 [...] YELLOW Appearance CLEAR Reference Range: CLEAR Specific [place] 1.012 <1.030 PH 6.0 5.0 - 8.0 [...] Notes/Report: Glycohemoglobin 6.4 4.0 - 6.0 % CHROMOSOME REVIEW (Not yet r eviewed by provider) Interpretation: Performing Lab: Notes/Report: CHROMOSOME REVIEW FINALIZED Electronically signed and reported by River Hernandez, Ph.D. 03/27/2024 CHROMOSOME ANALYSIS (Not yet reviewed by provider) [...] Electronically signed and reported by Love Mo, Ph.D.,[facility] 02/15/2024 FISH,CYTOGENETICS (Not yet r eviewed by provider) Interpretation: Performing Lab: Notes/Report: SPECIMEN TYPE Marrow PATH CASE # [id number] INDICATION Myeloma PROBE TYPE Myeloma Panel FISH [...] performed on 200 CD138+ sorted interphase cells ([employer] with the multiple myeloma (MM) panel [...] Fusion Probe, IGH/MAFB Translocation, Dual Fusion Probe ([employer] There was no evidence of IGH::FGFR3-, IGH::CCND1-, IGH::MAF- or IGH::MAFB- specific rearrangement. FISH was developed and its performance characteristics was determined by the Cytogenetics Laboratory at [facility], [place], [place] It has not been cleared or approved by the U.S. Food and Drug Administration (FDA). The FDA has determined that such clearance or approval is not necessary. This test should not be regarded as an investigational or research analysis. The FISH results should be used in conjunction with classical cytogenetic analysis and/or clinical information. REVIEWED BY: Chely BONE MARROW ASPIRATE, [id number] (Not yet reviewed by provider) Interpretation: Performing Lab: Notes/Report: See Below For Report [id number] FINAL DIAGNOSIS: Bone marrow aspirate, clot section and core biopsy, peripheral blood: - Plasma cell neoplasm, comprising less than 10% of the marrow cellularity -Otherwise adequate appearing cellularity hematopoiesis MARCELL MICROSCOPIC EXAMINATION: Complete blood count; date: 02/06/2024 Performed at [facility] WBC: 5.1 K/ul RBC #: 5.5 [...] Cytometry: Specimen viability: 91% Marker Studies: 10B/6MM2: [place], Lambda, CD10, CD5, CD200, CD34, CD38, CD20, CD19, CD45, 6 MM2: cy-Salamanca, cy-Lambda, CD38, CD138, CD19, CD45 Interpretation: NO [...] Entirely submitted in one pink cassette labeled [id number] Summary of sections: B1-bone following EDTA, 1 piece C. Royal's-Giemsa stained peripheral blood smears are prepared. D. Received in formalin labeled with the patient's name and bone marrow blood clot is a 2.4 x 1.5 x 0.5 cm aggregate of blood clot which is serially sectioned. Entirely submitted in two pink cassettes labeled [id number] Summary of sections: D1-3 pieces; D2-2 pieces Reported Date: Reviewing Pathologist's Electronic Signature: 02/09/2024 Yesenia CERVANTES MD, PhD Applicable only if cytogenetics or molecular diagnostics test results are included in this report: Unless otherwise noted, testing performed by [facility]- [address] [place] [address]. FDA Testing Disclaimer (Applicable only if flow cytometry and/or immunohistochemistry results are included in this report): These tests were developed and their performance characteristics determined by [facility], [address] [place] [address], [address] [place] [address]. The interpretation of the above immunohistochemistry stain or stains is guided by published results in the medical literature, provided package information from the test worker and by internal review of staining performance [...] otherwise noted, Immunohistochemistry stains were performed at [facility], [address] [place] [address], [address] [place] [address]. PATIENT CONSENT,CTG (Not yet reviewed by provider) Interpretation: Performing Lab: Notes/Report: PATIENT CONSENT,CTG cancelled REASON FOR REFERRAL No Information MEDICATIONS Medication SIG (Take, Route, Frequency, Duration) Notes Start Date End Date Status KlonoPIN 0.5 mg 1 tablet MDD 3 Orally 3x per day as needed for 30 days 083124620 CB attempting to taper down on klonopin 10/17/2024 Active Esomeprazole Magnesium 40 MG take 1 capsule by mouth once daily if needed for 30 days Active oxyCODONE HCl 5 mg 1 tablet as needed. MDD 4 Orally 4x daily for 30 days 852822041 CB 10/17/2024 Active Pregabalin 75 MG 1 capsule Orally Twice a day for 90 days 895562224 CB 10/17/2024 Active Lidocaine 4 % as directed [...] one by mouth once daily Active Nystatin 203977 UNIT/GM 1 application Externally Twice a day [...] days 05/04/2024 Active Maxzide 75-50 MG Take 1/2-11/2 tablet Orally Once a day as needed for 90 days Not-Taking CPAP . Pressure Change apap 8-20 cm H2O with mask, heated humidifier, and 60 day compliance download dx SKYLAR QHS for Sleep G47.33 12/28/2018 Active Vitamin D3 1.25 MG (18945 UT) 1 capsule Orally once weekly for [...] Notes Problem Monoclonal gammopathy (D47.2) Active confirmed 846213270 Problem Anemia in chronic kidney disease (D63.1) Active confirmed 994449139 Problem Other hyperlipidemia (E78.4) Active confirmed Hyperlipidemia (13806651) Problem Disorder of mineral metabolism, 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) Active confirmed 58924215 Problem Generalized anxiety disorder (F41.1) Active confirmed 45104583 Problem Other chronic pain (G89.29) Active confirmed 69155552 Problem Chronic pain syndrome (G89.4) Active confirmed 490882266 Problem Hypertensive chronic kidney disease with stage 1 through stage 4 chronic kidney disease, or unspecified chronic kidney disease (I12.9) Active confirmed 44738925 Problem Low back pain (M54.5) Active confirmed Low back pain (379153166) Problem Chronic kidney disease, unspecified (N18.9) Active confirmed 89252267 Problem Dementia (F03.90) Active confirmed Dilepe ntia (92007702) Problem Obstructive sleep apnea (G47.33) Active confirmed Obstructive s leep apnea (92704659) Problem Dyslipidemia (E78.5) Active confirmed 439278551 Problem Psoriasis (L40.9) Active confirmed Psor iasis (6507283) Problem Obesity (BMI 30-39.9) (E66.9) Active confirmed Obesity (298501578) Problem Oropharyngeal dysphagia (R13.12) Active confirmed 42989216 Problem Abnormal laboratory test (R89.9) Active confirmed Laboratory test result abnormal (364706239) Problem Chronic fatigue (R53.82) Active confirmed 49982754 Problem Mild cognitive impairment (G31.84) Active confirmed 994339173 Problem Glaucoma (H40.9) Active confirmed Glauc hanh (63979221) Problem Hypertensive chronic kidney disease (I12.9) Active confirmed Chronic kidn ey disease due to benign hypertension (742408901735215) Problem History of left knee replacement (Z96.652) Active confirmed 337656549 Problem 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) Active confirmed 819954791 Problem Primary hypertension (I10) Active confirmed 60526512 Problem BMI 40.0-44.9, adult (Z68.41) Active confirmed Body mass ind ex 40+ - morbidly obese (959584305) Problem Recurrent sinus infections (J32.9) Active confirmed 381955043 Problem History of anemia due to CKD (Z86.2) Active confirmed Anemia co-occurrent and due to chronic kidney disease (376320006) Problem Chronic sinusitis, unspecified location (J32.9) Active confirmed 88452323 Problem Dysphagia, unspecified type (R13.10) Active confirmed 68311228 Problem Frontal sinusitis, unspecified chronicity (J32.1) Active confirmed 40124480 Problem Hypertension, renal, stage 1-4 or unspecified chronic kidney disease (I12.9) Active confirmed Chronic kidn ey disease due to hypertension (966678550026118) 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 confirmed 42052815 Problem 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) Active confirmed Disorders of wily th mitral and tricuspid valves (259461116) Problem Cognitive dysfunction (F09) Active confirmed 707391287 Problem Piriformis syndrome, left (G57.02) Active confirmed Sciatic nerve lesion (297643162) Problem Stage 2 chronic kidney disease (N18.2) Active confirmed 711224699 Problem 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) Active confirmed 80889027 Problem Piriformis syndrome of both sides (G57.03) Active confirmed Sciatic nerve lesion (321518630) Problem Stage 3 chronic kidney disease, unspecified whether stage 3a or 3b CKD (N18.30) Active confirmed 979730480 Problem Chronic Kidney Disease, Stage 3b (N18.32) Active confirmed 894349557 Problem Hx of metal allergy (Z91.09) Active confirmed 832811797 Problem Stage 3b chronic kidney disease (CKD) (N18.32) Active confirmed 635792885 VITAL SIGNS Heart Rate 54 /min 05/10/2024 Oximetry 94 % 05/10/2024 Blood pressure diastolic 80 mm Hg 05/10/2024 Weight-kg 120.66 kg 05/10/2024 Height 67 in 05/10/2024 Blood pressure systolic 124 mm Hg 05/10/2024 Weight 266 lbs 05/10/2024 BMI 41.66 kg/m2 05/10/2024 PROCEDURES Procedure Date Ordered Date Performed Result Body Sit e OSTEOPATHIC MANIP TX - 3-4 B RUDY REGIONS INVOLVED (95183) 02/03/2024 02/03/2024 N/A OSTEOPATHIC MANIP TX - 3-4 B RUDY REGIONS INVOLVED (46894) 03/09/2024 03/09/2024 N/A OSTEOPATHIC MANIP TX - 3-4 B RUDY REGIONS INVOLVED (79946) 05/04/2024 05/04/2024 N/A OSTEOPATHIC MANIP TX - 3-4 B RUDY REGIONS INVOLVED (11021) 04/04/2024 04/04/2024 N/A OSTEOPATHIC MANIP TX - 3-4 B RUDY REGIONS INVOLVED (94671) 02/23/2024 02/24/2024 N/A Encounters Encounter Location Date Provider Diagnosis [facility] [address] [address] 01/19/2024 Galileo Alarcon [facility] [address] [address] 01/19/2024 Galileo Alarcon [facility] [address] [address] 01/19/[address] [address] 01/30/2024 Hipolito Valero [facility] [address] [address] 02/06/2024 [facility] [address] [address] 02/17/2024 Galileo Alarcon [facility] [address] [address] 02/20/2024 [facility] [address] [address] 02/20/2024 Galileo Aalrcon [facility] [address] [address] 02/22/2024 [facility] [place] [address] [place] [address] 02/24/2024 Hipolito Valero [facility] [address] [place] [address] 03/05/2024 Galileo Alarcon [facility] [address] [place] [address] 03/19/2024 Galileo Alarcon [facility] [address] [place] [address] 03/21/2024 Galileo Alarcon [facility] [address] [place] [address] 03/28/2024 Galileo Alarcon [facility] [address] [place] [address] 03/29/2024 Reynaldo Perez [facility] [address] [address] 04/20/2024 Angelica Bhardwaj Stage 3 chronic kidney disease, unspecified whether stage 3a or 3b CKD N18.30 ; Renal bone disease N25.0 ; Hypertension, renal, stage 1-4 or unspecified chronic kidney disease I12.9 and Anemia in chronic kidney disease D63.1 [facility] [address] [place] [address] 04/27/2024 Galileo Alarcon [facility] [address] [place] [address] 04/30/2024 Galileo Alarcon [facility] [address] [place] [address] 05/25/2024 Galileo Alarcon [facility] [address] [place] [address] 06/06/2024 Galileo Alarcon [facility] [address] [place] [address] 07/05/2024 Galileo Alarcon [facility] [address] [place] [address] 07/10/2024 Galileo Alarcon [facility] [address] [place] [address] 07/23/2024 Galileo Alarcon [facility] [address] [place] [address] 07/24/2024 Galileo [place] [facility] [address] [address] 08/06/2024 Galileo [place] [facility] [address] [place] [address] 08/24/2024 Galileo [place] [facility] [address] [address] 09/03/2024 Galileo [place] [facility] [address] [address] 09/06/2024 Galileo [place] [facility] [address] [address] 05/09/2024 Galileo [place] [facility] [address] [address] 10/15/2024 Galileo [place] [facility] [address] [address] 05/10/2024 Galileo [place]ve Chronic pain syndrome G89.4 ; Obstructive sleep apnea G47.33 ; Generalized anxiety disorder F41.1 ; Dyslipidemia E78.5 ; Chronic Kidney Disease, Stage 3b N18.32 ; Monoclonal gammopathy D47.2 ; Intertrigo L30.4 ; Umbilical hernia without obstruction and without gangrene K42.9 ; Stage 3b chronic kidney disease (CKD) N18.32 ; Cognitive dysfunction F09 and History of left knee replacement Z96.652 [facility] [address] [place], [place] [phone] 09/18/2024 Jimmie Villatoro [facility] [address] [place], [place] [id number] 09/24/2024 Jimmie Villatoro [facility] [address] [place] [address] 04/30/2024 Lauren Fragoso [facility] [address] [place] [address] 04/30/2024 Angelica Bhardwaj Hypertensive chronic kidney disease with stage 1 through stage 4 chronic kidney disease, or unspecified chronic kidney disease I12.9 ; Chronic Kidney Disease, Stage 3b N18.32 ; Disorder of mineral metabolism, unspecified E83.9 ; Disorder of bone, unspecified M89.9 and Primary hypertension I10 [address] [address] 05/04/2024 Ryenaldo Perez Upper respiratory illness J39.9 ; Fatigue R53.83 ; Segmental and somatic dysfunction of cervical region M99.01 ; Segmental and somatic dysfunction of thoracic region M99.02 and Segmental and somatic dysfunction of lumbar region M99.[address] [address] 04/04/2024 Reynaldo Perez Segmental and somatic dysfunction of cervical region M99.01 ; Segmental and somatic dysfunction of rib cage M99.08 ; Segmental and somatic dysfunction of thoracic region M99.02 and Segmental and somatic dysfunction of lumbar region M99.[address] [address] 03/09/2024 Reynaldo Perez Segmental and somatic dysfunction of cervical region M99.01 ; Segmental and somatic dysfunction of rib cage M99.08 ; Segmental and somatic dysfunction of thoracic region M99.02 and Segmental and somatic dysfunction of lumbar region M99.[address] [address] 02/23/2024 Reynaldo Perez Vitamin B 12 deficiency E53.8 ; Segmental and somatic dysfunction of cervical region M99.01 ; Segmental and somatic dysfunction of rib cage M99.08 and Segmental and somatic dysfunction of lumbar region M99.03 [facility] [address] [place] [address] 02/02/2024 Galileo Snellkeith Chronic pain syndrome G89.4 ; Obstructive sleep apnea G47.33 ; Dyslipidemia E78.5 ; Mild cognitive impairment G31.84 and Stage 3b chronic kidney disease (CKD) N18.[address] [address] 02/03/2024 Reynaldo Perez Fatigue R53.83 ; History of anemia due to CKD Z86.2 ; Segmental and somatic dysfunction of cervical region M99.01 ; Segmental and somatic dysfunction of lumbar region M99.03 and Segmental and somatic dysfunction of rib cage M99.08 ASSESSMENTS Encounter Date Diagnosis Assessment Notes Treatment Notes Treatment Clinical Notes 02/02/2024 Chronic pain syndrome (ICD-10 - G89.4) On medication, contract signed 02/02/2024 Obstructive sleep apnea (ICD-10 - G47.33) Endorses restorative sleep at this time 02/03/2024 Fatigue (ICD-10 - R53.83) 02/03/2024 History [...] 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 In the meantime as discussed in office [...] a different provider when she moves to [place] however she was advised to call us [...] of cervical region (ICD-10 - M99.01) 02/02/2024 Dyslipidemia (ICD-10 - E78.5) Discussed management [...] Seen at [facility], no changes for now 02/03/2024 Segmental and somatic dysfunction of lumbar [...] monitor her blood pressures where she moved [place] and will establish with a new primary [...] dysfunction of rib cage (ICD-10 - M99.08) 02/02/2024 Stage 3b chronic kidney disease (CKD) (ICD-10 - N18.32) Follows with nephrology, no chages for now 05/10/2024 Monoclonal gammopathy (ICD-10 - D47.2) no changes, no signs of CRAB 05/10/2024 Intertrigo (ICD-10 - L30.4) so changes 05/10/2024 Umbilical hernia without obstruction and without gangrene (ICD-10 - K42.9) 05/10/2024 Stage 3b chronic kidney disease (CKD) (ICD-10 - N18.32) 05/10/2024 Cognitive dysfunction (ICD-10 - F09) I was concerned about possible polypharmacy, which we have discussed, she did go to cognitive clinical at , [facility] 05/10/2024 History of left knee replacement [...] 09/22/2020 PATIENT CONSENT,CTG 02/06/2024 BONE MARROW ASPIRATE, [id number] 02/06/2024 CHROMOSOME ANALYSIS 02/06/2024 FISH REVIEW 02/06/2024 FISH,CYTOGENETICS 02/06/2024 CHROMOSOME REVIEW 02/06/2024 Immunofixation(Immunoelectrophoresis),Se rum,REF 1 [facility] 12/06/2023 Protein Electrophoresis,Serum,REF 1 [facility] 12/06/2023 Reflexed PE2(S Prot Elect) Review,REF 1 [facility] 12/06/2023 Reflexed SIF(S Immunofix) Review,REF 1 [facility] 12/06/2023 Spirometry 06/30/2023 [place]-Lambda Free Light Chain w/Ratio,RE F 1 [facility] 12/06/2023 US Renal 06/01/2022 Future Test Test [...] End Date MEDICARE BLUE O [address] [address] ZEYNEP ENRIQUEZ [phone] [phone] [id number] KISHA ELLEN Self - patient is the insured 4 MEDICATIONS ADMINISTERED Medication Instructions Date of Administration Dosage Notes Cyanocobalamin 02/03/2024 1000 ug Cyanocobalamin 02/23/2024 1000 ug Cyanocobalamin 05/04/2024 1000 ug MEDICAL (GENERAL) HISTORY Medical History History ICD Code Armando allergy HTN: '06. Dyazide. Systemic Inflammatio n , edema Anxiety: [...] biopsy of kidney extraction 4 wisdom teeth 1970 D&C 2007 Hysterectomy LAVH-BSO with TVT. Benign p athology 08/2010 Right TKR 09/27/2011 L4-L5 cage and rods 09/04/12 L-[address] Verdin 02/06/14 Bilateral glaucoma procedures 2014 T10-S1 posterior spinal fusion (miguel yamel tanner and replacement) 09/16 LT total knee replacement -- Josh Hospitalization History Reason Date(Month/Year) surgeries
== END 2025-01-11 13:16 | disposition home or self-care (01) ==
LOC: HO.HMCFM 12:14
PROVIDERS: PCP Nurse Practitioner Family; Visit Provider Nurse Practitioner Family
DX: R05.3 Chronic cough (principal); I73.9 Peripheral vascular disease, unspecified; G89.29 Other chronic pain; K02.9 Dental caries, unspecified; I89.0 Lymphedema, not elsewhere classified; M85.80 Other specified disorders of bone density and structure, unspecified site; I83.11 Varicose veins of right lower extremity with inflammation; I83.12 Varicose veins of left lower extremity with inflammation; K21.9 Gastro-esophageal reflux disease without esophagitis; F41.1 Generalized anxiety disorder

== ENCOUNTER → 2025-01-11 12:13 | Outpatient (BNVA) | payer MEDICARE, SELFPAY | PROVIDERS: PCP Nurse Practitioner Family; Visit Provider Nurse Practitioner Family | DX: R05.3 Chronic cough (principal); G89.29 Other chronic pain; K02.9 Dental caries, unspecified; I89.0 Lymphedema, not elsewhere classified; M85.80 Other specified disorders of bone density and structure, unspecified site; I73.9 Peripheral vascular disease, unspecified; I83.11 Varicose veins of right lower extremity with inflammation; I83.12 Varicose veins of left lower extremity with inflammation; K21.9 Gastro-esophageal reflux disease without esophagitis; F41.1 Generalized anxiety disorder | CPT/HCPCS: 96127; 99212 ==

== ENCOUNTER 2025-02-19 15:22 | Outpatient (AMB) | payer MEDICARE, SELFPAY ==
--- NOTE | 2025-02-19 15:29 | MHC.OFFVIS ---
Vital Signs 02/19/25 15:30 Height 5 ft 5 in Weight 258 lb BMI 42.9 BP 162/78 H Blood Pressure Location Rt brachial Position Sitting Pulse 94 Pulse Source Pulse Oximeter Pulse Oximetry (%) 92 Oxygen Delivery Method Room Air Intake Visit Reasons: Chronic cough Allergies codeine Allergy (Severe, Verified 02/19/25 15:35) Hives nickel Allergy (Severe, Verified 02/19/25 15:35) Hives adhesive tape Allergy (Intermediate, Verified 02/19/25 15:35) Rash Sulfa (Sulfonamide Antibiotics) Adverse Reaction (Severe, Verified 02/19/25 15:35) Hives diphenhydramine Adverse Reaction (Intermediate, Verified 02/19/25 15:37) Palpitations eye drops for galucoma Allergy (Severe, Uncoded 02/19/25 15:35) Dry Eye HPI HPI Chronic cough: Details: Saira is a pleasant 70 year female, never smoker, with underlying severe SKYLAR on CPAP, HTN, GERD, PVD and chronic lymphedema. She was referred by PCP for pulmonary evaluation to manage CPAP therapy and chronic cough. She was previously under the care of sleep medicine in [place] and recently moved. Sleep study from 2019 revealed severe sleep apnea and and has been using CPAP therapy for 10+ years with good effect. Her current machine has been displaying end of life, broken beyond repair and in need of new machine. She has been reportedly compliant and benefitting from use. DME was [facility] in [place] and would like to continue with them at this time. She reports chronic cough since October where she was diagnosed with bronchitis, treated with a Z-Jai in November however continues with intermittent productive cough with green yellow sputum and dyspnea. Denies prior chest x-ray. Denies prior history of asthma however has been previously prescribed Combivent p.r.n. dyspnea, cough wheezing in the past, triggered by seasonal allergies. She denies secondhand smoke exposure. She denies any occupational exposures. She denies any pertinent family history. [facility] Medical History Migraines Hypertension Anxiety Sleep apnea Low kidney function Normal pressure glaucoma Umbilical hernia Surgical History H/O eye surgery H/O: hysterectomy Previous back surgery H/O knee surgery Family History Brother Cancer Pancreas cancer Father Cancer Hypertension Cardiovascular disease Stented coronary artery Mother Stroke Thyroid disorder Pacemaker Cardiovascular disease Paternal Grandmother Stroke Social History Household Members: Spouse Both parents involved: No Caregiver staying overnight: No Housing: Apartment Are you a primary physician locums urgent care to a significant other at home: No Do you presently have visiting nurse or other home services: No 75 years or older and lives alone: No Alcohol intake: never Patient Tobacco Use Status: Never used Tobacco e-Cigarette/Vaping Use: Never Used Second Hand Smoke Exposure: No service: No Current occupational status: retired and disabled Cognitive needs: Yes (mild dementia) Hearing needs: No Vision needs: Yes (wear glasses) Review of Systems Const Denies chills, Denies excessive sweating, Denies fever(s), Denies headache(s) and Denies night sweats Eyes Denies dry eyes, Denies irritation and Denies itchy eyes ENT Reports Normal hearing present, Denies headache(s), Denies nasal congestion, Denies nasal discharge, Denies post nasal drip and Denies sore throat Card Denies chest pain, Denies chest pain at rest, Denies chest pain with activity, Denies orthopnea and Denies paroxysmal nocturnal dyspnea Resp Denies excessive phlegm production, Denies pain on inspiration, Denies pain with cough, Denies stridor and Denies wheezing Musc Denies myalgias Neuro Reports Normal hearing present and Denies headache(s) Endo Denies excessive sweating Ramesh/Lymph Denies lymphadenopathy Aller/Immun Denies itchy eyes, Denies seasonal rhinorrhea and Denies wheezing Physical Exam Vital Signs: Last Vital Signs Pulse 94 02/19/25 15:30 BP 162/78 H 02/19/25 15:30 Pulse Ox 92 02/19/25 15:30 Oxygen Delivery Method Room Air 02/19/25 15:30 BMI result Body Mass Index 42.9 Const General: cooperative, healthy appearing, comfortable, no acute distress, well developed and alert Nutritional Appearance: obese Orientation/consciousness: patient oriented x3 Limitations: ambulation with walker HEENT Head: Yes normal to inspection, Yes normocephalic and Yes atraumatic Ears: hearing grossly normal bilaterally and external ears normal Eyes General: appearance normal, both eyes and all related structures Eyelids: Yes eyelids normal Sclerae: sclerae normal EOM: EOMs intact bilaterally Neck Neck: Yes normal visual inspection and Yes no lymphadenopathy Lymphatic: no lymphadenopathy noted Chest Chest palpation & inspection: normal inspection of the chest Resp Effort & Inspection: normal respiratory effort, able to speak in complete sentences, no audible wheezes, no cough, no stridor, not tachypneic, no tripod positioning and no use of accessory muscles Auscultation: clear to auscultation bilaterally Cardio Jugular venous distension: no JVD Rate: regular rate Rhythm: regular rhythm Skin Other: warm, dry General skin exam: no rashes or lesions noted Neuro General: patient oriented x3 Cranial nerves: Yes Normal hearing present Cognition (Neuro): normal cognition Psych Appearance: grossly normal and well kempt Speech and movement: Normal speech and movement present and Clear speech present Affect: normal affect Attitude: cooperative Thought process: Normal thought process present Thought content: Normal thought content present Insight: Good insight present (Psych) Judgement: Good judgement present (Psych) Assessment & Plan Assessment & Plan (1) Chronic cough: Code(s): R05.3 - Chronic cough Category: Medical (2) SKYLAR on CPAP: Code(s): G47.33 - Obstructive sleep apnea (adult) (pediatric) Category: Medical Plan Saira presents for pulmonary evaluation for chronic cough as well as management of CPAP therapy. Will send a chest x-ray to assess for any parenchymal condition contributing to cough. Will also send for PFT as patient reports prior symptoms suggestive of allergy induced asthma. Discussed RAST testing however patient deferred at this time has allergy symptoms are mild. Patient has been using CPAP therapy reportedly compliant and benefitting from use, known h/o severe SKYLAR. She is in need of a new machine as current is displaying end of motor life message. Will send orders to [facility] to obtain. She is aware she may require updated sleep study prior to obtaining new equipment. All questions were answered and patient is in agreement of plan. Will follow-up to review results or sooner if needed. Orders: Orders XR chest 2V 02/19/25 R05.3 - Chronic cough PFT pulmonary function test 02/19/25 R05.3 - Chronic cough Coding Level of Care Code New Pt Level 4 (03390) Diagnoses Chronic cough R05.3 SKYLAR on CPAP G47.33
[2025-02-19 15:30] VITALS: BP 162/78; PULSE 94; O2SAT 92; BMI 42.9
--- OUTSIDE RECORDS SUMMARY | 2025-02-19 16:26 | XMS_ITS | Patient Health Record ---
Author Organization [facility] Physician Tanya العلي Address [address] [facility] 2nd [place] [address] Care Team Providers Care Swimming Professor Name Role Phone Galileo Alarcon Primary Care Provider Lauren Fragoso Unavailable [phone] Jimmie Villatoro Unavailable [phone] Angelica Bhardwaj Unavailable [phone] Reynaldo Perez Unavailable [phone] Hipolito Escobar Unavailable ALLERGIES Allergen (clinical drug [...] Active RESULTS Component Value Reference Range Notes CMP - Comprehensive Metaboli c Panel Reviewed [...] Absolute Neut 2.44 Absolute Lymp 1.17 Absolute [place]ren 0.42 Absolute Eos 0.38 Absolute Baso 0.01 CBC Review Parathyroid Hormone - Intact (PTHI) Reviewed date:04/27/2024 01:33:08 PM Interpretation: Performing Lab: Notes/Report: This analyte was performed using the [employer]Alta DXI. PTH Intact 215.9 12.0 - 88.0 PG/ML Urine Culture Reviewed date:04/30/2024 09:07:09 AM Interpretation: Performing Lab: Notes/Report: Specimen URINE Organism No growth of clinica l significance Iron and Iron Binding Capaci ty [...] Lymph 17.2 15 - 49 % Auto [place] 8.8 0 - 13 % Auto Eosin 3.1 0 - 8 % Auto Baso 0.6 0 - 2 % Absolute Neut 4.70 1.52 - 8.80 10x3/uL Absolute Lymph 1.20 0.60 - 5.39 10x3/uL Absolute [place] 0.60 0.00 - 1.43 10x3/uL Absolute Eosin [...] values below 60 mL/min/1.73m2 has more clinical Creatinine equation. reported was 0-6 units lower [...] of kidney function than values above this Sodium 137 136 - 145 mMOL/L Potassium [...] (NOTE) Effective July: Testing performed using the [employer] Forest DXI. Recommendations for 25 Hydroxy Vitamin D: [...] YELLOW Appearance CLEAR Reference Range: CLEAR Specific Closter 1.012 <1.030 PH 6.0 5.0 - 8.0 [...] Notes/Report: Glycohemoglobin 6.4 4.0 - 6.0 % REASON FOR REFERRAL No Information MEDICATIONS Medication SIG (Take, Route, Frequency, Duration) Notes Start Date End Date Status KlonoPIN 0.5 mg 1 tablet MDD 3 Orally 3x per day as needed for 30 days [id number] attempting to taper down on klonopin 10/17/2024 Active Esomeprazole Magnesium 40 MG take 1 capsule by mouth once daily if needed for 30 days Active oxyCODONE HCl 5 mg 1 tablet as needed. MDD 4 Orally 4x daily for 30 days [id number] CB 10/17/2024 Active Pregabalin 75 MG 1 capsule Orally Twice a day for 90 days [id number] 10/17/2024 Active Lidocaine 4 % as directed [...] one by mouth once daily Active Nystatin 591668 UNIT/GM 1 application Externally Twice a day [...] days 05/04/2024 Active Maxzide 75-50 MG Take /2-112 tablet Orally Once a day as needed for 90 days Not-Taking CPAP . Pressure Change apap 8-20 cm H2O with mask, heated humidifier, and 60 day compliance download dx SKYLAR QHS for Sleep G47.33 12/28/2018 Active Vitamin D3 1.25 MG (30984 UT) 1 capsule Orally once weekly for [...] Notes Problem Monoclonal gammopathy (D47.2) Active confirmed 823830542 Problem Anemia in chronic kidney disease (D63.1) Active confirmed 838529976 Problem Other hyperlipidemia (E78.4) Active confirmed Hyperlipidemia (34569948) Problem Disorder of mineral metabolism, 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) Active confirmed 15403518 Problem Generalized anxiety disorder (F41.1) Active confirmed 06545591 Problem Other chronic pain (G89.29) Active confirmed 30646904 Problem Chronic pain syndrome (G89.4) Active confirmed 349599176 Problem Hypertensive chronic kidney disease with stage 1 through stage 4 chronic kidney disease, or unspecified chronic kidney disease (I12.9) Active confirmed 49025996 Problem Low back pain (M54.5) Active confirmed Low back pain (593296434) Problem Chronic kidney disease, unspecified (N18.9) Active confirmed 05975577 Problem Dementia (F03.90) Active confirmed Dileep ntia (25844123) Problem Obstructive sleep apnea (G47.33) Active confirmed Obstructive s leep apnea (26761662) Problem Dyslipidemia (E78.5) Active confirmed 037809313 Problem Psoriasis (L40.9) Active confirmed Psor iasis (9319716) Problem Obesity (BMI 30-39.9) (E66.9) Active confirmed Obesity (476561445) Problem Oropharyngeal dysphagia (R13.12) Active confirmed 67049628 Problem Abnormal laboratory test (R89.9) Active confirmed Laboratory test result abnormal (686452729) Problem Chronic fatigue (R53.82) Active confirmed 37272640 Problem Mild cognitive impairment (G31.84) Active confirmed 570455230 Problem Glaucoma (H40.9) Active confirmed Glauc hanh (75920999) Problem Hypertensive chronic kidney disease (I12.9) Active confirmed Chronic kidn ey disease due to benign hypertension (865087176675317) Problem History of left knee replacement (Z96.652) Active confirmed 704845800 Problem 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) Active confirmed 277523867 Problem Primary hypertension (I10) Active confirmed 57650139 Problem BMI 40.0-44.9, adult (Z68.41) Active confirmed Body mass ind ex 40+ - morbidly obese (669466098) Problem Recurrent sinus infections (J32.9) Active confirmed 606441527 Problem History of anemia due to CKD (Z86.2) Active confirmed Anemia co-occurrent and due to chronic kidney disease (868411074) Problem Chronic sinusitis, unspecified location (J32.9) Active confirmed 06269691 Problem Dysphagia, unspecified type (R13.10) Active confirmed 00470359 Problem Frontal sinusitis, unspecified chronicity (J32.1) Active confirmed 36854475 Problem Hypertension, renal, stage 1-4 or unspecified chronic kidney disease (I12.9) Active confirmed Chronic kidn ey disease due to hypertension (612561532597210) 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 confirmed 91154134 Problem 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) Active confirmed Disorders of wily th mitral and tricuspid valves (188478884) Problem Cognitive dysfunction (F09) Active confirmed 181148006 Problem Piriformis syndrome, left (G57.02) Active confirmed Sciatic nerve lesion (490255657) Problem Stage 2 chronic kidney disease (N18.2) Active confirmed 172965407 Problem 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) Active confirmed 60373351 Problem Piriformis syndrome of both sides (G57.03) Active confirmed Sciatic nerve lesion (171976519) Problem Stage 3 chronic kidney disease, unspecified whether stage 3a or 3b CKD (N18.30) Active confirmed 045958946 Problem Chronic Kidney Disease, Stage 3b (N18.32) Active confirmed 464223178 Problem Hx of metal allergy (Z91.09) Active confirmed 814979042 Problem Stage 3b chronic kidney disease (CKD) (N18.32) Active confirmed 068325282 VITAL SIGNS Heart Rate 54 /min 05/10/2024 Oximetry 94 % 05/10/2024 Blood pressure diastolic 80 mm Hg 05/10/2024 Weight-kg 120.66 kg 05/10/2024 Height 67 in 05/10/2024 Blood pressure systolic 124 mm Hg 05/10/2024 Weight 266 lbs 05/10/2024 BMI 41.66 kg/m2 05/10/2024 PROCEDURES Procedure Date Ordered Date Performed Result Body Sit e OSTEOPATHIC MANIP TX - 3-4 B RDUY REGIONS INVOLVED (97639) 05/04/2024 05/04/2024 N/A OSTEOPATHIC MANIP TX - 3-4 B RUDY REGIONS INVOLVED (27099) 04/04/2024 04/04/2024 N/A OSTEOPATHIC MANIP TX - 3-4 B RUDY REGIONS INVOLVED (06184) 03/09/2024 03/09/2024 N/A OSTEOPATHIC MANIP TX - 3-4 B RUDY REGIONS INVOLVED (59963) 02/23/2024 02/24/2024 N/A Encounters Encounter Location Date Provider Diagnosis [facility] [address] [place] [address] 02/20/2024 Galileo Alarcon [facility] [address] [place] [address] 02/20/2024 Galileo Alarcon [facility] [address] [place] [address] 02/22/2024 Galileo Alarcon [facility] [address] [place] [address] 02/24/2024 Hipolito Valero [facility] [address] [place] [address] 03/05/2024 Galileo Alarcon [facility] [address] [place] [address] 03/19/2024 Galileo Alarcon [facility] [address] [address] 03/21/2024 Galileo Alarcon [place] [facility] [address] [place] [address] 03/28/[address] [facility] [address] [place] [address] 03/29/2024 Reynaldo Perez [facility] [address] [address] 04/20/2024 Angelica Bhardwaj Stage 3 chronic kidney disease, unspecified whether stage 3a or 3b CKD N18.30 ; Renal bone disease N25.0 ; Hypertension, renal, stage 1-4 or unspecified chronic kidney disease I12.9 and Anemia in chronic kidney disease D63.1 [facility] [address] [place] [address] 04/27/2024 Galileo Alarcon [facility] [address] [place] [address] 04/30/2024 Galileo Alarcon [place] [facility] [address] [place] [address] 05/09/2024 Galileo Alarcon [place] [facility] [address] [place] [address] 05/25/2024 Galileo Snellgrove [facility] [address] [place] [address] 06/06/2024 Galileo Snellgrove [facility] [address] [place] [address] 07/05/2024 Galileo [place] [facility] [address] [place] [address] 07/10/2024 Galileo [place] [facility] [address] [place] [address] 07/23/2024 Galileo [place] [facility] [address] [place] [address] 07/24/2024 Galileo [place] [facility] [address] [place] [address] 08/06/2024 Galileo [place] [facility] [address] [place] [address] 08/24/2024 Galileo [place] [facility] [address] [place] [address] 09/03/2024 Galileo [place] [facility] [address] [place] [address] 09/06/2024 Galileo [place] [facility] [address] [place] [address] 10/15/2024 Galileo Snellkeith [facility] [address] [place] [phone] 09/18/2024 Jimmie Villatoro [facility] [address] [address] 04/30/2024 Lauren Fragoso [facility] [address] [place] [address] 05/10/2024 Galileo [place] Chronic pain syndrome G89.4 ; Obstructive sleep apnea G47.33 ; Generalized anxiety disorder F41.1 ; Dyslipidemia E78.5 ; Chronic Kidney Disease, Stage 3b N18.32 ; Monoclonal gammopathy D47.2 ; Intertrigo L30.4 ; Umbilical hernia without obstruction and without gangrene K42.9 ; Stage 3b chronic kidney disease (CKD) N18.32 ; Cognitive dysfunction F09 and History of left knee replacement Z96.[address] [address] 02/23/2024 Reynaldo Perez Vitamin B 12 deficiency E53.8 ; Segmental and somatic dysfunction of cervical region M99.01 ; Segmental and somatic dysfunction of rib cage M99.08 and Segmental and somatic dysfunction of lumbar region M99.[address] [address] 03/09/2024 Reynaldo Perez Segmental and somatic dysfunction of cervical region M99.01 ; Segmental and somatic dysfunction of rib cage M99.08 ; Segmental and somatic dysfunction of thoracic region M99.02 and Segmental and somatic dysfunction of lumbar region M99.[address] [address] 04/04/2024 Reynaldo Perez Segmental and somatic dysfunction of cervical region M99.01 ; Segmental and somatic dysfunction of rib cage M99.08 ; Segmental and somatic dysfunction of thoracic region M99.02 and Segmental and somatic dysfunction of lumbar region M99.[address] [address] 05/04/2024 Reynaldo Perez Upper respiratory illness J39.9 ; Fatigue R53.83 ; Segmental and somatic dysfunction of cervical region M99.01 ; Segmental and somatic dysfunction of thoracic region M99.02 and Segmental and somatic dysfunction of lumbar region M99.03 [facility] [address] [place], [place] [phone] 09/24/2024 Jimmie Villatoro [facility] [address] [address] 04/30/2024 Angelica Bhardwaj Hypertensive chronic kidney disease with stage 1 through stage 4 chronic kidney disease, or unspecified chronic kidney disease I12.9 ; Chronic Kidney Disease, Stage 3b N18.32 ; Disorder of mineral metabolism, unspecified E83.9 ; Disorder of bone, unspecified M89.9 and Primary hypertension I10 ASSESSMENTS Encounter Date Diagnosis Assessment Notes Treatment Notes Treatment Clinical Notes Section Notes 05/10/2024 Chronic pain syndrome (ICD-10 - G89.4) [...] work when she was establishes with a rn primary care/[facility]. In the meantime as discussed in office [...] a different provider when she moves to [place] however she was advised to call us [...] dysfunction of rib cage (ICD-10 - M99.08) 05/10/2024 Dyslipidemia (ICD-10 - E78.5) Discussed management [...] monitor her blood pressures where she moved [place] and will establish with a new primary [...] Disease, Stage 3b (ICD-10 - N18.32) stable 05/10/2024 Monoclonal gammopathy (ICD-10 - D47.2) no [...] did go to cognitive clinical at , [facility] 05/10/2024 History of left knee replacement (ICD-10 - Z96.652) 05/10/2024 Other Discussed with the patient in details regarding the plan as outlined. All their questions and concerns were addressed and answered, patient understands and agrees with plan and is willing to follow accordingly. Patient was strongly advised to call the office at any time for any concerns or inquiries. I have reviewed/verifie d any medication section, PFSH, ROS notation(s) supplementing [...] 09/22/2020 PATIENT CONSENT,CTG 02/06/2024 BONE MARROW ASPIRATE, [address] 02/06/2024 CHROMOSOME ANALYSIS 02/06/2024 FISH REVIEW 02/06/2024 FISH,CYTOGENETICS 02/06/2024 CHROMOSOME REVIEW 02/06/2024 Immunofixation(Immunoelectrophoresis),Se rum,REF 1 [facility] 12/06/2023 Protein Electrophoresis,Serum,REF 1 [facility] 12/06/2023 Reflexed PE2(S Prot Elect) Review,REF 1 [facility] 12/06/2023 Reflexed SIF(S Immunofix) Review,REF 1 [facility] 12/06/2023 Spirometry 06/30/2023 Kinnelon-Lambda Free Light Chain w/Ratio,RE F 1 [facility] 12/06/2023 US Renal 06/01/2022 Future Test [...] Start Date Coverage End Date MEDICARE BLUE PPO [address] [address] [place] [address] [id number] KISHAELLEN Self - patient is the insured 4 [...]
--- OUTSIDE RECORDS SUMMARY | 2025-02-19 16:26 | XMS_ITS ---
Author Organization [facility] Physician Tanya العلي Address [address] [facility] [address] [place] [address] Care Team Providers Care Food Photographer Name Role Phone Galileo Alarcon Primary Care [...] Orally Twice a day for 90 days [id number] 10/17/2024 Active SOCIAL HISTORY Sex Assigned At : Social History Observation Description Sex Assigned At Female Encounters Encounter Location Date Provider Diagnosis [facility] [address] [place] [address] 10/15/2024 Galileo Alarcon PLAN OF TREATMENT Medication Medication Name Sig Start Date Stop Date Notes KlonoPIN 0.5 mg 1 tablet MDD 3 Orall y 3x per day as needed for 30 days 10/17/[id number] attempting to taper down on klonopin oxyCODONE HCl 5 mg 1 tablet as needed. MDD 4 Orally 4x daily for 30 days 10/17/[id number] Pregabalin 75 MG 1 capsule Orally Twi ce a day for 90 days 10/17/2024 [id number]
--- OUTSIDE RECORDS SUMMARY | 2025-02-19 16:27 | XMS_ITS ---
Author Organization [facility] Physician Tanya العلي Address [address] [facility] [address] [place] [address] Care Team Providers Care Real Estate Agent Name Role Phone Galileo Alarcon Primary Care Provider Jimmie Villatoro Unavailable [phone] REASON FOR VISIT 18 MONTHS SKYLAR SOCIAL HISTORY Sex Assigned At : Social History Observation Description Sex Assigned At Female Encounters Encounter Location Date Provider Diagnosis [facility] [address] [place], [place] [phone] 09/24/2024 Jimmie Villatoro PLAN OF TREATMENT No Information
--- OUTSIDE RECORDS SUMMARY | 2025-02-19 16:27 | XMS_ITS ---
Author Organization [facility] Physician Tanya العلي Address [address] [facility] [address] [place] [address] Care Team Providers Care Shoe Sewing Machine Operator And Tender Name Role Phone Galileo Alarcon Primary Care Provider Jimmie Villatoro Unavailable [phone] REASON FOR VISIT 18 MO. F/U SOCIAL HISTORY Sex Assigned At : Social History Observation Description Sex Assigned At Female Encounters Encounter Location Date Provider Diagnosis [facility] [address] [place], [place] [phone] 09/18/2024 Jimmie Villatoro PLAN OF TREATMENT No Information
== END 2025-02-19 16:29 | disposition home or self-care (01) ==
LOC: HO.HPSW 15:23
PROVIDERS: PCP Nurse Practitioner Family; Referring Provider Nurse Practitioner Family; Visit Provider Nurse Practitioner Family
DX: R05.3 Chronic cough (principal); G47.33 Obstructive sleep apnea (adult) (pediatric)
CPT/HCPCS: 99204

== ENCOUNTER → 2025-02-19 15:22 | Outpatient (BNVA) | payer MEDICARE, SELFPAY | PROVIDERS: PCP Nurse Practitioner Family; Referring Provider Nurse Practitioner Family; Visit Provider Nurse Practitioner Family | DX: R05.3 Chronic cough (principal); G47.33 Obstructive sleep apnea (adult) (pediatric) | CPT/HCPCS: 99202 ==

== ENCOUNTER 2025-03-08 12:24 | Outpatient (AMB) | payer MEDICARE, SELFPAY ==
--- NOTE | 2025-03-08 12:28 | A.OFFPC_ITS ---
Vital Signs 3 03/08/25 12:33 Height 5 ft 5 in Weight 266 lb BMI 44.3 BP 122/70 Blood Pressure Location Lt brachial Position Sitting Respiration 12 Pulse 73 Pulse Source Pulse Oximeter Temp 97.5 F Temp Source Oral Pulse Oximetry (%) 93 Oxygen Delivery Method Room Air Intake Visit Reasons: 8 weeks 30 min med chk Intake Note: 8 weeks med check follow up. Abap Developer Required: No Allergies codeine Allergy (Severe, Verified 03/08/25 13:04) Hives nickel Allergy (Severe, Verified 03/08/25 13:04) Hives adhesive tape Allergy (Intermediate, Verified 03/08/25 13:04) Rash Sulfa (Sulfonamide Antibiotics) Adverse Reaction (Severe, Verified 03/08/25 13:04) Hives diphenhydramine Adverse Reaction (Intermediate, Verified 03/08/25 13:04) Palpitations eye drops for galucoma Allergy (Severe, Uncoded 03/08/25 12:29) Dry Eye Medication List - Last Reconciled 03/08/25 by DAVE Cadena-FAMILIA betamethasone dipropionate 0.05% 1 appl topical BID PRN clonazepam 0.5 mg PO TID 28 days CPAP (CPAP Machine/Device) As directed cyclobenzaprine 10 mg PO TID ergocalciferol (vitamin D2) 1,250 mcg PO QWEEK hydroxyzine HCl 25 - 50 mg (1 - 2 x 25 mg) PO QID 90 days naloxone 4 mg/actuation (Narcan) 4 mg intranasal Q3M PRN Nexium (esomeprazole magnesium) 40 mg PO DAILY NS oxycodone 5 mg PO TID 28 days pregabalin 75 mg PO BID ramipril 10 mg PO BID sertraline 150 mg PO DAILY torsemide 30 mg (1.5 x 20 mg) PO DAILY zinc gluconate 50 mg PO Q OTHER DAY zinc sulfate 50 mg PO Q OTHER DAY Tobacco use date assessed: 03/08/25 Fall risk assessment: No Falls in past year Last assessed Fall Risk: 03/08/25 Dental Screening Dental Screen Date: 03/08/25 Did you have a dental problem in the last 6 months where you did not have access to dental care?: No Was dental information given to patient?: Patient has dentist HPI HPI Comments 2 History of Present Illness0 Details 70 y/o F with obesity, SKYLAR on CPAP, tinn itus, CKD 3a, generalized anxiety disorder, hypertension, migraine headaches, normal pressure glaucoma, chronic pain, hx of esophageal stricture, prediabetes, gERD, PVD Social: to [place], lives w/ dtr. Retired.Walks w/ walker Health Maintenance Colon age 65 repeat 10 years 01/2025 [employer] (WHO) criteria, the diagnosis is consistent with osteopenia. on ca+D, repeat in 2 years 01/2025 mammo wnl Pap NA Vaccines: Tdap UTD Flu 2023 Specialists: [facility] appt April 2025 [facility] CPAP supplier [facility], 01/10/25 DD is presenting today for a follow up to US, performed on 12/28/24. She continues with bilateral lower extremity swelling and discomfort, >10y. The US revealed a small amount of reflux in the right GSV at the proximal thigh and below the knee, but minimal reflux is noted. In short the patient has late onset lymphedema. The patient has been on conservative treatment for at least 3 months with minimal relief. Patient has tried 30 mm of mercury compression garments, elevation, exercise, healthy diet and doing manual says self MLD to the best of their ability for over 4 weeks but with no significant relief. She has been compliant with the program but has provided minimal relief. In addition, on physical exam, we are noticing hyperpigmentation, lymphorrhea, and hyperplasia. It appears that she has stage 2 lymphedema. Patient has completed multiple forms of conservative therapy; yet, significant symptoms remain. Patient requires the use of a pneumatic compression device which we will assist in trying to have the patient obtain them. A pneumatic compression device will help reduce swelling and other lymphedema comorbidities. We will have her attend our lymphedema clinic on 04/17. Thank you for allowing us to assist in this patient's care. If there are any questions or concerns, please do not hesitate to reach out to us. Pulm: 01/2025 Pulm consult, check PFT, ? repeat sleep study, cont CPAP, CXR Here today for provider monitoring for Oxycodone which is being prescribed for chronic back pain. Today during the visit the following was reviewed: Screened for risk of opioid misuse using a validated screening tool. Receive, review, and sign an approved HMG Agreement and Informed Consent for Receiving Controlled Substances, which should be stored in the EMR. 11/16/24 Non-pharmacologic and non-opioid pharmacologic options should be used as a first line for chronic pain unless otherwise contraindicated & in conjunction with Reviewed side effects and discuss the risks of addiction and overdose with all patients on chronic opioid therapy. Counseled patient regarding safe storage and disposal of medications. Prescribing intranasal naloxone (Narcan) rescue kits to patients if appropriate. Prescriptions should be limited to 28-day supplies unless mandated otherwise by insurance. Renewals should not be given on evenings, holidays, or weekends. Regular clinical reassessment of pain, functional goals, treatment plan, and adherence. Understand that pill counts and/or random toxicology screens (minimum yearly) are all part of a standard HMG protocol for care. More frequent monitoring is appropriate for monitoring of symptoms or concerns of misuse. Irregular findings should be addressed with the patient and documented in the EMR with the appropriate clinical and/or administrative response. 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 This went well. Hydroxyzine & Nexium not covered by insurance, [place] denied. Advised to get us records, call insurance and ask for advocate, and use GoodRx in the meantime. Sores on legs are the best they have been since starting Zinc. Ff'd by Vascular as well. Results: 11/14/24 low ANC to 26, high RDW 16.9 , p latelet count 416 otherwise normal CBC, normal lytes, BUN 14, creatinine 0.94 EGFR 59 hemoglobin A1c 5.9%, normal calcium and LFTs, mild elevation in alk phos 128 LDL 128, HDL 35, total cholesterol 180 triglycerides 111, B12 1630 normal vitamin-D thyroid and folate, urine micro/alb WNL Physical Exam Awake alert chronically ill appearing, NAD Sclera and conjunctiva clear bilat RRR LS CTAB BLE nonpitting edema, chronic vascular appearing discoloration with sores w/o infection, which are much improved from previous, see below for pictures, decrease DP bilat, hairless. Walks w walker Alert to person and place, forget details, repeats self, takes notes During today's visit, I discussed the ongoing management of chronic pain and anxiety with the patient. We reviewed her use of oxycodone and Clonazepam, emphasizing adherence to prescribed dosages. I advised on possible alternatives while waiting for insurance approval for hydroxyzine. We discussed using GoodRx to mitigate [id number] medication costs. I explained the need for an 8-week follow-up with labs a week prior to check her kidney, liver function, electrolytes, and monitor cholesterol managed with citrus bergamot. Her experience with skin lesion improvement was acknowledged. We also confirmed receipt of an updated dental treatment plan and coordination with her senior design engineering specialist for an examination in April. Cont all meds as prescribed FU with Care team RTO in 8 weeks labs 1 week before for chronic dz mgmt and for Med Chk,sooner PRN Total time spent caring for the patient today was 40 minutes. This includes time spent before the visit reviewing the chart, time spent during the visit, and time spent after the visit on documentation, reviewing laboratory results, diagnostic imaging, medications, performing a medically necessary evaluation, counseling on diagnoses, care coordination, ordering appropriate tests, ordering appropriate medications, review of tests performed by other providers, reporting test results with the patient, communication with other healthcare providers. [facility] Medical History Migraines Hypertension Anxiety Sleep apnea Low kidney function Normal pressure glaucoma Umbilical hernia Surgical History H/O eye surgery H/O: hysterectomy Previous back surgery H/O knee surgery Family History Brother Cancer Pancreas cancer Father Cancer Hypertension Cardiovascular disease Stented coronary artery Mother Stroke Thyroid disorder Pacemaker Cardiovascular disease Paternal Grandmother Stroke Social History Household Members: Spouse Both parents involved: No Caregiver staying overnight: No Housing: Apartment Are you a primary healthcare administrator to a significant other at home: No Do you presently have visiting nurse or other home services: No 75 years or older and lives alone: No Alcohol intake: never Patient Tobacco Use Status: Never used Tobacco e-Cigarette/Vaping Use: Never Used Second Hand Smoke Exposure: No service: No Current occupational status: retired and disabled Cognitive needs: Yes (mild dementia) Hearing needs: No Vision needs: Yes (wear glasses) Questionnaire Thrive Questionnaire Date Thrive assessed: 03/08/25 I am a: Patient What is your living situation today?: I have a steady place to live Within the past 12 months, did the food you bought not last and you didn't have the money to get more?: Never true Within the past 12 months, did you worry whether your food would run out before you got money to buy more?: Never true Do you have trouble paying for medicines?: No Do you have trouble getting transportation to medical appointments?: No Do you have trouble paying your heating and electricity bill?: No Do you have trouble taking care of your child, family member or friend?: No Do you have trouble with day-to-day activities such as bathing, preparing meals, shopping, managing finances, etc.?: Yes Are you currently unemployed and looking for a job?: No Are you interested in more education?: No Please select the resources that you would like help with: Care for elder or disabled Currently or been in a relationship where the following occur: No concerns reported THRIVE Score: 0 AUDIT C Alcohol Use Questionnaire (AUDIT-C) 3. How often do you have six or more drinks on one occasion?: Never Total Score: 0 SAMARA-7 AMB Questionnaire SAMARA-7 Date SAMARA - 7 assessed: 01/11/25 Source: Developed by Drs. Rich Matthew, Mackenzie De La Garza, Chalo Landon and colleagues, with an educational mick from CX. Physical exam (Primary Care) Vital Signs: Last Vital Signs Temp 97.5 F 03/08/25 12:33 Pulse 73 03/08/25 12:33 Resp 12 03/08/25 12:33 BP 122/70 03/08/25 12:33 Pulse Ox 93 03/08/25 12:33 Oxygen Delivery Method Room Air 03/08/25 12:33 BMI result Body Mass Index 44.3 Tobacco/Smoking Status: Tobacco use Status Tobacco use date assessed 03/08/25 03/08/25 12:31 Patient Tobacco Use Status Never used Tobacco 03/08/25 12:31 e-Cigarette/Vaping Use Never Used 03/08/25 12:31 Thrive Assessment: Date of Thrive Assessment Date Thrive assessed 03/08/25 03/08/25 12:31 Currently or been in a relationship where the following occur: No concerns reported Coding Level of Care Code Est Pt Level 5 (63886) Complex EM visit Add On G2211 Diagnoses Primary hypertension I10 Hypertension type: primary hypertension Prediabetes R73.03 Mixed hyperlipidemia E78.2 Hyperlipidemia type: mixed hyperlipidemia Stage 3a chronic kidney disease N18.31 Chronic kidney disease stage 3 subtype: stage 3a (GFR 45-59) Other chronic pain G89.29 Chronic pain type: other chronic pain Dental caries K02.9 SAMARA (generalized anxiety disorder) F41.1 Lymphedema I89.0 PVD (peripheral vascular disease) I73.9 Gastroesophageal reflux disease without esophagitis K21.9 Esophagitis presence: without esophagitis Assessment & Plan Assessment & Plan (1) Hypertension: Code(s): I10 - Essential (primary) hypertension Category: Medical Qualifiers: Hypertension type: primary hypertension Qualified Code(s): I10 - Essential (primary) hypertension (2) Prediabetes: Code(s): R73.03 - Prediabetes Category: Medical (3) Hyperlipidemia: Code(s): E78.5 - Hyperlipidemia, unspecified Category: Medical Qualifiers: Hyperlipidemia type: mixed hyperlipidemia Qualified Code(s): E78.2 - Mixed hyperlipidemia (4) CKD (chronic kidney disease) stage 3, GFR 30-59 ml/min: Code(s): N18.30 - Chronic kidney disease, stage 3 unspecified Category: Medical Qualifiers: Chronic kidney disease stage 3 subtype: stage 3a (GFR 45-59) Qualified Code(s): N18.31 - Chronic kidney disease, stage 3a (5) Chronic pain: Code(s): G89.29 - Other chronic pain Category: Medical Qualifiers: Chronic pain type: other chronic pain Qualified Code(s): G89.29 - Other chronic pain (6) Dental caries: Code(s): K02.9 - Dental caries, unspecified Category: Medical (7) SAMARA (generalized anxiety disorder): Code(s): F41.1 - Generalized anxiety disorder Category: Medical (8) Lymphedema: Code(s): I89.0 - Lymphedema, not elsewhere classified Category: Medical (9) PVD (peripheral vascular disease): Code(s): I73.9 - Peripheral vascular disease, unspecified Category: Medical (10) GERD (gastroesophageal reflux disease): Code(s): K21.9 - Gastro-esophageal reflux disease without esophagitis Category: Medical Qualifiers: Esophagitis presence: without esophagitis Qualified Code(s): K21.9 - Gastro-esophageal reflux disease without esophagitis Plan . Orders: Orders 2 Comprehensive Met. Panel Today E78.2 - Mixed hyperlipidemia, I10 - Essential (primary) hypertension, N18.31 - Chronic kidney disease, stage 3a, R73.03 - Prediabetes Hemoglobin A1c Today E78.2 - Mixed hyperlipidemia, I10 - Essential (primary) hypertension, N18.31 - Chronic kidney disease, stage 3a, R73.03 - Prediabetes Lipid Panel Today E78.2 - Mixed hyperlipidemia, I10 - Essential (primary) hypertension, N18.31 - Chronic kidney disease, stage 3a, R73.03 - Prediabetes Vitamin D 25-OH Total Today E78.2 - Mixed hyperlipidemia, I10 - Essential (primary) hypertension, N18.31 - Chronic kidney disease, stage 3a, R73.03 - Prediabetes Zinc Today E78.2 - Mixed hyperlipidemia, I10 - Essential (primary) hypertension, N18.31 - Chronic kidney disease, stage 3a, R73.03 - Prediabetes TSH reflex Free T4 Today E78.2 - Mixed hyperlipidemia, I10 - Essential (primary) hypertension, N18.31 - Chronic kidney disease, stage 3a, R73.03 - Prediabetes
[2025-03-08 12:33] VITALS: BP 122/70; PULSE 73; RESP 12; TEMP 36.4; O2SAT 93; BMI 44.3
--- OUTSIDE RECORDS SUMMARY | 2025-03-08 12:35 | XMS_ITS ---
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 Name Role Phone Galileo Alarcon Primary [...] Orally Twice a day for 90 days [id number] 10/17/2024 Active SOCIAL HISTORY Sex Assigned At : Social History Observation Description Sex Assigned At Female Encounters Encounter Location Date Provider Diagnosis [facility] [address] [place] [address] 10/15/2024 Galileo Alarcon PLAN OF TREATMENT Medication Medication Name Sig Start Date Stop Date Notes KlonoPIN 0.5 mg 1 tablet MDD 3 Orall y 3x per day as needed for 30 days 10/17/[id number] attempting to taper down on klonopin oxyCODONE HCl 5 mg 1 tablet as needed. MDD 4 Orally 4x daily for 30 days 10/17/[id number] Pregabalin 75 MG 1 capsule Orally Twi ce a day for 90 days 10/17/2024 [id number]
== END 2025-03-08 13:30 | disposition home or self-care (01) ==
LOC: HO.HMCFM 12:24
PROVIDERS: PCP Nurse Practitioner Family; Visit Provider Nurse Practitioner Family
DX: I10 Essential (primary) hypertension (principal); R73.03 Prediabetes; E78.2 Mixed hyperlipidemia; N18.31 Chronic kidney disease, stage 3a; G89.29 Other chronic pain; K02.9 Dental caries, unspecified; F41.1 Generalized anxiety disorder; I89.0 Lymphedema, not elsewhere classified; I73.9 Peripheral vascular disease, unspecified; K21.9 Gastro-esophageal reflux disease without esophagitis

== ENCOUNTER → 2025-03-08 12:24 | Outpatient (BNVA) | payer MEDICARE, SELFPAY | PROVIDERS: PCP Nurse Practitioner Family; Visit Provider Nurse Practitioner Family | DX: G47.33 Obstructive sleep apnea (adult) (pediatric) (principal); E66.9 Obesity, unspecified; I12.9 Hypertensive chronic kidney disease with stage 1 through stage 4 chronic kidney disease, or unspecified chronic kidney disease; N18.31 Chronic kidney disease, stage 3a; F41.1 Generalized anxiety disorder; G43.909 Migraine, unspecified, not intractable, without status migrainosus; G89.29 Other chronic pain; K21.9 Gastro-esophageal reflux disease without esophagitis; I73.9 Peripheral vascular disease, unspecified; I89.0 Lymphedema, not elsewhere classified; F41.9 Anxiety disorder, unspecified; R73.03 Prediabetes; E78.2 Mixed hyperlipidemia; K02.9 Dental caries, unspecified; Z99.89 Dependence on other enabling machines and devices; Z68.41 Body mass index [BMI] 40.0-44.9, adult | CPT/HCPCS: 99212 ==

== ENCOUNTER 2025-04-26 11:22 | Outpatient (REF) | payer MEDICARE, SELFPAY ==
--- OUTSIDE RECORDS SUMMARY | 2024-10-15 07:04 | XMS_ITS ---
Author Organization [facility] Physician Tanya العلي Address [address] [facility] [address] [place] [address] Care Team Providers Care Roadability Machine Operator Name Role Phone Galileo Alarcon Primary Care Provider [phone] REASON FOR VISIT Due lyrica,oxycodone,klonopin MEDICATIONS Medication [...] Orally Twice a day for 90 days [id number] 10/17/2024 Active SOCIAL HISTORY Sex Assigned At : Social History Observation Description Sex Assigned At Female Encounters Encounter Location Date Provider Diagnosis [facility] [address] [place] [address] 10/15/2024 Galileo Alarcon PLAN OF TREATMENT Medication Medication Name Sig Start Date Stop Date Notes KlonoPIN 0.5 mg 1 tablet MDD 3 Orall y 3x per day as needed for 30 days 10/17/[id number] attempting to taper down on klonopin oxyCODONE HCl 5 mg 1 tablet as needed. MDD 4 Orally 4x daily for 30 days 10/17/[id number] Pregabalin 75 MG 1 capsule Orally Twi ce a day for 90 days 10/17/2024 [id number]
[2025-04-26 14:09] LABS: Hemoglobin A1C 141.5787 umol/L; Total Hemoglobin (HGBA1C) 3545.7191 umol/L
[2025-04-26 14:18] LABS: Alanine Aminotransferase 14 U/L (0-31); Albumin Level 4.2 g/dL (3.5-5.0); Alkaline Phosphatase 157 U/L (39-117); Anion Gap 13 (12-20); Aspartate Amino Transferase 10 U/L (5-31); Blood Urea Nitrogen 31 mg/dL (9-16); Calcium 9.9 mg/dL (8.4-10.2); Carbon Dioxide 27 mmol/L (22-29); Chloride 103 mmol/L (96-108); Cholesterol 253 mg/dL (<200); Estimated Glomerular Filt Rate 31; HDL Cholesterol 49 mg/dL (>40); Potassium 3.7 mmol/L (3.3-5.1); Sodium 139 mmol/L (135-145); Total Protein 8.3 g/dL (6.5-8.0); Triglycerides 139 mg/dL (<150)
[2025-04-26 15:26] LABS: Free T4 (Free Thyroxine) 0.92 ng/dL (0.71-1.85)
== END 2025-04-26 11:23 | disposition home or self-care (01) ==
LOC: HO.WFDLDS 11:22
PROVIDERS: Visit Provider Nurse Practitioner Family
DX: I12.9 Hypertensive chronic kidney disease with stage 1 through stage 4 chronic kidney disease, or unspecified chronic kidney disease (principal); N18.31 Chronic kidney disease, stage 3a; E78.2 Mixed hyperlipidemia; R73.03 Prediabetes
CPT/HCPCS: 36415; 80053; 80061; 82306; 83036; 84439; 84443

== ENCOUNTER 2025-05-03 12:17 | Outpatient (AMB) | payer MEDICARE, SELFPAY ==
--- OUTSIDE RECORDS SUMMARY | 2024-10-15 07:04 | XMS_ITS ---
Author Organization [facility] Physician Tanya العلي Address [address] [facility] [address] [place] [address] Care Team Providers Care Child Life Assistant Name Role Phone Galileo Alarcon Primary Care [...] Orally Twice a day for 90 days [id number] 10/17/2024 Active SOCIAL HISTORY Sex Assigned At : Social History Observation Description Sex Assigned At Female Encounters Encounter Location Date Provider Diagnosis [facility] [address] [place] [address] 10/15/2024 Galileo Alarcon PLAN OF TREATMENT Medication Medication Name Sig Start Date Stop Date Notes KlonoPIN 0.5 mg 1 tablet MDD 3 Orall y 3x per day as needed for 30 days 10/17/[id number] attempting to taper down on klonopin oxyCODONE HCl 5 mg 1 tablet as needed. MDD 4 Orally 4x daily for 30 days 10/17/[id number] Pregabalin 75 MG 1 capsule Orally Twi ce a day for 90 days 10/17/2024 [id number]
--- NOTE | 2025-05-03 12:23 | MHC.PC.OV ---
Vital Signs 05/03/25 12:32 05/03/25 13:16 Height 5 ft 5 in Weight 265 lb BMI 44.1 BP 138/60 132/70 Blood Pressure Location Rt brachial Rt brachial Position Sitting Sitting Respiration 14 Pulse 83 Pulse Source Pulse Oximeter Temp 98 F Temp Source Oral Pulse Oximetry (%) 96 Oxygen Delivery Method Room Air Intake Visit Reasons: 8 weeks 30 min med check/labs/routine fu Intake Note: Follow up. Lab results. Not taking zinc at the moment. pt started Areds two and there is zinc in that, waiting to do blood work for zinc first. 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 Accompanied by: Spouse Allergies codeine Allergy (Severe, Verified 05/03/25 12:45) Hives nickel Allergy (Severe, Verified 05/03/25 12:45) Hives adhesive tape Allergy (Intermediate, Verified 05/03/25 12:45) Rash Sulfa (Sulfonamide Antibiotics) Adverse Reaction (Severe, Verified 05/03/25 12:45) Hives diphenhydramine Adverse Reaction (Intermediate, Verified 05/03/25 12:45) Palpitations eye drops for galucoma Allergy (Severe, Uncoded 05/03/25 12:24) Dry Eye Medication List - Last Reconciled 05/03/25 by Isadora Michael, GRAIN MILL WORKER-BC betamethasone dipropionate 0.05% 1 appl topical BID PRN clonazepam 0.5 mg PO TID 28 days CPAP (CPAP Machine/Device) As directed cyclobenzaprine 10 mg PO TID ergocalciferol (vitamin D2) 1,250 mcg PO QWEEK hydroxyzine HCl 25 - 50 mg (1 - 2 x 25 mg) PO QID 90 days krill oil PO magnesium glycinate PO naloxone 4 mg/actuation (Narcan) 4 mg intranasal Q3M PRN oxycodone 5 mg PO TID 28 days pregabalin 75 mg PO BID ramipril 10 mg PO BID sertraline 150 mg PO DAILY torsemide 10 mg PO BID vitamins A,C,S-trll-rwvjxi 4,296 mcg-226 mg-90 mg (PreserVision AREDS) 1 cap PO BID zinc sulfate 50 mg PO Q OTHER DAY Tobacco use date assessed: 05/03/25 Fall risk assessment: 2 + Falls in past year Last assessed Fall Risk: 05/03/25 Dental Screening Dental Screen Date: 03/08/25 HPI HPI Comments History of Present Illness Details 70 y/o F with obesity, SKYLAR on CPAP, tinnitus, CKD 3a, generalized anxiety disorder, hypertension, migraine headaches, normal pressure glaucoma, chronic pain, hx of esophageal stricture, prediabetes, gERD, PVD Social: to [place], lives w/ dtr. Retired.Walks w/ walker Health Maintenance Colon age 65 repeat 10 years 01/2025 [employer] (WHO) criteria, the diagnosis is consistent with osteopenia. on ca+D, repeat in 2 years 01/2025 mammo wnl Pap NA Vaccines: Tdap UTD Flu 2023 Specialists: [facility] appt April 2025 [facility] CPAP supplier [facility], lymphedema clinic Pulm: 01/2025 Pulm consult, check PFT, ? repeat sleep study, cont CPAP, CXR Here today for provider monitoring for Oxycodone which is being prescribed for chronic back pain. Today during the visit the following was reviewed: Screened for risk of opioid misuse using a validated screening tool. Receive, review, and sign an approved [facility] [place] [place] and Informed Consent for Receiving Controlled Substances, which should be stored in the EMR. 11/16/24 Non-pharmacologic and non-opioid pharmacologic options should be used as a first line for chronic pain unless otherwise contraindicated & in conjunction with Reviewed side effects and discuss the risks of addiction and overdose with all patients on chronic opioid therapy. Counseled patient regarding safe storage and disposal of medications. Prescribing intranasal naloxone (Narcan) rescue kits to patients if appropriate. Prescriptions should be limited to 28-day supplies unless mandated otherwise by insurance. Renewals should not be given on evenings, holidays, or weekends. Regular clinical reassessment of pain, functional goals, treatment plan, and adherence. Understand that pill counts and/or random toxicology screens (minimum yearly) are all part of a standard [facility] [place] care. More frequent monitoring is appropriate for monitoring of symptoms or concerns of misuse. Irregular findings should be addressed with the patient and documented in the EMR with the appropriate clinical and/or administrative response. Signs of misuse: N CUSTOMER EXPERIENCE ANALYST reviewed: Y Contract up to date: 11/16/24 Random pill count done: Y UTox done: NA Next appt: 8 weeks - The patient is a 70 year old female presenting with a routine complex chronic disease management visit. - Diagnosed with SKYLAR, on CPAP therapy. - Essential Hypertension, managed with ramparil. - Zinc Deficiency, treated with Zinc, repeat labs due . - Anxiety and Depression, treated with Sertraline, Clonazepam. - Chronic Pain, managed with Oxycodone, Pregabalin. - Decline in kidney function; previous creatinine 0.94, recent 1.65; GFR dropped from 59 to 31. - History of CKD. Was seeing renal in [place]. Reports Renal Bx done. - States sleeping more; using Advil once per day, poor po intake. Otherwise feels fine. Denies n/v/d. Has increase in tremors lately and a headache - Hyperlipidemia noted with cholesterol from 185 to 253, LDL from 128 to 177, in the setting of TSH > 6. Taking citrus bergamot. - Lower Extremity Edema, managed with Torsemide PRN which she has not really needed now that she is using the lymphedema pumps. - Wonders about annual lab testing to screen for pancreatic cancer; brother of this; reports she gets labs once per year. - Insurance denied coverage for hydroxyzine; she is buuying OTC - Appeal signed today for coverage of her flexeril; Nexium was denied and she is no longer taking. Review of Systems - General: Reports significant fatigue and increased sleep requirement. - Cardiovascular: Denies chest pain or palpitations. - Respiratory: Reports obstructive sleep apnea. - Gastrointestinal: Denies abdominal pain. - Genitourinary: Denies urinary symptoms. - Neurological: Reports tremors and excessive drowsiness. - Musculoskeletal: Denies muscle or joint pain. - Psychiatric: Reports anxiety and depression. - Endocrine: Reports hypothyroidism. - Hematologic/Lymphatic: Denies easy bruising or bleeding. - Dermatological: Denies skin changes. Physical Exam Awake alert chronically ill appearing, NAD, does not appear toxic. Sclera and conjunctiva clear bilat MMM RRR LS CTAB No CVAT, No abd pain. BLE nonpitting edema, chronic vascular appearing discoloration with sores w/o infection, which are much improved from previous, decrease DP bilat, hairless. Walks w walker Alert to person and place, forget details, repeats self, takes notes Results: See below - Labs: - Creatinine: November 0.94, recent 1.65 - GFR: Previous 59, recent 31 - Total Cholesterol: 185 previous, 253 recent - LDL: 128 previous, 177 recent - TSH: Elevated levels - Potassium: 3.7; previous 3.5 - Labs: - Creatinine: February 0.94, recent 1.65 - GFR: Previous 59, recent 31 - Total Cholesterol: 185 previous, 253 recent - LDL: 128 previous, 177 recent - TSH: Elevated levels - Potassium: 3.7; previous 3.5 Discussion Notes During the visit, I discussed the current decline in renal function and the importance of hydration. We reviewed her chronic kidney disease, and I expressed concern over the marked increase in creatinine and decrease in GFR. We discussed potential causes, including dehydration and medications. I recommended a referral to nephrology for further evaluation and management, with expectations to re-evaluate lab results. The patient was advised against the use of medications that could further impact kidney function. I also noted her elevated cholesterol levels and discussed monitoring once thyroid function normalizes; until then cont Mcclenney Tract Bergamot. The patient consented to repeat lab work, including kidney function and thyroid antibodies. There was a conversation about her anxiety and depression medications, confirming no current adverse effects or issues with compliance. Patient was given time to ask questions. All questions were answered to their satisfaction. Assessment and Plan 1. Obstructive Sleep Apnea (SKYLAR) - Continue CPAP therapy. 2. Essential Hypertension - Continue ramparil. 3. Zinc Deficiency - Maintain Zinc Sulphate dose. - Repeat lab 4. Anxiety Disorder - Continue Sertraline, Clonazepam. 5. Major Depressive Disorder - Maintain current treatment. 6. Chronic Pain - Continue Oxycodone, Pregabalin, comply with opiate contract. 7. Chronic Kidney Disease (CKD)/TIAN - Reassess kidney labs, advise hydration, avoid nephrotoxins. - Made aware if worse, she may need to go to the hospital. At this time, labs are pending. - Renal referral 8. Hyperlipidemia - Reassess with corrected thyroid levels. - Cont citrus beragmot 9. Elevated TSH - Monitor thyroid function, check antibodies. 10. Lower Extremity Edema - Avoid Torsemide unless required for lymphedema. - cont pneumatic compression [place] [facility] [facility] 11. Fhx pancreatic cancer Made aware that i am not sure which lab she is talking about; she chi get this info and send to me. ?? CEA or CA 19-9 but i dont think these are done routinely. Defer at this time until more info is obtained from previous medical records. REFILLS SENT ON KLONOPIN AND OXYCODONE, EARLIEST FILL DATE 05/07/25 Cont all meds as prescribed FU with Care team RTO in 8 weeks labs 1 week before for chronic dz mgmt and for Med Chk,sooner PRN Patient Instructions - Continue CPAP for sleep apnea every night. - Take your medications as prescribed. - Keep hydrated to help protect your kidneys. - Follow a balanced diet and report any symptoms like difficulty breathing or heart palpitations. - Avoid any new medications that haven't been discussed. - Follow up with Nephrology for your kidney health. - Repeat bloodwork as outlined on the lab slip. - Attend recommended physical therapy sessions. - Look out for signs of worsening health, like increased leg swelling or difficulty breathing, to seek medical help sooner. Consent Patient was informed and verbally consented to the use of an ambient scribe for clinic note documentation during this visit. Total time spent caring for the patient today was 60 minutes. This includes time spent before the visit reviewing the chart, time spent during the visit, and time spent after the visit on documentation, reviewing laboratory results, diagnostic imaging, medications, performing a medically necessary evaluation, counseling on diagnoses, care coordination, ordering appropriate tests, ordering appropriate medications, review of tests performed by other providers, reporting test results with the patient, communication with other healthcare providers. [facility] Medical History Migraines Hypertension Anxiety Sleep apnea Low kidney function Normal pressure glaucoma Umbilical hernia Surgical History H/O eye surgery H/O: hysterectomy Previous back surgery H/O knee surgery Family History Brother Cancer Pancreas cancer Father Cancer Hypertension Cardiovascular disease Stented coronary artery Mother Stroke Thyroid disorder Pacemaker Cardiovascular disease Paternal Grandmother Stroke Social History Household Members: Spouse Both parents involved: No Caregiver staying overnight: No Housing: Apartment Are you a primary care asst to a significant other at home: No Do you presently have visiting nurse or other home services: No 75 years or older and lives alone: No Alcohol intake: never Patient Tobacco Use Status: Never used Tobacco e-Cigarette/Vaping Use: Never Used Second Hand Smoke Exposure: No service: No Current occupational status: retired and disabled Cognitive needs: Yes (mild dementia) Hearing needs: No Vision needs: Yes (wear glasses) Questionnaire Thrive Questionnaire Date Thrive assessed: 11/16/24 I am a: Patient What is your living situation today?: I have a steady place to live Within the past 12 months, did the food you bought not last and you didn't have the money to get more?: Never true Within the past 12 months, did you worry whether your food would run out before you got money to buy more?: Never true Do you have trouble paying for medicines?: No Do you have trouble getting transportation to medical appointments?: No Do you have trouble paying your heating and electricity bill?: No Do you have trouble taking care of your child, family member or friend?: No Do you have trouble with day-to-day activities such as bathing, preparing meals, shopping, managing finances, etc.?: Yes Are you currently unemployed and looking for a job?: No Are you interested in more education?: No Please select the resources that you would like help with: Care for elder or disabled Currently or been in a relationship where the following occur: No concerns reported THRIVE Score: 0 AUDIT C Alcohol Use Questionnaire (AUDIT-C) 1. How often do you have a drink containing alcohol?: Never 3. How often do you have six or more drinks on one occasion?: Never Total Score: 0 SAMARA-7 AMB Questionnaire SAMARA-7 Date SAMARA - 7 assessed: 01/11/25 Source: Developed by Drs. Rich Matthew, Mackenzie De La Garza, Chalo Landon and colleagues, with an educational mick from [employer]. Physical exam (Primary Care) Vital Signs: Last Vital Signs Temp 98 F 05/03/25 12:32 Pulse 83 05/03/25 12:32 Resp 14 05/03/25 12:32 BP 132/70 05/03/25 13:16 Pulse Ox 96 05/03/25 12:32 Oxygen Delivery Method Room Air 05/03/25 12:32 BMI result Body Mass Index 44.1 Tobacco/Smoking Status: Tobacco use Status Tobacco use date assessed 05/03/25 05/03/25 12:37 Patient Tobacco Use Status Never used Tobacco 05/03/25 12:23 e-Cigarette/Vaping Use Never Used 05/03/25 12:23 Thrive Assessment: Date of Thrive Assessment Date Thrive assessed 11/16/24 05/03/25 12:23 Currently or been in a relationship where the following occur: No concerns reported Results Reviewed Results Reviewed: 04/26/25 Laboratory Result Units Range Interpretation Provider Comments Sodium Level 139 mmol/L (135-145) Potassium Level 3.7 mmol/L (3.3-5.1) Chloride Level 103 mmol/L (96-108) Carbon Dioxide Level 27 mmol/L (22-29) Anion Gap 13 (12-20) Blood Urea Nitrogen 31 mg/dL (9-16) High Creatinine 1.65 mg/dL (0.5-1.4) High Estimated Creatinine Clearance Calc Not Reportable Estimat Glomerular Filtration Rate 31 Random Glucose 109 mg/dL (60-115) Estimated Average Glucose 120 mg/dL Hemoglobin A1c Percent 5.8 % (<6.0) Calcium Level 9.9 mg/dL (8.4-10.2) Total Bilirubin 0.9 mg/dL (0.0-1.0) Aspartate Amino Transf (AST/SGOT) 10 U/L (5-31) Alanine Aminotransferase (ALT/SGPT) 14 U/L (0-31) Alkaline Phosphatase 157 U/L (39-117) High Total Protein 8.3 g/dL (6.5-8.0) High Albumin 4.2 g/dL (3.5-5.0) Triglycerides Level 139 mg/dL (<150) Cholesterol Level 253 mg/dL (<200) High LDL Cholesterol, Calculated 177 mg/dL (<100) High HDL Cholesterol 49 mg/dL (>40) 25-Hydroxy Vitamin D Total 41.8 ng/mL (>30) Thyroid Stimulating Hormone (TSH) 6.09 uIU/mL (0.32-4.0) High Free Thyroxine 0.92 ng/dL (0.71-1.85) Coding Level of Care Code Est Pt Level 5 (37850) Complex EM visit Add On G2211 Diagnoses Stage 3a chronic kidney disease N18.31 Chronic kidney disease stage 3 subtype: stage 3a (GFR 45-59) TIAN (acute kidney injury) N17.9 SAMARA (generalized anxiety disorder) F41.1 Primary hypertension I10 Hypertension type: primary hypertension PVD (peripheral vascular disease) I73.9 Varicose veins of both lower extremities with inflammation I83.11; I83.12 Mixed hyperlipidemia E78.2 Hyperlipidemia type: mixed hyperlipidemia Prediabetes R73.03 Gastroesophageal reflux disease without esophagitis K21.9 Esophagitis presence: without esophagitis History of esophageal stricture Z87.19 Other chronic pain G89.29 Chronic pain type: other chronic pain SKYLAR on CPAP G47.33 Lymphedema I89.0 Assessment & Plan Assessment & Plan (1) CKD (chronic kidney disease) stage 3, GFR 30-59 ml/min: Code(s): N18.30 - Chronic kidney disease, stage 3 unspecified Category: Medical Qualifiers: Chronic kidney disease stage 3 subtype: stage 3a (GFR 45-59) Qualified Code(s): N18.31 - Chronic kidney disease, stage 3a (2) TIAN (acute kidney injury): Code(s): N17.9 - Acute kidney failure, unspecified Category: Medical (3) SAMARA (generalized anxiety disorder): Code(s): F41.1 - Generalized anxiety disorder Category: Medical (4) Hypertension: Code(s): I10 - Essential (primary) hypertension Category: Medical Qualifiers: Hypertension type: primary hypertension Qualified Code(s): I10 - Essential (primary) hypertension (5) PVD (peripheral vascular disease): Code(s): I73.9 - Peripheral vascular disease, unspecified Category: Medical (6) Varicose veins of both lower extremities with inflammation: Code(s): I83.11 - Varicose veins of right lower extremity with inflammation; I83.12 - Varicose veins of left lower extremity with inflammation Category: Medical (7) Hyperlipidemia: Code(s): E78.5 - Hyperlipidemia, unspecified Category: Medical Qualifiers: Hyperlipidemia type: mixed hyperlipidemia Qualified Code(s): E78.2 - Mixed hyperlipidemia (8) Prediabetes: Code(s): R73.03 - Prediabetes Category: Medical (9) GERD (gastroesophageal reflux disease): Code(s): K21.9 - Gastro-esophageal reflux disease without esophagitis Category: Medical Qualifiers: Esophagitis presence: without esophagitis Qualified Code(s): K21.9 - Gastro-esophageal reflux disease without esophagitis (10) History of esophageal stricture: Code(s): Z87.19 - Personal history of other diseases of the digestive system Category: Medical (11) Chronic pain: Code(s): G89.29 - Other chronic pain Category: Medical Qualifiers: Chronic pain type: other chronic pain Qualified Code(s): G89.29 - Other chronic pain (12) SKYLAR on CPAP: Code(s): G47.33 - Obstructive sleep apnea (adult) (pediatric) Category: Medical (13) Lymphedema: Code(s): I89.0 - Lymphedema, not elsewhere classified Category: Medical Plan , Orders: Orders TSH reflex Free T4 Today N17.9 - Acute kidney failure, unspecified, N18.31 - Chronic kidney disease, stage 3a Comprehensive Met. Panel Today N17.9 - Acute kidney failure, unspecified, N18.31 - Chronic kidney disease, stage 3a UA CC w/rflx Micro + Cult Today N17.9 - Acute kidney failure, unspecified, N18.31 - Chronic kidney disease, stage 3a, R30.0 - Dysuria Thyroid Peroxidase Antibodies Today N17.9 - Acute kidney failure, unspecified, N18.31 - Chronic kidney disease, stage 3a Referrals Nephrology Referral N17.9 - Acute kidney failure, unspecified, N18.31 - Chronic kidney disease, stage 3a Medications: Changed From torsemide 10 mg PO BID To torsemide 30 mg (1.5 x 20 mg) PO DAILY 90 tabs 0RF Refilled clonazepam 0.5 mg PO TID 28 days 84 tabs 0RF oxycodone 5 mg PO TID 28 days 84 tabs 0RF clonazepam 0.5 mg PO TID 84 tabs 0RF 28 days oxycodone 5 mg PO TID 84 tabs 0RF 28 days
[2025-05-03 12:32] VITALS: BP 138/60; PULSE 83; RESP 14; TEMP 36.6; O2SAT 96; BMI 44.1
[2025-05-03 13:16] VITALS: BP 132/70
== END 2025-05-03 13:22 | disposition home or self-care (01) ==
LOC: HO.HMCFM 12:18
PROVIDERS: PCP Nurse Practitioner Family; Visit Provider Nurse Practitioner Family
DX: I10 Essential (primary) hypertension (principal); N18.31 Chronic kidney disease, stage 3a; N17.9 Acute kidney failure, unspecified; F41.1 Generalized anxiety disorder; I73.9 Peripheral vascular disease, unspecified; I83.11 Varicose veins of right lower extremity with inflammation; I83.12 Varicose veins of left lower extremity with inflammation; E78.2 Mixed hyperlipidemia; R73.03 Prediabetes; K21.9 Gastro-esophageal reflux disease without esophagitis; Z87.19 Personal history of other diseases of the digestive system; G89.29 Other chronic pain

== ENCOUNTER 2025-05-03 13:20 | Outpatient (REF) | payer MEDICARE, SELFPAY ==
[2025-05-03 16:24] LABS: Alanine Aminotransferase 13 U/L (0-31); Albumin Level 4.1 g/dL (3.5-5.0); Alkaline Phosphatase 153 U/L (39-117); Anion Gap 11 (12-20); Aspartate Amino Transferase 12 U/L (5-31); Blood Urea Nitrogen 26 mg/dL (9-16); Calcium 9.7 mg/dL (8.4-10.2); Carbon Dioxide 28 mmol/L (22-29); Chloride 104 mmol/L (96-108); Estimated Glomerular Filt Rate 39; Potassium 3.7 mmol/L (3.3-5.1); Sodium 139 mmol/L (135-145); Total Protein 8.0 g/dL (6.5-8.0)
== END 2025-05-03 13:21 | disposition home or self-care (01) ==
LOC: HO.WFDLDS 13:20
PROVIDERS: Visit Provider Nurse Practitioner Family
DX: I12.9 Hypertensive chronic kidney disease with stage 1 through stage 4 chronic kidney disease, or unspecified chronic kidney disease (principal); N18.31 Chronic kidney disease, stage 3a; N17.9 Acute kidney failure, unspecified; F41.1 Generalized anxiety disorder; I73.9 Peripheral vascular disease, unspecified; I83.11 Varicose veins of right lower extremity with inflammation; I83.12 Varicose veins of left lower extremity with inflammation; E78.2 Mixed hyperlipidemia; R73.03 Prediabetes; K21.9 Gastro-esophageal reflux disease without esophagitis; G89.29 Other chronic pain; G47.33 Obstructive sleep apnea (adult) (pediatric); I89.0 Lymphedema, not elsewhere classified; F32.9 Major depressive disorder, single episode, unspecified; Z87.19 Personal history of other diseases of the digestive system; Z79.891 Long term (current) use of opiate analgesic; Z79.899 Other long term (current) drug therapy; Z99.89 Dependence on other enabling machines and devices
CPT/HCPCS: 36415; 80053; 84443; 86376; 99212

== ENCOUNTER 2025-05-16 14:49 | Outpatient (AMB) | payer BC, SELFPAY ==
--- OUTSIDE RECORDS SUMMARY | 2024-10-15 07:04 | XMS_ITS ---
Author Organization [facility] Physician Tanya العلي Address [address] [facility] [place] [address] Care Team Providers Care Sign Out Clerk Name Role Phone Galileo Alarcon Primary Care [...] Orally Twice a day for 90 days [id number] 10/17/2024 Active SOCIAL HISTORY Sex Assigned At : Social History Observation Description Sex Assigned At Female Encounters Encounter Location Date Provider Diagnosis [facility] [address] [place] [address] 10/15/2024 Galileo Alarcon PLAN OF TREATMENT Medication Medication Name Sig Start Date Stop Date Notes KlonoPIN 0.5 mg 1 tablet MDD 3 Orall y 3x per day as needed for 30 days 10/17/2024189728298 attempting to taper down on klonopin oxyCODONE HCl 5 mg 1 tablet as needed. MDD 4 Orally 4x daily for 30 days 10/17/2024321880692 Pregabalin 75 MG 1 capsule Orally Twi ce a day for 90 days 10/17/2024 [id number]
--- NOTE | 2025-05-16 14:53 | HO.NEPHOV ---
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 Required: No Accompanied by: Spouse Allergies codeine Allergy (Severe, Verified 05/16/25 14:57) Hives nickel Allergy (Severe, Verified 05/16/25 14:57) Hives adhesive tape Allergy (Intermediate, Verified 05/16/25 14:57) Rash Sulfa (Sulfonamide Antibiotics) Adverse Reaction (Severe, Verified 05/16/25 14:57) Hives diphenhydramine Adverse Reaction (Intermediate, Verified 05/16/25 14:57) Palpitations eye drops for galucoma Allergy (Severe, Uncoded 05/03/25 12:24) Dry Eye Medication List - Last Reconciled 05/16/25 by Leonel Calloway MD betamethasone dipropionate 0.05% 1 appl topical BID PRN clonazepam 0.5 mg PO TID 28 days CPAP (CPAP Machine/Device) As directed cyclobenzaprine 10 mg PO TID ergocalciferol (vitamin D2) 1,250 mcg PO QWEEK hydroxyzine HCl 25 - 50 mg (1 - 2 x 25 mg) PO QID 90 days krill oil PO DAILY magnesium glycinate PO DAILY naloxone 4 mg/actuation (Narcan) 4 mg intranasal Q3M PRN oxycodone 5 mg PO TID 28 days pregabalin 75 mg PO BID ramipril 10 mg PO BID sertraline 150 mg PO DAILY torsemide 30 mg PO DAILY PRN vitamins A,C,H-nczp-hjlmcr 4,296 mcg-226 mg-90 mg (PreserVision AREDS) 1 cap PO BID zinc sulfate 50 mg PO Q OTHER DAY HPI Comments Details: The patient is a 70-year-old female referred for CKD. She reports a history of chronic kidney disease, with a recent decline in kidney function noted in blood tests. A kidney biopsy performed two years ago in [place], suggested hypertension as a contributing factor to her kidney issues. The patient has a history of hypertension, which has been managed with ramipril for the past five years. She initially started with one pill, but due to rising blood pressure, her dosage was increased to 10 mg twice daily. The patient also uses torsemide as needed for fluid retention, which she feels is less necessary since starting lymphedema therapy. The patient has lymphedema, which she manages with a pneumatic compression device that helps reduce fluid retention. This condition is thought to be related to her nickel allergy, as she has had multiple surgeries involving titanium implants strengthened with nickel. The patient has a nickel allergy, confirmed by high nickel levels in tests conducted at a specialized hospital. She experiences skin lesions and uses hydroxyzine to manage itching associated with the allergy. The patient has a history of glaucoma, which is currently well-managed with intraocular pressure readings of 10 and 12. She has undergone multiple eye surgeries, including cataract surgery, to address her condition. Of note she has been taking Advil on a regular basis. Last dose was 4 days ago. [facility] Medical History Migraines Hypertension Anxiety Sleep apnea Low kidney function Normal pressure glaucoma Umbilical hernia Surgical History H/O eye surgery H/O: hysterectomy Previous back surgery H/O knee surgery Family History Brother Cancer Pancreas cancer Father Cancer Hypertension Cardiovascular disease Stented coronary artery Mother Stroke Thyroid disorder Pacemaker Cardiovascular disease Paternal Grandmother Stroke Social History Household Members: Spouse Both parents involved: No Caregiver staying overnight: No Housing: Apartment Are you a primary healthcare market consultant to a significant other at home: No Do you presently have visiting nurse or other home services: No 75 years or older and lives alone: No Alcohol intake: never Patient Tobacco Use Status: Never used Tobacco e-Cigarette/Vaping Use: Never Used Second Hand Smoke Exposure: No service: No Current occupational status: retired and disabled Cognitive needs: Yes (mild dementia) Hearing needs: No Vision needs: Yes (wear glasses) Review of Systems Const Denies anorexia, Denies fever(s) and Denies weakness Eyes Denies blurry vision Card Denies no additional complaints and Denies dyspnea Resp Reports no additional complaints, Reports cough and Denies dyspnea GI Denies melena and Denies diarrhea Denies hematuria Musc Denies tingling Skin/Breast Denies rash Neuro Denies focal weakness, Denies tingling, Denies tremor(s) and Denies weakness Physical Exam Vital Signs: Last Vital Signs Pulse 111 H 05/16/25 14:54 BP 118/78 05/16/25 14:54 Pulse Ox 93 05/16/25 14:54 Oxygen Delivery Method Room Air 05/16/25 14:54 BMI result Body Mass Index 44.1 Const General: comfortable Nutritional Appearance: well nourished Orientation/consciousness: patient oriented x3 HEENT Head: No normal to inspection Mouth: moist mucous membranes Neck Neck: Yes supple and Yes no JVD Resp Auscultation: clear to auscultation bilaterally and no rales Cardio Jugular venous distension: no JVD Palpation: no palpable S3 and no palpable S4 Heart sounds: no rubs GI Palpation (GI): Soft to palpation and nontender Percussion: No Fluid wave present General: Yes no CVA tenderness Back/Spine/Pelvis Back: no CVA tenderness Skin General skin exam: no rashes or lesions noted Neuro General: patient oriented x3 Extrem General: Yes no pedal edema and No clubbing Results Reviewed Nephrology Results: Sodium, (135-145) 139 mmol/L 05/03/25 Potassium, (3.3-5.1) 3.7 mmol/L 05/03/25 Chloride, (96-108) 104 mmol/L 05/03/25 Carbon Dioxide, (22-29) 28 mmol/L 05/03/25 BUN, (9-16) 26 mg/dL H 05/03/25 Creatinine, (0.5-1.4) 1.35 mg/dL 05/03/25 Calcium, (8.4-10.2) 9.7 mg/dL 05/03/25 Assessment & Plan Assessment & Plan (1) Hypertension: Code(s): I10 - Essential (primary) hypertension Category: Medical Qualifiers: Hypertension type: primary hypertension Qualified Code(s): I10 - Essential (primary) hypertension (2) TIAN (acute kidney injury): Code(s): N17.9 - Acute kidney failure, unspecified Category: Medical (3) CKD (chronic kidney disease) stage 3, GFR 30-59 ml/min: Code(s): N18.30 - Chronic kidney disease, stage 3 unspecified Category: Medical Qualifiers: Chronic kidney disease stage 3 subtype: stage 3a (GFR 45-59) Qualified Code(s): N18.31 - Chronic kidney disease, stage 3a Plan DD has CKD 3 in the setting of longstanding hypertension and obesity. Baseline creatinine is unknown at this time. She has sustained acute kidney injury few weeks ago. Fortunately creatinine is marginally better compared to the previous reading. I suspect she had acute kidney injury due to hypoperfusion. This could be from the combination of NSAIDs and BRITTNEE inhibitors. Other possibilities including obstructive uropathy should be considered. Clinically no reason to believe that she has any active glomerular nephritis or interstitial disease however this needs to be ruled out. In the office today blood pressure is rather low. I suspect this could be a contributing factor for hypoperfusion. Plan Decrease ramipril from 10 mg b.i.d. to 10 mg daily. Continue to use torsemide sporadically as needed. Avoid NSAIDs. Check renal ultrasonogram. Check urinalysis urine creatinine and urine protein along with a repeat renal panel in the next 2-3 weeks. Stay on low-sodium diet and increase p.o. fluid intake. In future if she has to use NSAIDs for her chronic pain then we might have to consider discontinuing BRITTNEE inhibitors and using an alternate agent in order to facilitate the use of NSAIDs. We can revisit this during her next visit. All questions were answered. Orders: Orders Creatinine Urine 3 Weeks Leonel Calloway MD I10 - Essential (primary) hypertension, N17.9 - Acute kidney failure, unspecified UA and rflx microscopic 3 Weeks Leonel Calloway MD I10 - Essential (primary) hypertension, N17.9 - Acute kidney failure, unspecified Total Protein Urine Random 3 Weeks Leonel Calloway MD I10 - Essential (primary) hypertension, N17.9 - Acute kidney failure, unspecified US renal BI Today Leonel Calloway MD I10 - Essential (primary) hypertension, N17.9 - Acute kidney failure, unspecified Complete Blood Count Auto Diff 3 Weeks Leonel Calloway MD I10 - Essential (primary) hypertension, N17.9 - Acute kidney failure, unspecified Comprehensive Met. Panel 3 Weeks Elonel Padmanaban Athreya, MD I10 - Essential (primary) hypertension, N17.9 - Acute kidney failure, unspecified Magnesium 3 Weeks Leonel Calloway MD I10 - Essential (primary) hypertension, N18.31 - Chronic kidney disease, stage 3a Medications: Changed From torsemide 30 mg (1.5 x 20 mg) PO DAILY 90 tabs 0RF To torsemide 30 mg PO DAILY PRN Isadora Michael, GAMING HOST- Coding Level of Care Code New Pt Level 4 (77900) Diagnoses Primary hypertension I10 Hypertension type: primary hypertension TIAN (acute kidney injury) N17.9 Stage 3a chronic kidney disease N18.31 Chronic kidney disease stage 3 subtype: stage 3a (GFR 45-59)
[2025-05-16 14:54] VITALS: BP 118/78; PULSE 111; O2SAT 93; BMI 44.1
== END 2025-05-16 15:26 | disposition home or self-care (01) ==
LOC: HO.HKA 14:50
PROVIDERS: PCP Nurse Practitioner Family; Referring Provider Nurse Practitioner Family; Visit Provider Internal Medicine Hypertension Specialist
DX: I10 Essential (primary) hypertension (principal); N17.9 Acute kidney failure, unspecified; N18.31 Chronic kidney disease, stage 3a
CPT/HCPCS: 99204

== ENCOUNTER 2025-05-16 14:49 | Outpatient (REF) | payer BC, SELFPAY ==
[2025-05-16 16:13] LABS: Appearance Urine Clear; Glucose Urine UA Negative (Negative); PH 5.5 (5.0-9.0); Specific Gravity - Urine 1.010 (1.005-1.025); UMIC TRIGGER UACC YES
[2025-05-16 16:18] LABS: UACC Culture Trigger YES
== END 2025-05-16 14:50 | disposition home or self-care (01) ==
LOC: HO.LNP 14:49
PROVIDERS: PCP Nurse Practitioner Family; Referring Provider Nurse Practitioner Family; Visit Provider Internal Medicine Hypertension Specialist
DX: I12.9 Hypertensive chronic kidney disease with stage 1 through stage 4 chronic kidney disease, or unspecified chronic kidney disease (principal); N18.31 Chronic kidney disease, stage 3a; N17.9 Acute kidney failure, unspecified; Z79.899 Other long term (current) drug therapy
CPT/HCPCS: 81001; 87086

== ENCOUNTER 2025-05-22 12:32 | Outpatient (REF) | payer MEDICARE, SELFPAY ==
--- OUTSIDE RECORDS SUMMARY | 2024-10-15 07:04 | XMS_ITS ---
Author Organization [facility] Physician Tanya العلي Address [address] [facility] [address] [place] [address] Care Team Providers Care Rice Field Worker Name Role Phone Galileo Alarcon Primary Care Provider REASON FOR VISIT Due lyrica,oxycodone,klonopin MEDICATIONS Medication SIG (Take, Route, Frequency, Duration) Notes Start Date End Date Status KlonoPIN 0.5 mg 1 tablet MDD 3 Orally 3x per day as needed for 30 days attempting to taper down on klonopin 10/17/2024 Active oxyCODONE HCl 5 mg 1 tablet as needed. MDD 4 Orally 4x daily for 30 days 10/17/2024 Active Pregabalin 75 MG 1 capsule Orally Twice a day for 90 days [id number] 10/17/2024 Active SOCIAL HISTORY Sex Assigned At : Social History Observation Description Sex Assigned At Female Encounters Encounter Location Date Provider Diagnosis [facility] [address] [place] [address] 10/15/2024 Galileo Alarcon PLAN OF TREATMENT Medication Medication Name Sig Start Date Stop Date Notes KlonoPIN 0.5 mg 1 tablet MDD 3 Orall y 3x per day as needed for 30 days 10/17/[id number] attempting to taper down on klonopin oxyCODONE HCl 5 mg 1 tablet as needed. MDD 4 Orally 4x daily for 30 days 10/17/[id number] Pregabalin 75 MG 1 capsule Orally Twi ce a day for 90 days 10/17/2024 [id number]
--- NOTE | ~2025-05-22 | XR_ITS ---
EXAMINATION: XR CHEST CLINICAL INFORMATION: R05.3 - Chronic cough COMPARISON: None available. TECHNIQUE: 2 views of the chest were obtained. FINDINGS: Elevated right hemidiaphragm. The cardiac, hilar, and mediastinal contours are normal. Lungs demonstrate linear type atelectasis or scarring in both bases. Lungs are otherwise clear. There is no pneumothorax or pleural effusion. There is no focal osseous or soft tissue abnormality. Exaggerated thoracic kyphosis with lower thoracic and lumbar fusion hardware. XR/XR chest 2V IMPRESSION: No active pulmonary disease. Electronically signed by: Brooks Dawson MD 05/22/2025 01:26 PM EDT
--- NOTE | 2025-05-22 12:56 | PFT_ITS ---
Indication: Cough Spirometry FEV1 to FVC 72%; FEV1 1.65 L; FVC 2.28 L. No significant response to bronchodilators noted. Lung Volumes Total lung capacity 72% predicted; expiratory reserve volume 28% predicted Diffusion Capacity DLCO 88% predicted Comparisons None Interpretation No definitive obstructive ventilatory defect. No significant response to bronchodilators noted. The patient does have a restrictive ventilatory defect consistent with mild restrictive lung disease. In part this is due to an elevated BMI although parenchymal lung conditions or neuromuscular conditions can not be ruled out. The patient has diffusing capacity is within normal limits. If asthma is in differential, a methacholine challenge may be helpful for assessing for hyperreactive airways. Clinical correlation warranted. MTDD
[2025-05-22 13:44] VITALS: PULSE 88; O2SAT 95
== END 2025-05-22 12:33 | disposition home or self-care (01) ==
LOC: HO.RESP 12:32
PROVIDERS: PCP Nurse Practitioner Family; Visit Provider Nurse Practitioner Family
DX: R05.3 Chronic cough (principal)
CPT/HCPCS: 71046; 94010; 94640; 94727; 94729

== ENCOUNTER → 2025-05-22 12:39 | Outpatient (BNV) | payer MEDICARE, SELFPAY | PROVIDERS: PCP Nurse Practitioner Family; Visit Provider Radiology Diagnostic Radiology | DX: R05.3 Chronic cough (principal) | CPT/HCPCS: 71046 ==

== ENCOUNTER → 2025-05-22 12:56 | Outpatient (BNV) | payer MEDICARE, SELFPAY | PROVIDERS: PCP Nurse Practitioner Family; Visit Provider Hospitalist | DX: J98.4 Other disorders of lung (principal) | CPT/HCPCS: 94060; 94727; 94729 ==

== ENCOUNTER → 2025-06-11 12:34 | Outpatient (REF) | payer MEDICARE, SELFPAY ==
--- OUTSIDE RECORDS SUMMARY | 2024-09-03 12:17 | XMS_ITS ---
Author Organization [facility] Physician Tanya العلي Address [address] [facility] [address] [place] [address] Care Team Providers Care Braid Folder Name Role Phone Galileo Alarcon Primary Care Provider REASON FOR VISIT refill request MEDICATIONS Medication SIG (Take, Route, Frequency, Duration) Notes Start Date End Date Status Pregabalin 75 MG 1 capsule Orally Twice a day for 90 days Reference #: [id number]....Last filled 08/07/2024.....ROGER Jordan 09/04/2024 Active SOCIAL HISTORY Sex Assigned At : Social History Observation Description Sex Assigned At Female Encounters Encounter Location Date Provider Diagnosis [facility] [address] [place] [address] 09/03/2024 Galileo Alarcon PLAN OF TREATMENT Medication Medication Name Sig Start Date Stop Date Notes Pregabalin 75 MG 1 capsule Orally Twi ce a day for 90 days 09/04/2024 Reference #: [id number]....Last filled 08/07/2024.....ROGER Jordan
--- OUTSIDE RECORDS SUMMARY | 2024-09-06 06:57 | XMS_ITS ---
Author Organization [facility] Physician Tanya العلي Address [address] [facility] [address] [place] [address] Care Team Providers Care Secondary Special Education Teacher Name Role Phone Galileo Alarcon Primary Care [...] Date Provider Diagnosis [facility] [address] [place] [address] 09/06/2024 Galileo Alarcon PLAN OF TREATMENT Medication [...]
--- OUTSIDE RECORDS SUMMARY | 2024-09-18 10:00 | XMS_ITS ---
Author Organization [facility] Physician Tanya العلي Address [address] [facility] [address] [place] [address] Care Team Providers Care Hall Cleaner Name Role Phone Galileo Alarcon Primary Care Provider Jimmie Villatoro Unavailable [phone] REASON FOR VISIT 18 MO. F/U SOCIAL HISTORY Sex Assigned At : Social History Observation Description Sex Assigned At Female Encounters Encounter Location Date Provider Diagnosis [facility] [address] [place], [place] [id number] 09/18/2024 Jimmie Villatoro PLAN OF TREATMENT No Information
--- OUTSIDE RECORDS SUMMARY | 2024-09-24 10:00 | XMS_ITS ---
Author Organization [facility] Physician Tanya العلي Address [address] [facility] 2nd [place] [address] Care Team Providers Care Generator Operator Name Role Phone Galileo Alarcon Primary Care Provider Jimmie Villatoro Unavailable [phone] REASON FOR VISIT 18 MONTHS SKYLAR SOCIAL HISTORY Sex Assigned At : Social History Observation Description Sex Assigned At Female Encounters Encounter Location Date Provider Diagnosis [facility] [address] [place], [place] [phone] 09/24/2024 Jimmie Villatoro PLAN OF TREATMENT No Information
--- OUTSIDE RECORDS SUMMARY | 2024-10-15 07:04 | XMS_ITS ---
Author Organization [facility] Physician Tanya العلي Address [address] [facility] [address] [place] [address] Care Team Providers Care Sink Maker Name Role Phone Galileo Alarcon Primary Care [...] Orally Twice a day for 90 days [id number] 10/17/2024 Active SOCIAL HISTORY Sex Assigned At : Social History Observation Description Sex Assigned At Female Encounters Encounter Location Date Provider Diagnosis [facility] [address] [place] [address] 10/15/2024 Galileo Alarcon PLAN OF TREATMENT Medication Medication Name Sig Start Date Stop Date Notes KlonoPIN 0.5 mg 1 tablet MDD 3 Orall y 3x per day as needed for 30 days 10/17/[id number] attempting to taper down on klonopin oxyCODONE HCl 5 mg 1 tablet as needed. MDD 4 Orally 4x daily for 30 days 10/17/[id number] Pregabalin 75 MG 1 capsule Orally Twi ce a day for 90 days 10/17/2024 [id number]
--- OUTSIDE RECORDS SUMMARY | 2025-06-11 14:53 | XMS_ITS | Patient Health Record ---
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 Name Role Phone Galileo Alarcon Primary Care Provider [phone] Jimmie Villatoro [phone] ALLERGIES Allergen (clinical drug ingredient) Drug/Non Drug [...] rash Allergy Active Tape Unknown Allergy Active REASON FOR REFERRAL No Information MEDICATIONS Medication [...] 4 Orally 4x daily for 30 days 958697478 CB 10/17/2024 Active Pregabalin 75 MG 1 capsule Orally Twice a day for 90 days 536174939 CB 10/17/2024 Active Lidocaine 4 % as [...] one by mouth once daily Active Nystatin 851288 UNIT/GM 1 application Externally Twice a day [...] days 05/04/2024 Active Maxzide 75-50 MG Take /2-2 tablet Orally Once a day as needed for 90 days Not-Taking CPAP . Pressure Change apap 8-20 cm H2O with mask, heated humidifier, and 60 day compliance download dx SKYLAR QHS for Sleep G47.33 12/28/2018 Active Vitamin D3 1.25 MG (51317 UT) 1 capsule Orally once weekly for [...] Notes Problem Monoclonal gammopathy (D47.2) Active confirmed 748184707 Problem Anemia in chronic kidney disease (D63.1) Active confirmed 011763005 Problem Other hyperlipidemia (E78.4) Active confirmed Hyperlipidemia (22148700) Problem Disorder of mineral metabolism, 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) Active confirmed 20913608 Problem Generalized anxiety disorder (F41.1) Active confirmed 87334967 Problem Other chronic pain (G89.29) Active confirmed 45066797 Problem Chronic pain syndrome (G89.4) Active confirmed 972630851 Problem Hypertensive chronic kidney disease with stage 1 through stage 4 chronic kidney disease, or unspecified chronic kidney disease (I12.9) Active confirmed 83432516 Problem Low back pain (M54.5) Active confirmed Low back pain (700237999) Problem Chronic kidney disease, unspecified (N18.9) Active confirmed 26413922 Problem Dementia (F03.90) Active confirmed Dileep ntia (61828928) Problem Obstructive sleep apnea (G47.33) Active confirmed Obstructive s leep apnea (63109097) Problem Dyslipidemia (E78.5) Active confirmed 260330684 Problem Psoriasis (L40.9) Active confirmed Psor iasis (6754123) Problem Obesity (BMI 30-39.9) (E66.9) Active confirmed Obesity (017515090) Problem Oropharyngeal dysphagia (R13.12) Active confirmed 90000796 Problem Abnormal laboratory test (R89.9) Active confirmed Laboratory test result abnormal (273232726) Problem Chronic fatigue (R53.82) Active confirmed 37351082 Problem Mild cognitive impairment (G31.84) Active confirmed 766379946 Problem Glaucoma (H40.9) Active confirmed Glauc hanh (48615153) Problem Hypertensive chronic kidney disease (I12.9) Active confirmed Chronic kidn ey disease due to benign hypertension (847587390133231) Problem History of left knee replacement (Z96.652) Active confirmed 816736259 Problem 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) Active confirmed 952164375 Problem Primary hypertension (I10) Active confirmed 57349906 Problem BMI 40.0-44.9, adult (Z68.41) Active confirmed Body mass ind ex 40+ - morbidly obese (094797118) Problem Recurrent sinus infections (J32.9) Active confirmed 770422241 Problem History of anemia due to CKD (Z86.2) Active confirmed Anemia co-occurrent and due to chronic kidney disease (707088144) Problem Chronic sinusitis, unspecified location (J32.9) Active confirmed 09257298 Problem Dysphagia, unspecified type (R13.10) Active confirmed 82298672 Problem Frontal sinusitis, unspecified chronicity (J32.1) Active confirmed 65809505 Problem Hypertension, renal, stage 1-4 or unspecified chronic kidney disease (I12.9) Active confirmed Chronic kidn ey disease due to hypertension (678038007360342) 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 confirmed 71611854 Problem 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) Active confirmed Disorders of wily th mitral and tricuspid valves (741099497) Problem Cognitive dysfunction (F09) Active confirmed 180598123 Problem Piriformis syndrome, left (G57.02) Active confirmed Sciatic nerve lesion (172921244) Problem Stage 2 chronic kidney disease (N18.2) Active confirmed 688604135 Problem 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) Active confirmed 10449253 Problem Piriformis syndrome of both sides (G57.03) Active confirmed Sciatic nerve lesion (240737915) Problem Stage 3 chronic kidney disease, unspecified whether stage 3a or 3b CKD (N18.30) Active confirmed 824892788 Problem Chronic Kidney Disease, Stage 3b (N18.32) Active confirmed 055287735 Problem Hx of metal allergy (Z91.09) Active confirmed 380929699 Problem Stage 3b chronic kidney disease (CKD) (N18.32) Active confirmed 987562444 Encounters Encounter Location Date Provider Diagnosis [facility] [address] [address] [facility] [address] [address] [facility] [address] [address] 07/23[facility]20[facility] [address] [address] [facility]/24[facility] [address] [address] 08/06/2024 [facility] [address] [address] 08/24[facility]20[facility] [address] [address] [place] [address] 09/03[facility]2024 [facility] [address] [place] [address] [facility] [address] [place] [address] 10/15/2024 Galileo Alarcon [facility] [address] [place] [id number] 09/18/2024 Jimmie Villatoro [facility] [address] [place] [id number] 09/24/2024 Jimmie Juan Rcarolyngila PLAN OF TREATMENT Pending Test Test Name [...] 09/22/2020 PATIENT CONSENT,CTG 02/06/2024 BONE MARROW ASPIRATE, 38190 02/06/2024 CHROMOSOME ANALYSIS 02/06/2024 FISH REVIEW 02/06/2024 FISH,CYTOGENETICS 02/06/2024 CHROMOSOME REVIEW 02/06/2024 Immunofixation(Immunoelectrophoresis),Se rum,REF 1 [facility] 12/06/2023 Protein Electrophoresis,Serum,REF 1 [facility] 12/06/2023 Reflexed PE2(S Prot Elect) Review,REF 1 [facility] 12/06/2023 Reflexed SIF(S Immunofix) Review,REF 1 [facility] 12/06/2023 Spirometry 06/30/2023 [place]-Lambda Free Light Chain w/Ratio,RE F 1 [facility] 12/06/2023 US Renal 06/01/2022 Future [...] End Date MEDICARE BLUE PPO [address] [address] [place]EYNEP ENRIQUEZ [phone] [id number] 1 [id number] ELLEN BEARD Self - patient is the [...] Surgical History Surgery Date(Month/Year) biopsy of kidney LT total knee replacement -- Johs T10-S1 posterior spinal fusion (miguel yamel tanner and replacement) 09/16 Bilateral glaucoma procedures 2014 L-[address] Verdin 02/06/14 L4-L5 cage and rods 09/04/12 Right TKR 09/27/2011 Hysterectomy LAVH-BSO with TVT. Benign p athology 08/2010 D&C 2008 extraction 4 wisdom teeth 1971 Hospitalization History Reason Date(Month/Year) surgeries
== END ==
LOC: HO.SL 12:34
PROVIDERS: PCP Nurse Practitioner Family; Visit Provider Nurse Practitioner Family
DX: G47.33 Obstructive sleep apnea (adult) (pediatric) (principal); R40.0 Somnolence
CPT/HCPCS: 95806

== ENCOUNTER → 2025-06-11 13:11 | Outpatient (BNV) | payer MEDICARE, SELFPAY | PROVIDERS: PCP Nurse Practitioner Family; Visit Provider Internal Medicine | DX: G47.33 Obstructive sleep apnea (adult) (pediatric) (principal) | CPT/HCPCS: 95806 ==

== ENCOUNTER 2025-07-02 13:13 | Outpatient (REF) | payer MEDICARE, SELFPAY ==
--- OUTSIDE RECORDS SUMMARY | 2024-09-03 12:17 | XMS_ITS ---
Author Organization [facility] Physician Tanya العلي Address [address] [facility] [address] [place] [address] Care Team Providers Care Step Finisher Name Role Phone Galileo Alarcon Primary Care Provider REASON FOR VISIT refill request MEDICATIONS Medication SIG (Take, Route, Frequency, Duration) Notes Start Date End Date Status Pregabalin 75 MG 1 capsule Orally Twice a day for 90 days Reference #: [id number]....Last filled 08/07/2024.....ROGER Jordan 09/04/2024 Active SOCIAL HISTORY Sex Assigned At : Social History Observation Description Sex Assigned At Female Encounters Encounter Location Date Provider Diagnosis [facility] [address] [place] [address] 09/03/2024 Galileo Alarcon PLAN OF TREATMENT Medication Medication Name Sig Start Date Stop Date Notes Pregabalin 75 MG 1 capsule Orally Twi ce a day for 90 days 09/04/2024 Reference #: [id number]....Last filled 08/07/2024.....ROGER Jordan
--- OUTSIDE RECORDS SUMMARY | 2024-09-06 06:57 | XMS_ITS ---
Author Organization [facility] Physician Tanya العلي Address [address] [facility] [address] [place] [address] Care Team Providers Care Rug Cleaner Hand Name Role Phone Galileo Alarcon Primary Care [...] Date Provider Diagnosis [facility] [address] [place] [address] 09/06/2024 aGlileo Alarcon PLAN OF TREATMENT Medication Medication Name [...]
--- OUTSIDE RECORDS SUMMARY | 2024-09-18 10:00 | XMS_ITS ---
Author Organization [facility] Physician Tanya العلي Address [address] [facility] [address] [place] [address] Care Team Providers Care Access Services Librarian Name Role Phone Galileo Alarcon Primary Care Provider Jimmie Villatoro Unavailable [phone] REASON FOR VISIT 18 MO. F/U SOCIAL HISTORY Sex Assigned At : Social History Observation Description Sex Assigned At Female Encounters Encounter Location Date Provider Diagnosis [facility] [address] [place], [place] [phone] 09/18/2024 Jimmie Villatoro PLAN OF TREATMENT No Information
--- OUTSIDE RECORDS SUMMARY | 2024-09-24 10:00 | XMS_ITS ---
Author Organization [facility] Physician Tanya العلي Address [address] [facility] 2nd [place] [address] Care Team Providers Care Compression Molding Machine Setter Name Role Phone Galileo Alarcon Primary Care Provider Jimmie Villatoro Unavailable [phone] REASON FOR VISIT 18 MONTHS SKYLAR SOCIAL HISTORY Sex Assigned At : Social History Observation Description Sex Assigned At Female Encounters Encounter Location Date Provider Diagnosis [facility] [address] [place], [place] [phone] 09/24/2024 Jimmie Villatoro PLAN OF TREATMENT No Information
--- OUTSIDE RECORDS SUMMARY | 2024-10-15 07:04 | XMS_ITS ---
Author Organization [facility] Physician Tanya العلي Address [address] [facility] [address] [place] [address] Care Team Providers Care Straightening Press Operator Name Role Phone Galileo Alarcon [...] Orally Twice a day for 90 days [id number] 10/17/2024 Active SOCIAL HISTORY Sex Assigned At : Social History Observation Description Sex Assigned At Female Encounters Encounter Location Date Provider Diagnosis [facility]idi II Internal Medicine [facility] [address] [place] [address] 10/15/2024 Galileo Alarcon PLAN OF TREATMENT Medication Medication Name Sig Start Date Stop Date Notes KlonoPIN 0.5 mg 1 tablet MDD 3 Orall y 3x per day as needed for 30 days 10/17/2024105745216 attempting to taper down on klonopin oxyCODONE HCl 5 mg 1 tablet as needed. MDD 4 Orally 4x daily for 30 days 10/17/[id number] Pregabalin 75 MG 1 capsule Orally Twi ce a day for 90 days 10/17/2024 [id number]
[2025-07-02 13:34] LABS: MANUAL DIFF FLAG NO
[2025-07-02 13:45] LABS: Hematocrit 42.7 % (37.0-47.0); Hemoglobin 13.9 g/dl (12.0-16.0); Imm Gran Abs Auto 0.01 X10*3/uL (0.00-0.03); Imm Gran Pct Auto 0.2 % (0.0-0.4); Lymphocytes Absolute Auto 1.4 X10*3/uL (1.2-4.9); Mean Corpuscular HGB Conc 32.6 g/dl (31.0-35.0); Mean Corpuscular Hemoglobin 26.1 pg (27.0-33.0); Mean Corpuscular Volume 80.3 fL (80.0-98.0); NRBC Abs Auto 0.000 X10*3/uL (0.0-0.012); NRBC Pct Auto 0.0 /100WBC (0.0-0.2); Platelet Count 288 X10*3/uL (160-400); Red Blood Count 5.32 X10*6/uL (4.20-5.50); White Blood Count 5.4 X10*3/uL (4.8-10.8)
[2025-07-02 14:21] LABS: Alanine Aminotransferase 11 U/L (0-31); Albumin Level 4.1 g/dL (3.5-5.0); Alkaline Phosphatase 138 U/L (39-117); Anion Gap 11 (12-20); Aspartate Amino Transferase 13 U/L (5-31); Blood Urea Nitrogen 19 mg/dL (9-16); Calcium 9.9 mg/dL (8.4-10.2); Carbon Dioxide 27 mmol/L (22-29); Chloride 104 mmol/L (96-108); Estimated Glomerular Filt Rate 45; Magnesium 2.2 mg/dL (1.6-2.6); Potassium 3.7 mmol/L (3.3-5.1); Sodium 138 mmol/L (135-145); Total Protein 8.0 g/dL (6.5-8.0)
--- OUTSIDE RECORDS SUMMARY | 2025-07-02 14:29 | XMS_ITS | Patient Health Record ---
Author Organization [facility] Physician Tanya العلي Address [address] [facility] [address] [place] [address] Care Team Providers Care Membership Correspondent Name Role Phone Galileo Alarcon Primary Care Provider [phone] Jimmie Villatoro [phone] ALLERGIES Allergen (clinical drug ingredient) Drug/Non Drug [...] 4 Orally 4x daily for 30 days 601155399 CB 10/17/2024 Active Pregabalin 75 MG 1 capsule Orally Twice a day for 90 days 956585991 CB 10/17/2024 Active Lidocaine 4 % as [...] one by mouth once daily Active Nystatin 022520 UNIT/GM 1 application Externally Twice a day [...] G47.33 12/28/2018 Active Vitamin D3 1.25 MG (82820 UT) 1 capsule Orally once weekly for [...] Notes Problem Monoclonal gammopathy (D47.2) Active confirmed 632881864 Problem Anemia in chronic kidney disease (D63.1) Active confirmed 360338411 Problem Other hyperlipidemia (E78.4) Active confirmed Hyperlipidemia (54171503) Problem Disorder of mineral metabolism, 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) Active confirmed 51950444 Problem Generalized anxiety disorder (F41.1) Active confirmed 77013994 Problem Other chronic pain (G89.29) Active confirmed 19910852 Problem Chronic pain syndrome (G89.4) Active confirmed 836471473 Problem Hypertensive chronic kidney disease with stage 1 through stage 4 chronic kidney disease, or unspecified chronic kidney disease (I12.9) Active confirmed 97426744 Problem Low back pain (M54.5) Active confirmed Low back pain (395717435) Problem Chronic kidney disease, unspecified (N18.9) Active confirmed 02620384 Problem Dementia (F03.90) Active confirmed Dileep ntia (67801040) Problem Obstructive sleep apnea (G47.33) Active confirmed Obstructive s leep apnea (88746980) Problem Dyslipidemia (E78.5) Active confirmed 235469824 Problem Psoriasis (L40.9) Active confirmed Psor iasis (1301410) Problem Obesity (BMI 30-39.9) (E66.9) Active confirmed Obesity (618270246) Problem Oropharyngeal dysphagia (R13.12) Active confirmed 53535662 Problem Abnormal laboratory test (R89.9) Active confirmed Laboratory test result abnormal (909231391) Problem Chronic fatigue (R53.82) Active confirmed 94686191 Problem Mild cognitive impairment (G31.84) Active confirmed 722956759 Problem Glaucoma (H40.9) Active confirmed Glauc hanh (21129970) Problem Hypertensive chronic kidney disease (I12.9) Active confirmed Chronic kidn ey disease due to benign hypertension (152110422304464) Problem History of left knee replacement (Z96.652) Active confirmed 538048266 Problem 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) Active confirmed 612489431 Problem Primary hypertension (I10) Active confirmed 57743249 Problem BMI 40.0-44.9, adult (Z68.41) Active confirmed Body mass ind ex 40+ - morbidly obese (839907249) Problem Recurrent sinus infections (J32.9) Active confirmed 082571316 Problem History of anemia due to CKD (Z86.2) Active confirmed Anemia co-occurrent and due to chronic kidney disease (037262174) Problem Chronic sinusitis, unspecified location (J32.9) Active confirmed 86727677 Problem Dysphagia, unspecified type (R13.10) Active confirmed 32726143 Problem Frontal sinusitis, unspecified chronicity (J32.1) Active confirmed 31968421 Problem Hypertension, renal, stage 1-4 or unspecified chronic kidney disease (I12.9) Active confirmed Chronic kidn ey disease due to hypertension (850858371937916) 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 confirmed 16515790 Problem 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) Active confirmed Disorders of wily th mitral and tricuspid valves (695895720) Problem Cognitive dysfunction (F09) Active confirmed 444308227 Problem Piriformis syndrome, left (G57.02) Active confirmed Sciatic nerve lesion (378893844) Problem Stage 2 chronic kidney disease (N18.2) Active confirmed 578794926 Problem 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) Active confirmed 73795074 Problem Piriformis syndrome of both sides (G57.03) Active confirmed Sciatic nerve lesion (397936888) Problem Stage 3 chronic kidney disease, unspecified whether stage 3a or 3b CKD (N18.30) Active confirmed 782529262 Problem Chronic Kidney Disease, Stage 3b (N18.32) Active confirmed 793567362 Problem Hx of metal allergy (Z91.09) Active confirmed 312403983 Problem Stage 3b chronic kidney disease (CKD) (N18.32) Active confirmed 976420828 Encounters Encounter Location Date Provider Diagnosis [facility] Internal Medicine [address] [address] [facility] [address] [address] [facility] [address] [address] 07/23[facility] [address] [address] 07/24/2024 [facility] [address] [address] 08/06/20[facility] [address] [address] 08/24/2024 [facility] [address] [address] [place] [address] 09/03/2024 [facility] [address] [place] [address] [facility] [address] [place] [address] 10/15/2024 Galileo Alarcon [place] [facility] [address] [place] [address] [id number] 09/24/2024 Jimmie Villatoro [place] [facility] [address] [place] [address] [id number] 09/18/2024 Jimmie Parksgila PLAN OF TREATMENT Pending Test Test Name [...] 09/22/2020 PATIENT CONSENT,CTG 02/06/2024 BONE MARROW ASPIRATE, [id number] 02/06/2024 CHROMOSOME ANALYSIS 02/06/2024 FISH REVIEW 02/06/2024 FISH,CYTOGENETICS 02/06/2024 CHROMOSOME REVIEW 02/06/2024 Immunofixation(Immunoelectrophoresis),Se rum,REF 1 [facility] 12/06/2023 Protein Electrophoresis,Serum,REF 1 [facility] 12/06/2023 Reflexed PE2(S Prot Elect) Review,REF 1 [facility] 12/06/2023 Reflexed SIF(S Immunofix) Review,REF 1 [facility] 12/06/2023 Spirometry 06/30/2023 Palominas-Lambda Free Light Chain w/Ratio,RE F 1 [facility] 12/06/2023 US Renal 06/01/2022 Future Test Test [...] End Date MEDICARE BLUE O [address] [address] ZEYNEP ENRIQUEZ [phone] [id number] ELLEN BEARD Self - patient is the [...]
[2025-07-02 17:36] LABS: Appearance Urine Clear; Glucose Urine UA Negative (Negative); PH 6.0 (5.0-9.0); Specific Gravity - Urine <= 1.005 (1.005-1.025); UMIC TRIGGER UA YES
[2025-07-02 18:38] LABS: Total Protein Urine Random < 7 mg/dL (<12)
== END 2025-07-02 13:14 | disposition home or self-care (01) ==
LOC: HO.LAB 13:13
PROVIDERS: PCP Nurse Practitioner Family; Visit Provider Internal Medicine Hypertension Specialist
DX: I12.9 Hypertensive chronic kidney disease with stage 1 through stage 4 chronic kidney disease, or unspecified chronic kidney disease (principal); N18.31 Chronic kidney disease, stage 3a; N17.9 Acute kidney failure, unspecified
CPT/HCPCS: 36415; 80053; 81001; 82570; 83735; 84156; 85025

== ENCOUNTER 2025-07-04 15:09 | Outpatient (AMB) | payer BC, SELFPAY ==
--- OUTSIDE RECORDS SUMMARY | 2024-09-03 12:17 | XMS_ITS ---
Author Organization [facility] Physician Tanya العلي Address [address] [facility] [address] [place] [address] Care Team Providers Care Quantitative Analyst Marketing Name Role Phone Galileo Alarcon Primary Care Provider REASON FOR VISIT refill request MEDICATIONS Medication SIG (Take, Route, Frequency, Duration) Notes Start Date End Date Status Pregabalin 75 MG 1 capsule Orally Twice a day for 90 days Reference #: [id number]....Last filled 08/07/2024.....ROGER Jordna 09/04/2024 Active SOCIAL HISTORY Sex Assigned At : Social History Observation Description Sex Assigned At Female Encounters Encounter Location Date Provider Diagnosis [facility] [address] [place] [address] 09/03/2024 Galileo Alarcon PLAN OF TREATMENT Medication Medication Name Sig Start Date Stop Date Notes Pregabalin 75 MG 1 capsule Orally Twi ce a day for 90 days 09/04/2024 Reference #: [id number]....Last filled 08/07/2024.....ROGER Jordan
--- OUTSIDE RECORDS SUMMARY | 2024-09-06 06:57 | XMS_ITS ---
Author Organization [facility] Physician Tanya العلي Address [address] [facility] [address] [place] [address] Care Team Providers Care Manager Talent Acquisition Name Role Phone Galileo Alarcon Primary Care [...] Provider Diagnosis [facility] [address] [place] [address] 09/06/2024 Galileo Alarcon PLAN OF TREATMENT Medication [...]
--- OUTSIDE RECORDS SUMMARY | 2024-09-18 10:00 | XMS_ITS ---
Author Organization [facility] Physician Tanya العلي Address [address] [facility] [address] [place] [address] Care Team Providers Care Tool Smith Name Role Phone Galileo Alarcon Primary Care Provider Jimmie Villatoro Unavailable [phone] REASON FOR VISIT 18 MO. F/U SOCIAL HISTORY Sex Assigned At : Social History Observation Description Sex Assigned At Female Encounters Encounter Location Date Provider Diagnosis [facility] [address] [place], [place] [phone] 09/18/2024 Jimmie Villatoro PLAN OF TREATMENT No Information
--- OUTSIDE RECORDS SUMMARY | 2024-09-24 10:00 | XMS_ITS ---
Author Organization [facility] Physician Tanya العلي Address [address] [facility] 2nd [place] [address] Care Team Providers Care Rn Immunology Name Role Phone Galileo Alarcon Primary Care Provider Jimmie Villatoro Unavailable [phone] REASON FOR VISIT 18 MONTHS SKYLAR SOCIAL HISTORY Sex Assigned At : Social History Observation Description Sex Assigned At Female Encounters Encounter Location Date Provider Diagnosis [facility] [address] [place], [place] [phone] 09/24/2024 Jimmie Villatoro PLAN OF TREATMENT No Information
--- OUTSIDE RECORDS SUMMARY | 2024-10-15 07:04 | XMS_ITS ---
Author Organization [facility] Physician Tanya العلي Address [address] [facility] [address] [place] [address] Care Team Providers Care Loom Fixer Helper Name Role Phone Galileo Alarcon Primary Care Provider [phone] REASON FOR VISIT Due lyrica,oxycodone,klonopin MEDICATIONS Medication [...] Orally Twice a day for 90 days [id number] 10/17/2024 Active SOCIAL HISTORY Sex Assigned At : Social History Observation Description Sex Assigned At Female Encounters Encounter Location Date Provider Diagnosis Heidi II Internal Medicine [facility] [address] [place] [address] 10/15/2024 Galileo Alarcon PLAN OF TREATMENT Medication Medication Name Sig Start Date Stop Date Notes KlonoPIN 0.5 mg 1 tablet MDD 3 Orall y 3x per day as needed for 30 days 10/17/2024194809814 attempting to taper down on klonopin oxyCODONE HCl 5 mg 1 tablet as needed. MDD 4 Orally 4x daily for 30 days 10/17/2024161229120 Pregabalin 75 MG 1 capsule Orally Twi ce a day for 90 days 10/17/2024 [id number]
--- NOTE | 2025-07-04 15:48 | HO.NEPHOV ---
Vital Signs 07/04/25 15:49 Height 5 ft 5 in Weight 269 lb BMI 44.8 BP 146/82 H Blood Pressure Location Lt brachial Position Sitting Pulse 81 Pulse Source Pulse Oximeter Pulse Oximetry (%) 96 Oxygen Delivery Method Room Air Intake Visit Reasons: 4wk f/u w/labs CONF Tableau Analyst Required: No Accompanied by: Family/Other Allergies codeine Allergy (Severe, Verified 07/04/25 15:51) Hives nickel Allergy (Severe, Verified 07/04/25 15:51) Hives adhesive tape Allergy (Intermediate, Verified 07/04/25 15:51) Rash Sulfa (Sulfonamide Antibiotics) Adverse Reaction (Severe, Verified 07/04/25 15:51) Hives diphenhydramine Adverse Reaction (Intermediate, Verified 07/04/25 15:51) Palpitations eye drops for galucoma Allergy (Severe, Uncoded 05/03/25 12:24) Dry Eye Medication List - Last Reconciled 07/04/25 by Leonel Calloway MD betamethasone dipropionate 0.05% 1 appl topical BID PRN clonazepam 0.5 mg PO TID 28 days CPAP (CPAP Machine/Device) As directed cyclobenzaprine 10 mg PO TID ergocalciferol (vitamin D2) 1,250 mcg PO QWEEK hydroxyzine HCl 25 - 50 mg (1 - 2 x 25 mg) PO QID 90 days krill oil PO DAILY magnesium glycinate PO DAILY naloxone 4 mg/actuation (Narcan) 4 mg intranasal Q3M PRN oxycodone 5 mg PO TID 28 days pregabalin 75 mg PO BID ramipril 10 mg PO DAILY sertraline 150 mg PO DAILY torsemide 30 mg PO DAILY PRN vitamins A,C,R-ewsh-ukepxq 4,296 mcg-226 mg-90 mg (PreserVision AREDS) 1 cap PO BID zinc sulfate 50 mg PO Q OTHER DAY HPI Comments Details: The patient is a 70-year-old female referred for CKD. She reports a history of chronic kidney disease, with a recent decline in kidney function noted in blood tests. A kidney biopsy performed two years ago in [place], suggested hypertension as a contributing factor to her kidney issues. The patient has a history of hypertension, which has been managed with ramipril for the past five years. She initially started with one pill, but due to rising blood pressure, her dosage was increased to 10 mg twice daily. The patient also uses torsemide as needed for fluid retention, which she feels is less necessary since starting lymphedema therapy. The patient has lymphedema, which she manages with a pneumatic compression device that helps reduce fluid retention. This condition is thought to be related to her nickel allergy, as she has had multiple surgeries involving titanium implants strengthened with nickel. The patient has a nickel allergy, confirmed by high nickel levels in tests conducted at a specialized hospital. She experiences skin lesions and uses hydroxyzine to manage itching associated with the allergy. The patient has a history of glaucoma, which is currently well-managed with intraocular pressure readings of 10 and 12. She has undergone multiple eye surgeries, including cataract surgery, to address her condition. Of note she has been taking Advil on a regular basis. Last dose was 4 days ago. 07/04/25 - The patient is a 70-year-old female presenting with chronic kidney disease and hypertension. - Chronic Kidney Disease: Kidney function improved from 31% to 45% after lowering ramipril from 10 mg b.i.d. down to once a day - Ankle Swelling: Chronic since childhood, managed with lymphedema sleeve. She has been taking torsemide at night [facility] Medical History Migraines Hypertension Anxiety Sleep apnea Low kidney function Normal pressure glaucoma Umbilical hernia Surgical History H/O eye surgery H/O: hysterectomy Previous back surgery H/O knee surgery Family History Brother Cancer Pancreas cancer Father Cancer Hypertension Cardiovascular disease Stented coronary artery Mother Stroke Thyroid disorder Pacemaker Cardiovascular disease Paternal Grandmother Stroke Social History Household Members: Spouse Both parents involved: No Caregiver staying overnight: No Housing: Apartment Are you a primary lawn care professional to a significant other at home: No Do you presently have visiting nurse or other home services: No 75 years or older and lives alone: No Alcohol intake: never Patient Tobacco Use Status: Never used Tobacco e-Cigarette/Vaping Use: Never Used Second Hand Smoke Exposure: No service: No Current occupational status: retired and disabled Cognitive needs: Yes (mild dementia) Hearing needs: No Vision needs: Yes (wear glasses) Physical Exam Vital Signs: Last Vital Signs Pulse 81 07/04/25 15:49 BP 146/82 H 07/04/25 15:49 Pulse Ox 96 07/04/25 15:49 Oxygen Delivery Method Room Air 07/04/25 15:49 BMI result Body Mass Index 44.8 Const General: comfortable Nutritional Appearance: well nourished Orientation/consciousness: patient oriented x3 HEENT Head: No normal to inspection Mouth: moist mucous membranes Neck Neck: Yes supple and Yes no JVD Resp Auscultation: clear to auscultation bilaterally and no rales Cardio Jugular venous distension: no JVD Palpation: no palpable S3 and no palpable S4 Heart sounds: no rubs GI Palpation (GI): Soft to palpation and nontender Percussion: No Fluid wave present General: Yes no CVA tenderness Back/Spine/Pelvis Back: no CVA tenderness Skin General skin exam: no rashes or lesions noted Neuro General: patient oriented x3 Extrem General: Yes no pedal edema and No clubbing Results Reviewed Nephrology Results: Hgb, (12.0-16.0) 13.9 g/dl 07/02/25 WBC, (4.8-10.8) 5.4 X10*3/uL 07/02/25 Plt Count, (160-400) 288 X10*3/uL Δ 07/02/25 Sodium, (135-145) 138 mmol/L 07/02/25 Potassium, (3.3-5.1) 3.7 mmol/L 07/02/25 Chloride, (96-108) 104 mmol/L 07/02/25 Carbon Dioxide, (22-29) 27 mmol/L 07/02/25 BUN, (9-16) 19 mg/dL H 07/02/25 Creatinine, (0.5-1.4) 1.19 mg/dL 07/02/25 Calcium, (8.4-10.2) 9.9 mg/dL 07/02/25 Urine Protein, (Neg-Trace) Negative mg/dL 07/02/25 Urine Creatinine 34.92 mg/dL 07/02/25 Assessment & Plan Assessment & Plan (1) Hypertension: Code(s): I10 - Essential (primary) hypertension Category: Medical Qualifiers: Hypertension type: primary hypertension Qualified Code(s): I10 - Essential (primary) hypertension (2) TIAN (acute kidney injury): Code(s): N17.9 - Acute kidney failure, unspecified Category: Medical (3) CKD (chronic kidney disease) stage 3, GFR 30-59 ml/min: Code(s): N18.30 - Chronic kidney disease, stage 3 unspecified Category: Medical Qualifiers: Chronic kidney disease stage 3 subtype: stage 3a (GFR 45-59) Qualified Code(s): N18.31 - Chronic kidney disease, stage 3a Plan DD has CKD 3 in the setting of longstanding hypertension and obesity. Renal function continues to improve after lowering ramipril. Baseline creatinine is unknown at this time. She has sustained acute kidney injury few weeks ago. - due to hypoperfusion. This could be from the combination of NSAIDs and BRITTNEE inhibitors. Other possibilities including obstructive uropathy should be considered - although seems unlikely at this point. Nevertheless revealed complete ultrasonogram as ordered No evidence of glomerular nephritis or interstitial disease We will discontinue ramipril and start amlodipine 5 mg once a day. Advised her about possible leg edema. She should take torsemide in the morning rather than in the evening Avoid NSAIDs. Stay on low-sodium diet and increase p.o. fluid intake. Orders: Orders Basic Metabolic Panel 6 Weeks I10 - Essential (primary) hypertension, N17.9 - Acute kidney failure, unspecified Medications: New amlodipine (Norvasc) 5 mg PO DAILY 30 tabs 2RF Coding Level of Care Code Est Pt Level 4 (09335) Diagnoses Primary hypertension I10 Hypertension type: primary hypertension TIAN (acute kidney injury) N17.9 Stage 3a chronic kidney disease N18.31 Chronic kidney disease stage 3 subtype: stage 3a (GFR 45-59)
[2025-07-04 15:49] VITALS: BP 146/82; PULSE 81; O2SAT 96; BMI 44.8
--- OUTSIDE RECORDS SUMMARY | 2025-07-04 16:31 | XMS_ITS | Patient Health Record ---
Author Organization [facility] Physician Tanya العلي Address [address] [place] [address] Care Team Providers Care Infrastructure Analyst Name Role Phone Galileo Alarcon Primary Care Provider Jimmie Villatoro [phone] ALLERGIES Allergen (clinical drug ingredient) Drug/Non Drug [...] 4 Orally 4x daily for 30 days 055524068 CB 10/17/2024 Active Pregabalin 75 MG 1 capsule Orally Twice a day for 90 days 991327071 CB 10/17/2024 Active Lidocaine 4 % as [...] one by mouth once daily Active Nystatin 256025 UNIT/GM 1 application Externally Twice a day [...] G47.33 12/28/2018 Active Vitamin D3 1.25 MG (49398 UT) 1 capsule Orally once weekly for [...] Notes Problem Monoclonal gammopathy (D47.2) Active confirmed 503480236 Problem Anemia in chronic kidney disease (D63.1) Active confirmed 409287883 Problem Other hyperlipidemia (E78.4) Active confirmed Hyperlipidemia (77263873) Problem Disorder of mineral metabolism, 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) Active confirmed 56788482 Problem Generalized anxiety disorder (F41.1) Active confirmed 21191488 Problem Other chronic pain (G89.29) Active confirmed 54863633 Problem Chronic pain syndrome (G89.4) Active confirmed 040917295 Problem Hypertensive chronic kidney disease with stage 1 through stage 4 chronic kidney disease, or unspecified chronic kidney disease (I12.9) Active confirmed 10434682 Problem Low back pain (M54.5) Active confirmed Low back pain (628132006) Problem Chronic kidney disease, unspecified (N18.9) Active confirmed 44463047 Problem Dementia (F03.90) Active confirmed Dileep ntia (60370588) Problem Obstructive sleep apnea (G47.33) Active confirmed Obstructive s leep apnea (99293835) Problem Dyslipidemia (E78.5) Active confirmed 113951260 Problem Psoriasis (L40.9) Active confirmed Psor iasis (0914612) Problem Obesity (BMI 30-39.9) (E66.9) Active confirmed Obesity (989955721) Problem Oropharyngeal dysphagia (R13.12) Active confirmed 76338614 Problem Abnormal laboratory test (R89.9) Active confirmed Laboratory test result abnormal (984979760) Problem Chronic fatigue (R53.82) Active confirmed 54350095 Problem Mild cognitive impairment (G31.84) Active confirmed 578001472 Problem Glaucoma (H40.9) Active confirmed Glauc hanh (04132232) Problem Hypertensive chronic kidney disease (I12.9) Active confirmed Chronic kidn ey disease due to benign hypertension (656423292145454) Problem History of left knee replacement (Z96.652) Active confirmed 039921646 Problem 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) Active confirmed 929594861 Problem Primary hypertension (I10) Active confirmed 20332146 Problem BMI 40.0-44.9, adult (Z68.41) Active confirmed Body mass ind ex 40+ - morbidly obese (685885448) Problem Recurrent sinus infections (J32.9) Active confirmed 217863165 Problem History of anemia due to CKD (Z86.2) Active confirmed Anemia co-occurrent and due to chronic kidney disease (197512849) Problem Chronic sinusitis, unspecified location (J32.9) Active confirmed 29621085 Problem Dysphagia, unspecified type (R13.10) Active confirmed 11101285 Problem Frontal sinusitis, unspecified chronicity (J32.1) Active confirmed 37492744 Problem Hypertension, renal, stage 1-4 or unspecified chronic kidney disease (I12.9) Active confirmed Chronic kidn ey disease due to hypertension (768292062776864) 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 confirmed 18602206 Problem 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) Active confirmed Disorders of wily th mitral and tricuspid valves (787373454) Problem Cognitive dysfunction (F09) Active confirmed 037346741 Problem Piriformis syndrome, left (G57.02) Active confirmed Sciatic nerve lesion (292934614) Problem Stage 2 chronic kidney disease (N18.2) Active confirmed 257897787 Problem 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) Active confirmed 87266502 Problem Piriformis syndrome of both sides (G57.03) Active confirmed Sciatic nerve lesion (442957750) Problem Stage 3 chronic kidney disease, unspecified whether stage 3a or 3b CKD (N18.30) Active confirmed 153572376 Problem Chronic Kidney Disease, Stage 3b (N18.32) Active confirmed 737562854 Problem Hx of metal allergy (Z91.09) Active confirmed 430327986 Problem Stage 3b chronic kidney disease (CKD) (N18.32) Active confirmed 142366571 Encounters Encounter Location Date Provider Diagnosis [facility] Internal Medicine [address] [address] [facility] [address] [address] [facility] [address] [address] [facility] [address] [address] 07/24[facility]20[facility] [address] [address] [facility]/06[facility]20[facility] [address] [address] 08/24/20[facility] [address] [address] [place] [address] 09/03/2024 [facility] [address] [place] [address] 09/06/2024 [facility] [address] [place] [address] 10/15/2024 Galileo Alarcon [place] [facility] [address] [place] [id number] 09/24/2024 Jimmie Villatoro [place] [facility] [address] [place] [id number] 09/18/2024 Jimmie Parksgila PLAN OF TREATMENT Pending [...] 09/22/2020 PATIENT CONSENT,CTG 02/06/2024 BONE MARROW ASPIRATE, [id number] 02/06/2024 CHROMOSOME ANALYSIS 02/06/2024 FISH REVIEW 02/06/2024 FISH,CYTOGENETICS 02/06/2024 CHROMOSOME REVIEW 02/06/2024 Immunofixation(Immunoelectrophoresis),Se rum,REF 1 [facility] 12/06/2023 Protein Electrophoresis,Serum,REF 1 [facility] 12/06/2023 Reflexed PE2(S Prot Elect) Review,REF 1 [facility] 12/06/2023 Reflexed SIF(S Immunofix) Review,REF 1 [facility] 12/06/2023 Spirometry 06/30/2023 Gore-Lambda Free Light Chain w/Ratio,RE F 1 [facility] 12/06/2023 US Renal 06/01/2022 Future Test [...] End Date MEDICARE BLUE O [address] [address] ZEYNEP ENRIQUEZ [phone] [phone] [id number] ELLEN BEARD Self - patient is the [...]
== END 2025-07-04 16:16 | disposition home or self-care (01) ==
LOC: HO.HKA 15:09
PROVIDERS: PCP Nurse Practitioner Family; Visit Provider Internal Medicine Hypertension Specialist
DX: I10 Essential (primary) hypertension (principal); N17.9 Acute kidney failure, unspecified; N18.31 Chronic kidney disease, stage 3a
CPT/HCPCS: 99214

== ENCOUNTER 2025-07-05 13:13 | Outpatient (AMB) | payer MEDICARE, SELFPAY ==
--- OUTSIDE RECORDS SUMMARY | 2024-09-03 12:17 | XMS_ITS ---
Author Organization [facility] Physician Tanya العلي Address [address] [facility] [address] [place] [address] Care Team Providers Care Senior Medical Technologist Name Role Phone Galileo Alarcon Primary Care Provider REASON FOR VISIT refill request MEDICATIONS Medication SIG (Take, Route, Frequency, Duration) Notes Start Date End Date Status Pregabalin 75 MG 1 capsule Orally Twice a day for 90 days Reference #: [id number]....Last filled 08/07/2024.....ROGER Jordan 09/04/2024 Active SOCIAL HISTORY Sex Assigned At : Social History Observation Description Sex Assigned At Female Encounters Encounter Location Date Provider Diagnosis [facility] [address] [place] [address] 09/03/2024 Galileo Alarcon PLAN OF TREATMENT Medication Medication Name Sig Start Date Stop Date Notes Pregabalin 75 MG 1 capsule Orally Twi ce a day for 90 days 09/04/2024 Reference #: [id number]....Last filled 08/07/2024.....ROGER Jordan
--- OUTSIDE RECORDS SUMMARY | 2024-09-06 06:57 | XMS_ITS ---
Author Organization [facility] Physician Tanya العلي Address [address] [facility] [address] [place] [address] Care Team Providers Care Personal Fitness Trainer Name Role Phone Galileo Alarcon Primary Care Provider REASON FOR VISIT Due klonopin,hydroxyzine MEDICATIONS Medication SIG (Take, Route, Frequency, Duration) Notes Start Date End Date Status hydrOXYzine HCl 25 MG 1-2 tablet as needed Orally 4 times daily for 20 days attempting to taper down on klonopin 10/17/2023 Active KlonoPIN 0.5 mg 1 tablet MDD 3 Orally 3x per day as needed for 30 days attempting to taper down on klonopin 09/06/2024 Active SOCIAL HISTORY Sex Assigned At : Social History Observation Description Sex Assigned At Female Encounters Encounter Location Date Provider Diagnosis [facility] [address] [place] [address] 09/06/2024 Galileo Alarcon PLAN OF TREATMENT Medication Medication Name Sig Start Date Stop Date Notes hydrOXYzine HCl 25 MG 1-2 tablet as needed Orally 4 times daily for 20 days 10/17/2023 attempting to taper down on klonopin KlonoPIN 0.5 mg 1 tablet MDD 3 Orally 3x per day as needed for 30 days 09/06/2024 attempting to taper down on klonopin
--- OUTSIDE RECORDS SUMMARY | 2024-09-18 10:00 | XMS_ITS ---
Author Organization [facility] Physician Tanya العلي Address [address] [facility] [address] [place] [address] Care Team Providers Care Forest Firefighter Name Role Phone Galileo Alarcon Primary Care Provider Jimmie Villatoro Unavailable [phone] REASON FOR VISIT 18 MO. F/U SOCIAL HISTORY Sex Assigned At : Social History Observation Description Sex Assigned At Female Encounters Encounter Location Date Provider Diagnosis [facility] [address] [place], [place] [phone] 09/18/2024 Jimmie Villatoro PLAN OF TREATMENT No Information
--- OUTSIDE RECORDS SUMMARY | 2024-09-24 10:00 | XMS_ITS ---
Author Organization [facility] Physician Tanya العلي Address [address] [facility] 2nd [place] [address] Care Team Providers Care Clerical Adviser Name Role Phone Galileo Alarcon Primary Care Provider Jimmie Villatoro Unavailable [phone] REASON FOR VISIT 18 MONTHS SKYLAR SOCIAL HISTORY Sex Assigned At : Social History Observation Description Sex Assigned At Female Encounters Encounter Location Date Provider Diagnosis [facility] [address] [place], [place] [phone] 09/24/2024 Jimmie Villatoro PLAN OF TREATMENT No Information
--- OUTSIDE RECORDS SUMMARY | 2024-10-15 07:04 | XMS_ITS ---
Author Organization [facility] Physician Tanya العلي Address [address] [facility] [place] [address] Care Team Providers Care Disability Aide Name Role Phone Galileo Alarcon Primary Care [...] Orally Twice a day for 90 days [id number] 10/17/2024 Active SOCIAL HISTORY Sex Assigned At : Social History Observation Description Sex Assigned At Female Encounters Encounter Location Date Provider Diagnosis [facility] Internal Medicine [facility] [address] [place] [address] 10/15/2024 Galileo Alarcon PLAN OF TREATMENT Medication Medication Name Sig Start Date Stop Date Notes KlonoPIN 0.5 mg 1 tablet MDD 3 Orall y 3x per day as needed for 30 days 10/17/2024690810097 attempting to taper down on klonopin oxyCODONE HCl 5 mg 1 tablet as needed. MDD 4 Orally 4x daily for 30 days 10/17/2024917250142 Pregabalin 75 MG 1 capsule Orally Twi ce a day for 90 days 10/17/2024 [id number]
[2025-07-05 13:18] VITALS: BP 142/80; PULSE 85; O2SAT 94; BMI 44.8
--- NOTE | 2025-07-05 13:18 | A.OFFPC_ITS ---
Vital Signs 07/05/25 13:18 Height 5 ft 5 in Weight 269 lb BMI 44.8 BP 142/80 H Blood Pressure Location Rt brachial Position Sitting Pulse 85 Pulse Source Pulse Oximeter Pulse Oximetry (%) 94 Oxygen Delivery Method Room Air Intake Visit Reasons: 8 WEEKS 30 MIN COMPLEX FU Cable Tender Required: No Allergies codeine Allergy (Severe, Verified 07/05/25 13:34) Hives nickel Allergy (Severe, Verified 07/05/25 13:34) Hives adhesive tape Allergy (Intermediate, Verified 07/05/25 13:34) Rash Sulfa (Sulfonamide Antibiotics) Adverse Reaction (Severe, Verified 07/05/25 13:34) Hives diphenhydramine Adverse Reaction (Intermediate, Verified 07/05/25 13:34) Palpitations eye drops for galucoma Allergy (Severe, Uncoded 05/03/25 12:24) Dry Eye Medication List - Last Reconciled 07/05/25 by Isadora Michael, AUTO MECHANICS TEACHER- amlodipine (Norvasc) 5 mg PO DAILY betamethasone dipropionate 0.05% 1 appl topical BID PRN clonazepam 0.5 mg PO TID 28 days CPAP (CPAP Machine/Device) As directed cyclobenzaprine 10 mg PO TID ergocalciferol (vitamin D2) 1,250 mcg PO QWEEK hydroxyzine HCl 25 - 50 mg (1 - 2 x 25 mg) PO QID 90 days krill oil PO DAILY magnesium glycinate PO DAILY naloxone 4 mg/actuation (Narcan) 4 mg intranasal Q3M PRN oxycodone 5 mg PO TID 28 days pregabalin 75 mg PO BID sertraline 150 mg PO DAILY torsemide 30 mg PO DAILY PRN vitamins A,C,F-tztd-drypnv 4,296 mcg-226 mg-90 mg (PreserVision AREDS) 1 cap PO BID zinc sulfate 50 mg PO Q OTHER DAY Tobacco use date assessed: 05/03/25 Fall risk assessment: No Falls in past year Last assessed Fall Risk: 07/05/25 Dental Screening Dental Screen Date: 03/08/25 HPI HPI Comments History of Present Illness Details 70 y/o F with obesity, SKYLAR on CPAP, tinn itus, CKD 3a, generalized anxiety disorder, hypertension, migraine headaches, normal pressure glaucoma, chronic pain, hx of esophageal stricture, prediabetes, gERD, PVD Social: to [place], lives w/ dtr. Retired.Walks w/ walker Health Maintenance Colon age 65 repeat 10 years 01/2025 [employer] Organization (WHO) criteria, the diagnosis is consistent with osteopenia. on ca+D, repeat in 2 years 01/2025 mammo wnl Pap NA Vaccines: Tdap 2024, Will investigate Pneumococcal; Flu 2023 will get high dose and COVID at pharmacy Specialists: Audio Renal appt 07/2025 note reviewed. Optho appt April 2025 [facility]ymphedema clinic Pulm: 01/2025 Pulm consult, check PFT, ? repeat sleep study, cont CPAP, CXR Chiro Here today for provider monitoring for Oxycodone which is being prescribed for chronic back pain. Today during the visit the following was reviewed: Screened for risk of opioid misuse using a validated screening tool. Receive, review, and sign an approved [facility] Agreement and Informed Consent for Receiving Controlled Substances, which should be stored in the EMR. 11/16/24 Non-pharmacologic and non-opioid pharmacologic options should be used as a first line for chronic pain unless otherwise contraindicated & in conjunction with Reviewed side effects and discuss the risks of addiction and overdose with all patients on chronic opioid therapy. Counseled patient regarding safe storage and disposal of medications. Prescribing intranasal naloxone (Narcan) rescue kits to patients if appropriate. Prescriptions should be limited to 28-day supplies unless mandated otherwise by insurance. Renewals should not be given on evenings, holidays, or weekends. Regular clinical reassessment of pain, functional goals, treatment plan, and adherence. Understand that pill counts and/or random toxicology screens (minimum yearly) are all part of a standard [facility] protocol for care. More frequent monitoring is appropriate for monitoring of symptoms or concerns of misuse. Irregular findings should be addressed with the patient and documented in the EMR with the appropriate clinical and/or administrative response. Signs of misuse: N BARN AND PROPERTY MANAGER reviewed: Y Contract up to date: 11/16/24 Random pill count done: Y UTox done: NA Next appt: 8 weeks - The patient is a 70 year old female pr esenting with a routine complex chronic disease management visit. - Diagnosed with SKYLAR, on CPAP therapy. - Essential Hypertension, managed with n orvasc - changed by renal from rampiril d/t TIAN. Tolerating w/o edema. - Zinc Deficiency, treated with Zinc, re peat labs due . - Anxiety and Depression, treated with S ertraline, Clonazepam. - Chronic Pain, managed with Oxycodone, Pregabalin. - CKD labs improved egfr back to baselin e. limiting nsaids. - Hyperlipidemia Taking citrus bergamo t. Due for repeat labs - Lower Extremity Edema, managed with To rsemide PRN which she has not really needed now that she is using the lymphedema pumps. - Wonders about annual lab testing to [facility] for pancreatic cancer; brother of this; reports she gets labs once per year. CA 19-9 to be done. Ordered w/ next lab draw Fell 06/25/25 Mechanical No injury was able to get up on own Needs refills on betamethasone for skin outbreaks under breast; lotion does not work as well Tinnitus improved after ears popping during drive Some mild wt gain Exercising on Rower Looking for chiro/neuro referral Dr Solitario Batista [address] [facility] [id number] If she decides to use someone else asked she send me a referral. Looking for neuro/chiro combo. Review of Systems - General: Reports significant fatigue a nd increased sleep requirement. - Cardiovascular: Denies chest pain or p alpitations. - Respiratory: Reports obstructive sleep apnea. - Gastrointestinal: Denies abdominal elise n. - Genitourinary: Denies urinary symptoms . - Neurological: Reports tremors and exce ssive drowsiness. - Musculoskeletal: Denies muscle or join t pain. - Psychiatric: Reports anxiety and depre ssion. - Endocrine: Reports hypothyroidism. - Hematologic/Lymphatic: Denies easy bru ising or bleeding. - Dermatological: Denies skin changes. Physical Exam Awake alert chronically ill appearing, NAD, accompanied by , Sherin Sclera and conjunctiva clear bilat MMM RRR LS CTAB, dim throughout BLE nonpitting edema, chronic vascular appearing discoloration with sores w/o infection, which are much improved from previous, decrease DP bilat, hairless. Walks w walker Alert to person and place, forget details, repeats self, takes notes Results: 07/02/25 - Labs: - Kidney function: GFR improved to 45 - Potassium: 3.7 (normal range 3.5-5.1) - Blood count: Mild anemia noted Discussion Notes During the visit, we discussed the ongoing management of the patient's multiple chronic conditions. For hypertension, a medication change to amlodipine was initiated due to issues with past medications, and we talked about the potential for edema as a side effect. We discussed the importance of monitoring for leg swelling and advised her to check for and inquire about past pneumococcal vaccinations at the pharmacy. Concerns about tinnitus, weight gain, and exercise were addressed, emphasizing maintaining current rowing activity for stability. The dermatological condition is being effectively managed with a topical ointment regimen. We explored her family history of pancreatic cancer and screened for the necessity of reviewing past cancer screenings. The patient also mentioned anxiety about current political conditions, and we discussed alternatives for personal engagement. Consent was obtained for treatment plans and the patient was encouraged to contact the office with any further issues. Patient was given time to ask questions. All questions were answered to their satisfaction. Assessment and Plan 1. Obstructive Sleep Apnea (SKYLAR) - Continue CPAP therapy. 2. Essential Hypertension - Continue norvasc . 3. Zinc Deficiency - Maintain Zinc Sulphate dose. - Repeat lab 4. Anxiety Disorder - Continue Sertraline, Clonazepam. 5. Major Depressive Disorder - Maintain current treatment. 6. Chronic Pain - Continue Oxycodone, Pregabalin, comply with opiate contract. - Refer to chiro in [place] 7. Chronic Kidney Disease (CKD) - advise hydration, avoid nephrotoxins. - Renal referral active 8. Hyperlipidemia - Cont citrus beragmot 9. Lymphedema - Avoid Torsemide unless required for ly mphedema. - cont pneumatic compression and care w/ c vascular 10. Fhx pancreatic cancer CA 19-9 ordered 11. Fall risk - Reinforce safety and balance exercises . REFILLS SENT ON KLONOPIN AND OXYCODONE, EARLIEST FILL DATE 07/07/25 Cont all meds as prescribed FU with Care team RTO in 8 weeks labs 1 week before for chronic dz mgmt and for Med Chk,sooner PRN Consent Patient was informed and verbally consented to the use of an ambient scribe for clinic note documentation during this visit. Total time spent caring for the patient today was 45 minutes. This includes time spent before the visit reviewing the chart, time spent during the visit, and time spent after the visit on documentation, reviewing laboratory results, diagnostic imaging, medications, performing a medically necessary evaluation, counseling on diagnoses, care coordination, ordering appropriate tests, ordering appropriate medications, review of tests performed by other providers, reporting test results with the patient, communication with other healthcare providers. [facility] Medical History Migraines Hypertension Anxiety Sleep apnea Low kidney function Normal pressure glaucoma Umbilical hernia Surgical History H/O eye surgery H/O: hysterectomy Previous back surgery H/O knee surgery Family History Brother Cancer Pancreas cancer Father Cancer Hypertension Cardiovascular disease Stented coronary artery Mother Stroke Thyroid disorder Pacemaker Cardiovascular disease Paternal Grandmother Stroke Social History Household Members: Spouse Both parents involved: No Caregiver staying overnight: No Housing: Apartment Are you a primary director of medicare to a significant other at home: No Do you presently have visiting nurse or other home services: No 75 years or older and lives alone: No Alcohol intake: never Patient Tobacco Use Status: Never used Tobacco e-Cigarette/Vaping Use: Never Used Second Hand Smoke Exposure: No service: No Current occupational status: retired and disabled Cognitive needs: Yes (mild dementia) Hearing needs: No Vision needs: Yes (wear glasses) Questionnaire PHQ-9 Over the last 2 weeks, how often have you been bothered by any of the following problems? 1. Little interest or pleasure in doing things: not at all 2. Feeling down, depressed, or hopeless: not at all 3. Trouble falling or staying asleep, or sleeping too much: not at all 4. Feeling tired or having little energy: not at all 5. Poor appetite or overeating: not at all 6. Feeling bad about yourself - or that you are a failure or have let yourself or your family down: not at all 7. Trouble concentrating on things, such as reading the newspaper or watching television: not at all 8. Moving or speaking so slowly that other people could have noticed. Or the opposite - being so fidgety or restless that you have been moving around a lot more than usual: not at all 9. Thoughts that you would be better off or of hurting yourself in some way: not at all Total score: 0 Depression Screening Interpretation: Negative Depression Screening Done: Yes Source: Developed by Drs. Rich Matthew, Chalo Will and colleagues, with an educational mick from [employer]. Thrive Questionnaire Date Thrive assessed: 11/16/24 I am a: Patient What is your living situation today?: I have a steady place to live Within the past 12 months, did the food you bought not last and you didn't have the money to get more?: Never true Within the past 12 months, did you worry whether your food would run out before you got money to buy more?: Never true Do you have trouble paying for medicines?: No Do you have trouble getting transportation to medical appointments?: No Do you have trouble paying your heating and electricity bill?: No Do you have trouble taking care of your child, family member or friend?: No Do you have trouble with day-to-day activities such as bathing, preparing meals, shopping, managing finances, etc.?: Yes Are you currently unemployed and looking for a job?: No Are you interested in more education?: No Please select the resources that you would like help with: Care for elder or disabled Currently or been in a relationship where the following occur: No concerns reported THRIVE Score: 0 AUDIT C Alcohol Use Questionnaire (AUDIT-C) 1. How often do you have a drink containing alcohol?: Never 3. How often do you have six or more drinks on one occasion?: Never Total Score: 0 SAMARA-7 AMB Questionnaire SAMARA-7 Date SAMARA - 7 assessed: 01/11/25 Feeling nervous, anxious, or on edge: 0 = Not at all Not being able to stop or control worryin = Not at all Worrying too much about different things: 0 = Not at all Trouble relaxin = Not at all Being so restless that it is hard to sit still: 0 = Not at all Becoming easily annoyed or irritable: 0 = Not at all Feeling afraid as if something awful might happen: 0 = Not at all Total SAMARA-7 score (0-4 normal; 5-9 mild; 10-14 moderate; 15-21 severe): 0 Source: Developed by Mackenzie Fuentes Kurt Kroenke and colleagues, with an educational mick from [employer]. Physical exam (Primary Care) Vital Signs: Last Vital Signs Pulse 85 07/05/25 13:18 BP 142/80 H 07/05/25 13:18 Pulse Ox 94 07/05/25 13:18 Oxygen Delivery Method Room Air 07/05/25 13:18 BMI result Body Mass Index 44.8 Tobacco/Smoking Status: Tobacco use Status Tobacco use date assessed 05/03/25 07/05/25 13:18 Patient Tobacco Use Status Never used Tobacco 07/05/25 13:18 e-Cigarette/Vaping Use Never Used 07/05/25 13:18 PHQ-9: PHQ-9 Score PHQ-9: Total score 0 07/05/25 13:24 Depression Screening Interpretation: Negative Thrive Assessment: Date of Thrive Assessment Date Thrive assessed 11/16/24 07/05/25 13:18 Currently or been in a relationship where the following occur: No concerns reported Coding Level of Care Code Est Pt Level 5 (84237) Complex EM visit Add On G2211 Diagnoses Other chronic pain G89. Chronic pain type: other chronic pain Chronic bilateral low back pain with bilateral sciatica M54.42; M54.41; G89.29 Back pain location: low back pain Back pain laterality: bilateral Sciatica presence: with sciatica Sciatica laterality: bilateral sciatica Cervicalgia M54.2 Prediabetes R73.03 Mixed hyperlipidemia E78.2 Hyperlipidemia type: mixed hyperlipidemia Family history of pancreatic cancer Z80.0 SAMARA (generalized anxiety disorder) F41.1 Primary hypertension I10 Hypertension type: primary hypertension Tinnitus of both ears H93.13 Laterality: bilateral Stage 3a chronic kidney disease N18.31 Chronic kidney disease stage 3 subtype: stage 3a (GFR 45-59) Lymphedema I89.0 Falls R29.6 SKYLAR on CPAP G47.33 Mild dementia with anxiety, unspecified dementia type F03.A4 Dementia type: unspecified type Dementia severity: mild Dementia behavioral or psychological symptom: with anxiety Assessment & Plan Assessment & Plan (1) Chronic pain: Code(s): G89.29 - Other chronic pain Category: Medical Qualifiers: Chronic pain type: other chronic pain Qualified Code(s): G89.29 - Other chronic pain (2) Chronic back pain: Code(s): M54.9 - Dorsalgia, unspecified; G89.29 - Other chronic pain Category: Medical Qualifiers: Back pain location: low back pain Back pain laterality: bilateral Sciatica presence: with sciatica Sciatica laterality: bilateral sciatica Qualified Code(s): M54.42 - Lumbago with sciatica, left side; M54.41 - Lumbago with sciatica, right side; G89.29 - Other chronic pain (3) Cervicalgia: Code(s): M54.2 - Cervicalgia Category: Medical (4) Prediabetes: Code(s): R73.03 - Prediabetes Category: Medical (5) Hyperlipidemia: Code(s): E78.5 - Hyperlipidemia, unspecified Category: Medical Qualifiers: Hyperlipidemia type: mixed hyperlipidemia Qualified Code(s): E78.2 - Mixed hyperlipidemia (6) Family history of pancreatic cancer: Comment: Brother annual CA 19-9 Code(s): Z80.0 - Family history of malignant neoplasm of digestive organs Category: Medical (7) SAMARA (generalized anxiety disorder): Code(s): F41.1 - Generalized anxiety disorder Category: Medical (8) Hypertension: Code(s): I10 - Essential (primary) hypertension Category: Medical Qualifiers: Hypertension type: primary hypertension Qualified Code(s): I10 - Essential (primary) hypertension (9) Tinnitus: Code(s): H93.19 - Tinnitus, unspecified ear Category: Medical Qualifiers: Laterality: bilateral Qualified Code(s): H93.13 - Tinnitus, bilateral (10) CKD (chronic kidney disease) stage 3, GFR 30-59 ml/min: Code(s): N18.30 - Chronic kidney disease, stage 3 unspecified Category: Medical Qualifiers: Chronic kidney disease stage 3 subtype: stage 3a (GFR 45-59) Qualified Code(s): N18.31 - Chronic kidney disease, stage 3a (11) Lymphedema: Code(s): I89.0 - Lymphedema, not elsewhere classified Category: Medical (12) Falls: Code(s): R29.6 - Repeated falls Category: Medical (13) SKYLAR on CPAP: Code(s): G47.33 - Obstructive sleep apnea (adult) (pediatric) Category: Medical (14) Dementia: Code(s): F03.90 - Unspecified dementia, unspecified severity, without behavioral disturbance, psychotic disturbance, mood disturbance, and anxiety Category: Medical Qualifiers: Dementia type: unspecified type Dementia severity: mild Dementia behavioral or psychological symptom: with anxiety Qualified Code(s): F03.A4 - Unspecified dementia, mild, with anxiety Plan . Orders: Orders TSH reflex Free T4 6 Weeks E78.2 - Mixed hyperlipidemia, R73.03 - Prediabetes, Z80.0 - Family history of malignant neoplasm of digestive organs Hemoglobin A1c 6 Weeks R73.03 - Prediabetes Carbohydrate Antigen 19-9 6 Weeks E78.2 - Mixed hyperlipidemia, R73.03 - Prediabetes, Z80.0 - Family history of malignant neoplasm of digestive organs Lipid Panel 6 Weeks E78.2 - Mixed hyperlipidemia, R73.03 - Prediabetes, Z80.0 - Family history of malignant neoplasm of digestive organs Referrals Chiropractic Referral G89.29 - Other chronic pain, M54.2 - Cervicalgia, M54.9 - Dorsalgia, unspecified Medications: New betamethasone dipropionate 0.05% 1 appl topical BID PRN 90 grams 2RF skin irritation Refilled clonazepam 0.5 mg PO TID 84 tabs 0RF 28 days oxycodone 5 mg PO TID 84 tabs 0RF 28 days Discontinued betamethasone dipropionate 0.05% Discontinued Reason: Patient Completed Course 1 appl topical BID PRN 60 mL 2RF skin irritation
--- OUTSIDE RECORDS SUMMARY | 2025-07-05 13:40 | XMS_ITS | Patient Health Record ---
Author Organization [facility] Physician Tanya العلي Address [address] [facility] [address]nd [place] [address] Care Team Providers Care Life Science Taxonomist Name Role Phone Galileo Alarcon Primary Care Provider Jimmie Villatoro [phone] ALLERGIES Allergen (clinical drug ingredient) Drug/Non Drug [...] 4 Orally 4x daily for 30 days 432168646 CB 10/17/2024 Active Pregabalin 75 MG 1 capsule Orally Twice a day for 90 days 522787085 CB 10/17/2024 Active Lidocaine 4 % as [...] one by mouth once daily Active Nystatin 700465 UNIT/GM 1 application Externally Twice a day [...] G47.33 12/28/2018 Active Vitamin D3 1.25 MG (11932 UT) 1 capsule Orally once weekly for [...] Notes Problem Monoclonal gammopathy (D47.2) Active confirmed 355541042 Problem Anemia in chronic kidney disease (D63.1) Active confirmed 748610359 Problem Other hyperlipidemia (E78.4) Active confirmed Hyperlipidemia (07183854) Problem Disorder of mineral metabolism, 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) Active confirmed 74415691 Problem Generalized anxiety disorder (F41.1) Active confirmed 87548563 Problem Other chronic pain (G89.29) Active confirmed 48906888 Problem Chronic pain syndrome (G89.4) Active confirmed 287860408 Problem Hypertensive chronic kidney disease with stage 1 through stage 4 chronic kidney disease, or unspecified chronic kidney disease (I12.9) Active confirmed 81567107 Problem Low back pain (M54.5) Active confirmed Low back pain (924827805) Problem Chronic kidney disease, unspecified (N18.9) Active confirmed 34836066 Problem Dementia (F03.90) Active confirmed Dileep ntia (92059249) Problem Obstructive sleep apnea (G47.33) Active confirmed Obstructive s leep apnea (24388943) Problem Dyslipidemia (E78.5) Active confirmed 246880564 Problem Psoriasis (L40.9) Active confirmed Psor iasis (1062244) Problem Obesity (BMI 30-39.9) (E66.9) Active confirmed Obesity (403434830) Problem Oropharyngeal dysphagia (R13.12) Active confirmed 79957880 Problem Abnormal laboratory test (R89.9) Active confirmed Laboratory test result abnormal (462598916) Problem Chronic fatigue (R53.82) Active confirmed 14130064 Problem Mild cognitive impairment (G31.84) Active confirmed 074149673 Problem Glaucoma (H40.9) Active confirmed Glauc hanh (48495859) Problem Hypertensive chronic kidney disease (I12.9) Active confirmed Chronic kidn ey disease due to benign hypertension (122796523592039) Problem History of left knee replacement (Z96.652) Active confirmed 345780280 Problem 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) Active confirmed 294203351 Problem Primary hypertension (I10) Active confirmed 39650446 Problem BMI 40.0-44.9, adult (Z68.41) Active confirmed Body mass ind ex 40+ - morbidly obese (074680955) Problem Recurrent sinus infections (J32.9) Active confirmed 770825104 Problem History of anemia due to CKD (Z86.2) Active confirmed Anemia co-occurrent and due to chronic kidney disease (025366209) Problem Chronic sinusitis, unspecified location (J32.9) Active confirmed 52080962 Problem Dysphagia, unspecified type (R13.10) Active confirmed 03802812 Problem Frontal sinusitis, unspecified chronicity (J32.1) Active confirmed 27104397 Problem Hypertension, renal, stage 1-4 or unspecified chronic kidney disease (I12.9) Active confirmed Chronic kidn ey disease due to hypertension (129245214244783) 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 confirmed 93880607 Problem 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) Active confirmed Disorders of wily th mitral and tricuspid valves (878655414) Problem Cognitive dysfunction (F09) Active confirmed 847682172 Problem Piriformis syndrome, left (G57.02) Active confirmed Sciatic nerve lesion (319038279) Problem Stage 2 chronic kidney disease (N18.2) Active confirmed 474450981 Problem 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) Active confirmed 54339033 Problem Piriformis syndrome of both sides (G57.03) Active confirmed Sciatic nerve lesion (452753349) Problem Stage 3 chronic kidney disease, unspecified whether stage 3a or 3b CKD (N18.30) Active confirmed 671234852 Problem Chronic Kidney Disease, Stage 3b (N18.32) Active confirmed 406372915 Problem Hx of metal allergy (Z91.09) Active confirmed 091729062 Problem Stage 3b chronic kidney disease (CKD) (N18.32) Active confirmed 922225353 Encounters Encounter Location Date Provider Diagnosis [facility] [address] [address] [facility] [address] [address] [facility] [address] [address] [facility] [address] [address] [facility] [address] [address] [facility]06[facility] [address] [address] [facility] [address] [address] [place] [address] [facility]/03[facility] [address] [place] [address] [facility] [address] [place] [address] 10/15/2024 Galileo Alarcon [facility] [address] [place] [id number] 09/24/2024 Jimmie Villatoro [facility] [address] [place] [id number] 09/18/2024 Jimmie Parksgila PLAN OF TREATMENT Pending [...] 09/22/2020 PATIENT CONSENT,CTG 02/06/2024 BONE MARROW ASPIRATE, [id number] 02/06/2024 CHROMOSOME ANALYSIS 02/06/2024 FISH REVIEW 02/06/2024 FISH,CYTOGENETICS 02/06/2024 CHROMOSOME REVIEW 02/06/2024 Immunofixation(Immunoelectrophoresis),Se rum,REF 1 [facility] 12/06/2023 Protein Electrophoresis,Serum,REF 1 [facility] 12/06/2023 Reflexed PE2(S Prot Elect) Review,REF 1 [facility] 12/06/2023 Reflexed SIF(S Immunofix) Review,REF 1 [facility] 12/06/2023 Spirometry 06/30/2023 [place]-Lambda Free Light Chain w/Ratio,RE F 1 [facility] 12/06/2023 US Renal 06/01/2022 Future Test [...] End Date MEDICARE BLUE O [address] [address] [place] [address] [id number] ELLEN BEARD Self - patient is the [...]
== END 2025-07-05 14:05 | disposition home or self-care (01) ==
LOC: HO.HMCFM 13:14
PROVIDERS: PCP Nurse Practitioner Family; Visit Provider Nurse Practitioner Family
DX: I12.9 Hypertensive chronic kidney disease with stage 1 through stage 4 chronic kidney disease, or unspecified chronic kidney disease (principal); N18.31 Chronic kidney disease, stage 3a; G89.29 Other chronic pain; F03.A4 Unspecified dementia, mild, with anxiety; M54.42 Lumbago with sciatica, left side; M54.41 Lumbago with sciatica, right side; M54.2 Cervicalgia; R73.03 Prediabetes; E78.2 Mixed hyperlipidemia; Z80.0 Family history of malignant neoplasm of digestive organs; F41.1 Generalized anxiety disorder; H93.13 Tinnitus, bilateral

== ENCOUNTER → 2025-07-05 13:13 | Outpatient (BNVA) | payer MEDICARE, SELFPAY | PROVIDERS: PCP Nurse Practitioner Family; Visit Provider Nurse Practitioner Family | DX: I12.9 Hypertensive chronic kidney disease with stage 1 through stage 4 chronic kidney disease, or unspecified chronic kidney disease (principal); G47.33 Obstructive sleep apnea (adult) (pediatric); F41.9 Anxiety disorder, unspecified; F32.9 Major depressive disorder, single episode, unspecified; G89.29 Other chronic pain; N18.9 Chronic kidney disease, unspecified; E78.5 Hyperlipidemia, unspecified; I89.0 Lymphedema, not elsewhere classified; M54.42 Lumbago with sciatica, left side; M54.41 Lumbago with sciatica, right side; M54.2 Cervicalgia; R73.03 Prediabetes; E78.2 Mixed hyperlipidemia; F41.1 Generalized anxiety disorder; H93.13 Tinnitus, bilateral; N18.31 Chronic kidney disease, stage 3a; R29.6 Repeated falls; F03.A4 Unspecified dementia, mild, with anxiety; Z80.0 Family history of malignant neoplasm of digestive organs; Z99.89 Dependence on other enabling machines and devices | CPT/HCPCS: 96127; 99212 ==

== ENCOUNTER 2025-07-12 12:50 | Outpatient (AMB) | payer MEDICARE, SELFPAY ==
--- NOTE | 2025-07-12 12:56 | MHC.OFFVIS ---
Vital Signs 07/12/25 13:09 Height 5 ft 5 in BMI Reason not done Patient refused/unable BP 150/78 H Blood Pressure Location Rt brachial Position Sitting Pulse 88 Pulse Source Pulse Oximeter Pulse Oximetry (%) 92 Oxygen Delivery Method Room Air Intake Visit Reasons: Chronic cough Allergies codeine Allergy (Severe, Verified 07/12/25 13:07) Hives nickel Allergy (Severe, Verified 07/12/25 13:07) Hives adhesive tape Allergy (Intermediate, Verified 07/12/25 13:07) Rash Sulfa (Sulfonamide Antibiotics) Adverse Reaction (Severe, Verified 07/12/25 13:07) Hives diphenhydramine Adverse Reaction (Intermediate, Verified 07/12/25 13:07) Palpitations eye drops for galucoma Allergy (Severe, Uncoded 07/12/25 13:07) Dry Eye HPI HPI Chronic cough: Details: Saira is a pleasant 70 year female, never smoker, with underlying severe SKYLAR on CPAP, HTN, GERD, PVD and chronic lymphedema. Sleep study from 2019 revealed severe sleep apnea and and has been using CPAP therapy for 10+ years with good effect. Her current machine has been displaying end of life, broken beyond repair and in need of new machine. She has been reportedly compliant and benefitting from use. DME was [place] in [place] and would like to continue with them at this time. At the last visit she was sent for home sleep study and presents today to review results. She also reported prior h/o RAD vs asthma using combivent previously PRN with good effect and presents to review PFT results. [facility] Medical History (Updated 07/16/25 @ 08:41 by Josie Molina NP) TIAN (acute kidney injury) Migraines Hypertension Anxiety Sleep apnea Low kidney function Normal pressure glaucoma Umbilical hernia Surgical History H/O eye surgery H/O: hysterectomy Previous back surgery H/O knee surgery Family History Brother Cancer Pancreas cancer Father Cancer Hypertension Cardiovascular disease Stented coronary artery Mother Stroke Thyroid disorder Pacemaker Cardiovascular disease Paternal Grandmother Stroke Social History Household Members: Spouse Both parents involved: No Caregiver staying overnight: No Housing: Apartment Are you a primary manager care management to a significant other at home: No Do you presently have visiting nurse or other home services: No 75 years or older and lives alone: No Alcohol intake: never Patient Tobacco Use Status: Never used Tobacco e-Cigarette/Vaping Use: Never Used Second Hand Smoke Exposure: No service: No Current occupational status: retired and disabled Cognitive needs: Yes (mild dementia) Hearing needs: No Vision needs: Yes (wear glasses) Review of Systems Const Denies chills, Denies excessive sweating, Denies fever(s), Denies headache(s) and Denies night sweats Eyes Denies dry eyes, Denies irritation and Denies itchy eyes ENT Reports Normal hearing present, Denies headache(s), Denies nasal congestion, Denies nasal discharge, Denies post nasal drip and Denies sore throat Card Denies chest pain, Denies chest pain at rest, Denies chest pain with activity, Denies orthopnea and Denies paroxysmal nocturnal dyspnea Resp Denies excessive phlegm production, Denies pain on inspiration, Denies pain with cough, Denies stridor and Denies wheezing Musc Denies myalgias Neuro Reports Normal hearing present and Denies headache(s) Endo Denies excessive sweating Ramesh/Lymph Denies lymphadenopathy Aller/Immun Denies itchy eyes, Denies seasonal rhinorrhea and Denies wheezing Physical Exam Vital Signs: Last Vital Signs Pulse 88 07/12/25 13:09 BP 150/78 H 07/12/25 13:09 Pulse Ox 92 07/12/25 13:09 Oxygen Delivery Method Room Air 07/12/25 13:09 Const General: cooperative, healthy appearing, comfortable, no acute distress, well developed and alert Nutritional Appearance: obese Orientation/consciousness: patient oriented x3 Limitations: ambulation with walker HEENT Head: Yes normal to inspection, Yes normocephalic and Yes atraumatic Ears: hearing grossly normal bilaterally and external ears normal Eyes General: appearance normal, both eyes and all related structures Eyelids: Yes eyelids normal Sclerae: sclerae normal EOM: EOMs intact bilaterally Neck Neck: Yes normal visual inspection and Yes no lymphadenopathy Lymphatic: no lymphadenopathy noted Chest Chest palpation & inspection: normal inspection of the chest Resp Effort & Inspection: normal respiratory effort, able to speak in complete sentences, no audible wheezes, no cough, no stridor, not tachypneic, no tripod positioning and no use of accessory muscles Auscultation: clear to auscultation bilaterally Cardio Jugular venous distension: no JVD Rate: regular rate Rhythm: regular rhythm Skin Other: warm, dry General skin exam: no rashes or lesions noted Neuro General: patient oriented x3 Cranial nerves: Yes Normal hearing present Cognition (Neuro): normal cognition Psych Appearance: grossly normal and well kempt Speech and movement: Normal speech and movement present and Clear speech present Affect: normal affect Attitude: cooperative Thought process: Normal thought process present Thought content: Normal thought content present Insight: Good insight present (Psych) Judgement: Good judgement present (Psych) Results Reviewed Results Reviewed: [address] [address] XRay Report Signed Patient: Saira Puentes MR#: [id number] : 1955 Acct:[id number] Age/Sex: 70 / F ADM Date: 05/22/25 Loc: HO.RESP Attending Dr: Josie Molina NP Ordering Physician: Josie Molina NP Date of Service: 05/22/25 Procedure(s): XR chest 2V Accession Number(s): [id number] cc: Isaodra Michael MARKET CONSULTANT-; Josie Molina NP~ EXAMINATION: XR CHEST CLINICAL INFORMATION: R05.3 - Chronic cough COMPARISON: None available. TECHNIQUE: 2 views of the chest were obtained. FINDINGS: Elevated right hemidiaphragm. The cardiac, hilar, and mediastinal contours are normal. Lungs demonstrate linear type atelectasis or scarring in both bases. Lungs are otherwise clear. There is no pneumothorax or pleural effusion. There is no focal osseous or soft tissue abnormality. Exaggerated thoracic kyphosis with lower thoracic and lumbar fusion hardware. XR/XR chest 2V IMPRESSION: No active pulmonary disease. 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 Recommendations would be to send for in-lab titration study to ensure resolution of obstructive events as well as hypoxemia however patient not interested in performing. Will send order to [facility] for CPAP therapy in APAP mode with setting 6-20 cm H2O for replacement machine and send for overnight oximetry to ensure resolution of nocturnal hypoxemia. Reviewed PFT which did not reveal significant obstructive defect or response to bronchodilators. There was slight decrease in total lung capacity suggestive of mild restriction which could be related to BMI. Recent chest x-ray unremarkable. All questions were answered and patient is in agreement of plan. Will follow-up to review results or sooner if needed. Orders: Orders Overnight Pulse Oximetry Today G47.34 - Idiopathic sleep related nonobstructive alveolar hypoventilation Medications: New ipratropium-albuterol 20-100 mcg/actuation (Combivent Respimat) 1 puff inhalation Q6H 4 grams 1RF Coding Level of Care Code Est Pt Level 4 (50602) Diagnoses Chronic cough R05.3 Obstructive sleep apnea G47.33 Nocturnal hypoxemia G47.34
[2025-07-12 13:09] VITALS: BP 150/78; PULSE 88; O2SAT 92
== END 2025-07-12 13:57 | disposition home or self-care (01) ==
LOC: HO.HPSW 12:51
PROVIDERS: PCP Nurse Practitioner Family; Visit Provider Nurse Practitioner Family
DX: R05.3 Chronic cough (principal); G47.33 Obstructive sleep apnea (adult) (pediatric); G47.34 Idiopathic sleep related nonobstructive alveolar hypoventilation
CPT/HCPCS: 99214

== ENCOUNTER → 2025-07-12 12:50 | Outpatient (BNVA) | payer MEDICARE, SELFPAY | PROVIDERS: PCP Nurse Practitioner Family; Visit Provider Nurse Practitioner Family | DX: R05.3 Chronic cough (principal); G47.34 Idiopathic sleep related nonobstructive alveolar hypoventilation; G47.33 Obstructive sleep apnea (adult) (pediatric); Z99.89 Dependence on other enabling machines and devices | CPT/HCPCS: 99212 ==

== ENCOUNTER 2025-08-16 12:55 | Outpatient (REF) | payer MEDICARE, SELFPAY ==
--- OUTSIDE RECORDS SUMMARY | 2024-04-30 09:30 | XMS_ITS ---
Author Organization [facility] Physician Tanya العلي Address [address] [facility] 2nd [place] [address] Care Team Providers Care Salesforce Developer Name Role Phone Galileo Alarcon Primary Care Provider Lauren Fragoso [phone] REASON FOR VISIT 4m Social History Sex Assigned At : Social History Observation Description Sex Assigned At Female Encounters Encounter Location Date Provider Diagnosis [place] [facility] [address] [place] [address] 04/30/2024 Lauren Fragoso Plan Of Treatment No Information Progress Notes * ELLEN BEARD DDOB: [birth year] (70 yo F)Acc No.[id number]:04/30/2024 Progress Note Patient: ELLEN PEDROZA Provider: Albert Fragoso MD :1955 A ge:69 Y S ex:Female Date:04/30/2024 Address:[address] [place], [place] Pcp:Galileo Alarcon Subjective: * Chief Complaints: * 4 m * Electronic signature of Brooke Fragoso MD on 08/16/2025 at 06:52 PM EST Sign off status: Pending * Provider: Albert Fragoso MD Date: 0 04/30/2024 Generated for Chaz zhao/Chioma/eTransmitting on: 10/16/2024 06:52 PM EST
--- OUTSIDE RECORDS SUMMARY | 2024-09-18 09:00 | XMS_ITS ---
Author Organization [facility] Physician Tanya العلي Address [address] [facility] 2nd [place] [address] Care Team Providers Care Chaplain Name Role Phone Galileo Alarcon Primary Care Provider Jimmie Villatoro Unavailable [phone] REASON FOR VISIT 18 MO. F/U Social History Sex Assigned At : Social History Observation Description Sex Assigned At Female Encounters Encounter Location Date Provider Diagnosis [facility] [address] [place], [place] [id number] 09/18/2024 Jimmie Villatoro Plan Of Treatment No Information Progress Notes * ELLEN BEARD DDOB: [birth year] (70 yo F)Acc No.[id number]:09/18/2024 Progress Note Patient: Lazara ELLEN KOHLI Provider: Jackie Villatoro INSIDE OUTSIDE SALES REPRESENTATIVE :1955 A ge:69 Y S ex:Female Date:09/18/2024 Address:[address] [place], [place] Pcp:Galileo Alarcon Subjective: * Chief Complaints: * 1 8 MO. F/U * Electronic signature of Chris Villatoro NP on 08/16/2025 at 06:53 PM EST Sign off status: Pending * Provider: Jackie Villatoro INSIDE OUTSIDE SALES REPRESENTATIVE Date: 11/19/2023 Generated for Allani cece/Chioma/eTransmitting on: 10/16/2024 06:53 PM EST
--- OUTSIDE RECORDS SUMMARY | 2024-09-24 09:00 | XMS_ITS ---
Author Organization [facility] Physician Tanya العلي Address [address] [facility] 2nd [place] [address] Care Team Providers Care Staff Research Associate Name Role Phone Galileo Alarcon Primary Care Provider [phone] Jimmie Villatoro Unavailable [phone] REASON FOR VISIT 18 MONTHS SKYLAR Social History Sex Assigned At : Social History Observation Description Sex Assigned At Female Encounters Encounter Location Date Provider Diagnosis [facility] [address] [place], [place] [phone] 09/24/2024 Jimmie Villatoro Plan Of Treatment No Information Progress Notes * ELLEN BEARD DDOB: [birth year] (70 yo F)Acc No.[id number]:09/24/2024 Progress Note Patient: ELLEN PEDROZA Provider: Jackie Villatoro AUTO RADIATOR SPECIALIST :1955 A ge:69 Y S ex:Female Date:09/24/2024 Address:[address] [place], [place] Pcp:Galileo Alarcon Subjective: * Chief Complaints: * 1 8 MONTHS SKYLAR * Electronic signature of Chris Villatoro NP on 08/16/2025 at 06:53 PM EST Sign off status: Pending * Provider: Jackie Villatoro AUTO RADIATOR SPECIALIST Date: 11/25/2023 Generated for Printi ng/Faxing/eTransmitting on: 10/16/2024 06:53 PM EST
--- NOTE | ~2025-08-16 | US_ITS ---
EXAMINATION: US RETROPERITONEAL LIMITED (RENAL ONLY) CLINICAL INFORMATION: Essential hypertension. TIAN. COMPARISON: None available. TECHNIQUE: Real-time ultrasound kidneys using grayscale technique. FINDINGS: RIGHT KIDNEY: 10 x 4 x 4 cm (SAG x AP x TRV). Volume: 97 cc. Normal echotexture. Renal cortical thickness is normal. No hydronephrosis. No gross solid or cystic lesion. LEFT KIDNEY: 10 x 5 x 5 cm (SAG x AP x TRV). Volume: 128 cc. Normal echotexture. Renal cortical thickness is normal. No hydronephrosis. No solid or cystic lesion. US/US renal BI IMPRESSION: No hydronephrosis or gross nephrolithiasis.. Electronically signed by: Tadeo Galindo MD 08/16/2025 02:04 PM [facility]IS[facility]
[2025-08-16 15:11] LABS: Appearance Urine Clear; Glucose Urine UA Negative (Negative); PH 5.5 (5.0-9.0); Specific Gravity - Urine 1.010 (1.005-1.025); UMIC TRIGGER UACC YES
[2025-08-16 15:13] LABS: UACC Culture Trigger YES
[2025-08-16 15:14] LABS: Cholesterol 215 mg/dL (<200); HDL Cholesterol 53 mg/dL (>40); Triglycerides 132 mg/dL (<150)
[2025-08-16 16:05] LABS: Free T4 (Free Thyroxine) 0.98 ng/dL (0.71-1.85)
--- OUTSIDE RECORDS SUMMARY | 2025-08-16 18:53 | XMS_ITS | Patient Health Record ---
Author Organization [facility] Physician Tanya العلي Address [address] [place] [address] Care Team Providers Care Preschool Teacher Name Role Phone Galileo Alarcon Primary Care Provider Jimmie Villatoro [phone] Allergies Allergen (clinical drug ingredient) Drug/Non Drug Allergy [...] rash Allergy Active Tape Unknown Allergy Active Reason For Referral No Information Medications Medication SIG (Take, Route, Frequency, Duration) Notes Start Date End Date Status KlonoPIN 0.5 mg tablet 1 tablet MDD 3 Orally 3x per day as needed; Duration: 30 days attempting to taper down on klonopin 10/17/2024 Active Esomeprazole Magnesium 40 MG Capsule Delayed Release take 1 capsule by mouth once daily if needed; Duration: 30 days Active oxyCODONE HCl 5 mg tablet 1 tablet as needed. MDD 4 Orally 4x daily; Duration: 30 days CB 10/17/2024 Active Pregabalin 75 MG Capsule 1 capsule Orally Twice a day; Duration: 90 days CB 10/17/2024 Active Lidocaine 4 % Patch as directed Externally Once a day as needed PRN 01/29/2019 Active Ramipril 10 mg capsule 1 capsule Orally 2x daily; Duration: 90 days 05/09/2015 Active Combivent Respimat 20-100 MCG/ACT Aerosol Solution 1 puff as needed Inhalation every 6 hrs; Duration: 30 days PRN 08/25/2022 Active Zoloft 100 MG Tablet 1 tablet Orally one in am 1/2 in PM; Duration: 30 days Active Zinc Sulfate 220 (50 Zn) MG Capsule 1 capsule Orally every other day; Duration: 30 days Active Multivitamin/Minerals one tablet one by mouth once daily Active Nystatin 076476 UNIT/GM Cream 1 application Externally Twice a day; Duration: 10 days 05/10/2024 Active Miscellaneous . . as directed Dx M79.672 and M79.671 Bilateral foot orthodics for daily use; Duration: 99 days 02/16/2019 Active Ibuprofen 200 MG Tablet 1 tablet with food or milk as needed Orally Three times a day Active Probiotic - Capsule 1 capsule Orally once a day Not-Taking PreserVision AREDS 2+Multi Vit - Capsule as directed Orally Active hydrOXYzine HCl 50 MG Tablet 1 tablet as needed Orally 4 times daily; Duration: 30 days Vistiril for allergies 11/14/2023 Active Vitamin D-3 1000 UNIT Capsule 2-3 capsule Orally Once a day Active Rhopressa 0.02 % Solution 1 drop both eyes Ophthalmic Once a day glaucoma back up Not-Taking Bion Tears 0.1-0.3 % Solution 1drop Ophthalmic each eye four times daily Active Cefdinir 300 MG Capsule 2 tablets Orally once daily; Duration: 10 days 05/04/2024 Active Maxzide 75-50 MG Tablet Take 10/04-08/04 tablet Orally Once a day as needed; Duration: 90 days Not-Taking CPAP . Machine Pressure Change apap 8-20 cm H2O with mask, heated humidifier, and 60 day compliance download dx SKYLAR QHS for Sleep G47.33 12/28/2018 Active Vitamin D3 1.25 MG (07614 UT) Capsule 1 capsule Orally once weekly; Duration: 90 04/30/2024 Active CPAP supplies - Mask, tubing, and filters . . Please provide patient with 1 foot extension tubing Dx SKYLAR, G47.33 daily at bedtime; Duration: 365 days 10/24/2023 Active Donepezil HCl 5 MG Tablet 1 tablet Orally daily at bedtime Not-Taking Methylcobalamin 1000 MCG Tablet Sublingual Sublingual one daily Active Torsemide 20 MG Tablet 1.5 tables Orally once daily; Duration: 30 days alternative for maxide 12/15/2022 Active Cyclobenzaprine HCl 10 mg tablet 1 tablet as needed Orally Three times a day; Duration: 90 days Active Amoxicillin 500 MG Capsule 4 capsules Orally one hour before procedure; Duration: 1 days 05/10/2024 Active Fluconazole 150 MG Tablet 1 tablet Orally one time dose; Duration: 1 days please hold controlled until 30 days from previous (01/26) 01/20/2022 Active Cefadroxil 500 MG Capsule 1 capsule Orally every 12 hrs; Duration: 5 days 12/21/2023 Active Levocetirizine Dihydrochloride 5 MG Tablet 1 tablet in the evening Orally Once a day; Duration: 30 days PRN 08/25/2022 Active CoQ-10 100 MG Capsule as directed Orally Active Turmeric 400 MG Capsule as directed Orally Not-Taking Betamethasone Dipropionate Aug 0.05 % Ointment 1 application Externally Once a day; Duration: 30 days 12/23/2023 Active Milk Thistle 140 MG Capsule as directed Orally Not-Taking Calcium & Magnesium Carbonates not daily Active Betamethasone Valerate 0.1 % Cream 1 application Externally Twice a day; Duration: 10 days PRN 03/25/2022 Active Potassium Chloride 20 MEQ/15ML (10%) Solution 15 ml with food Orally Once a day; Duration: 30 day(s) 01/20/2022 Active hydrOXYzine HCl 25 MG Tablet 1-2 tablet as needed Orally 4 times daily; Duration: 20 days attempting to taper down on klonopin 10/17/2023 Active Fluconazole 150 MG Tablet 1 tablet Orally once weekly; Duration: 14 days 05/10/2024 Active Vitamin B12 1000 MCG Tablet Extended Release as directed Orally Active Immunizations Vaccine Route Administration Date Status Comme nts [...] Unknown 08/10/2010 Administered Zoster Unknown 06/28/2019 Administered Social History Tobacco Use: Social History Observation Description Date Details (start date - stop date) Never Smoker NA - NA Sex Assigned At : Social History Observation Description Sex Assigned At Female Social History Drugs/Alcohol: Social Info Question Answer Notes Alcohol Screen (Audit-C) Did you have a drink containing alcohol in the past year? No Points 0 Interpretation Negative Drugs Have you used drugs other than those for medical reasons in the past 12 months? No Caffeine Intake: Caffeine pill a s needed Comprehensive Health Assessm ent Social Info Question Answer Notes Household: Marital Status: committed relationship nellie Duff Children: 0 Living with: signifcant other Are there any concerns with your present living situation? No Pets in the home: Yes 1 Dog 1 Cat Lifestyle: Diet: No special diet Exercise: None Caffeine: none 1 caffine pill i n am or PRN Communication needs: Identified communication needs: N one Drugs/Alcohol: Have you used drugs (including illegal drugs and prescription drugs) other than those for medical reasons in the past 12 months? No Do you drink alcohol? Yes rare Is there a personal or family history of drug or alcohol abuse? No CAGE-AID: Did the patient answer yes to questi on 1 or 2? Yes Have you ever felt that you ought to cut down on your drinking or drug use? No Have people annoyed you by criticizing your drinking or drug use? No Have you ever felt bad or guilty about your drinking or drug use? No Have you ever had a drink or used drugs first thing in the morning to steady your nerves or to rid of a hangover? No Assessment (Social Determina nts of Health): Behaviors affecting healthcare Behaviors affecting healthcare (SDOH Screening):: None Legal guardian/HCP: Does the patient have a legal guar rosa? No Advanced Directive/Healthcare proxy: No Occupation: Current employment status: Employed part-time [employer] Social Info Question Answer Notes Housing: What is the patient' s current housing status? Owning Legal Guardian: Does patient have a legal guardian? No Advance Directive: Does the patient hav e an Advance Directive? Yes Communication Needs: Does the patient perez ve any communication needs? None Occupation: What is the patient' s current employment status? Works part-time Tobacco Use: Social Info Question Answer Notes Tobacco Use/Smoking Smoking status: never smoked Tobacco use other than smoking: Are you an other tobacco user? No Problems Problem Type SNOMED Code ICD Code Onset Dates Problem Status W/U Status Risk Notes Problem Monoclonal gammopathy (32035988) Monoclonal gammopathy (D47.2) Active confirmed Problem Anemia in chronic kidney disease (837794414) Anemia in chronic kidney disease (D63.1) Active confirmed Problem Hyperlipidemia (38054917) Other hyperlipidemia (E78.4) Active confirmed Problem Disorder of mineral metabolism (65067519) Disorder of mineral metabolism, 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) Active confirmed Problem Generalized anxiety disorder (44599435) Generalized anxiety disorder (F41.1) Active confirmed Problem Chronic pain (89727201) Other chronic pain (G89.29) Active confirmed Problem Chronic pain syndrome (927557344) Chronic pain syndrome (G89.4) Active confirmed Problem Chronic kidney disease due to hypertension (505967524660999) Hypertensive chronic kidney disease with stage 1 through stage 4 chronic kidney disease, or unspecified chronic kidney disease (I12.9) Active confirmed Problem Low back pain (729301018) Low back pain (M54.5) Active confirmed Problem Chronic kidney disease (947941355) Chronic kidney disease, unspecified (N18.9) Active confirmed Problem Dementia (12967213) Dementia (F03.90) Active confirmed Problem Obstructive sleep apnea (10406144) Obstructive sleep apnea (G47.33) Active confirmed Problem Dyslipidemia (485195096) Dyslipidemia (E78.5) Active confirmed Problem Psoriasis (7329847) Psoriasis (L40.9) Active confirmed Problem Obesity (343013312) Obesity (BMI 30-39.9) (E66.9) Active confirmed Problem Oropharyngeal dysphagia (77449325) Oropharyngeal dysphagia (R13.12) Active confirmed Problem Laboratory test result abnormal (553528518) Abnormal laboratory test (R89.9) Active confirmed Problem Chronic fatigue syndrome (76228717) Chronic fatigue (R53.82) Active confirmed Problem Mild cognitive impairment (198847148) Mild cognitive impairment (G31.84) Active confirmed Problem Glaucoma (30349791) Glaucoma (H40.9) Active confirmed Problem Chronic kidney disease due to benign hypertension (388185716546834) Hypertensive chronic kidney disease (I12.9) Active confirmed Problem History of left knee replacement (1414684243089964) History of left knee replacement (Z96.652) Active confirmed Problem Monoclonal paraproteinemia (827525368) 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) Active confirmed Problem Primary hypertension (35299168) Primary hypertension (I10) Active confirmed Problem Body mass index 40+ - morbidly obese (489525988) BMI 40.0-44.9, adult (Z68.41) Active confirmed Problem Chronic sinusitis (64433784) Recurrent sinus infections (J32.9) Active confirmed Problem Anemia co-occurrent and due to chronic kidney disease (023046590) History of anemia due to CKD (Z86.2) Active confirmed Problem Chronic sinusitis (66196511) Chronic sinusitis, unspecified location (J32.9) Active confirmed Problem Dysphagia (65115375) Dysphagia, unspecified type (R13.10) Active confirmed Problem Chronic frontal sinusitis (56639172) Frontal sinusitis, unspecified chronicity (J32.1) Active confirmed Problem Chronic kidney disease due to hypertension (917463062098401) Hypertension, renal, stage 1-4 or unspecified chronic kidney disease (I12.9) Active confirmed Problem 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 Problem 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 (439602197) 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) Active confirmed Problem Cognitive dysfunction (011224955) Cognitive dysfunction (F09) Active confirmed Problem Sciatic nerve lesion (407055032) Piriformis syndrome, left (G57.02) Active confirmed Problem Chronic kidney disease stage 2 (377335986) Stage 2 chronic kidney disease (N18.2) Active confirmed Problem Renal bone disease (62027719) 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) Active confirmed Problem Sciatic nerve lesion (701998515) Piriformis syndrome of both sides (G57.03) Active confirmed Problem Chronic kidney disease stage 3 (disorder) (285272591) Stage 3 chronic kidney disease, unspecified whether stage 3a or 3b CKD (N18.30) Active confirmed Problem Chronic kidney disease stage 3B (disorder) (088123259) Chronic Kidney Disease, Stage 3b (N18.32) Active confirmed Problem Hx of metal allergy (Z91.09) Active confirmed Problem Chronic kidney disease stage 3B (disorder) (238059939) Stage 3b chronic kidney disease (CKD) (N18.32) Active confirmed Encounters Encounter Location Date Provider Diagnosis [facility] [address] [address] 08/24/2024 [facility] [address] [address] 09/03/2024 [facility] [address] [place] [address] 09/06/2024 [facility] [address] [address] 10/15/2024 Galileo Alarcon Plan Of Treatment Pending Test Test Name Order Date CMP [...] 09/22/2020 PATIENT CONSENT,CTG 02/06/2024 BONE MARROW ASPIRATE, [id number] 02/06/2024 CHROMOSOME ANALYSIS 02/06/2024 FISH REVIEW 02/06/2024 FISH,CYTOGENETICS 02/06/2024 CHROMOSOME REVIEW 02/06/2024 Immunofixation(Immunoelectrophoresis),Se rum,REF 1 [facility] 12/06/2023 Protein Electrophoresis,Serum,REF 1 [facility] 12/06/2023 Reflexed PE2(S Prot Elect) Review,REF 1 [facility] 12/06/2023 Reflexed SIF(S Immunofix) Review,REF 1 [facility] 12/06/2023 Spirometry 06/30/2023 [place]-Lambda Free Light Chain w/Ratio,RE F 1 UR 12/06/2023 US Renal 06/01/2022 Future Test Test [...] End Date MEDICARE BLUE PPO [address] [address] [place]NEP [phone] 1 [phone] [id number] ELLEN BEARD Self - patient is the insured 4 Medications Administered Medication Instructions Date of Administration Dosage Notes Cyanocobalamin 02/03/2024 1000 ug Cyanocobalamin 02/23/2024 1000 ug Cyanocobalamin 05/04/2024 1000 ug Medical (General) History Medical History History ICD Code Armando allergy [...] of kidney LT total knee replacement -- Josh T10-S1 posterior spinal fusion (miguel yamel tanner and replacement) 09/16 Bilateral glaucoma procedures 2014 L-[address] Verdin 02/06/14 L4-L5 cage and rods 09/04/12 Right TKR 09/27/2011 Hysterectomy LAVH-BSO with TVT. Benign p athology 08/2010 D&C 2008 extraction 4 wisdom teeth 1971 Hospitalization History Reason Date(Month/Year) surgeries
== END 2025-08-16 12:56 | disposition home or self-care (01) ==
LOC: HO.US 12:55
PROVIDERS: PCP Nurse Practitioner Family; Visit Provider Internal Medicine Hypertension Specialist
DX: I12.9 Hypertensive chronic kidney disease with stage 1 through stage 4 chronic kidney disease, or unspecified chronic kidney disease (principal); N18.31 Chronic kidney disease, stage 3a; N17.9 Acute kidney failure, unspecified; R73.03 Prediabetes; E78.2 Mixed hyperlipidemia; Z80.0 Family history of malignant neoplasm of digestive organs
CPT/HCPCS: 36415; 76775; 80061; 81001; 81003; 83036; 84439; 84443; 84630; 86301; 87086

== ENCOUNTER → 2025-08-16 13:01 | Outpatient (BNV) | payer MEDICARE, SELFPAY | PROVIDERS: PCP Nurse Practitioner Family; Visit Provider Radiology Diagnostic Radiology | DX: N17.9 Acute kidney failure, unspecified (principal); I10 Essential (primary) hypertension | CPT/HCPCS: 76775 ==

== ENCOUNTER 2025-08-19 11:13 | Outpatient (AMB) | payer BC, SELFPAY ==
[2025-08-19 11:18] VITALS: BP 192/90; PULSE 101; O2SAT 97; BMI 45.3
--- NOTE | 2025-08-19 11:18 | HO.NEPHOV ---
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 Accompanied by: Spouse Allergies codeine Allergy (Severe, Verified 08/19/25 11:21) Hives nickel Allergy (Severe, Verified 08/19/25 11:21) Hives adhesive tape Allergy (Intermediate, Verified 08/19/25 11:21) Rash Sulfa (Sulfonamide Antibiotics) Adverse Reaction (Severe, Verified 08/19/25 11:21) Hives diphenhydramine Adverse Reaction (Intermediate, Verified 08/19/25 11:21) Palpitations eye drops for galucoma Allergy (Severe, Uncoded 07/12/25 13:07) Dry Eye Medication List - Last Reconciled 08/19/25 by Leonel Calloway MD amlodipine (Norvasc) 5 mg PO DAILY betamethasone dipropionate 0.05% 1 appl topical BID PRN clonazepam 0.5 mg PO TID 28 days CPAP (CPAP Machine/Device) As directed cyclobenzaprine 10 mg PO TID ergocalciferol (vitamin D2) 1,250 mcg PO QWEEK hydroxyzine HCl 25 - 50 mg (1 - 2 x 25 mg) PO QID 90 days ipratropium-albuterol 20-100 mcg/actuation (Combivent Respimat) 1 puff inhalation Q6H krill oil PO DAILY magnesium glycinate PO DAILY naloxone 4 mg/actuation (Narcan) 4 mg intranasal Q3M PRN oxycodone 5 mg PO TID 28 days pregabalin 75 mg PO BID sertraline 150 mg PO DAILY torsemide 30 mg PO DAILY PRN vitamins A,C,L-lseq-bxbwze 4,296 mcg-226 mg-90 mg (PreserVision AREDS) 1 cap PO BID zinc sulfate 50 mg PO Q OTHER DAY HPI Comments Details: The patient is a 70-year-old female referred for CKD. She reports a history of chronic kidney disease, with a recent decline in kidney function noted in blood tests. A kidney biopsy performed two years ago in [place], suggested hypertension as a contributing factor to her kidney issues. The patient has a history of hypertension, which has been managed with ramipril for the past five years. She initially started with one pill, but due to rising blood pressure, her dosage was increased to 10 mg twice daily. The patient also uses torsemide as needed for fluid retention, which she feels is less necessary since starting lymphedema therapy. The patient has lymphedema, which she manages with a pneumatic compression device that helps reduce fluid retention. This condition is thought to be related to her nickel allergy, as she has had multiple surgeries involving titanium implants strengthened with nickel. The patient has a nickel allergy, confirmed by high nickel levels in tests conducted at a specialized hospital. She experiences skin lesions and uses hydroxyzine to manage itching associated with the allergy. The patient has a history of glaucoma, which is currently well-managed with intraocular pressure readings of 10 and 12. She has undergone multiple eye surgeries, including cataract surgery, to address her condition. Of note she has been taking Advil on a regular basis. Last dose was 4 days ago. 07/04/25 - The patient is a 70-year-old female presenting with chronic kidney disease and hypertension. - Chronic Kidney Disease: Kidney function improved from 31% to 45% after lowering ramipril from 10 mg b.i.d. down to once a day - Ankle Swelling: Chronic since childhood, managed with lymphedema sleeve. She has been taking torsemide at night 08/19/25 The patient is a 70-year-old female presenting with chronic kidney disease and hypertension. Chronic kidney disease has been a concern, with recent lab results showing improvement in kidney function, as indicated by a decrease in creatinine levels from 1.6 to 1.1. The patient was previously on ramipril, which has been discontinued, and is currently taking amlodipine. Hypertension has been managed with amlodipine, but recent blood pressure readings have been elevated, with systolic values reaching up to 192 mmHg. The patient reports shortness of breath with activity and has been using a CPAP machine for sleep apnea. The patient also experiences edema, particularly in the feet, which worsens at night. Torsemide is taken as needed to manage this condition. [facility] Medical History (Updated 07/16/25 @ 08:41 by Josie Molina NP) TIAN (acute kidney injury) Migraines Hypertension Anxiety Sleep apnea Low kidney function Normal pressure glaucoma Umbilical hernia Surgical History H/O eye surgery H/O: hysterectomy Previous back surgery H/O knee surgery Family History Brother Cancer Pancreas cancer Father Cancer Hypertension Cardiovascular disease Stented coronary artery Mother Stroke Thyroid disorder Pacemaker Cardiovascular disease Paternal Grandmother Stroke Social History Household Members: Spouse Both parents involved: No Caregiver staying overnight: No Housing: Apartment Are you a primary child care nurse to a significant other at home: No Do you presently have visiting nurse or other home services: No 75 years or older and lives alone: No Alcohol intake: never Patient Tobacco Use Status: Never used Tobacco e-Cigarette/Vaping Use: Never Used Second Hand Smoke Exposure: No service: No Current occupational status: retired and disabled Cognitive needs: Yes (mild dementia) Hearing needs: No Vision needs: Yes (wear glasses) Physical Exam Vital Signs: Last Vital Signs Pulse 101 H 08/19/25 11:18 BP 160/82 H 08/19/25 11:37 Pulse Ox 97 08/19/25 11:18 Oxygen Delivery Method Room Air 08/19/25 11:18 BMI result Body Mass Index 45.3 Const General: comfortable Nutritional Appearance: well nourished Orientation/consciousness: patient oriented x3 HEENT Head: No normal to inspection Mouth: moist mucous membranes Neck Neck: Yes supple and Yes no JVD Resp Auscultation: clear to auscultation bilaterally and no rales Cardio Jugular venous distension: no JVD Palpation: no palpable S3 and no palpable S4 Heart sounds: no rubs GI Palpation (GI): Soft to palpation and nontender Percussion: No Fluid wave present General: Yes no CVA tenderness Back/Spine/Pelvis Back: no CVA tenderness Skin General skin exam: no rashes or lesions noted Neuro General: patient oriented x3 Extrem General: Yes no pedal edema and No clubbing Results Reviewed Nephrology Results: Hgb, (12.0-16.0) 13.9 g/dl 07/02/25 WBC, (4.8-10.8) 5.4 X10*3/uL 07/02/25 Plt Count, (160-400) 288 X10*3/uL Δ 07/02/25 Sodium, (135-145) 138 mmol/L 07/02/25 Potassium, (3.3-5.1) 3.7 mmol/L 07/02/25 Chloride, (96-108) 104 mmol/L 07/02/25 Carbon Dioxide, (22-29) 27 mmol/L 07/02/25 BUN, (9-16) 19 mg/dL H 07/02/25 Creatinine, (0.5-1.4) 1.19 mg/dL 07/02/25 Calcium, (8.4-10.2) 9.9 mg/dL 07/02/25 Urine Protein, (Neg-Trace) Trace mg/dL 08/16/25 Urine Creatinine 34.92 mg/dL 07/02/25 Renal US 08/16/25 Assessment & Plan Assessment & Plan (1) Hypertension: Code(s): I10 - Essential (primary) hypertension Category: Medical Qualifiers: Hypertension type: primary hypertension Qualified Code(s): I10 - Essential (primary) hypertension (2) CKD (chronic kidney disease) stage 3, GFR 30-59 ml/min: Code(s): N18.30 - Chronic kidney disease, stage 3 unspecified Category: Medical Qualifiers: Chronic kidney disease stage 3 subtype: stage 3a (GFR 45-59) Qualified Code(s): N18.31 - Chronic kidney disease, stage 3a Plan DD has CKD 3 in the setting of longstanding hypertension and obesity. Renal function continues to improve after lowering ramipril. Baseline creatinine is unknown at this time. She has sustained acute kidney injury few weeks ago. - due to hypoperfusion. This could be from the combination of NSAIDs and BRITTNEE inhibitors. Other possibilities including obstructive uropathy should be considered - although seems unlikely at this point. Nevertheless revealed complete ultrasonogram as ordered No evidence of glomerular nephritis or interstitial disease We discontinued ramipril and started amlodipine 5 mg once a day. BP sub optimal Add Spironolactone 12.5 mg QD Can increase to 25 mg QD based on BP Keep SBP < 140 She should take torsemide in the morning rather than in the evening Avoid NSAIDs. Stay on low-sodium diet and increase p.o. fluid intake. Orders: Orders Basic Metabolic Panel 1 Week I10 - Essential (primary) hypertension, N18.31 - Chronic kidney disease, stage 3a Basic Metabolic Panel 7 Weeks I10 - Essential (primary) hypertension, N18.31 - Chronic kidney disease, stage 3a Medications: New spironolactone 12.5 mg (1/2 x 25 mg) PO DAILY 30 tabs 2RF Coding Level of Care Code Est Pt Level 4 (84681) Diagnoses Primary hypertension I10 Hypertension type: primary hypertension Stage 3a chronic kidney disease N18.31 Chronic kidney disease stage 3 subtype: stage 3a (GFR 45-59)
[2025-08-19 11:37] VITALS: BP 160/82
== END 2025-08-19 11:42 | disposition home or self-care (01) ==
LOC: HO.HKA 11:14
PROVIDERS: PCP Nurse Practitioner Family; Visit Provider Internal Medicine Hypertension Specialist
DX: I10 Essential (primary) hypertension (principal); N18.31 Chronic kidney disease, stage 3a
CPT/HCPCS: 99214

== ENCOUNTER 2025-08-26 14:20 | Outpatient (REF) | payer BC, SELFPAY ==
[2025-08-26 19:11] LABS: Anion Gap 10 (12-20); Blood Urea Nitrogen 24 mg/dL (9-16); Calcium 10.3 mg/dL (8.4-10.2); Carbon Dioxide 27 mmol/L (22-29); Chloride 104 mmol/L (96-108); Estimated Glomerular Filt Rate 37; Potassium 4.0 mmol/L (3.3-5.1); Sodium 137 mmol/L (135-145)
== END 2025-08-26 14:21 | disposition home or self-care (01) ==
LOC: HO.WFDLDS 14:20
PROVIDERS: Visit Provider Internal Medicine Hypertension Specialist
DX: I12.9 Hypertensive chronic kidney disease with stage 1 through stage 4 chronic kidney disease, or unspecified chronic kidney disease (principal); N18.31 Chronic kidney disease, stage 3a; N17.9 Acute kidney failure, unspecified
CPT/HCPCS: 36415; 80048

== ENCOUNTER 2025-08-28 10:32 | Outpatient (REF) | payer BC, SELFPAY ==
--- NOTE | ~2025-08-28 | FL_ITS ---
EXAMINATION: XR FLUOROSCOPY CLINICAL INFORMATION: Disorders of Diaphragm ; sniff test to rule out diaphragmatic paralysis. COMPARISON: No prior. Correlation made with chest radiograph 05/22/2025. TECHNIQUE: Under fluoroscopic visualization, the diaphragms were visualized via a sniff test performed using standard technique. FINDINGS: There is elevation of the right hemidiaphragm as seen on the prior examination. During inspiration, both hemidiaphragms move inferiorly without paradoxical motion. During expiration, both hemidiaphragms moved superiorly without paradoxical motion. During sniffing, both hemidiaphragms move inferiorly, symmetrically, without evidence of paresis or paralysis. Incidentally noted is fusion hardware in the thoracolumbar spine. FLUOROSCOPY TIME: 26 seconds 3 fluoroscopic cine runs were obtained. DOSE AREA PRODUCT: 785.9 uGy-m2 (microgray-meter squared) FL/FL fluoroscopy <1hr IMPRESSION: 1. No evidence of diaphragmatic paresis or paralysis. 2. Elevation of the right hemidiaphragm, similar to chest radiograph 05/22/2025. Electronically signed by: Brooks Dawson MD 08/28/2025 02:19 PM [email or web address]
[2025-08-28 10:56] LABS: Appearance Urine Clear; Glucose Urine UA Negative (Negative); PH 6.0 (5.0-9.0); Specific Gravity - Urine 1.010 (1.005-1.025)
== END 2025-08-28 10:33 | disposition home or self-care (01) ==
LOC: HO.XRAY 10:32
PROVIDERS: PCP Nurse Practitioner Family; Visit Provider Nurse Practitioner Family
DX: J98.6 Disorders of diaphragm (principal); R30.0 Dysuria; N18.31 Chronic kidney disease, stage 3a; N17.9 Acute kidney failure, unspecified
CPT/HCPCS: 76000; 81003

== ENCOUNTER → 2025-08-28 11:25 | Outpatient (BNV) | payer BC, SELFPAY | PROVIDERS: PCP Nurse Practitioner Family; Visit Provider Radiology Diagnostic Radiology | DX: J98.6 Disorders of diaphragm (principal) | CPT/HCPCS: 76000 ==

== ENCOUNTER 2025-09-13 11:08 | Outpatient (AMB) | payer MEDICARE, SELFPAY ==
--- NOTE | 2025-09-13 11:15 | MHC.PC.OV ---
Vital Signs 09/13/25 11:29 Height 5 ft 5 in Weight 266 lb 4 oz BMI 44.3 BP 142/80 H Blood Pressure Location Lt brachial Position Sitting Respiration 14 Pulse 74 Pulse Source Pulse Oximeter Temp 97.6 F Temp Source Oral Pulse Oximetry (%) 94 Oxygen Delivery Method Room Air Intake Visit Reasons: 8 weeks 30 min complex fu labs Intake Note: Follow up to review labs. Patient c/o sob, oxygen levels has been low into 80 percent, and bp has been high also her bp meds has been change. Meeting Facilitator Required: No Allergies codeine Allergy (Severe, Verified 09/13/25 11:16) Hives nickel Allergy (Severe, Verified 09/13/25 11:16) Hives adhesive tape Allergy (Intermediate, Verified 09/13/25 11:16) Rash Sulfa (Sulfonamide Antibiotics) Adverse Reaction (Severe, Verified 09/13/25 11:16) Hives diphenhydramine Adverse Reaction (Intermediate, Verified 09/13/25 11:16) Palpitations eye drops for galucoma Allergy (Severe, Uncoded 09/13/25 11:16) Dry Eye Medication List - Last Reconciled 09/13/25 by Isadora Michael, HORIZONTAL RESAW OPERATOR- amlodipine (Norvasc) 5 mg PO DAILY betamethasone dipropionate 0.05% 1 appl topical BID PRN clonazepam 0.5 mg PO TID 28 days CPAP (CPAP Machine/Device) As directed cyclobenzaprine 10 mg PO TID ergocalciferol (vitamin D2) 1,250 mcg PO QWEEK hydroxyzine HCl 25 - 50 mg (1 - 2 x 25 mg) PO QID 90 days ipratropium-albuterol 20-100 mcg/actuation (Combivent Respimat) 1 puff inhalation Q6H krill oil PO DAILY magnesium glycinate PO DAILY naloxone 4 mg/actuation (Narcan) 4 mg intranasal Q3M PRN oxycodone 5 mg PO TID 28 days pregabalin 75 mg PO BID sertraline 150 mg (1.5 x 100 mg) PO DAILY 90 days spironolactone 12.5 mg (1/2 x 25 mg) PO DAILY torsemide 30 mg PO DAILY PRN vitamins A,C,F-dwry-bidjmf 4,296 mcg-226 mg-90 mg (PreserVision AREDS) 1 cap PO BID zinc sulfate 50 mg PO Q OTHER DAY Tobacco use date assessed: 09/13/25 Fall risk assessment: 1 Fall in past year (slight tumble taking sweater off) Last assessed Fall Risk: 09/13/25 Dental Screening Dental Screen Date: 09/13/25 Did you have a dental visit in the last 12 months?: Yes Did you have a dental problem in the last 6 months where you did not have access to dental care?: No Was dental information given to patient?: Patient has dentist HPI HPI Comments History of Present Illness Details 70 y/o F with obesity, SKYLAR on CPAP, tinnitus, CKD 3a, generalized anxiety disorder, hypertension, migraine headaches, normal pressure glaucoma, chronic pain, hx of esophageal stricture, prediabetes, gERD, PVD, osteopenia Social: to [place], lives w/ dtr. Retired.Walks w/ walker Health Maintenance Colon age 65 repeat 10 years 01/2025 [employer] (WHO) criteria, the diagnosis is consistent with osteopenia. on ca+D, repeat in 2 years 01/2025 mammo wnl Pap NA Vaccines: Tdap 2024, Will investigate Pneumococcal; Flu 2023 will get high dose and COVID at pharmacy Specialists: Audio Renal appt 07/2025 note reviewed. Optho appt April 2025 [facility] CPAP supplier [facility] Vascular, lymphedema clinic Pulm: 01/2025 Pulm consult, check PFT, ? repeat sleep study, cont CPAP, CXR Chiro History of Present Illness The patient is a 70 year old female presenting with a complex disease management visit. Chronic Pain Syndrome: - The patient is on chronic opiate therapy for chronic pain and is compliant with her contract. Here today for provider monitoring for Oxycodone which is being prescribed for chronic back pain. Today during the visit the following was reviewed: Screened for risk of opioid misuse using a validated screening tool. Receive, review, and sign an approved HMG Agreement and Informed Consent for Receiving Controlled Substances, which should be stored in the EMR. 11/16/24 Non-pharmacologic and non-opioid pharmacologic options should be used as a first line for chronic pain unless otherwise contraindicated & in conjunction with Reviewed side effects and discuss the risks of addiction and overdose with all patients on chronic opioid therapy. Counseled patient regarding safe storage and disposal of medications. Prescribing intranasal naloxone (Narcan) rescue kits to patients if appropriate. Prescriptions should be limited to 28-day supplies unless mandated otherwise by insurance. Renewals should not be given on evenings, holidays, or weekends. Regular clinical reassessment of pain, functional goals, treatment plan, and adherence. Understand that pill counts and/or random toxicology screens (minimum yearly) are all part of a standard HMG protocol for care. More frequent monitoring is appropriate for monitoring of symptoms or concerns of misuse. Irregular findings should be addressed with the patient and documented in the EMR with the appropriate clinical and/or administrative response. Signs of misuse: N METAL SMELTER reviewed: Y Contract up to date: 11/16/24 Random pill count done: Y UTox done: NA Next appt: 12 weeks Sleep Apnea: - The patient uses a CPAP machine and monitors her oxygen saturation with an oximeter in the morning. - She has been experiencing desaturations into the 80s for long periods, and there are delays with [facility] in obtaining a new CPAP machine and supplemental oxygen. - Her current CPAP machine is old and not providing adequate pressure. - She often falls asleep in her chair without the CPAP machine on. Intertrigo: - The patient is experiencing a recurrent, severe flare-up of a rash under her left breast. - She has been using betamethasone lotion, natural soap, and various powders, which have provided only minimal help. - Last week, she used a triple antibiotic cream which seemed to help initially. - The issue has been ongoing for several years but has recently become more severe. Hypertension: - The patient reports her blood pressure has been very high, recently coming down to 160s from the 190s. - Dr. Huitron added spironolactone 12.5 mg to her regimen. - She was previously on an BRITTNEE inhibitor which was beneficial for blood pressure but was stopped due to adverse effects on her kidney function. Chronic Kidney Disease: - Her creatinine increased from 1.19 to 1.401, and her GFR dropped from 45 to 37 on recent labs from 08/26. - She had a similar decline in kidney function over the summer when she was ill and in pain. REnal note 08/2025 Add Spironolactone 12.5 mg QD Can increase to 25 mg QD based on BP Keep SBP < 140 She should take torsemide in the morning rather than in the evening HLD LDL improving OFF citrus bergamot; does not want a statin A1c 5.9% in prediabetic range Sore Throat: - The patient reports a sore throat and production of viscous, yellow phlegm for the past two weeks. Past Medical History - Chronic neck issues managed with primary care provider since 1981. - Family history of pancreatic cancer. Ca 19-9 25 (naif) Review of Systems - General: Denies fever. Reports feeling like she is going down due to breathing issues. - Respiratory: Reports recent onset of huffing and puffing with walking, snoring even with CPAP, and coughing up viscous yellow phlegm for two weeks. - HEENT: Reports a sore throat for two weeks, dry mouth, and chronic tinnitus. Denies ear pain. - Integumentary: Reports a cyclical, severe skin rash under the breasts, currently in a flare-up. Reports a minor flare-up of a rash on her leg. Reports chronic itching managed with hydroxyzine. - Neurological: Reports headaches associated with very high blood pressure. - Musculoskeletal: Reports intermittent neck issues requiring assistance. Exam: Awake alert chronically ill appearing, NAD, accompanied by , Sherin Sclera and conjunctiva clear bilat TM intact and clear bilat Nares patent, scant discharge, no sinus TTP Pharynx with thick white plaque, MM dry, glossitis RRR LS CTAB, dim throughout BLE nonpitting edema, chronic vascular appearing discoloration with sores w/o infection, which are much improved from previous, decrease DP bilat, hairless. Fungal rash under bilat breasts worse on L Walks w walker Alert to person and place, forget details, repeats self, takes notes, very pleasant Results - Labs (08/26): Creatinine 1.401 (previously 1.19), GFR 37 (previously 45). - Labs (08/16): A1c 5.9%, LDL 136 (previously 177), TSH 5.04. - Labs (Date not specified): Pancreatic cancer marker (CA 19-9) 25 (normal <34). - Urinalysis (08/28): Normal. Medical Decision Making The patient is a 70-year-old female with multiple complex chronic conditions including sleep apnea with hypoxia, uncontrolled hypertension, chronic kidney disease, recurrent intertrigo, and new-onset oral candidiasis. The significant worsening of her left inframammary rash, despite trials of betamethasone and other topical agents, warrants treatment for a fungal component, hence the prescription for topical nystatin. Prophylactic management with Interdry AG fabric is recommended to prevent recurrence by managing moisture. The patient's report of a two-week sore throat and the physical exam finding of a large fungal plaque in the oropharynx confirms a diagnosis of oral candidiasis (thrush). This is likely exacerbated by her dry mouth and sleeping with her mouth open. Treatment with oral nystatin suspension is indicated. Her blood pressure remains significantly elevated, with recent readings in the 160s-190s, despite the addition of spironolactone 12.5 mg. Considering this, and Dr. Calloway's prior instruction, it is appropriate to increase her spironolactone to the full 25 mg dose daily. The decline in her renal function (GFR drop from 45 to 37) is concerning and may be multifactorial, potentially related to her poorly controlled hypertension. Immunization status was reviewed; she is up-to-date on flu and COVID vaccines and is believed to have completed the pneumococcal series. The RSV vaccine is not recommended at this time due to reports of adverse outcomes in the elderly population. Lab results showed improvement in LDL cholesterol despite stopping citrus bergamot, stable subclinical hypothyroidism (TSH 5.04), and a normal pancreatic cancer screening marker (CA 19-9), which will be monitored annually. Plan 1. Hypertension - The patient's blood pressure remains elevated, with readings up to the 190s recently, despite being on spironolactone 12.5mg. - Per prior guidance from her flash ranging crewmember, Dr. Velasco, the spironolactone dose will be increased to 25 mg once daily, starting tomorrow. - A new prescription for spironolactone 25 mg will be sent to the pharmacy. - A message was sent to Dr. Huitron to inform him of the medication change and the recent lab results. - The patient will follow up with Dr. Velasco on October 14. 2. Intertrigo - Examination reveals a severe rash under the left breast consistent with intertrigo, which has been recurrent and is currently flaring. - Nystatin cream will be prescribed for application three times per day to the affected area. - The patient should temporarily stop using betamethasone cream. - It is recommended that the patient purchase Interdry AG, a silver moisture-wicking fabric, to use daily under the breast to prevent future occurrences. This can be purchased from [employer] or [employer]. - Once the rash has cleared, she should discontinue the creams and use only the Interdry sheets. 3. Oral Candidiasis - The patient's sore throat is attributed to a large fungal plaque seen on the posterior pharynx upon examination. - Nystatin oral suspension, 5 mL three times daily for 14 days, is prescribed. - The patient is instructed to swish, gargle, and swallow the medication and to avoid eating or drinking for 30 minutes afterward. - She may mix the dose with a small amount of water to make gargling easier. 4. Sleep Apnea - The patient continues to experience significant oxygen desaturations into the 80s and is awaiting a new CPAP machine and supplemental oxygen from [facility]. - The plan is to start oxygen at 2 liters and titrate up as needed once the equipment is received. - The patient will follow up with Josie on October 18. 5. Health Maintenance - Immunizations are up to date, including flu and COVID-19 shots from August 08. The RSV vaccine is not recommended at this time due to concerns about adverse effects in older adults. - Labs were reviewed: A1c remains in the prediabetic range at 5.9%. LDL has improved to 136. TSH is stable at 5.04 and will continue to be monitored without treatment unless it exceeds 10. - Annual pancreatic cancer screening with CA 19-9 was normal at 25. - A referral to Dr. Solitario Sy (neuro/chiro) placed on 07/05 is still active; the patient will call his office to schedule for management of her chronic neck issues. - Follow-up in three months is recommended. Patient Instructions - Starting tomorrow, take one whole tablet of your spironolactone 25 mg medication for blood pressure every day. - For the rash under your breast, apply the nystatin cream three times a day. Stop using the betamethasone cream for now. - It is recommended you buy a product called Interdry AG, which is a special fabric liner. You can find it at [employer] or on [employer]. Cut a piece to fit and place it under your breast every day to help keep the area dry and prevent the rash from coming back. - Once the rash is completely gone, you can stop using the creams and just use the Interdry liner. - For your sore throat, you have been prescribed a liquid medicine called nystatin. Take 5 mL (one teaspoon) three times a day for 14 days. Swish it around in your mouth, gargle with it, and then swallow. Do not eat or drink anything for 30 minutes after taking it. - You do not need any more vaccinations this year. - Please let me know through the patient portal if you need any medication refills. - You have an active referral for Dr. Solitario Sy. Please call his office to schedule an appointment for your neck. - Continue to follow up with your specialists as scheduled: Dr. Velasco on Oct 14 and Josie on Oct 18. - Plan to follow up here in the office in about three months. Consent Patient was informed and verbally consented to the use of an ambient scribe for clinic note documentation during this visit. Total time spent caring for the patient today was 69 minutes. This includes time spent before the visit reviewing the chart, time spent during the visit, and time spent after the visit on documentation, reviewing laboratory results, diagnostic imaging, medications, performing a medically necessary evaluation, counseling on diagnoses, care coordination, ordering appropriate tests, ordering appropriate medications, review of tests performed by other providers, reporting test results with the patient, communication with other healthcare providers. [facility] Medical History (Updated 09/13/25 @ 12:32 by Isadora Michael [facility]) TIAN (acute kidney injury) Anxiety Hypertension Low kidney function Migraines Normal pressure glaucoma Sleep apnea Umbilical hernia Surgical History H/O eye surgery H/O: hysterectomy Previous back surgery H/O knee surgery Family History Brother Cancer Pancreas cancer Father Cancer Hypertension Cardiovascular disease Stented coronary artery Mother Stroke Thyroid disorder Pacemaker Cardiovascular disease Paternal Grandmother Stroke Social History Household Members: Spouse Both parents involved: No Caregiver staying overnight: No Housing: Apartment Are you a primary director of healthcare systems to a significant other at home: No Do you presently have visiting nurse or other home services: No 75 years or older and lives alone: No Alcohol intake: never Patient Tobacco Use Status: Never used Tobacco e-Cigarette/Vaping Use: Never Used Second Hand Smoke Exposure: No service: No Current occupational status: retired and disabled Cognitive needs: Yes (mild dementia) Hearing needs: No Vision needs: Yes (wear glasses) Questionnaire PHQ-9 Over the last 2 weeks, how often have you been bothered by any of the following problems? 1. Little interest or pleasure in doing things: not at all 2. Feeling down, depressed, or hopeless: not at all 3. Trouble falling or staying asleep, or sleeping too much: not at all 4. Feeling tired or having little energy: not at all 5. Poor appetite or overeating: not at all 6. Feeling bad about yourself - or that you are a failure or have let yourself or your family down: not at all 7. Trouble concentrating on things, such as reading the newspaper or watching television: not at all 8. Moving or speaking so slowly that other people could have noticed. Or the opposite - being so fidgety or restless that you have been moving around a lot more than usual: not at all 9. Thoughts that you would be better off or of hurting yourself in some way: not at all Total score: 0 Depression Screening Interpretation: Negative Depression Screening Done: Yes 74916 - PHQ-9 Billing: Yes Source: Developed by Drs. Rich Matthew, Mackenzie De La Garza, Chalo Landon and colleagues, with an educational mick from [employer]. Thrive Questionnaire Date Thrive assessed: 09/13/25 I am a: Patient What is your living situation today?: I have a steady place to live Within the past 12 months, did the food you bought not last and you didn't have the money to get more?: Never true Within the past 12 months, did you worry whether your food would run out before you got money to buy more?: Never true Do you have trouble paying for medicines?: No Do you have trouble getting transportation to medical appointments?: No Do you have trouble paying your heating and electricity bill?: No Do you have trouble taking care of your child, family member or friend?: No Do you have trouble with day-to-day activities such as bathing, preparing meals, shopping, managing finances, etc.?: Yes Are you currently unemployed and looking for a job?: No Are you interested in more education?: No Please select the resources that you would like help with: Care for elder or disabled Currently or been in a relationship where the following occur: No concerns reported THRIVE Score: 0 SAMARA-7 AMB Questionnaire SAMARA-7 Date SAMARA - 7 assessed: 09/13/25 Feeling nervous, anxious, or on edge: 0 = Not at all Not being able to stop or control worryin = Not at all Worrying too much about different things: 0 = Not at all Trouble relaxin = Not at all Being so restless that it is hard to sit still: 0 = Not at all Becoming easily annoyed or irritable: 0 = Not at all Feeling afraid as if something awful might happen: 0 = Not at all Total SAMARA-7 score (0-4 normal; 5-9 mild; 10-14 moderate; 15-21 severe): 0 Source: Developed by Drs. Rich Matthew, Mackenzie De La Garza, Chalo Landon and colleagues, with an educational mick from [employer]. SAMARA-7 Assessment Billing SAMARA-7 Assessment Tool: SAMARA-7 Assessment 02086 Physical exam (Primary Care) Vital Signs: Last Vital Signs Temp 97.6 F 09/13/25 11:29 Pulse 74 09/13/25 11:29 Resp 14 09/13/25 11:29 BP 142/80 H 09/13/25 11:29 Pulse Ox 94 09/13/25 11:29 Oxygen Delivery Method Room Air 09/13/25 11:29 BMI result Body Mass Index 44.3 Tobacco/Smoking Status: Tobacco use Status Tobacco use date assessed 09/13/25 09/13/25 11:18 Patient Tobacco Use Status Never used Tobacco 09/13/25 11:15 e-Cigarette/Vaping Use Never Used 09/13/25 11:15 PHQ-9: PHQ-9 Score PHQ-9: Total score 0 09/13/25 11:15 Depression Screening Interpretation: Negative Thrive Assessment: Date of Thrive Assessment Date Thrive assessed 09/13/25 09/13/25 11:15 Currently or been in a relationship where the following occur: No concerns reported Results Reviewed Results Reviewed: Laboratory 08/16/25 Result Units Range Interpretation Provider Comments Estimated Average Glucose 123 mg/dL Hemoglobin A1c Percent 5.9 % (<6.0) Triglycerides Level 132 mg/dL (<150) Cholesterol Level 215 mg/dL (<200) High LDL Cholesterol, Calculated 136 mg/dL (<100) High HDL Cholesterol 53 mg/dL (>40) CA 19-9 Antigen 25 U/mL (<34) Thyroid Stimulating Hormone (TSH) 5.04 uIU/mL (0.32-4.0) High Free Thyroxine 0.98 ng/dL (0.71-1.85) Urine Color Yellow Urine Appearance Clear Urine pH 5.5 (5.0-9.0) Urine Specific [place] 1.010 (1.005-1.025) Urine Protein Trace mg/dL (Neg-Trace) Urine Glucose (UA) Negative mg/dL (Negative) Urine Ketones Negative mg/dL (Negative) Urine Blood Negative (Negative) Urine Nitrite Negative (Negative) Urine Leukocyte Esterase Moderate (2+) (Negative) High Urine RBC 0-2 /HPF (0-2) Urine WBC 11-20 /HPF (0-5) High Urine Squamous Epithelial Cells 0-2 /HPF (0-2) Urine Bacteria None Seen (None Seen) Urine Hyaline Casts 3-5 /LPF (0-2) Microbiology Provider Comments Urine Culture - Final Laboratory Result Units Range Interpretation Provider Comments Zinc Level 84 mcg/dL (60-130) 08/26/25 bun 24, Cr 1.41, egfr 37, Ca 10.3, 08/28/25 UA negative Coding Level of Care Code Est Pt Level 5 (31446) Add On Problem Visit Only Diagnoses SKYLAR on CPAP G47.33 Nocturnal hypoxemia G47.34 Oral mackenzie B37.0 Cutaneous candidiasis B37.2 Primary hypertension I10 Hypertension type: primary hypertension Mixed hyperlipidemia E78.2 Hyperlipidemia type: mixed hyperlipidemia Stage 3a chronic kidney disease N18.31 Chronic kidney disease stage 3 subtype: stage 3a (GFR 45-59) Family history of pancreatic cancer Z80.0 Chronic bilateral low back pain with bilateral sciatica M54.42; M54.41; G89.29 Back pain location: low back pain Back pain laterality: bilateral Sciatica presence: with sciatica Sciatica laterality: bilateral sciatica Pain management contract agreement [email or web address] CPT Codes PROLONG OUTPT/OFFICE VIS - G2212 Additional Codes SAMARA-7 Assessment Billing - SAMARA-7 Assessment Tool: SAMARA-7 Assessment 25630 ([id number]) PHQ-9 - 19597 - PHQ-9 Billing: Yes ([id number]) Assessment & Plan Assessment & Plan (1) SKYLAR on CPAP: Comment: managed by [facility] Pulm Code(s): G47.33 - Obstructive sleep apnea (adult) (pediatric) Category: Medical (2) Nocturnal hypoxemia: Comment: 2L 02 managed by Pulm Code(s): G47.34 - Idiopathic sleep related nonobstructive alveolar hypoventilation Category: Medical (3) Oral mackenzie: Code(s): B37.0 - Candidal stomatitis Category: Medical (4) Cutaneous candidiasis: Code(s): B37.2 - Candidiasis of skin and nail Category: Medical (5) Hypertension: Code(s): I10 - Essential (primary) hypertension Category: Medical Qualifiers: Hypertension type: primary hypertension Qualified Code(s): I10 - Essential (primary) hypertension (6) Hyperlipidemia: Code(s): E78.5 - Hyperlipidemia, unspecified Category: Medical Qualifiers: Hyperlipidemia type: mixed hyperlipidemia Qualified Code(s): E78.2 - Mixed hyperlipidemia (7) CKD (chronic kidney disease) stage 3, GFR 30-59 ml/min: Code(s): N18.30 - Chronic kidney disease, stage 3 unspecified Category: Medical Qualifiers: Chronic kidney disease stage 3 subtype: stage 3a (GFR 45-59) Qualified Code(s): N18.31 - Chronic kidney disease, stage 3a (8) Family history of pancreatic cancer: Comment: Brother annual CA 19-9 Code(s): Z80.0 - Family history of malignant neoplasm of digestive organs Category: Medical (9) Chronic back pain: Code(s): M54.9 - Dorsalgia, unspecified; G89.29 - Other chronic pain Category: Medical Qualifiers: Back pain location: low back pain Back pain laterality: bilateral Sciatica presence: with sciatica Sciatica laterality: bilateral sciatica Qualified Code(s): M54.42 - Lumbago with sciatica, left side; M54.41 - Lumbago with sciatica, right side; G89.29 - Other chronic pain (10) Pain management contract agreement: Onset Date: ~11/2024 Code(s): Z02.89 - Encounter for other administrative examinations Category: Medical Plan . Medications: New nystatin apply to affected area 1 appl topical TID 30 grams 12RF 30 days nystatin swish and swallow 5 mL PO TID 210 mL 2RF 14 days Changed From spironolactone 12.5 mg (1/2 x 25 mg) PO DAILY 30 tabs 2RF To spironolactone 25 mg PO DAILY 30 tabs 2RF
[2025-09-13 11:29] VITALS: BP 142/80; PULSE 74; RESP 14; TEMP 36.4; O2SAT 94; BMI 44.3
== END 2025-09-13 12:23 | disposition home or self-care (01) ==
LOC: HO.HMCFM 11:09
PROVIDERS: PCP Nurse Practitioner Family; Visit Provider Nurse Practitioner Family
DX: N18.31 Chronic kidney disease, stage 3a (principal); B37.0 Candidal stomatitis; I10 Essential (primary) hypertension; B37.2 Candidiasis of skin and nail; E78.2 Mixed hyperlipidemia; M54.42 Lumbago with sciatica, left side; M54.41 Lumbago with sciatica, right side; G47.33 Obstructive sleep apnea (adult) (pediatric); Z80.0 Family history of malignant neoplasm of digestive organs

== ENCOUNTER → 2025-09-13 11:08 | Outpatient (BNVA) | payer MEDICARE, SELFPAY | PROVIDERS: PCP Nurse Practitioner Family; Visit Provider Nurse Practitioner Family | DX: Z02.89 Encounter for other administrative examinations (principal); G47.33 Obstructive sleep apnea (adult) (pediatric); G47.34 Idiopathic sleep related nonobstructive alveolar hypoventilation; B37.0 Candidal stomatitis; B37.2 Candidiasis of skin and nail; I10 Essential (primary) hypertension; E78.2 Mixed hyperlipidemia; N18.31 Chronic kidney disease, stage 3a; M54.42 Lumbago with sciatica, left side; M54.41 Lumbago with sciatica, right side; G89.29 Other chronic pain; Z80.0 Family history of malignant neoplasm of digestive organs | CPT/HCPCS: 96127; 99212 ==

== ENCOUNTER 2025-09-23 13:09 | Outpatient (AMB) | payer MEDICARE, SELFPAY ==
--- OUTSIDE RECORDS SUMMARY | 2024-04-30 09:30 | XMS_ITS ---
Author Organization [facility] Physician Tanya العلي Address [address] [facility] 2nd [place] [address] Care Team Providers Care Cans Vacuum Tester Name Role Phone Galileo Alarcon Primary Care Provider Lauren Fragoso [phone] REASON FOR VISIT 4m Social History Sex Assigned At : Social History Observation Description Sex Assigned At Female Encounters Encounter Location Date Provider Diagnosis [place] [facility] [address] [place] [address] 04/30/2024 Lauren Fragoso Plan Of Treatment No Information Progress Notes * ELLEN BEARD DDOB: [birth year] (70 yo F)Acc No.[id number]:04/30/2024 Progress Note Patient: ELLEN PEDROZA Provider: Albert Fragoso MD :1955 A ge:69 Y S ex:Female Date:04/30/2024 Address:[address], [place] Pcp:Galileo Alarcon Subjective: * Chief Complaints: * 4 m * Electronic signature of Brooke Fragoso MD on 09/23/2025 at 04:32 PM EST Sign off status: Pending * Provider: Albert Fragoso MD Date: 0 04/30/2024 Generated for Allani cece/Chioma/eTransmitting on: 1 11/24/2024 04:32 PM EST
--- OUTSIDE RECORDS SUMMARY | 2024-09-18 09:00 | XMS_ITS ---
Author Organization [facility] Physician Tanya العلي Address [address] [facility] 2nd [place] [address] Care Team Providers Care Event Designer Name Role Phone Galileo Alarcon Primary Care Provider [phone] Jimmie Villatoro Unavailable [phone] REASON FOR VISIT 18 MO. F/U Social History Sex Assigned At : Social History Observation Description Sex Assigned At Female Encounters Encounter Location Date Provider Diagnosis [facility] [address] [place], [place] [id number] 09/18/2024 Jimmie Villatoro Plan Of Treatment No Information Progress Notes * ELLEN BEARD DDOB: [birth year] (70 yo F)Acc No.[id number]:09/18/2024 Progress Note Patient: Lazara ELLEN KOHLI Provider: Jackie Villatoro OCCUPATIONAL SAFETY AND HEALTH MANAGER :1955 A ge:69 Y S ex:Female Date:09/18/2024 Address:[address] [place], [place] Pcp:Galileo Alarcon Subjective: * Chief Complaints: * 1 8 MO. F/U * Electronic signature of Chris Villatoro NP on 09/23/2025 at 04:32 PM EST Sign off status: Pending * Provider: Jackie Villatoro OCCUPATIONAL SAFETY AND HEALTH MANAGER Date: 11/19/2023 Generated for Allani cece/Chioma/eTransmitting on: 11/24/2024 04:32 PM EST
--- OUTSIDE RECORDS SUMMARY | 2024-09-24 09:00 | XMS_ITS ---
Author Organization [facility] Physician Tanya العلي Address [address] [facility] 2nd [place] [address] Care Team Providers Care Mold Press Operator Name Role Phone Galileo Alarcon Primary Care Provider Jimmie Villatoro Unavailable [phone] REASON FOR VISIT 18 MONTHS SKYLAR Social History Sex Assigned At : Social History Observation Description Sex Assigned At Female Encounters Encounter Location Date Provider Diagnosis [facility] [address] [place], [place] [phone] 09/24/2024 Jimmie Villatoro Plan Of Treatment No Information Progress Notes * ELLEN BEARD DDOB: [birth year] (70 yo F)Acc No.[id number]:09/24/2024 Progress Note Patient: Lazara ELLEN KOHLI Provider: Jackie Villatoro TELEPHONE REPAIRER :1955 A ge:69 Y S ex:Female Date:09/24/2024 Address:[address] [place], [place] Pcp:Galileo Alarcon Subjective: * Chief Complaints: * 1 8 MONTHS SKYLAR * Electronic signature of Chris Villatoro NP on 09/23/2025 at 04:32 PM EST Sign off status: Pending * Provider: Jackie Villatoro TELEPHONE REPAIRER Date: 11/25/2023 Generated for Printi ng/Faxing/eTransmitting on: 11/24/2024 04:32 PM EST
--- NOTE | 2025-09-23 14:31 | MHC.OFFVIS ---
Intake Visit Reasons: 6 minute Allergies codeine Allergy (Severe, Verified 09/13/25 11:16) Hives nickel Allergy (Severe, Verified 09/13/25 11:16) Hives adhesive tape Allergy (Intermediate, Verified 09/13/25 11:16) Rash Sulfa (Sulfonamide Antibiotics) Adverse Reaction (Severe, Verified 09/13/25 11:16) Hives diphenhydramine Adverse Reaction (Intermediate, Verified 09/13/25 11:16) Palpitations eye drops for galucoma Allergy (Severe, Uncoded 09/13/25 11:16) Dry Eye [facility] Medical History (Updated 09/23/25 @ 14:21 by Josie Molina NP) TIAN (acute kidney injury) Migraines Hypertension Anxiety Sleep apnea Low kidney function Normal pressure glaucoma Umbilical hernia Surgical History H/O eye surgery H/O: hysterectomy Previous back surgery H/O knee surgery Family History Brother Cancer Pancreas cancer Father Cancer Hypertension Cardiovascular disease Stented coronary artery Mother Stroke Thyroid disorder Pacemaker Cardiovascular disease Paternal Grandmother Stroke Social History Household Members: Spouse Both parents involved: No Caregiver staying overnight: No Housing: Apartment Are you a primary gericare aide to a significant other at home: No Do you presently have visiting nurse or other home services: No 75 years or older and lives alone: No Alcohol intake: never Patient Tobacco Use Status: Never used Tobacco e-Cigarette/Vaping Use: Never Used Second Hand Smoke Exposure: No service: No Current occupational status: retired and disabled Cognitive needs: Yes (mild dementia) Hearing needs: No Vision needs: Yes (wear glasses) Office Procedures 6 Minute Walk Time:: 14:00 SPO2 % at rest: 93 Pulse at rest: 87 SPO2 % during excercise: 88 Pulse during excercise: 110 SPO2 % after excercise: 95 Pulse after excercise: 88 Distance in yards walked: 75 Ricki Score: 8 Performance Observations:: Patient walked on level ground using a walker. After 2 minutes of walking O2 saturation dropped to 88% and patient was very sob. Stopped and oxygen applied at 1L via nasal cannula which did very little. O2 increased to 2L and after a minute O2 saturation recovered to 94-95%. Patient was able to complete the walk using the O2 at 2L maintaining O2 saturation of 94% and pulse of 101-110. Patient did require the use of supplemental oxygen with exertion. [address]4468 - 6 Minute Walk Assessment & Plan Assessment & Plan (1) Hypoventilation associated with obesity: Code(s): E66.2 - Morbid (severe) obesity with alveolar hypoventilation Category: Medical Plan 6mwt Orders: Orders AMB 6 minute walk Today E66.2 - Morbid (severe) obesity with alveolar hypoventilation Coding Level of Care Code Est Pt Level 1 (04961) Diagnoses Hypoventilation associated with obesity E66.2 CPT Codes Coding ([id number])
[2025-09-23 14:40] VITALS: PULSE 87; O2SAT 93
--- OUTSIDE RECORDS SUMMARY | 2025-09-23 16:32 | XMS_ITS | Patient Health Record ---
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 Name Role Phone Galileo Alarcon Primary Care Provider Jimmie Villatoro [phone] Allergies Allergen (clinical drug ingredient) Drug/Non Drug [...] one by mouth once daily Active Nystatin 655148 UNIT/GM Cream 1 application Externally Twice a [...] G47.33 12/28/2018 Active Vitamin D3 1.25 MG (22448 UT) Capsule 1 capsule Orally once weekly; [...] Occupation: Current employment status: Employed part-time [employer] Social Info Question Answer Notes Housing: What [...] W/U Status Risk Notes Problem Monoclonal gammopathy (92451877) Monoclonal gammopathy (D47.2) Active confirmed Problem Anemia in chronic kidney disease (611731822) Anemia in chronic kidney disease (D63.1) Active confirmed Problem Hyperlipidemia (04962326) Other hyperlipidemia (E78.4) Active confirmed Problem Disorder of mineral metabolism (58096613) Disorder of mineral metabolism, 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) Active confirmed Problem Generalized anxiety disorder (10263801) Generalized anxiety disorder (F41.1) Active confirmed Problem Chronic pain (65063216) Other chronic pain (G89.29) Active confirmed Problem Chronic pain syndrome (776671074) Chronic pain syndrome (G89.4) Active confirmed Problem Chronic kidney disease due to hypertension (214909113789692) Hypertensive chronic kidney disease with stage 1 through stage 4 chronic kidney disease, or unspecified chronic kidney disease (I12.9) Active confirmed Problem Low back pain (951011215) Low back pain (M54.5) Active confirmed Problem Chronic kidney disease (915690071) Chronic kidney disease, unspecified (N18.9) Active confirmed Problem Dementia (52720071) Dementia (F03.90) Active confirmed Problem Obstructive sleep apnea (49417313) Obstructive sleep apnea (G47.33) Active confirmed Problem Dyslipidemia (254485002) Dyslipidemia (E78.5) Active confirmed Problem Psoriasis (6032373) Psoriasis (L40.9) Active confirmed Problem Obesity (016219596) Obesity (BMI 30-39.9) (E66.9) Active confirmed Problem Oropharyngeal dysphagia (45797878) Oropharyngeal dysphagia (R13.12) Active confirmed Problem Laboratory test result abnormal (120898692) Abnormal laboratory test (R89.9) Active confirmed Problem Chronic fatigue syndrome (85971156) Chronic fatigue (R53.82) Active confirmed Problem Mild cognitive impairment (470602517) Mild cognitive impairment (G31.84) Active confirmed Problem Glaucoma (19095736) Glaucoma (H40.9) Active confirmed Problem Chronic kidney disease due to benign hypertension (807305812537040) Hypertensive chronic kidney disease (I12.9) Active confirmed Problem History of left knee replacement (1847513421686207) History of left knee replacement (Z96.652) Active confirmed Problem Monoclonal paraproteinemia (014207732) 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) Active confirmed Problem Primary hypertension (18458457) Primary hypertension (I10) Active confirmed Problem Body mass index 40+ - morbidly obese (400351713) BMI 40.0-44.9, adult (Z68.41) Active confirmed Problem Chronic sinusitis (61524159) Recurrent sinus infections (J32.9) Active confirmed Problem Anemia co-occurrent and due to chronic kidney disease (068695877) History of anemia due to CKD (Z86.2) Active confirmed Problem Chronic sinusitis (64758116) Chronic sinusitis, unspecified location (J32.9) Active confirmed Problem Dysphagia (15590242) Dysphagia, unspecified type (R13.10) Active confirmed Problem Chronic frontal sinusitis (89956128) Frontal sinusitis, unspecified chronicity (J32.1) Active confirmed Problem Chronic kidney disease due to hypertension (063501102220899) Hypertension, renal, stage 1-4 or unspecified chronic kidney disease (I12.9) Active confirmed Problem 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 Problem 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 (468798824) 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) Active confirmed Problem Cognitive dysfunction (993787491) Cognitive dysfunction (F09) Active confirmed Problem Sciatic nerve lesion (250008627) Piriformis syndrome, left (G57.02) Active confirmed Problem Chronic kidney disease stage 2 (098885641) Stage 2 chronic kidney disease (N18.2) Active confirmed Problem Renal bone disease (55489499) 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) Active confirmed Problem Sciatic nerve lesion (261163429) Piriformis syndrome of both sides (G57.03) Active confirmed Problem Chronic kidney disease stage 3 (disorder) (561226269) Stage 3 chronic kidney disease, unspecified whether stage 3a or 3b CKD (N18.30) Active confirmed Problem Chronic kidney disease stage 3B (disorder) (733183751) Chronic Kidney Disease, Stage 3b (N18.32) Active confirmed Problem Hx of metal allergy (Z91.09) Active confirmed Problem Chronic kidney disease stage 3B (disorder) (059580125) Stage 3b chronic kidney disease (CKD) (N18.32) Active confirmed Encounters Encounter Location Date Provider Diagnosis [facility] [address] [place] [address] 10/15/2024 Galileo Alarcon Plan Of Treatment Pending Test Test Name Order Date CMP - Comprehensive Metabolic Panel 06/2021 Ferritin Level 12/23/2021 Immunoglobulins, IgG,IgA,IgM 12/06/2023 Iron and Iron Binding Capacity Lipid Profile(Tgl,Chol,HDL,LDL Calculate d, Ratios) 02/12/2021 Urine Microalbumin,Random(Urine Creatini ne included) 12/23/2021 Parathyroid Hormone - Intact(PTHI) 06/11 RFP - Renal Function Panel(RFP)(Alb,Phos ,Ca,Na,K,Cl,Co2,Glu,BUN,Crea) 03/17/2023 RFP - Renal Function Panel(RFP)(Alb,Phos ,Ca,Na,K,Cl,Co2,Glu,BUN,Crea) 01/24/2023 Miscellaneous Lab Test 12/23/2021 Miscellaneous Lab Test 10/20/2021 XR BARIUM SWALLOW 09/10/2021 XR CHEST 2 VIEWS PA/LAT 06/30/2023 CT SINUSES W/O CONTRAST 10/06/2020 Bullous Pemphigoid (BP) 180 IgG 09/10/20 21 Bullous Pemphigoid (BP) 230 IgG 09/10/20 21 Cardiology ECG - Routine w12 Leads 07/15 MAMMO SCREENING DIGITAL AILYN (Ultrasound if Needed) 09/22/2020 MAMMO SCREENING DIGITAL AILYN (Ultrasound if Needed) 02/16/2017 PATIENT CONSENT,CTG 02/06/2024 BONE MARROW ASPIRATE, [id number] 02/06/2024 CHROMOSOME ANALYSIS 02/06/2024 FISH REVIEW 02/06/2024 FISH,CYTOGENETICS 02/06/2024 CHROMOSOME REVIEW 02/06/2024 Immunofixation(Immunoelectrophoresis),Se rum,REF 1 [facility] 12/06/2023 Protein Electrophoresis,Serum,REF 1 [facility] 12/06/2023 Reflexed PE2(S Prot Elect) Review,REF 1 [facility] 12/06/2023 Reflexed SIF(S Immunofix) Review,REF 1 [facility]06/2023 Spirometry 06/30/2023 Martorell-Lambda Free Light Chain w/Ratio,RE F 1 [facility] 12/06/2023 US Renal 06/01/2022 Future [...] End Date MEDICARE BLUE PPO [address] [address] ZEYNEP ENRIQUEZ [phone] [id number] 1 [id number] ELLEN BEARD Self - patient is the [...] back pain M54.5 Surgical History Surgery Date(Month/Year) LT total knee replacement -- Josh T10-S1 posterior spinal fusion (miguel yamel tanner and replacement) 09/16 Bilateral glaucoma procedures 2014 L-[address] Verdin 02/06/14 L4-L5 cage and rods 09/04/12 Right TKR 09/27/2011 Hysterectomy LAVH-BSO with TVT. Benign p athology 08/2010 D&C 2008 extraction 4 wisdom teeth 1971 biopsy of kidney Hospitalization History Reason Date(Month/Year) surgeries
== END 2025-09-23 14:18 | disposition home or self-care (01) ==
LOC: HO.HPS 13:10
PROVIDERS: PCP Nurse Practitioner Family; Visit Provider Nurse Practitioner Family
DX: E66.2 Morbid (severe) obesity with alveolar hypoventilation (principal)
CPT/HCPCS: 94618

== ENCOUNTER → 2025-09-23 13:09 | Outpatient (BNVA) | payer MEDICARE, SELFPAY | PROVIDERS: PCP Nurse Practitioner Family; Visit Provider Nurse Practitioner Family | DX: E66.2 Morbid (severe) obesity with alveolar hypoventilation (principal) | CPT/HCPCS: 94618; 99211 ==